=== PATIENT | male | born 1965 | race Caucasian/White ===

== ENCOUNTER 2016-12-28 00:38 | Inpatient (IN) | payer SELFPAY ==
[2016-12-28] VITALS (16 sets, daily range): BP systolic 106–133; BP diastolic 67–88
[~2016-12-28] VITALS: Ht 177.8 cm; Wt 68.6 kg
[2016-12-28] MEDS ORDERED: INFLUENZA VAX SCREEN BY RX. MC ONE (04:15)
[2016-12-28] MEDS ORDERED: PNEUMOCOCCAL VAX SCREEN BY RX. MC ONE (04:15)
[2016-12-28] MEDS ORDERED: DEXTROSE 5% IV ONE ×2 (05:30→23:00)
[2016-12-28] MEDS ORDERED: ACETYLCYSTEINE IV ONE ×2 (05:30→23:00)
[2016-12-28] MEDS: IV NORMAL SALINE 1000ML BAG 1,000 ML IV SCH ×3 (05:37→23:39)
[2016-12-28] MEDS ORDERED: SODIUM BICARB ADULT 8.4% 50 MEQ/50 ML DISP.SYRIN. IV ONE (06:00)
[2016-12-28] MEDS ORDERED: PHYSOSTIGMINE 2 MG/2 ML AMPUL. IV ONE (06:15)
--- NOTE | 2016-12-28 08:36 | PDOC1 ---
History and Physical Date of Admission Date of Admission DATE: 12/28/16 TIME: 08:27 Identification/Chief Complaint Chief Complaint unresponsive, overdose Problems: Source Source: Chart review History of Present Illness History of Present Illness found unresponsive at home, no note, but multiple pill bottles empty and in disarray, per report, he ingested, a bottle of whiskey, possibly cocaine, and an 2 bottle of benadryl, and one bottle of tylenol at least 80 of 500mg tablets of tylenol, no sure time of ingestion, but sometime yesterday, at least 40,000 mg acetominophen is estimated, and Dr. Hernandez last night estimated 80k mg this AM, he is easily startled, and was alarmed by my presence, calmed by the RN, he follows commands but does not talk Past Medical History Past Medical History unk Family History Family History: No Significant Social History ALCOHOL: heavy Drugs: Cocaine Current Medications Current Medications Current Medications Info (Do NOT chart on this placeholder) 1 each 1X ONCE MC ; Start 12/28/16 at 04:15; Stop 12/28/16 at 04:16; Status UNV Pneumococcal Polyvalent Vaccine (Do NOT chart on this placeholder) 1 each 1X ONCE MC ; Start 12/28/16 at 04:15; Stop 12/28/16 at 04:16; Status UNV Sodium Chloride 1,000 ml @ 100 mls/hr Q10H IV Last administered on 12/28/16 05:37; Start 12/28/16 at 05:00 Acetylcysteine 6.87 gm/Dextrose 1,034.35 ml @ 62.5 mls/ hr 1X ONCE IV Last administered on 12/28/16 05:36; Start 12/28/16 at 05:30; Stop 12/28/16 at 22 :02 Physostigmine Salicylate (Antilirium) 2 mg 1X ONCE IV ; Start 12/28/16 at 06: 15; Stop 12/28/16 at 06:16; Status DC Sodium Bicarbonate 50 meq 1X ONCE IV Last administered on 12/28/16 06:23; Start 12/28/16 at 06:00; Stop 12/28/16 at 06:02; Status DC Influenza Virus Vaccine Quadrival (Fluarix Quad [id number] Syringe) 0.5 ml ONCE ONCE VAX IM ; Start 12/28/16 at 09:00; Stop 12/28/16 at 09:01 Pneumococcal Polyvalent Vaccine (Pneumovax 23) 0.5 ml ONCE ONCE VAX IM ; Start 12/28/16 at 09:00; Stop 12/28/16 at 09:01 Allergies Allergies: Coded Allergies: No Known Drug Allergies (Unverified , 12/28/16) ROS Review of System unable, pt not verbal, only gives one word answer and not consistently Physical Exam General: Cooperative, moderate distress, Other (shaky, easily startled) HEENT: Atraumatic, PERRLA Lungs: Normal air movement Heart: S1S2, other (reg, tele) Abdomen: Soft Extremities: No clubbing, Normal pulses Skin: No breakdown Neuro: Other (shaky, asterixis, nystagmus, ) Psych/Mental Status: Other (odd affect, confused, ) Vitals Vitals Vital Signs Date Time Temp Pulse Resp B/P (MAP) Pulse Ox O2 Delivery O2 Flow Rate FiO2 12/28/16 08:00 98.5 103 18 133/84 (100) 100 Nasal Cannula 3.0 98.5 Labs Labs Laboratory Tests Test 12/28/16 05:35 Acetaminophen Level 167.2 mcg/ml (10-30) Acetaminophen Last Dose Date 12/27/16 Acetaminophen Last Dose Time 2100 Laboratory Tests Test 12/28/16 05:35 Acetaminophen Level 167.2 mcg/ml (10-30) Acetaminophen Last Dose Date 12/27/16 Acetaminophen Last Dose Time 2100 VTE Prophylaxis Ordered VTE Prophylaxis Devices: Yes VTE Pharmacological Prophylaxi: No Assessment/Plan Assessment/Plan acute toxic encephalopathy, sent by [place] [facility] intentional overdose of benadryl and acetominophen known, on N-actyl Cysteine gtt, on his third bag, his tylenol level keeps going up, will recheck with liver fxn Alcohol withdrawl treatmetn and banana bag ordered Neuro consult, pt is almost aphasic, and appears disoriented, is breathign well , and protecting airway dysphagia, he seemed to aspirate in the ER, hold feeds, speech therapy YADI CARLISLE MD Dec 28, 2016 08:36
[2016-12-28] MEDS ORDERED: PNEUMOC CONJ VACC 23-VALENT 0.5 ML VIAL. VAX IM ONE (09:00)
[2016-12-28] MEDS ORDERED: FLU VACC QS2017-18 (36MOS+)/PF 0.5 ML SYRINGE. VAX IM ONE (09:00)
[2016-12-28] MEDS: HALOPERIDOL LACTATE 5 MG/ML VIAL. IVP PRN ×2 (09:32→19:17)
[2016-12-28 09:33] LABS: BASO % 0 % (0-3); EOS % 0 % (0-3); HEMATOCRIT 43.5 % (39.0-53.0); HEMOGLOBIN 14.3 g/dL (13.0-17.5); LYMPH # 1.3 x10^3/uL (1.0-4.8); LYMPH % 7 % (24-48); MEAN CORPUSCULAR HEMOGLOBIN 31 pg (25-35); MEAN CORPUSCULAR HGB CONC 33 g/dL (31-37); MEAN CORPUSCULAR VOLUME 94 fL (79-100); MONO % 5 % (0-9); NEUT % 88 % (31-73); PLATELET COUNT 335 x10^3/uL (140-400); RED BLOOD COUNT 4.65 x10^6/uL (4.30-5.70); RED CELL DISTRIBUTION WIDTH 13.6 % (11.5-14.5); WHITE BLOOD COUNT 19.9 x10^3/uL (4.0-11.0)
[2016-12-28] MEDS: MULTIVIT INFUSN,ADULT 4,VIT K 10 ML, THIAMINE 100 MG, FOLIC ACID 1 MG in IV NORMAL SALI... IV SCH (09:34)
[2016-12-28 09:54] LABS: ALBUMIN 3.9 g/dL (3.4-5.0); ALBUMIN/GLOBULIN RATIO 1.1 (1.0-1.7); CALCIUM 8.7 mg/dL (8.5-10.1); CREATININE 0.8 mg/dL (0.7-1.3); GFR 102.7; POTASSIUM 3.1 mmol/L (3.5-5.1); TOTAL BILIRUBIN 1.1 mg/dL (0.2-1.0); TOTAL PROTEIN 7.4 g/dL (6.4-8.2)
[2016-12-28 10:04] LABS: INR 1.3 (0.8-1.1)
--- NOTE | 2016-12-28 11:09 | PDOC2 ---
GI CONSULT Reason For Consult: Tylenol overdose HPI: HPI: History from chart and staff. Pt asleep w/ Ativan on board, neuro following. Found at home unresponsive w/ pill bottles - Tylenol, Benadryl. Also whiskey and cocaine. Went to [facility], transferred here. Acetaminophen level >2000, ethyl alcohol 22, normal LFTs (now bili 1.1), INR 1.3. Now w/ leukocytosis. On acetylcysteine. PMH: PMH: substance abuse FH: Family History: Other (unable to obtain) Social History: ALCOHOL: heavy Drugs: Cocaine ROS: Unobtainable Vitals: Vitals: Vital Signs Date Time Temp Pulse Resp B/P (MAP) Pulse Ox O2 Delivery O2 Flow Rate FiO2 12/28/16 10:41 98.2 90 18 112/76 (88) 97 Nasal Cannula 3.0 98.2 Labs: Labs: Laboratory Tests Test 12/28/16 05:35 12/28/16 08:45 Acetaminophen Level 167.2 mcg/ml (10-30) 115.7 mcg/ml (10-30) Acetaminophen Last Dose Date 12/27/16 12/27/16 Acetaminophen Last Dose Time 2100 1600 White Blood Count 19.9 x10^3/uL (4.0-11.0) Red Blood Count 4.65 x10^6/uL (4.30-5.70) Hemoglobin 14.3 g/dL (13.0-17.5) Hematocrit 43.5 % (39.0-53.0) Mean Corpuscular Volume 94 fL (79-100) Mean Corpuscular Hemoglobin 31 pg (25-35) Mean Corpuscular Hemoglobin Concent 33 g/dL (31-37) Red Cell Distribution Width 13.6 % (11.5-14.5) Platelet Count 335 x10^3/uL (140-400) Neutrophils (%) (Auto) 88 % (31-73) Lymphocytes (%) (Auto) 7 % (24-48) Monocytes (%) (Auto) 5 % (0-9) Eosinophils (%) (Auto) 0 % (0-3) Basophils (%) (Auto) 0 % (0-3) Neutrophils # (Auto) 17.5 x10^3uL (1.8-7.7) Lymphocytes # (Auto) 1.3 x10^3/uL (1.0-4.8) Monocytes # (Auto) 1.1 x10^3/uL (0.0-1.1) Eosinophils # (Auto) 0.0 x10^3/uL (0.0-0.7) Basophils # (Auto) 0.0 x10^3/uL (0.0-0.2) Prothrombin Time 15.0 SEC (11.7-14.0) Prothromb Time International Ratio 1.3 (0.8-1.1) Sodium Level 141 mmol/L (136-145) Potassium Level 3.1 mmol/L (3.5-5.1) Chloride Level 103 mmol/L (98-107) Carbon Dioxide Level 25 mmol/L (21-32) Anion Gap 13 (6-14) Blood Urea Nitrogen 10 mg/dL (8-26) Creatinine 0.8 mg/dL (0.7-1.3) Estimated GFR (Cockcroft-Gault) 102.7 BUN/Creatinine Ratio 13 (6-20) Glucose Level 121 mg/dL (70-99) Calcium Level 8.7 mg/dL (8.5-10.1) Total Bilirubin 1.1 mg/dL (0.2-1.0) Gamma Glutamyl Transpeptidase 22 U/L (10-85) Aspartate Amino Transf (AST/SGOT) 22 U/L (15-37) Alanine Aminotransferase (ALT/SGPT) 20 U/L (16-63) Alkaline Phosphatase 68 U/L (46-116) Total Protein 7.4 g/dL (6.4-8.2) Albumin 3.9 g/dL (3.4-5.0) Albumin/Globulin Ratio 1.1 (1.0-1.7) Ethyl Alcohol Level < 10 mg/dL (0-10) Allergies: Coded Allergies: No Known Drug Allergies (Unverified , 12/28/16) Medications: Current Medications Medications (Trade) Dose Ordered Sig/Lisa Route PRN Reason Start Time Stop Time Status Last Admin Dose Admin Sodium Chloride 1,000 ml @ 100 mls/hr Q10H IV 12/28/16 05:00 12/28/16 05:37 Acetylcysteine 6.87 gm/Dextrose 1,034.35 ml @ 62.5 mls/ hr 1X ONCE IV 12/28/16 05:30 12/28/16 22:02 12/28/16 05:36 Physostigmine Salicylate (Antilirium) 2 mg 1X ONCE IV 12/28/16 06:15 12/28/16 06:16 DC 12/28/16 08:20 Sodium Bicarbonate 50 meq 1X ONCE IV 12/28/16 06:00 12/28/16 06:02 DC 12/28/16 06:23 Multivitamins 10 ml/Thiamine HCl 100 mg/Folic Acid 1 mg/Sodium Chloride 1,011.2 ml @ 100 mls/ hr DAILY IV 12/28/16 09:00 01/01/17 19:07 12/28/16 09:34 Lorazepam (Ativan) 4 mg PRN Q1HR PRN IV For CIWA 15 or greater 12/28/16 08:30 12/28/16 09:33 Haloperidol Lactate (Haldol) 5 mg PRN Q6HRS PRN IVP AGITATION 12/28/16 09:15 12/28/16 09:32 Imaging: Imaging: CT head WNL PE: GEN: NAD HEENT: Atraumatic LUNGS: CTAB HEART: tachycardic ABD: NABS, S/ND/NT EXTREMITY: No edema SKIN: No rashes, no jaundice NEURO/PSYCH: did not awaken during exam A/P: A/P: Overdose -Tylenol, Benadryl Alcohol abuse Encephalopathy Leukocytosis -- Continue acetylcysteine, monitor labs, withdrawal precautions. JEREMIE BEGR Dec 28, 2016 11:09
--- NOTE | 2016-12-28 12:35 | EKG ---
[facility] [address] [place] [address] Test Date: 2016-12-28 Test Time: 12:30:34 Pat Name: CHIN CONNER Department: Room: 110 1 Gender: M [employer] Agent: SAMINA : [id number] Requested By: YADI CARLISLE Order Number: [id number] Reading MD: David Ortiz MD Measurements Intervals [place] Rate: 88 P: 39 VT: 124 QRS: 69 QRSD: 90 T: 37 QT: 388 QTc: 473 Interpretive Statements SINUS RHYTHM Electronically Signed On 12-31-2016 14:14:37 TOP CUTTER by David Ortiz MD
[2016-12-28] MEDS ORDERED: MIRT30TA3 PO (13:14)
[2016-12-28] MEDS ORDERED: TRAM50TA PO (13:14)
[2016-12-28] MEDS ORDERED: AMIO200T2 PO (13:14)
[2016-12-28] MEDS ORDERED: ACET325T9 PO (13:14)
[2016-12-28] MEDS ORDERED: DEXA4TAB PO (13:14)
[2016-12-28] MEDS ORDERED: SERT25TA PO (13:14)
[2016-12-28] MEDS ORDERED: TIOT18CA IH (13:14)
[2016-12-28] MEDS ORDERED: ATOR40TA59 PO (13:14)
[2016-12-28] MEDS ORDERED: ALPR0.5T6 PO (13:14)
[2016-12-28] MEDS ORDERED: PROAIR HFA8.5 GM INH (13:14)
[2016-12-28] MEDS ORDERED: BUDE10.22 IH (13:14)
[2016-12-28] MEDS ORDERED: MONT10TA9 PO (13:14)
[2016-12-28] MEDS ORDERED: MELA3TAB2 PO (13:14)
[2016-12-28] MEDS ORDERED: OMEP20CA9 PO (13:14)
[2016-12-28] MEDS ORDERED: ROPI1TAB PO (13:14)
[2016-12-28] MEDS ORDERED: METO50TA6 PO (13:14)
[2016-12-28] MEDS ORDERED: HYDR-2762 PO (13:14)
[2016-12-28 13:17] LABS: PLT ESTIMATE ADEQUATE (ADEQUATE)
--- NOTE | 2016-12-28 13:46 | PDOC2 ---
NEUROLOGY CONSULT Date of Admission Date of Admission DATE: 12/28/16 TIME: 13:24 Reason for Consult Reason for Consult: IMPRESSION: Toxic encephalopathy. Metabolic encephalopathy. Multi-drug overdose, Tylenol, Benadryl, Whiskey, and possible cocaine. Lethargy. Restless. Substance and drug use/abuse. RECOMMENDATIONS/PLAN: Treat drug overdose medically. Keep good hydration. Continue Acetylcysteine. Monitoring cardiac and pulmonary function. Monitory bleeding. Monitoring hepatic function. EEG Lab: see orders. HCT w/o contrast on 12/27/16 in [facility] was negative w/o ICH. HISTORY OF THE PRESENT ILLNESS: 51-y-old male patient was found unresponsive at home with some empty bottles disarray. He was thought to overdose of several drugs including at least 80 pills of 500 mg Tylenol, and Benadryl, whiskey as well, also possible cocaine. No infarction is available for his ingestion. No suicidal notes found per reports. He was brought to [facility] and his HCT was negative. He was eventually transferred to ICU of [facility]. No clinical seizures observed so far. Past Medical and Surgical History Unknown. Family History Unknown. Social History ALCOHOL: heavy Drugs: Cocaine ALLERGY: Unknown MEDICATIONS: Refer to [facility] REVIEW OF SYSTEMS: Constitutional: No malnutrition, weight loss, cachexia. Head: No current traumatic brain or head injury. Skin: No edema, or rash. Ear: No infection. Eyes: Unknown. Nose: Unknown. Neck: No current injury. Cardiac: Unknown. Pulmonary: Unknown. GI: No GI ulcer, Unknown. Urinary/genital: Unknown. Endocrinologic: Unknown. Skeletomuscular: Unknown. Neurological: see HP. Psychiatric: substance and drug use/abuse. PHYSICAL EXAMINATION: General appearance is in acute distress. HEENT: Normocephalic and nontraumatic. Eyes, nose, ears, and throat are unremarkable. Neck is supple. No lymphadenopathy. No crepitus. Cardiovascular: S1, S2, regular rate and rhythm. Pulmonary: Mild difficult breathing. Abdomen: Bowel sounds are positive. Extremities: No rash, lesions, or edema. No restriction of range of motion NEUROLOGICAL EXAMINATION: Lethargic. Not oriented to time, place and person. PERRL, but pupil reaction was slow. EOMI not elicited. CN: no acute focal findings. Muscle tone: fluctuated. Muscle strength: minimal movements noted. DTR: 1-2 Plantar reflex: Neutral response bilaterally Gait: Unable to walk in this mentation. Sensory exam: minimal movements to stimuli. Not able to access cerebellar signs. F-T-N test not performed due to lethargy Current Medications Current Medications Current Medications Info (Do NOT chart on this placeholder) 1 each 1X ONCE MC ; Start 12/28/16 at 04:15; Stop 12/28/16 at 04:16; Status UNV Pneumococcal Polyvalent Vaccine (Do NOT chart on this placeholder) 1 each 1X ONCE MC ; Start 12/28/16 at 04:15; Stop 12/28/16 at 04:16; Status UNV Sodium Chloride 1,000 ml @ 100 mls/hr Q10H IV Last administered on 12/28/16 05:37; Start 12/28/16 at 05:00 Acetylcysteine 6.87 gm/Dextrose 1,034.35 ml @ 62.5 mls/ hr 1X ONCE IV Last administered on 12/28/16 05:36; Start 12/28/16 at 05:30; Stop 12/28/16 at 22 :02 Physostigmine Salicylate (Antilirium) 2 mg 1X ONCE IV Last administered on 08:20; Start 12/28/16 at 06:15; Stop 12/28/16 at 06:16; Status DC Sodium Bicarbonate 50 meq 1X ONCE IV Last administered on 12/28/16 06:23; Start 12/28/16 at 06:00; Stop 12/28/16 at 06:02; Status DC Influenza Virus Vaccine Quadrival (Fluarix Quad [id number] Syringe) 0.5 ml ONCE ONCE VAX IM ; Start 12/28/16 at 09:00; Stop 12/28/16 at 09:01; Status DC Pneumococcal Polyvalent Vaccine (Pneumovax 23) 0.5 ml ONCE ONCE VAX IM ; Start 12/28/16 at 09:00; Stop 12/28/16 at 09:01; Status DC Multivitamins 10 ml/Thiamine HCl 100 mg/Folic Acid 1 mg/Sodium Chloride 1,011.2 ml @ 100 mls/ hr DAILY IV Last administered on 12/28/16 09:34; Start at 09:00; Stop 01/01/17 at 19:07 Lorazepam (Ativan) 2 mg PRN Q1HR PRN IV For CIWA 8-14; Start 12/28/16 at 08:30 Lorazepam (Ativan) 4 mg PRN Q1HR PRN IV For CIWA 15 or greater Last administered on 12/28/16 09:33; Start 12/28/16 at 08:30 Haloperidol Lactate (Haldol) 5 mg PRN Q6HRS PRN IVP AGITATION Last administered on 12/28/16 09:32; Start 12/28/16 at 09:15 Active Scripts Active Reported Requip (Ropinirole Hcl) 1 Mg Tablet 2 Mg PO QHS Mirtazapine 30 Mg Tablet 0.5 Tab PO QHS Proair Hfa Inhaler (Albuterol Sulfate) 8.5 Gm Hfa.aer.ad 1-2 Puff INH PRN Q6HRS PRN Spiriva (Tiotropium Valencia) 18 Mcg Cap.w.dev 2 Inh IH DAILY Spiriva (Tiotropium Valencia) 18 Mcg Cap.w.dev 1 Cap IH DAILY Omeprazole 20 Mg Capsule.dr 1 Cap PO DAILY Dexamethasone 4 Mg Tablet 1 Tab PO QID Symbicort 80-4.5 Mcg Inhaler (Budesonide/Formoterol Fumarate) 10.2 Gm Hfa.aer.ad 2 Puff IH BID Alprazolam 0.5 Mg Tablet 1 Tab PO QAM Metoprolol Tartrate 50 Mg Tablet 0.5 Tab PO BID Amiodarone Hcl 200 Mg Tablet 1 Tab PO DAILY Tylenol (Acetaminophen) 325 Mg Tablet 2 Tab PO PRN Q6HRS PRN Melatonin 3 Mg Tablet 2 Tab PO QHS Montelukast Sodium Tablet (Montelukast Sodium) 10 Mg Tablet 1 Tab PO DAILY Atorvastatin Calcium 40 Mg Tablet 1 Tab PO QHS Tramadol Hcl 50 Mg Tablet 50 Mg PO Q6H PRN Hydrocodone-Apap 7.5-325 (Hydrocodone Bit/Acetaminophen) 1 Each Tablet 1 Tab PO PRN Q6HRS PRN Zoloft (Sertraline Hcl) 25 Mg Tablet 1 Tab PO DAILY Allergies Allergies: Coded Allergies: No Known Drug Allergies (Unverified , 12/28/16) Vitals VITALS Vital Signs Date Time Temp Pulse Resp B/P (MAP) Pulse Ox O2 Delivery O2 Flow Rate FiO2 12/28/16 13:15 99.0 89 18 126/81 (96) 98 Nasal Cannula 3.0 99.0 Labs Labs Laboratory Tests Test 12/28/16 05:35 12/28/16 08:45 Acetaminophen Level 167.2 mcg/ml (10-30) 115.7 mcg/ml (10-30) Acetaminophen Last Dose Date 12/27/16 12/27/16 Acetaminophen Last Dose Time 2100 1600 White Blood Count 19.9 x10^3/uL (4.0-11.0) Red Blood Count 4.65 x10^6/uL (4.30-5.70) Hemoglobin 14.3 g/dL (13.0-17.5) Hematocrit 43.5 % (39.0-53.0) Mean Corpuscular Volume 94 fL (79-100) Mean Corpuscular Hemoglobin 31 pg (25-35) Mean Corpuscular Hemoglobin Concent 33 g/dL (31-37) Red Cell Distribution Width 13.6 % (11.5-14.5) Platelet Count 335 x10^3/uL (140-400) Neutrophils (%) (Auto) 88 % (31-73) Lymphocytes (%) (Auto) 7 % (24-48) Monocytes (%) (Auto) 5 % (0-9) Eosinophils (%) (Auto) 0 % (0-3) Basophils (%) (Auto) 0 % (0-3) Neutrophils # (Auto) 17.5 x10^3uL (1.8-7.7) Lymphocytes # (Auto) 1.3 x10^3/uL (1.0-4.8) Monocytes # (Auto) 1.1 x10^3/uL (0.0-1.1) Eosinophils # (Auto) 0.0 x10^3/uL (0.0-0.7) Basophils # (Auto) 0.0 x10^3/uL (0.0-0.2) Segmented Neutrophils % 85 % (35-66) Band Neutrophils % 3 % (0-9) Lymphocytes % 5 % (24-48) Monocytes % 7 % (0-10) Platelet Estimate Adequate (ADEQUATE) Prothrombin Time 15.0 SEC (11.7-14.0) Prothromb Time International Ratio 1.3 (0.8-1.1) Sodium Level 141 mmol/L (136-145) Potassium Level 3.1 mmol/L (3.5-5.1) Chloride Level 103 mmol/L (98-107) Carbon Dioxide Level 25 mmol/L (21-32) Anion Gap 13 (6-14) Blood Urea Nitrogen 10 mg/dL (8-26) Creatinine 0.8 mg/dL (0.7-1.3) Estimated GFR (Cockcroft-Gault) 102.7 BUN/Creatinine Ratio 13 (6-20) Glucose Level 121 mg/dL (70-99) Calcium Level 8.7 mg/dL (8.5-10.1) Total Bilirubin 1.1 mg/dL (0.2-1.0) Gamma Glutamyl Transpeptidase 22 U/L (10-85) Aspartate Amino Transf (AST/SGOT) 22 U/L (15-37) Alanine Aminotransferase (ALT/SGPT) 20 U/L (16-63) Alkaline Phosphatase 68 U/L (46-116) Total Protein 7.4 g/dL (6.4-8.2) Albumin 3.9 g/dL (3.4-5.0) Albumin/Globulin Ratio 1.1 (1.0-1.7) Ethyl Alcohol Level < 10 mg/dL (0-10) Laboratory Tests Test 12/28/16 05:35 12/28/16 08:45 Acetaminophen Level 167.2 mcg/ml (10-30) 115.7 mcg/ml (10-30) Acetaminophen Last Dose Date 12/27/16 12/27/16 Acetaminophen Last Dose Time 2100 1600 White Blood Count 19.9 x10^3/uL (4.0-11.0) Red Blood Count 4.65 x10^6/uL (4.30-5.70) Hemoglobin 14.3 g/dL (13.0-17.5) Hematocrit 43.5 % (39.0-53.0) Mean Corpuscular Volume 94 fL (79-100) Mean Corpuscular Hemoglobin 31 pg (25-35) Mean Corpuscular Hemoglobin Concent 33 g/dL (31-37) Red Cell Distribution Width 13.6 % (11.5-14.5) Platelet Count 335 x10^3/uL (140-400) Neutrophils (%) (Auto) 88 % (31-73) Lymphocytes (%) (Auto) 7 % (24-48) Monocytes (%) (Auto) 5 % (0-9) Eosinophils (%) (Auto) 0 % (0-3) Basophils (%) (Auto) 0 % (0-3) Neutrophils # (Auto) 17.5 x10^3uL (1.8-7.7) Lymphocytes # (Auto) 1.3 x10^3/uL (1.0-4.8) Monocytes # (Auto) 1.1 x10^3/uL (0.0-1.1) Eosinophils # (Auto) 0.0 x10^3/uL (0.0-0.7) Basophils # (Auto) 0.0 x10^3/uL (0.0-0.2) Segmented Neutrophils % 85 % (35-66) Band Neutrophils % 3 % (0-9) Lymphocytes % 5 % (24-48) Monocytes % 7 % (0-10) Platelet Estimate Adequate (ADEQUATE) Prothrombin Time 15.0 SEC (11.7-14.0) Prothromb Time International Ratio 1.3 (0.8-1.1) Sodium Level 141 mmol/L (136-145) Potassium Level 3.1 mmol/L (3.5-5.1) Chloride Level 103 mmol/L (98-107) Carbon Dioxide Level 25 mmol/L (21-32) Anion Gap 13 (6-14) Blood Urea Nitrogen 10 mg/dL (8-26) Creatinine 0.8 mg/dL (0.7-1.3) Estimated GFR (Cockcroft-Gault) 102.7 BUN/Creatinine Ratio 13 (6-20) Glucose Level 121 mg/dL (70-99) Calcium Level 8.7 mg/dL (8.5-10.1) Total Bilirubin 1.1 mg/dL (0.2-1.0) Gamma Glutamyl Transpeptidase 22 U/L (10-85) Aspartate Amino Transf (AST/SGOT) 22 U/L (15-37) Alanine Aminotransferase (ALT/SGPT) 20 U/L (16-63) Alkaline Phosphatase 68 U/L (46-116) Total Protein 7.4 g/dL (6.4-8.2) Albumin 3.9 g/dL (3.4-5.0) Albumin/Globulin Ratio 1.1 (1.0-1.7) Ethyl Alcohol Level < 10 mg/dL (0-10) DOUGLAS GARDUNO MD Dec 28, 2016 13:46
[2016-12-28 13:56] LABS: BARBITURATES NEG (NEG); BENZODIAZEPINES NEG (NEG); CANNABINOIDS NEG (NEG); COCAINE POS (NEG); METHADONE NEG (NEG); OPIATES NEG (NEG); PHENCYCLIDINE NEG (NEG)
[2016-12-28] MEDS: ENOXAPARIN 40 MG/0.4 ML SYRINGE. SQ SCH (19:50)
[2016-12-29] VITALS (23 sets, daily range): BP systolic 75–154; BP diastolic 56–86
[2016-12-29] MEDS: HALOPERIDOL LACTATE 5 MG/ML VIAL. IVP PRN (01:00)
[2016-12-29 04:32] LABS: HCO3 ABG 23 mmol/L (21-28); PCO2 ABG 43 mmHg (35-46); PH ABG 7.34 (7.35-7.45); PO2 ABG 44 mmHg (75-108); SAT O2 ABG 80 % (92-99)
[2016-12-29 04:33] LABS: FIO2 ABG 100
[2016-12-29] MEDS ORDERED: ROCURONIUM 50 MG/5 ML VIAL. ONE ×2 (05:20)
[2016-12-29] MEDS ORDERED: SUCCINYLCHOLINE 200 MG/10 ML VIAL. ONE (05:21)
[2016-12-29] MEDS ORDERED: PROPOFOL 20 ML IV ONE (05:22)
[2016-12-29 05:32] LABS: BASO # 0.1 x10^3/uL (0.0-0.2); BASO % 0 % (0-3); EOS % 0 % (0-3); HEMATOCRIT 47.6 % (39.0-53.0); HEMOGLOBIN 15.5 g/dL (13.0-17.5); LYMPH # 1.5 x10^3/uL (1.0-4.8); LYMPH % 8 % (24-48); MEAN CORPUSCULAR HEMOGLOBIN 30 pg (25-35); MEAN CORPUSCULAR HGB CONC 33 g/dL (31-37); MEAN CORPUSCULAR VOLUME 93 fL (79-100); MONO % 4 % (0-9); NEUT % 88 % (31-73); PLATELET COUNT 320 x10^3/uL (140-400); WHITE BLOOD COUNT 20.3 x10^3/uL (4.0-11.0)
[2016-12-29 05:36] LABS: INR 1.6 (0.8-1.1); PROTHROMBIN TIME PATIENT 18.4 SEC (11.7-14.0)
[2016-12-29] MEDS: PROPOFOL 100 ML IV PRN ×2 (05:55→13:35)
[2016-12-29] MEDS: IV NORMAL SALINE 1000ML BAG 1,000 ML IV SCH (05:56)
[2016-12-29 05:57] LABS: ALBUMIN 3.4 g/dL (3.4-5.0); ALBUMIN/GLOBULIN RATIO 1.3 (1.0-1.7); CALCIUM 8.4 mg/dL (8.5-10.1); CREATININE 0.6 mg/dL (0.7-1.3); GFR 143.2; POTASSIUM 3.2 mmol/L (3.5-5.1); TOTAL BILIRUBIN 1.4 mg/dL (0.2-1.0); TOTAL PROTEIN 6.1 g/dL (6.4-8.2)
--- NOTE | 2016-12-29 06:09 | RAD ---
Chest radiograph 12/29/2016 5:45 AM INDICATION: ETT/NG placement COMPARISON: None available TECHNIQUE: Supine frontal view of the chest is provided. FINDINGS: The cardiomediastinal silhouette is within normal limits. Supine technique limits evaluation for pneumothorax. Bilateral perihilar coarse interstitial and alveolar airspace disease is present. There is a probable left pleural effusion which is layering posteriorly. Suspect a 10 mm nodular density in the right upper lobe. Endotracheal tube terminates 2.5 cm above the level of the shantell. Side port of the nasogastric tube projects over the gastric lumen. No significant osseous abnormality is identified. IMPRESSION: 1. Endotracheal tube terminates 2.5 cm above the level of the shantell. Side port of the nasogastric tube projects over the gastric lumen. 2. Bilateral perihilar airspace disease may be seen in the setting of bilateral infiltrates versus pulmonary edema versus pulmonary hemorrhage. 3. Suspect a small to moderate left pleural effusion. Short-term follow-up upright chest radiograph may be of benefit. Electronically signed by: Aubree Bray MD (12/29/2016 6:06 AM) [id number]
[2016-12-29 08:38] LABS: HCO3 ABG 23 mmol/L (21-28); PCO2 ABG 43 mmHg (35-46); PH ABG 7.36 (7.35-7.45); PO2 ABG 90 mmHg (75-108); SAT O2 ABG 97 % (92-99)
[2016-12-29 08:40] LABS: FIO2 ABG 60
[2016-12-29] MEDS ORDERED: LORazepam 100 MG in IV NORMAL SALINE 100ML 50 ML IV PRN (08:45)
[2016-12-29] MEDS: MULTIVIT INFUSN,ADULT 4,VIT K 10 ML, THIAMINE 100 MG, FOLIC ACID 1 MG in IV NORMAL SALI... IV SCH (09:01)
[2016-12-29] MEDS: AMINO AC 3%/ELECTROLYTE/GLYCER 1,000 ML IV SCH ×2 (09:02→21:15)
--- NOTE | 2016-12-29 09:37 | PDOC ---
PROGRESS NOTES Chief Complaint Chief Complaint acute toxic encephalopathy, acute hypoxic respiratory failure, aspiration pneumonitis, intentional overdose of benadryl and acetominophen known, on 4th N-actyl Cysteine gtt, will stop after this one, tylenol level now normal\ Alcohol abuse, and withdrawl treatment and banana bag ordered, cocaine abuse before admit, encephalopathy was POA, he wa s almost aphasic, and disoriented, dysphagia, he seemed to aspirate in the ER, History of Present Illness History of Present Illness intubated overnight, sputum suctioned, cx sent PULM consult OG tube feeds to start tylenol level now better prognosis poor, liver function has changed, INR now 1.6, ALT up today, will follow daily Vitals Vitals Vital Signs Date Time Temp Pulse Resp B/P (MAP) Pulse Ox O2 Delivery O2 Flow Rate FiO2 12/29/16 07:56 99.7 122 26 110/73 (85) 95 Ventilator 15.0 99.7 Physical Exam General: Cooperative, moderate distress, Other (shaky, easily startled) Abdomen: Soft Extremities: No clubbing, Normal pulses Skin: No breakdown Labs LABS Laboratory Tests Test 12/28/16 12:45 12/28/16 13:15 12/28/16 18:30 12/29/16 00:35 Urine Opiates Screen Neg (NEG) Urine Methadone Screen Neg (NEG) Urine Barbiturates Neg (NEG) Urine Phencyclidine Screen Neg (NEG) Urine Amphetamine/Methamphetamine Neg (NEG) Urine Benzodiazepines Screen Neg (NEG) Urine Cocaine Screen Pos (NEG) Urine Cannabinoids Screen Neg (NEG) Urine Ethyl Alcohol Neg (NEG) Acetaminophen Level 81.13 mcg/ml (10-30) 37.8 mcg/ml (10-30) 17.5 mcg/ml (10-30) Acetaminophen Last Dose Date 12/27/16 12/27/16 Unk Acetaminophen Last Dose Time 1800 1800 Unk Test 12/29/16 04:23 12/29/16 05:00 12/29/16 08:39 O2 Saturation 80 % (92-99) 97 % (92-99) Arterial Blood pH 7.34 (7.35-7.45) 7.36 (7.35-7.45) Arterial Blood pCO2 at Patient Temp 43 mmHg (35-46) 43 mmHg (35-46) Arterial Blood pO2 at Patient Temp 44 mmHg (75-108) 90 mmHg (75-108) Arterial Blood HCO3 23 mmol/L (21-28) 23 mmol/L (21-28) Arterial Blood Base Excess -3 mmol/L (-3-3) -2 mmol/L (-3-3) FiO2 100 60 White Blood Count 20.3 x10^3/uL (4.0-11.0) Red Blood Count 5.10 x10^6/uL (4.30-5.70) Hemoglobin 15.5 g/dL (13.0-17.5) Hematocrit 47.6 % (39.0-53.0) Mean Corpuscular Volume 93 fL (79-100) Mean Corpuscular Hemoglobin 30 pg (25-35) Mean Corpuscular Hemoglobin Concent 33 g/dL (31-37) Red Cell Distribution Width 14.0 % (11.5-14.5) Platelet Count 320 x10^3/uL (140-400) Neutrophils (%) (Auto) 88 % (31-73) Lymphocytes (%) (Auto) 8 % (24-48) Monocytes (%) (Auto) 4 % (0-9) Eosinophils (%) (Auto) 0 % (0-3) Basophils (%) (Auto) 0 % (0-3) Neutrophils # (Auto) 17.8 x10^3uL (1.8-7.7) Lymphocytes # (Auto) 1.5 x10^3/uL (1.0-4.8) Monocytes # (Auto) 0.8 x10^3/uL (0.0-1.1) Eosinophils # (Auto) 0.0 x10^3/uL (0.0-0.7) Basophils # (Auto) 0.1 x10^3/uL (0.0-0.2) Prothrombin Time 18.4 SEC (11.7-14.0) Prothromb Time International Ratio 1.6 (0.8-1.1) Sodium Level 138 mmol/L (136-145) Potassium Level 3.2 mmol/L (3.5-5.1) Chloride Level 104 mmol/L (98-107) Carbon Dioxide Level 17 mmol/L (21-32) Anion Gap 17 (6-14) Blood Urea Nitrogen 12 mg/dL (8-26) Creatinine 0.6 mg/dL (0.7-1.3) Estimated GFR (Cockcroft-Gault) 143.2 BUN/Creatinine Ratio 20 (6-20) Glucose Level 84 mg/dL (70-99) Calcium Level 8.4 mg/dL (8.5-10.1) Total Bilirubin 1.4 mg/dL (0.2-1.0) Aspartate Amino Transf (AST/SGOT) 5 U/L (15-37) Alanine Aminotransferase (ALT/SGPT) 113 U/L (16-63) Alkaline Phosphatase 68 U/L (46-116) Total Protein 6.1 g/dL (6.4-8.2) Albumin 3.4 g/dL (3.4-5.0) Albumin/Globulin Ratio 1.3 (1.0-1.7) Acetaminophen Level 19.5 mcg/ml (10-30) Acetaminophen Last Dose Date Unknown Acetaminophen Last Dose Time Unknown Review of Systems Review of Systems unable Assessment and Plan Assessmemt and Plan crititcal ill Problems: Comment Review of Relevant I have reviewed the following items jessa (where applicable) has been applied. Labs Laboratory Tests Test 12/28/16 03:45 12/28/16 05:35 12/28/16 08:45 12/28/16 12:45 Nasal Screen MRSA (PCR) Negative (Negative) Acetaminophen Level 167.2 mcg/ml (10-30) 115.7 mcg/ml (10-30) Acetaminophen Last Dose Date 12/27/16 12/27/16 Acetaminophen Last Dose Time 2100 1600 White Blood Count 19.9 x10^3/uL (4.0-11.0) Red Blood Count 4.65 x10^6/uL (4.30-5.70) Hemoglobin 14.3 g/dL (13.0-17.5) Hematocrit 43.5 % (39.0-53.0) Mean Corpuscular Volume 94 fL (79-100) Mean Corpuscular Hemoglobin 31 pg (25-35) Mean Corpuscular Hemoglobin Concent 33 g/dL (31-37) Red Cell Distribution Width 13.6 % (11.5-14.5) Platelet Count 335 x10^3/uL (140-400) Neutrophils (%) (Auto) 88 % (31-73) Lymphocytes (%) (Auto) 7 % (24-48) Monocytes (%) (Auto) 5 % (0-9) Eosinophils (%) (Auto) 0 % (0-3) Basophils (%) (Auto) 0 % (0-3) Neutrophils # (Auto) 17.5 x10^3uL (1.8-7.7) Lymphocytes # (Auto) 1.3 x10^3/uL (1.0-4.8) Monocytes # (Auto) 1.1 x10^3/uL (0.0-1.1) Eosinophils # (Auto) 0.0 x10^3/uL (0.0-0.7) Basophils # (Auto) 0.0 x10^3/uL (0.0-0.2) Segmented Neutrophils % 85 % (35-66) Band Neutrophils % 3 % (0-9) Lymphocytes % 5 % (24-48) Monocytes % 7 % (0-10) Platelet Estimate Adequate (ADEQUATE) Prothrombin Time 15.0 SEC (11.7-14.0) Prothromb Time International Ratio 1.3 (0.8-1.1) Sodium Level 141 mmol/L (136-145) Potassium Level 3.1 mmol/L (3.5-5.1) Chloride Level 103 mmol/L (98-107) Carbon Dioxide Level 25 mmol/L (21-32) Anion Gap 13 (6-14) Blood Urea Nitrogen 10 mg/dL (8-26) Creatinine 0.8 mg/dL (0.7-1.3) Estimated GFR (Cockcroft-Gault) 102.7 BUN/Creatinine Ratio 13 (6-20) Glucose Level 121 mg/dL (70-99) Calcium Level 8.7 mg/dL (8.5-10.1) Total Bilirubin 1.1 mg/dL (0.2-1.0) Gamma Glutamyl Transpeptidase 22 U/L (10-85) Aspartate Amino Transf (AST/SGOT) 22 U/L (15-37) Alanine Aminotransferase (ALT/SGPT) 20 U/L (16-63) Alkaline Phosphatase 68 U/L (46-116) Total Protein 7.4 g/dL (6.4-8.2) Albumin 3.9 g/dL (3.4-5.0) Albumin/Globulin Ratio 1.1 (1.0-1.7) Ethyl Alcohol Level < 10 mg/dL (0-10) Urine Opiates Screen Neg (NEG) Urine Methadone Screen Neg (NEG) Urine Barbiturates Neg (NEG) Urine Phencyclidine Screen Neg (NEG) Urine Amphetamine/Methamphetamine Neg (NEG) Urine Benzodiazepines Screen Neg (NEG) Urine Cocaine Screen Pos (NEG) Urine Cannabinoids Screen Neg (NEG) Urine Ethyl Alcohol Neg (NEG) Test 12/28/16 13:15 12/28/16 18:30 12/29/16 00:35 12/29/16 04:23 Acetaminophen Level 81.13 mcg/ml (10-30) 37.8 mcg/ml (10-30) 17.5 mcg/ml (10-30) Acetaminophen Last Dose Date 12/27/16 12/27/16 Unk Acetaminophen Last Dose Time 1800 1800 Unk O2 Saturation 80 % (92-99) Arterial Blood pH 7.34 (7.35-7.45) Arterial Blood pCO2 at Patient Temp 43 mmHg (35-46) Arterial Blood pO2 at Patient Temp 44 mmHg (75-108) Arterial Blood HCO3 23 mmol/L (21-28) Arterial Blood Base Excess -3 mmol/L (-3-3) FiO2 100 Test 12/29/16 05:00 12/29/16 08:39 White Blood Count 20.3 x10^3/uL (4.0-11.0) Red Blood Count 5.10 x10^6/uL (4.30-5.70) Hemoglobin 15.5 g/dL (13.0-17.5) Hematocrit 47.6 % (39.0-53.0) Mean Corpuscular Volume 93 fL (79-100) Mean Corpuscular Hemoglobin 30 pg (25-35) Mean Corpuscular Hemoglobin Concent 33 g/dL (31-37) Red Cell Distribution Width 14.0 % (11.5-14.5) Platelet Count 320 x10^3/uL (140-400) Neutrophils (%) (Auto) 88 % (31-73) Lymphocytes (%) (Auto) 8 % (24-48) Monocytes (%) (Auto) 4 % (0-9) Eosinophils (%) (Auto) 0 % (0-3) Basophils (%) (Auto) 0 % (0-3) Neutrophils # (Auto) 17.8 x10^3uL (1.8-7.7) Lymphocytes # (Auto) 1.5 x10^3/uL (1.0-4.8) Monocytes # (Auto) 0.8 x10^3/uL (0.0-1.1) Eosinophils # (Auto) 0.0 x10^3/uL (0.0-0.7) Basophils # (Auto) 0.1 x10^3/uL (0.0-0.2) Prothrombin Time 18.4 SEC (11.7-14.0) Prothromb Time International Ratio 1.6 (0.8-1.1) Sodium Level 138 mmol/L (136-145) Potassium Level 3.2 mmol/L (3.5-5.1) Chloride Level 104 mmol/L (98-107) Carbon Dioxide Level 17 mmol/L (21-32) Anion Gap 17 (6-14) Blood Urea Nitrogen 12 mg/dL (8-26) Creatinine 0.6 mg/dL (0.7-1.3) Estimated GFR (Cockcroft-Gault) 143.2 BUN/Creatinine Ratio 20 (6-20) Glucose Level 84 mg/dL (70-99) Calcium Level 8.4 mg/dL (8.5-10.1) Total Bilirubin 1.4 mg/dL (0.2-1.0) Aspartate Amino Transf (AST/SGOT) 5 U/L (15-37) Alanine Aminotransferase (ALT/SGPT) 113 U/L (16-63) Alkaline Phosphatase 68 U/L (46-116) Total Protein 6.1 g/dL (6.4-8.2) Albumin 3.4 g/dL (3.4-5.0) Albumin/Globulin Ratio 1.3 (1.0-1.7) Acetaminophen Level 19.5 mcg/ml (10-30) Acetaminophen Last Dose Date Unknown Acetaminophen Last Dose Time Unknown O2 Saturation 97 % (92-99) Arterial Blood pH 7.36 (7.35-7.45) Arterial Blood pCO2 at Patient Temp 43 mmHg (35-46) Arterial Blood pO2 at Patient Temp 90 mmHg (75-108) Arterial Blood HCO3 23 mmol/L (21-28) Arterial Blood Base Excess -2 mmol/L (-3-3) FiO2 60 Laboratory Tests Test 12/28/16 12:45 12/28/16 13:15 12/28/16 18:30 12/29/16 00:35 Urine Opiates Screen Neg (NEG) Urine Methadone Screen Neg (NEG) Urine Barbiturates Neg (NEG) Urine Phencyclidine Screen Neg (NEG) Urine Amphetamine/Methamphetamine Neg (NEG) Urine Benzodiazepines Screen Neg (NEG) Urine Cocaine Screen Pos (NEG) Urine Cannabinoids Screen Neg (NEG) Urine Ethyl Alcohol Neg (NEG) Acetaminophen Level 81.13 mcg/ml (10-30) 37.8 mcg/ml (10-30) 17.5 mcg/ml (10-30) Acetaminophen Last Dose Date 12/27/16 12/27/16 Unk Acetaminophen Last Dose Time 1800 1800 Unk Test 12/29/16 04:23 12/29/16 05:00 12/29/16 08:39 O2 Saturation 80 % (92-99) 97 % (92-99) Arterial Blood pH 7.34 (7.35-7.45) 7.36 (7.35-7.45) Arterial Blood pCO2 at Patient Temp 43 mmHg (35-46) 43 mmHg (35-46) Arterial Blood pO2 at Patient Temp 44 mmHg (75-108) 90 mmHg (75-108) Arterial Blood HCO3 23 mmol/L (21-28) 23 mmol/L (21-28) Arterial Blood Base Excess -3 mmol/L (-3-3) -2 mmol/L (-3-3) FiO2 100 60 White Blood Count 20.3 x10^3/uL (4.0-11.0) Red Blood Count 5.10 x10^6/uL (4.30-5.70) Hemoglobin 15.5 g/dL (13.0-17.5) Hematocrit 47.6 % (39.0-53.0) Mean Corpuscular Volume 93 fL (79-100) Mean Corpuscular Hemoglobin 30 pg (25-35) Mean Corpuscular Hemoglobin Concent 33 g/dL (31-37) Red Cell Distribution Width 14.0 % (11.5-14.5) Platelet Count 320 x10^3/uL (140-400) Neutrophils (%) (Auto) 88 % (31-73) Lymphocytes (%) (Auto) 8 % (24-48) Monocytes (%) (Auto) 4 % (0-9) Eosinophils (%) (Auto) 0 % (0-3) Basophils (%) (Auto) 0 % (0-3) Neutrophils # (Auto) 17.8 x10^3uL (1.8-7.7) Lymphocytes # (Auto) 1.5 x10^3/uL (1.0-4.8) Monocytes # (Auto) 0.8 x10^3/uL (0.0-1.1) Eosinophils # (Auto) 0.0 x10^3/uL (0.0-0.7) Basophils # (Auto) 0.1 x10^3/uL (0.0-0.2) Prothrombin Time 18.4 SEC (11.7-14.0) Prothromb Time International Ratio 1.6 (0.8-1.1) Sodium Level 138 mmol/L (136-145) Potassium Level 3.2 mmol/L (3.5-5.1) Chloride Level 104 mmol/L (98-107) Carbon Dioxide Level 17 mmol/L (21-32) Anion Gap 17 (6-14) Blood Urea Nitrogen 12 mg/dL (8-26) Creatinine 0.6 mg/dL (0.7-1.3) Estimated GFR (Cockcroft-Gault) 143.2 BUN/Creatinine Ratio 20 (6-20) Glucose Level 84 mg/dL (70-99) Calcium Level 8.4 mg/dL (8.5-10.1) Total Bilirubin 1.4 mg/dL (0.2-1.0) Aspartate Amino Transf (AST/SGOT) 5 U/L (15-37) Alanine Aminotransferase (ALT/SGPT) 113 U/L (16-63) Alkaline Phosphatase 68 U/L (46-116) Total Protein 6.1 g/dL (6.4-8.2) Albumin 3.4 g/dL (3.4-5.0) Albumin/Globulin Ratio 1.3 (1.0-1.7) Acetaminophen Level 19.5 mcg/ml (10-30) Acetaminophen Last Dose Date Unknown Acetaminophen Last Dose Time Unknown Medications Current Medications Info (Do NOT chart on this placeholder) 1 each 1X ONCE MC ; Start 12/28/16 at 04:15; Stop 12/28/16 at 04:16; Status UNV Pneumococcal Polyvalent Vaccine (Do NOT chart on this placeholder) 1 each 1X ONCE MC ; Start 12/28/16 at 04:15; Stop 12/28/16 at 04:16; Status UNV Sodium Chloride 1,000 ml @ 100 mls/hr Q10H IV Last administered on 12/29/16 05:56; Start 12/28/16 at 05:00; Stop 12/29/16 at 08:37; Status DC Acetylcysteine 6.87 gm/Dextrose 1,034.35 ml @ 62.5 mls/ hr 1X ONCE IV Last administered on 12/28/16 05:36; Start 12/28/16 at 05:30; Stop 12/28/16 at 22 :02; Status DC Physostigmine Salicylate (Antilirium) 2 mg 1X ONCE IV Last administered on 08:20; Start 12/28/16 at 06:15; Stop 12/28/16 at 06:16; Status DC Sodium Bicarbonate 50 meq 1X ONCE IV Last administered on 12/28/16 06:23; Start 12/28/16 at 06:00; Stop 12/28/16 at 06:02; Status DC Influenza Virus Vaccine Quadrival (Fluarix Quad 4507-2914 Syringe) 0.5 ml ONCE ONCE VAX IM ; Start 12/28/16 at 09:00; Stop 12/28/16 at 09:01; Status DC Pneumococcal Polyvalent Vaccine (Pneumovax 23) 0.5 ml ONCE ONCE VAX IM ; Start 12/28/16 at 09:00; Stop 12/28/16 at 09:01; Status DC Multivitamins 10 ml/Thiamine HCl 100 mg/Folic Acid 1 mg/Sodium Chloride 1,011.2 ml @ 100 mls/ hr DAILY IV Last administered on 12/29/16 09:01; Start at 09:00; Stop 01/01/17 at 19:07 Lorazepam (Ativan) 2 mg PRN Q1HR PRN IV For CIWA 8-14 Last administered on 01:12; Start 12/28/16 at 08:30 Lorazepam (Ativan) 4 mg PRN Q1HR PRN IV For CIWA 15 or greater Last administered on 12/29/16 04:11; Start 12/28/16 at 08:30 Haloperidol Lactate (Haldol) 5 mg PRN Q6HRS PRN IVP AGITATION Last administered on 12/29/16 01:00; Start 12/28/16 at 09:15 Enoxaparin Sodium (Lovenox Per Pharmacy Prophylaxis Dosing) 1 each PRN DAILY PRN MC SEE COMMENTS; Start 12/28/16 at 13:45 Enoxaparin Sodium (Lovenox 40mg Syringe) 40 mg Q24H SQ Last administered on 19:50; Start 12/28/16 at 14:00 Acetylcysteine 6.9 gm/Dextrose 1,034.5 ml @ 62.509 mls/hr 1X ONCE IV Last administered on 12/28/16 22:43; Start 12/28/16 at 23:00; Stop 12/29/16 at 15 :32 Lorazepam (Ativan) 2 mg 1X ONCE IV Last administered on 12/29/16 01:35; Start 12/29/16 at 01:45; Stop 12/29/16 at 01:46; Status DC Propofol 100 ml @ 0 mls/hr CONT PRN IV SEE I/O RECORD Last administered on 05:55; Start 12/29/16 at 05:00 Rocuronium [place] (Zemuron) 50 mg STK-MED ONCE .ROUTE ; Start 12/29/16 at 05: 20; Stop 12/29/16 at 05:21; Status DC Succinylcholine Chloride (Anectine) 200 mg STK-MED ONCE .ROUTE ; Start at 05:21; Stop 12/29/16 at 05:22; Status DC Propofol 20 ml @ As Directed STK-MED ONCE IV ; Start 12/29/16 at 05:22; Stop 12/29/16 at 05:23; Status DC Amino Acids/ Glycerin/ Electrolytes 1,000 ml @ 80 mls/hr [id number] IV Last administered on 12/29/16 09:02; Start 12/29/16 at 08:45 Lorazepam (Ativan) 4 mg PRN Q4HRS PRN IV ANXIETY / AGITATION; Start 12/29/16 at 08:45; Status Cancel Lorazepam 100 mg/ Sodium Chloride 100 ml @ 0 mls/hr CONT PRN IV IVF Last administered on 11/18/17at 09:02; Start 12/29/16 at 08:45 Ceftriaxone Sodium 1 gm/ Dextrose 50 ml @ 100 mls/hr Q24H IV ; Start 12/29/16 at 09:30; Status UNV Metronidazole 100 ml @ 100 mls/hr Q8HRS IV ; Start 12/29/16 at 14:00 Active Scripts Active Reported Requip (Ropinirole Hcl) 1 Mg Tablet 2 Mg PO QHS Mirtazapine 30 Mg Tablet 0.5 Tab PO QHS Proair Hfa Inhaler (Albuterol Sulfate) 8.5 Gm Hfa.aer.ad 1-2 Puff INH PRN Q6HRS PRN Spiriva (Tiotropium [place]) 18 Mcg Cap.w.dev 2 Inh IH DAILY Spiriva (Tiotropium [place]) 18 Mcg Cap.w.dev 1 Cap IH DAILY Omeprazole 20 Mg Capsule.dr 1 Cap PO DAILY Dexamethasone 4 Mg Tablet 1 Tab PO QID Symbicort 80-4.5 Mcg Inhaler (Budesonide/Formoterol Fumarate) 10.2 Gm Hfa.aer.ad 2 Puff IH BID Alprazolam 0.5 Mg Tablet 1 Tab PO QAM Metoprolol Tartrate 50 Mg Tablet 0.5 Tab PO BID Amiodarone Hcl 200 Mg Tablet 1 Tab PO DAILY Tylenol (Acetaminophen) 325 Mg Tablet 2 Tab PO PRN Q6HRS PRN Melatonin 3 Mg Tablet 2 Tab PO QHS Montelukast Sodium Tablet (Montelukast Sodium) 10 Mg Tablet 1 Tab PO DAILY Atorvastatin Calcium 40 Mg Tablet 1 Tab PO QHS Tramadol Hcl 50 Mg Tablet 50 Mg PO Q6H PRN Hydrocodone-Apap 7.5-325 (Hydrocodone Bit/Acetaminophen) 1 Each Tablet 1 Tab PO PRN Q6HRS PRN Zoloft (Sertraline Hcl) 25 Mg Tablet 1 Tab PO DAILY Vitals/I & O Vital Sign - Last 24 Hours 12/28/16 12/28/16 12/28/16 12/28/16 09:50 10:41 11:10 12:00 Temp 98.2 98.3 98.2 98.3 Pulse 93 90 88 Resp 18 18 18 B/P (MAP) 113/88 (96) 112/76 (88) 112/76 (88) Pulse Ox 98 97 97 O2 Delivery Nasal Cannula Nasal Cannula Nasal Cannula Room Air O2 Flow Rate 3.0 3.0 3.0 12/28/16 12/28/16 12/28/16 12/28/16 12:09 12:30 13:15 14:04 Temp 98.9 99.0 99.0 98.4 98.9 99.0 99.0 98.4 Pulse 85 89 91 Resp 18 18 18 B/P (MAP) 133/80 (97) 126/81 (96) 122/79 (93) Pulse Ox 99 98 94 O2 Delivery Nasal Cannula Nasal Cannula Nasal Cannula O2 Flow Rate 3.0 3.0 3.0 12/28/16 12/28/16 12/28/16 12/28/16 15:02 16:00 19:00 20:00 Temp 98.4 98.9 99.0 98.4 98.9 99.0 Pulse 89 91 92 89 Resp 18 18 20 20 B/P (MAP) 119/79 (92) 131/78 (95) 119/68 (85) 106/74 (85) Pulse Ox 97 96 92 91 O2 Delivery Nasal Cannula Nasal Cannula Nasal Cannula Nasal Cannula O2 Flow Rate 3.0 3.0 5.0 5.0 12/28/16 12/28/16 12/28/16 12/29/16 20:00 21:00 23:00 00:00 Pulse 93 96 98 Resp 20 26 28 B/P (MAP) 110/67 (81) 113/76 (88) 118/71 (87) Pulse Ox 92 91 91 O2 Delivery Nasal Cannula Nasal Cannula Nasal Cannula Nasal Cannula O2 Flow Rate 5.0 5.0 6.0 6.0 12/29/16 12/29/16 12/29/16 12/29/16 00:06 00:16 02:00 03:26 Temp 98.5 98.5 Pulse 110 115 Resp 28 28 B/P (MAP) 137/81 (99) 128/79 (95) Pulse Ox 97 97 O2 Delivery Nasal Cannula NonRebreather Mask NonRebreather Mask O2 Flow Rate 6.0 15.0 15.0 12/29/16 12/29/16 12/29/16 12/29/16 03:59 04:00 05:00 05:30 Temp 98.1 98.1 Pulse 114 114 Resp 32 28 B/P (MAP) 136/86 (103) 125/60 (81) Pulse Ox 89 90 92 O2 Delivery Non-Rebreather NonRebreather Mask NonRebreather Mask Ventilator O2 Flow Rate 15.0 15.0 15.0 12/29/16 12/29/16 12/29/16 12/29/16 06:00 07:13 07:30 07:56 Temp 99.7 99.7 Pulse 135 122 Resp 28 26 B/P (MAP) 154/86 (108) 110/73 (85) Pulse Ox 93 95 95 O2 Delivery Ventilator Ventilator Mechanical Ventilator Ventilator O2 Flow Rate 15.0 Intake and Output 12/28/16 12/28/16 12/29/16 15:00 23:00 07:00 Intake Total 4385.4 ml Output Total 475 ml 620 ml 440 ml Balance -475 ml -620 ml 3945.4 ml YADI CARLISLE MD Dec 29, 2016 09:37
[2016-12-29] MEDS ORDERED: cefTRIAXone IV Push 1 GM VIAL. IVP SCH (10:00)
[2016-12-29] MEDS ORDERED: POTASSIUM CHLORIDE 20 MEQ/15 ML ORAL LIQUID. PEG ONE (10:00)
[2016-12-29] MEDS ORDERED: PIP/TAZO PER PHARMACY MC PRN (10:15)
[2016-12-29] MEDS ORDERED: ATROPINE 0.5 MG/5 ML DISP.SYRIN. IV PRN (10:15)
[2016-12-29] MEDS ORDERED: IV NORMAL SALINE 500ML BAG 500 ML IV PRN (10:15)
--- NOTE | 2016-12-29 10:22 | CONS ---
DATE OF CONSULTATION: ATTENDING PHYSICIAN: Chari Ledesma. REASON FOR CONSULTATION: Respiratory failure. HISTORY OF PRESENT ILLNESS: Cortez is a 51-year-old male who was found unresponsive at home, had multiple bottles empty. Per report from the ER, he ingested a bottle of whiskey, also had cocaine and 2 bottles of Benadryl and 1 bottle of Tylenol, at least 80 of the 500 mg tablets of Tylenol. The timing of the ingestion was not so sure. The patient was seen in the ER where initially, he was following commands, but then had altered mental status. He was not responsive in our ICU; as a result, he was intubated. His arterial blood gases initially showed a pH of 7.34, pCO2 of 43 and a pO2 of 44 on 100% oxygen and latest one on 60%, pH of 7.36, pCO2 of 43 and a pO2 of 90. His chest x-ray is showing diffuse bilateral infiltrates. He did vomit a couple times as per report. I have been asked to see him for further evaluation. His urine drug screen was positive for cocaine. It was positive for acetaminophen, his level was 81 initially, now it is down to 19.5. I have been asked to see him for further evaluation. PAST SURGICAL HISTORY: Unknown. SURGERIES: Unknown. FAMILY HISTORY: Unknown. ALLERGIES: None. CURRENT MEDICATIONS: Reviewed as listed in the MRAD including antibiotics, Rocephin. Lovenox for DVT prophylaxis. REVIEW OF SYSTEMS: Unable to obtain from the patient. PHYSICAL EXAMINATION: VITAL SIGNS: T-max of 99.7, blood pressure is stable, 95% sats on current FiO2. HEENT: Sclerae nonicteric. NECK: Supple. LUNGS: Diminished breath sounds. CARDIOVASCULAR: Regular rate and rhythm. ABDOMEN: Soft, nontender. EXTREMITIES: There is trace pitting edema. LABORATORY DATA: Reviewed. BUN 12, creatinine 0.6. Toxicology screen positive for cocaine and acetaminophen. INR is 1.6 from 1.3. White cell count 20.3. IMPRESSION: 1. Acute respiratory failure secondary to acute toxic encephalopathy. 2. Acute toxic encephalopathy secondary to overdose of Benadryl, acetaminophen, cocaine and alcohol. 3. Diffuse bilateral infiltrates, most likely related to aspiration pneumonia. 4. Fever secondary to aspiration pneumonia. 5. Leukocytosis. 6. Abnormal urine toxicology screen positive for cocaine and acetaminophen. Levels have come down, but INR is increasing and we will monitor closely. RECOMMENDATIONS: 1. Continue with present assist control mode and wean FIO2. 2. We will stop sedation in next 24 hours and assess mental status. 3. Broad spectrum antibiotics will be initiated. 4. Follow chest x-rays. 5. Follow ABGs. 6. Monitor blood pressure closely. 7. Repeat INR. 8. Deep venous thrombosis and stress ulcer prophylaxis. 9. We will follow along with you. Discussed with RN and RT. Critical care time 40 minutes. ROMAINE CORDERO MD DR: PATRICIA/ashley JOB#: [id number] / [id number]
[2016-12-29] MEDS: FAMOTIDINE 20 MG/2 ML VIAL IVP SCH ×2 (10:56→22:18)
[2016-12-29] MEDS: DEXMEDETOMIDINE 200 MCG in IV NORMAL SALINE 50ML 48 ML IV PRN ×3 (11:00→19:32)
[2016-12-29] MEDS: PIPERACILLIN/TAZO IV Push 3.375 GM VIAL. IVP SCH ×2 (12:15→17:27)
--- NOTE | 2016-12-29 13:03 | PDOC ---
G I PROGRESS NOTE Reason for Follow-up Tylenol overdose Subjective Intubated/sedated Physical Exam Lungs coarse BS CV S1 S2 ABD Decreased BS, non distended Review of Relevant I have reviewed the following items jessa (where applicable) has been applied. Labs Laboratory Tests Test 12/28/16 03:45 12/28/16 05:35 12/28/16 08:45 12/28/16 12:45 Nasal Screen MRSA (PCR) Negative (Negative) Acetaminophen Level 167.2 mcg/ml (10-30) 115.7 mcg/ml (10-30) Acetaminophen Last Dose Date 12/27/16 12/27/16 Acetaminophen Last Dose Time 2100 1600 White Blood Count 19.9 x10^3/uL (4.0-11.0) Red Blood Count 4.65 x10^6/uL (4.30-5.70) Hemoglobin 14.3 g/dL (13.0-17.5) Hematocrit 43.5 % (39.0-53.0) Mean Corpuscular Volume 94 fL (79-100) Mean Corpuscular Hemoglobin 31 pg (25-35) Mean Corpuscular Hemoglobin Concent 33 g/dL (31-37) Red Cell Distribution Width 13.6 % (11.5-14.5) Platelet Count 335 x10^3/uL (140-400) Neutrophils (%) (Auto) 88 % (31-73) Lymphocytes (%) (Auto) 7 % (24-48) Monocytes (%) (Auto) 5 % (0-9) Eosinophils (%) (Auto) 0 % (0-3) Basophils (%) (Auto) 0 % (0-3) Neutrophils # (Auto) 17.5 x10^3uL (1.8-7.7) Lymphocytes # (Auto) 1.3 x10^3/uL (1.0-4.8) Monocytes # (Auto) 1.1 x10^3/uL (0.0-1.1) Eosinophils # (Auto) 0.0 x10^3/uL (0.0-0.7) Basophils # (Auto) 0.0 x10^3/uL (0.0-0.2) Segmented Neutrophils % 85 % (35-66) Band Neutrophils % 3 % (0-9) Lymphocytes % 5 % (24-48) Monocytes % 7 % (0-10) Platelet Estimate Adequate (ADEQUATE) Prothrombin Time 15.0 SEC (11.7-14.0) Prothromb Time International Ratio 1.3 (0.8-1.1) Sodium Level 141 mmol/L (136-145) Potassium Level 3.1 mmol/L (3.5-5.1) Chloride Level 103 mmol/L (98-107) Carbon Dioxide Level 25 mmol/L (21-32) Anion Gap 13 (6-14) Blood Urea Nitrogen 10 mg/dL (8-26) Creatinine 0.8 mg/dL (0.7-1.3) Estimated GFR (Cockcroft-Gault) 102.7 BUN/Creatinine Ratio 13 (6-20) Glucose Level 121 mg/dL (70-99) Calcium Level 8.7 mg/dL (8.5-10.1) Total Bilirubin 1.1 mg/dL (0.2-1.0) Gamma Glutamyl Transpeptidase 22 U/L (10-85) Aspartate Amino Transf (AST/SGOT) 22 U/L (15-37) Alanine Aminotransferase (ALT/SGPT) 20 U/L (16-63) Alkaline Phosphatase 68 U/L (46-116) Total Protein 7.4 g/dL (6.4-8.2) Albumin 3.9 g/dL (3.4-5.0) Albumin/Globulin Ratio 1.1 (1.0-1.7) Ethyl Alcohol Level < 10 mg/dL (0-10) Urine Opiates Screen Neg (NEG) Urine Methadone Screen Neg (NEG) Urine Barbiturates Neg (NEG) Urine Phencyclidine Screen Neg (NEG) Urine Amphetamine/Methamphetamine Neg (NEG) Urine Benzodiazepines Screen Neg (NEG) Urine Cocaine Screen Pos (NEG) Urine Cannabinoids Screen Neg (NEG) Urine Ethyl Alcohol Neg (NEG) Test 12/28/16 13:15 12/28/16 18:30 12/29/16 00:35 12/29/16 04:23 Acetaminophen Level 81.13 mcg/ml (10-30) 37.8 mcg/ml (10-30) 17.5 mcg/ml (10-30) Acetaminophen Last Dose Date 12/27/16 12/27/16 Unk Acetaminophen Last Dose Time 1800 1800 Unk O2 Saturation 80 % (92-99) Arterial Blood pH 7.34 (7.35-7.45) Arterial Blood pCO2 at Patient Temp 43 mmHg (35-46) Arterial Blood pO2 at Patient Temp 44 mmHg (75-108) Arterial Blood HCO3 23 mmol/L (21-28) Arterial Blood Base Excess -3 mmol/L (-3-3) FiO2 100 Test 12/29/16 05:00 12/29/16 08:39 12/29/16 10:00 White Blood Count 20.3 x10^3/uL (4.0-11.0) Red Blood Count 5.10 x10^6/uL (4.30-5.70) Hemoglobin 15.5 g/dL (13.0-17.5) Hematocrit 47.6 % (39.0-53.0) Mean Corpuscular Volume 93 fL (79-100) Mean Corpuscular Hemoglobin 30 pg (25-35) Mean Corpuscular Hemoglobin Concent 33 g/dL (31-37) Red Cell Distribution Width 14.0 % (11.5-14.5) Platelet Count 320 x10^3/uL (140-400) Neutrophils (%) (Auto) 88 % (31-73) Lymphocytes (%) (Auto) 8 % (24-48) Monocytes (%) (Auto) 4 % (0-9) Eosinophils (%) (Auto) 0 % (0-3) Basophils (%) (Auto) 0 % (0-3) Neutrophils # (Auto) 17.8 x10^3uL (1.8-7.7) Lymphocytes # (Auto) 1.5 x10^3/uL (1.0-4.8) Monocytes # (Auto) 0.8 x10^3/uL (0.0-1.1) Eosinophils # (Auto) 0.0 x10^3/uL (0.0-0.7) Basophils # (Auto) 0.1 x10^3/uL (0.0-0.2) Prothrombin Time 18.4 SEC (11.7-14.0) Prothromb Time International Ratio 1.6 (0.8-1.1) Sodium Level 138 mmol/L (136-145) Potassium Level 3.2 mmol/L (3.5-5.1) Chloride Level 104 mmol/L (98-107) Carbon Dioxide Level 17 mmol/L (21-32) Anion Gap 17 (6-14) Blood Urea Nitrogen 12 mg/dL (8-26) Creatinine 0.6 mg/dL (0.7-1.3) Estimated GFR (Cockcroft-Gault) 143.2 BUN/Creatinine Ratio 20 (6-20) Glucose Level 84 mg/dL (70-99) Calcium Level 8.4 mg/dL (8.5-10.1) Total Bilirubin 1.4 mg/dL (0.2-1.0) Aspartate Amino Transf (AST/SGOT) 5 U/L (15-37) Alanine Aminotransferase (ALT/SGPT) 113 U/L (16-63) Alkaline Phosphatase 68 U/L (46-116) Total Protein 6.1 g/dL (6.4-8.2) Albumin 3.4 g/dL (3.4-5.0) Albumin/Globulin Ratio 1.3 (1.0-1.7) Acetaminophen Level 19.5 mcg/ml (10-30) 21.9 mcg/ml (10-30) Acetaminophen Last Dose Date Unknown Unknown Acetaminophen Last Dose Time Unknown Unknown O2 Saturation 97 % (92-99) Arterial Blood pH 7.36 (7.35-7.45) Arterial Blood pCO2 at Patient Temp 43 mmHg (35-46) Arterial Blood pO2 at Patient Temp 90 mmHg (75-108) Arterial Blood HCO3 23 mmol/L (21-28) Arterial Blood Base Excess -2 mmol/L (-3-3) FiO2 60 Laboratory Tests Test 12/28/16 13:15 12/28/16 18:30 12/29/16 00:35 12/29/16 04:23 Acetaminophen Level 81.13 mcg/ml (10-30) 37.8 mcg/ml (10-30) 17.5 mcg/ml (10-30) Acetaminophen Last Dose Date 12/27/16 12/27/16 Unk Acetaminophen Last Dose Time 1800 1800 Unk O2 Saturation 80 % (92-99) Arterial Blood pH 7.34 (7.35-7.45) Arterial Blood pCO2 at Patient Temp 43 mmHg (35-46) Arterial Blood pO2 at Patient Temp 44 mmHg (75-108) Arterial Blood HCO3 23 mmol/L (21-28) Arterial Blood Base Excess -3 mmol/L (-3-3) FiO2 100 Test 12/29/16 05:00 12/29/16 08:39 12/29/16 10:00 White Blood Count 20.3 x10^3/uL (4.0-11.0) Red Blood Count 5.10 x10^6/uL (4.30-5.70) Hemoglobin 15.5 g/dL (13.0-17.5) Hematocrit 47.6 % (39.0-53.0) Mean Corpuscular Volume 93 fL (79-100) Mean Corpuscular Hemoglobin 30 pg (25-35) Mean Corpuscular Hemoglobin Concent 33 g/dL (31-37) Red Cell Distribution Width 14.0 % (11.5-14.5) Platelet Count 320 x10^3/uL (140-400) Neutrophils (%) (Auto) 88 % (31-73) Lymphocytes (%) (Auto) 8 % (24-48) Monocytes (%) (Auto) 4 % (0-9) Eosinophils (%) (Auto) 0 % (0-3) Basophils (%) (Auto) 0 % (0-3) Neutrophils # (Auto) 17.8 x10^3uL (1.8-7.7) Lymphocytes # (Auto) 1.5 x10^3/uL (1.0-4.8) Monocytes # (Auto) 0.8 x10^3/uL (0.0-1.1) Eosinophils # (Auto) 0.0 x10^3/uL (0.0-0.7) Basophils # (Auto) 0.1 x10^3/uL (0.0-0.2) Prothrombin Time 18.4 SEC (11.7-14.0) Prothromb Time International Ratio 1.6 (0.8-1.1) Sodium Level 138 mmol/L (136-145) Potassium Level 3.2 mmol/L (3.5-5.1) Chloride Level 104 mmol/L (98-107) Carbon Dioxide Level 17 mmol/L (21-32) Anion Gap 17 (6-14) Blood Urea Nitrogen 12 mg/dL (8-26) Creatinine 0.6 mg/dL (0.7-1.3) Estimated GFR (Cockcroft-Gault) 143.2 BUN/Creatinine Ratio 20 (6-20) Glucose Level 84 mg/dL (70-99) Calcium Level 8.4 mg/dL (8.5-10.1) Total Bilirubin 1.4 mg/dL (0.2-1.0) Aspartate Amino Transf (AST/SGOT) 5 U/L (15-37) Alanine Aminotransferase (ALT/SGPT) 113 U/L (16-63) Alkaline Phosphatase 68 U/L (46-116) Total Protein 6.1 g/dL (6.4-8.2) Albumin 3.4 g/dL (3.4-5.0) Albumin/Globulin Ratio 1.3 (1.0-1.7) Acetaminophen Level 19.5 mcg/ml (10-30) 21.9 mcg/ml (10-30) Acetaminophen Last Dose Date Unknown Unknown Acetaminophen Last Dose Time Unknown Unknown O2 Saturation 97 % (92-99) Arterial Blood pH 7.36 (7.35-7.45) Arterial Blood pCO2 at Patient Temp 43 mmHg (35-46) Arterial Blood pO2 at Patient Temp 90 mmHg (75-108) Arterial Blood HCO3 23 mmol/L (21-28) Arterial Blood Base Excess -2 mmol/L (-3-3) FiO2 60 Medications Current Medications Info (Do NOT chart on this placeholder) 1 each 1X ONCE MC ; Start 12/28/16 at 04:15; Stop 12/28/16 at 04:16; Status UNV Pneumococcal Polyvalent Vaccine (Do NOT chart on this placeholder) 1 each 1X ONCE MC ; Start 12/28/16 at 04:15; Stop 12/28/16 at 04:16; Status UNV Sodium Chloride 1,000 ml @ 100 mls/hr Q10H IV Last administered on 12/29/16 05:56; Start 12/28/16 at 05:00; Stop 12/29/16 at 08:37; Status DC Acetylcysteine 6.87 gm/Dextrose 1,034.35 ml @ 62.5 mls/ hr 1X ONCE IV Last administered on 12/28/16 05:36; Start 12/28/16 at 05:30; Stop 12/28/16 at 22 :02; Status DC Physostigmine Salicylate (Antilirium) 2 mg 1X ONCE IV Last administered on 08:20; Start 12/28/16 at 06:15; Stop 12/28/16 at 06:16; Status DC Sodium Bicarbonate 50 meq 1X ONCE IV Last administered on 12/28/16 06:23; Start 12/28/16 at 06:00; Stop 12/28/16 at 06:02; Status DC Influenza Virus Vaccine Quadrival (Fluarix Quad [id number] Syringe) 0.5 ml ONCE ONCE VAX IM ; Start 12/28/16 at 09:00; Stop 12/28/16 at 09:01; Status DC Pneumococcal Polyvalent Vaccine (Pneumovax 23) 0.5 ml ONCE ONCE VAX IM ; Start 12/28/16 at 09:00; Stop 12/28/16 at 09:01; Status DC Multivitamins 10 ml/Thiamine HCl 100 mg/Folic Acid 1 mg/Sodium Chloride 1,011.2 ml @ 100 mls/ hr DAILY IV Last administered on 12/29/16 09:01; Start at 09:00; Stop 12/29/16 at 09:33; Status DC Lorazepam (Ativan) 2 mg PRN Q1HR PRN IV For CIWA 8-14 Last administered on 01:12; Start 12/28/16 at 08:30 Lorazepam (Ativan) 4 mg PRN Q1HR PRN IV For CIWA 15 or greater Last administered on 12/29/16 04:11; Start 12/28/16 at 08:30 Haloperidol Lactate (Haldol) 5 mg PRN Q6HRS PRN IVP AGITATION Last administered on 12/29/16 01:00; Start 12/28/16 at 09:15 Enoxaparin Sodium (Lovenox Per Pharmacy Prophylaxis Dosing) 1 each PRN DAILY PRN MC SEE COMMENTS; Start 12/28/16 at 13:45 Enoxaparin Sodium (Lovenox 40mg Syringe) 40 mg Q24H SQ Last administered on 19:50; Start 12/28/16 at 14:00 Acetylcysteine 6.9 gm/Dextrose 1,034.5 ml @ 62.509 mls/hr 1X ONCE IV Last administered on 12/28/16 22:43; Start 12/28/16 at 23:00; Stop 12/29/16 at 15 :32 Lorazepam (Ativan) 2 mg 1X ONCE IV Last administered on 12/29/16 01:35; Start 12/29/16 at 01:45; Stop 12/29/16 at 01:46; Status DC Propofol 100 ml @ 0 mls/hr CONT PRN IV SEE I/O RECORD Last administered on 05:55; Start 12/29/16 at 05:00 Rocuronium [place] (Zemuron) 50 mg STK-MED ONCE .ROUTE ; Start 12/29/16 at 05: 20; Stop 12/29/16 at 05:21; Status DC Succinylcholine Chloride (Anectine) 200 mg STK-MED ONCE .ROUTE ; Start at 05:21; Stop 12/29/16 at 05:22; Status DC Propofol 20 ml @ As Directed STK-MED ONCE IV ; Start 12/29/16 at 05:22; Stop 12/29/16 at 05:23; Status DC Amino Acids/ Glycerin/ Electrolytes 1,000 ml @ 80 mls/hr [id number] IV Last administered on 12/29/16 09:02; Start 12/29/16 at 08:45 Lorazepam (Ativan) 4 mg PRN Q4HRS PRN IV ANXIETY / AGITATION; Start 12/29/16 at 08:45; Status Cancel Lorazepam 100 mg/ Sodium Chloride 100 ml @ 0 mls/hr CONT PRN IV IVF Last administered on 12/29/16 09:02; Start 12/29/16 at 08:45 Ceftriaxone Sodium 1 gm/ Dextrose 50 ml @ 100 mls/hr Q24H IV ; Start 12/29/16 at 09:30; Status UNV Metronidazole 100 ml @ 100 mls/hr Q8HRS IV ; Start 12/29/16 at 14:00; Stop at 14:00; Status DC Potassium Chloride (KCl Oral Soln) 40 meq 1X ONCE PEG Last administered on 10:37; Start 12/29/16 at 10:00; Stop 12/29/16 at 10:01; Status DC Ceftriaxone Sodium (Rocephin) 1 gm Q24H IVP ; Start 12/29/16 at 10:00; Stop at 10:08; Status DC Piperacillin Sod/ Tazobactam Sod (Zosyn Per Pharmacy) 1 each PRN DAILY PRN MC SEE COMMENTS; Start 12/29/16 at 10:15 Levofloxacin/ Dextrose 100 ml @ 100 mls/hr Q24H IV Last administered on 10:56; Start 12/29/16 at 11:00 Famotidine (Pepcid Vial) 20 mg BID IVP Last administered on 12/29/16 10:56; Start 12/29/16 at 11:00 Dexmedetomidine HCl 200 mcg/ Sodium Chloride 50 ml @ 0 mls/hr CONT PRN IV PER PROTOCOL Last administered on 12/29/16 11:00; Start 12/29/16 at 10:15 Fentanyl Citrate (Fentanyl 2ml Vial) 25 mcg PRN Q1HR PRN IV PAIN; Start at 10:15 Lorazepam (Ativan) 0.5 mg PRN Q2HRS PRN IV AGITATION; Start 12/29/16 at 10:15 Propofol 100 ml @ 0 mls/hr CONT PRN IV SEDATION; Start 12/29/16 at 10:15 Sodium Chloride 500 ml @ 500 mls/hr 1X PRN PRN IV SEE COMMENTS; Start at 10:15 Atropine Sulfate 0.5 mg PRN Q5MIN PRN IV SEE COMMENTS; Start 12/29/16 at 10:15 Piperacillin Sod/ Tazobactam Sod (Zosyn) 3.375 gm Q6HRS IVP Last administered on 12/29/16 12:15; Start 12/29/16 at 12:00 Active Scripts Active Reported Requip (Ropinirole Hcl) 1 Mg Tablet 2 Mg PO QHS Mirtazapine 30 Mg Tablet 0.5 Tab PO QHS Proair Hfa Inhaler (Albuterol Sulfate) 8.5 Gm Hfa.aer.ad 1-2 Puff INH PRN Q6HRS PRN Spiriva (Tiotropium [place]) 18 Mcg Cap.w.dev 2 Inh IH DAILY Spiriva (Tiotropium [place]) 18 Mcg Cap.w.dev 1 Cap IH DAILY Omeprazole 20 Mg Capsule.dr 1 Cap PO DAILY Dexamethasone 4 Mg Tablet 1 Tab PO QID Symbicort 80-4.5 Mcg Inhaler (Budesonide/Formoterol Fumarate) 10.2 Gm Hfa.aer.ad 2 Puff IH BID Alprazolam 0.5 Mg Tablet 1 Tab PO QAM Metoprolol Tartrate 50 Mg Tablet 0.5 Tab PO BID Amiodarone Hcl 200 Mg Tablet 1 Tab PO DAILY Tylenol (Acetaminophen) 325 Mg Tablet 2 Tab PO PRN Q6HRS PRN Melatonin 3 Mg Tablet 2 Tab PO QHS Montelukast Sodium Tablet (Montelukast Sodium) 10 Mg Tablet 1 Tab PO DAILY Atorvastatin Calcium 40 Mg Tablet 1 Tab PO QHS Tramadol Hcl 50 Mg Tablet 50 Mg PO Q6H PRN Hydrocodone-Apap 7.5-325 (Hydrocodone Bit/Acetaminophen) 1 Each Tablet 1 Tab PO PRN Q6HRS PRN Zoloft (Sertraline Hcl) 25 Mg Tablet 1 Tab PO DAILY Vitals/I & O Vital Sign - Last 24 Hours 12/28/16 12/28/16 12/28/16 12/28/16 13:15 14:04 15:02 16:00 Temp 99.0 98.4 98.4 98.9 99.0 98.4 98.4 98.9 Pulse 89 91 89 91 Resp 18 B/P (MAP) 126/81 (96) 122/79 (93) 119/79 (92) 131/78 (95) Pulse Ox 98 94 97 96 O2 Delivery Nasal Cannula Nasal Cannula Nasal Cannula Nasal Cannula O2 Flow Rate 3.0 3.0 3.0 3.0 12/28/16 12/28/16 12/28/16 12/28/16 19:00 20:00 20:00 21:00 Temp 99.0 99.0 Pulse 92 89 93 Resp 20 20 20 B/P (MAP) 119/68 (85) 106/74 (85) 110/67 (81) Pulse Ox 92 91 92 O2 Delivery Nasal Cannula Nasal Cannula Nasal Cannula Nasal Cannula O2 Flow Rate 5.0 5.0 5.0 5.0 12/28/16 12/29/16 12/29/16 12/29/16 23:00 00:00 00:06 00:16 Temp 98.5 98.5 Pulse 96 98 Resp 26 28 B/P (MAP) 113/76 (88) 118/71 (87) Pulse Ox 91 91 O2 Delivery Nasal Cannula Nasal Cannula Nasal Cannula O2 Flow Rate 6.0 6.0 6.0 12/29/16 12/29/16 12/29/16 12/29/16 02:00 03:26 03:59 04:00 Temp 98.1 98.1 Pulse 110 115 114 Resp 28 28 32 B/P (MAP) 137/81 (99) 128/79 (95) 136/86 (103) Pulse Ox 97 97 89 O2 Delivery NonRebreather Mask NonRebreather Mask Non-Rebreather NonRebreather Mask O2 Flow Rate 15.0 15.0 15.0 15.0 12/29/16 12/29/16 12/29/16 12/29/16 05:00 05:30 06:00 07:13 Pulse 114 135 Resp 28 28 B/P (MAP) 125/60 (81) 154/86 (108) Pulse Ox 90 92 93 95 O2 Delivery NonRebreather Mask Ventilator Ventilator Ventilator O2 Flow Rate 15.0 12/29/16 12/29/16 12/29/16 12/29/16 07:30 07:56 08:00 08:00 Temp 99.7 99.7 Pulse 122 125 Resp 26 20 B/P (MAP) 110/73 (85) 92/65 (74) Pulse Ox 95 98 O2 Delivery Mechanical Ventilator Ventilator Mechanical Ventilator Ventilator O2 Flow Rate 15.0 15.0 12/29/16 12/29/16 12/29/16 12/29/16 09:00 09:15 10:00 11:00 Pulse 118 116 109 Resp 22 20 26 B/P (MAP) 100/70 (80) 93/62 (72) 94/64 (74) Pulse Ox 97 96 94 99 O2 Delivery Ventilator Ventilator Ventilator Ventilator 12/29/16 12/29/16 12/29/16 11:25 12:00 12:04 Temp 98.3 98.3 Pulse 102 Resp 26 B/P (MAP) 84/59 (67) Pulse Ox 98 98 O2 Delivery Ventilator Ventilator Mechanical Ventilator Intake and Output 12/28/16 12/28/16 12/29/16 15:00 23:00 07:00 Intake Total 4385.4 ml Output Total 475 ml 620 ml 440 ml Balance -475 ml -620 ml 3945.4 ml Problem List Acetaminophen overdose- improving tylenol levels with mucomyst,LFTS noted, intervening respiratory failure noted, cpm KAMRYN CABA MD Dec 29, 2016 13:03
[2016-12-29] MEDS: ENOXAPARIN 40 MG/0.4 ML SYRINGE. SQ SCH (13:37)
--- NOTE | 2016-12-29 14:46 | PDOC ---
PROGRESS NOTES Assessment Assessment Toxic encephalopathy. Metabolic encephalopathy. Multi-drug overdose, Tylenol, Benadryl, Whiskey. Cocaine positive in system. Lethargy. Restless. Substance and drug use/abuse. RECOMMENDATIONS/PLAN: Treat drug overdose medically. Keep good hydration. Continue Acetylcysteine. Monitoring cardiac and pulmonary function. Monitory bleeding. Monitoring hepatic function. EEG Lab: see orders. Repeat HCT if condition worse. HCT w/o contrast on 12/27/16 in [facility] was negative w/o ICH. HISTORY OF THE PRESENT ILLNESS: 51-y-old male patient was found unresponsive at home with some empty bottles disarray. He was thought to overdose of several drugs including at least 80 pills of 500 mg Tylenol, and Benadryl, whiskey as well, also possible cocaine. No infarction is available for his ingestion. No suicidal notes found per reports. He was brought to [facility] and his HCT was negative. He was eventually transferred to ICU of [facility]. No clinical seizures observed so far. Past Medical and Surgical History Unknown. Family History Unknown. Social History ALCOHOL: heavy Drugs: Cocaine ALLERGY: Unknown MEDICATIONS: Refer to [facility] REVIEW OF SYSTEMS: Constitutional: No malnutrition, weight loss, cachexia. Head: No current traumatic brain or head injury. Skin: No edema, or rash. Ear: No infection. Eyes: Unknown. Nose: Unknown. Neck: No current injury. Cardiac: Unknown. Pulmonary: Unknown. GI: No GI ulcer, Unknown. Urinary/genital: Unknown. Endocrinologic: Unknown. Skeletomuscular: Unknown. Neurological: see HP. Psychiatric: substance and drug use/abuse. PHYSICAL EXAMINATION: General appearance is in acute distress. HEENT: Normocephalic and nontraumatic. Eyes, nose, ears, and throat are unremarkable. Neck is supple. No lymphadenopathy. No crepitus. Cardiovascular: S1, S2, regular rate and rhythm. Pulmonary: Mild difficult breathing. Abdomen: Bowel sounds are positive. Extremities: No rash, lesions, or edema. No restriction of range of motion NEUROLOGICAL EXAMINATION: Sedated. Not oriented to time, place and person. PERRL, but pupil reaction was slow. EOMI not elicited. CN: no acute focal findings. Muscle tone: fluctuated. Muscle strength: minimal movements noted. DTR: 1-2 Plantar reflex: Neutral response bilaterally Gait: Unable to walk in this mentation. Sensory exam: minimal movements to stimuli. Not able to access cerebellar signs. F-T-N test not performed due to lethargy Objective Objective Vital Signs Date Time Temp Pulse Resp B/P (MAP) Pulse Ox O2 Delivery O2 Flow Rate FiO2 12/29/16 14:00 84 26 75/56 (62) 99 Ventilator 12/29/16 12:00 98.3 98.3 12/29/16 08:00 15.0 Intake and Output 12/29/16 07:00 Intake Total 4385.4 ml Output Total 1535 ml Balance 2850.4 ml Intake IV Total 4385.4 ml Output Urine Total 1535 ml Vitals Signs Vitals VS - Last 72 Hours, by Label Date Time Temp Pulse Resp B/P (MAP) Pulse Ox O2 Delivery O2 Flow Rate FiO2 12/29/16 14:00 84 26 75/56 (62) 99 Ventilator 12/29/16 13:12 98 Ventilator 12/29/16 13:00 87 26 97/65 (76) 99 Ventilator 12/29/16 12:04 Mechanical Ventilator 12/29/16 12:00 98.3 102 26 84/59 (67) 98 Ventilator 98.3 12/29/16 11:25 98 Ventilator 12/29/16 11:00 109 26 94/64 (74) 99 Ventilator 12/29/16 10:00 116 20 93/62 (72) 94 Ventilator 12/29/16 09:15 96 Ventilator 12/29/16 09:00 118 22 100/70 (80) 97 Ventilator 12/29/16 08:00 125 20 92/65 (74) 98 Ventilator 12/29/16 08:00 Mechanical Ventilator 15.0 12/29/16 07:56 99.7 122 26 110/73 (85) 95 Ventilator 15.0 99.7 12/29/16 07:30 Mechanical Ventilator 12/29/16 07:13 95 Ventilator 12/29/16 06:00 135 28 154/86 (108) 93 Ventilator 12/29/16 05:30 92 Ventilator 12/29/16 05:00 114 28 125/60 (81) 90 NonRebreather Mask 15.0 12/29/16 04:00 98.1 114 32 136/86 (103) 89 NonRebreather Mask 15.0 98.1 12/29/16 03:59 Non-Rebreather 15.0 12/29/16 03:26 115 28 128/79 (95) 97 NonRebreather Mask 15.0 12/29/16 02:00 110 28 137/81 (99) 97 NonRebreather Mask 15.0 12/29/16 00:16 98.5 98.5 12/29/16 00:06 Nasal Cannula 6.0 12/29/16 00:00 98 28 118/71 (87) 91 Nasal Cannula 6.0 12/28/16 23:00 96 26 113/76 (88) 91 Nasal Cannula 6.0 12/28/16 21:00 93 20 110/67 (81) 92 Nasal Cannula 5.0 12/28/16 20:00 Nasal Cannula 5.0 12/28/16 20:00 89 20 106/74 (85) 91 Nasal Cannula 5.0 12/28/16 19:00 99.0 92 20 119/68 (85) 92 Nasal Cannula 5.0 99.0 12/28/16 16:00 98.9 91 18 131/78 (95) 96 Nasal Cannula 3.0 98.9 12/28/16 15:02 98.4 89 18 119/79 (92) 97 Nasal Cannula 3.0 98.4 12/28/16 14:04 98.4 91 18 122/79 (93) 94 Nasal Cannula 3.0 98.4 12/28/16 13:15 99.0 89 18 126/81 (96) 98 Nasal Cannula 3.0 99.0 12/28/16 12:30 99.0 99.0 12/28/16 12:09 98.9 85 18 133/80 (97) 99 Nasal Cannula 3.0 98.9 12/28/16 12:00 Room Air 12/28/16 11:10 98.3 88 18 112/76 (88) 97 Nasal Cannula 3.0 98.3 12/28/16 10:41 98.2 90 18 112/76 (88) 97 Nasal Cannula 3.0 98.2 12/28/16 09:50 93 18 113/88 (96) 98 Nasal Cannula 3.0 12/28/16 08:47 98.7 131/87 (102) Nasal Cannula 3.0 98.7 12/28/16 08:00 98.5 103 18 133/84 (100) 100 Nasal Cannula 3.0 98.5 12/28/16 08:00 Room Air Laboratory Laboratory Laboratory Tests Test 12/28/16 18:30 12/29/16 00:35 12/29/16 04:23 12/29/16 05:00 Acetaminophen Level 37.8 mcg/ml (10-30) 17.5 mcg/ml (10-30) 19.5 mcg/ml (10-30) Acetaminophen Last Dose Date 12/27/16 Unk Unknown Acetaminophen Last Dose Time 1800 Unk Unknown O2 Saturation 80 % (92-99) Arterial Blood pH 7.34 (7.35-7.45) Arterial Blood pCO2 at Patient Temp 43 mmHg (35-46) Arterial Blood pO2 at Patient Temp 44 mmHg (75-108) Arterial Blood HCO3 23 mmol/L (21-28) Arterial Blood Base Excess -3 mmol/L (-3-3) FiO2 100 White Blood Count 20.3 x10^3/uL (4.0-11.0) Red Blood Count 5.10 x10^6/uL (4.30-5.70) Hemoglobin 15.5 g/dL (13.0-17.5) Hematocrit 47.6 % (39.0-53.0) Mean Corpuscular Volume 93 fL (79-100) Mean Corpuscular Hemoglobin 30 pg (25-35) Mean Corpuscular Hemoglobin Concent 33 g/dL (31-37) Red Cell Distribution Width 14.0 % (11.5-14.5) Platelet Count 320 x10^3/uL (140-400) Neutrophils (%) (Auto) 88 % (31-73) Lymphocytes (%) (Auto) 8 % (24-48) Monocytes (%) (Auto) 4 % (0-9) Eosinophils (%) (Auto) 0 % (0-3) Basophils (%) (Auto) 0 % (0-3) Neutrophils # (Auto) 17.8 x10^3uL (1.8-7.7) Lymphocytes # (Auto) 1.5 x10^3/uL (1.0-4.8) Monocytes # (Auto) 0.8 x10^3/uL (0.0-1.1) Eosinophils # (Auto) 0.0 x10^3/uL (0.0-0.7) Basophils # (Auto) 0.1 x10^3/uL (0.0-0.2) Prothrombin Time 18.4 SEC (11.7-14.0) Prothromb Time International Ratio 1.6 (0.8-1.1) Sodium Level 138 mmol/L (136-145) Potassium Level 3.2 mmol/L (3.5-5.1) Chloride Level 104 mmol/L (98-107) Carbon Dioxide Level 17 mmol/L (21-32) Anion Gap 17 (6-14) Blood Urea Nitrogen 12 mg/dL (8-26) Creatinine 0.6 mg/dL (0.7-1.3) Estimated GFR (Cockcroft-Gault) 143.2 BUN/Creatinine Ratio 20 (6-20) Glucose Level 84 mg/dL (70-99) Calcium Level 8.4 mg/dL (8.5-10.1) Total Bilirubin 1.4 mg/dL (0.2-1.0) Aspartate Amino Transf (AST/SGOT) 5 U/L (15-37) Alanine Aminotransferase (ALT/SGPT) 113 U/L (16-63) Alkaline Phosphatase 68 U/L (46-116) Total Protein 6.1 g/dL (6.4-8.2) Albumin 3.4 g/dL (3.4-5.0) Albumin/Globulin Ratio 1.3 (1.0-1.7) Test 12/29/16 08:39 12/29/16 10:00 12/29/16 12:19 O2 Saturation 97 % (92-99) Arterial Blood pH 7.36 (7.35-7.45) Arterial Blood pCO2 at Patient Temp 43 mmHg (35-46) Arterial Blood pO2 at Patient Temp 90 mmHg (75-108) Arterial Blood HCO3 23 mmol/L (21-28) Arterial Blood Base Excess -2 mmol/L (-3-3) FiO2 60 Acetaminophen Level 21.9 mcg/ml (10-30) Acetaminophen Last Dose Date Unknown Acetaminophen Last Dose Time Unknown Glucose (Fingerstick) 123 mg/dL (70-99) Medication Medications Current Medications Acetylcysteine 6.9 gm/Dextrose 1,034.5 ml @ 62.509 mls/hr 1X ONCE IV Last administered on 12/28/16t 22:43; Start 12/28/16 at 23:00; Stop 12/29/16 at 15 :32 Acetylcysteine 6.9 gm/Dextrose 1,034.5 ml @ 62.509 mls/hr 1X ONCE IV ; Start 12/29/16 at 15:00; Stop 12/30/16 at 07:32 Amino Acids/ Glycerin/ Electrolytes 1,000 ml @ 80 mls/hr [id number] IV Last administered on 12/29/16 09:02; Start 12/29/16 at 08:45 Atropine Sulfate 0.5 mg PRN Q5MIN PRN IV SEE COMMENTS; Start 12/29/16 at 10:15 Ceftriaxone Sodium 1 gm/ Dextrose 50 ml @ 100 mls/hr Q24H IV ; Start 12/29/16 at 09:30; Status UNV Ceftriaxone Sodium (Rocephin) 1 gm Q24H IVP ; Start 12/29/16 at 10:00; Stop at 10:08; Status DC Dexmedetomidine HCl 200 mcg/ Sodium Chloride 50 ml @ 0 mls/hr CONT PRN IV PER PROTOCOL Last administered on 12/29/16 11:00; Start 12/29/16 at 10:15 Famotidine (Pepcid Vial) 20 mg BID IVP Last administered on 12/29/16 10:56; Start 12/29/16 at 11:00 Fentanyl Citrate (Fentanyl 2ml Vial) 25 mcg PRN Q1HR PRN IV PAIN; Start at 10:15 Levofloxacin/ Dextrose 100 ml @ 100 mls/hr Q24H IV Last administered on 10:56; Start 12/29/16 at 11:00 Lorazepam (Ativan) 0.5 mg PRN Q2HRS PRN IV AGITATION; Start 12/29/16 at 10:15 Lorazepam (Ativan) 2 mg 1X ONCE IV Last administered on 12/29/16 01:35; Start 12/29/16 at 01:45; Stop 12/29/16 at 01:46; Status DC Lorazepam (Ativan) 4 mg PRN Q4HRS PRN IV ANXIETY / AGITATION; Start 12/29/16 at 08:45; Status Cancel Lorazepam 100 mg/ Sodium Chloride 100 ml @ 0 mls/hr CONT PRN IV IVF Last administered on 12/29/16 09:02; Start 12/29/16 at 08:45 Metronidazole 100 ml @ 100 mls/hr Q8HRS IV ; Start 12/29/16 at 14:00; Stop at 14:00; Status DC Piperacillin Sod/ Tazobactam Sod (Zosyn Per Pharmacy) 1 each PRN DAILY PRN MC SEE COMMENTS; Start 12/29/16 at 10:15 Piperacillin Sod/ Tazobactam Sod (Zosyn) 3.375 gm Q6HRS IVP Last administered on 12/29/16 12:15; Start 12/29/16 at 12:00 Potassium Chloride (KCl Oral Soln) 40 meq 1X ONCE PEG Last administered on 10:37; Start 12/29/16 at 10:00; Stop 12/29/16 at 10:01; Status DC Propofol 20 ml @ As Directed STK-MED ONCE IV ; Start 12/29/16 at 05:22; Stop 12/29/16 at 05:23; Status DC Propofol 100 ml @ 0 mls/hr CONT PRN IV SEE I/O RECORD Last administered on 13:35; Start 12/29/16 at 05:00 Propofol 100 ml @ 0 mls/hr CONT PRN IV SEDATION; Start 12/29/16 at 10:15 Rocuronium [place] (Zemuron) 50 mg STK-MED ONCE .ROUTE ; Start 12/29/16 at 05: 20; Stop 12/29/16 at 05:21; Status DC Sodium Chloride 500 ml @ 500 mls/hr 1X PRN PRN IV SEE COMMENTS; Start at 10:15 Succinylcholine Chloride (Anectine) 200 mg STK-MED ONCE .ROUTE ; Start at 05:21; Stop 12/29/16 at 05:22; Status DC Comment Review of Relevant I have reviewed the following items jessa (where applicable) has been applied. DOUGLAS GARDUNO MD Dec 29, 2016 14:46
[2016-12-29] MEDS ORDERED: ACETYLCYSTEINE IV ONE (15:00)
[2016-12-29] MEDS ORDERED: DEXTROSE 5% IV ONE (15:00)
[2016-12-30] VITALS (24 sets, daily range): BP systolic 90–117; BP diastolic 54–74
[2016-12-30] MEDS: PIPERACILLIN/TAZO IV Push 3.375 GM VIAL. IVP SCH ×4 (00:41→17:31)
[2016-12-30] MEDS: DEXMEDETOMIDINE 200 MCG in IV NORMAL SALINE 50ML 48 ML IV PRN ×8 (00:43→22:21)
[2016-12-30] MEDS: PROPOFOL 100 ML IV PRN ×3 (01:48→20:02)
[2016-12-30 05:23] LABS: BASO % 0 % (0-3); EOS % 2 % (0-3); HEMATOCRIT 43.1 % (39.0-53.0); HEMOGLOBIN 14.2 g/dL (13.0-17.5); LYMPH # 0.9 x10^3/uL (1.0-4.8); LYMPH % 6 % (24-48); MEAN CORPUSCULAR HEMOGLOBIN 30 pg (25-35); MEAN CORPUSCULAR HGB CONC 33 g/dL (31-37); MEAN CORPUSCULAR VOLUME 92 fL (79-100); MONO % 3 % (0-9); NEUT % 89 % (31-73); PLATELET COUNT 289 x10^3/uL (140-400); RED BLOOD COUNT 4.67 x10^6/uL (4.30-5.70); RED CELL DISTRIBUTION WIDTH 13.6 % (11.5-14.5)
[2016-12-30 06:06] LABS: INR 1.6 (0.8-1.1); PROTHROMBIN TIME PATIENT 17.7 SEC (11.7-14.0)
[2016-12-30 06:12] LABS: ALBUMIN 2.6 g/dL (3.4-5.0); ALBUMIN/GLOBULIN RATIO 0.8 (1.0-1.7); CALCIUM 8.7 mg/dL (8.5-10.1); CREATININE 0.7 mg/dL (0.7-1.3); GFR 119.9; TOTAL BILIRUBIN 0.6 mg/dL (0.2-1.0); TOTAL PROTEIN 5.8 g/dL (6.4-8.2)
[2016-12-30] MEDS: FAMOTIDINE 20 MG/2 ML VIAL IVP SCH ×2 (08:55→20:58)
--- NOTE | 2016-12-30 09:32 | RAD ---
AP PORTABLE CHEST Clinical Indication: aspiration pneumonia 110. Comparison: AP chest, prior day. Findings: Endotracheal tube tip is 2.5 cm superior to the shantell. Enteric tube remains in the stomach. The cardiomediastinal silhouette is stable. Bilateral interstitial and alveolar opacities are improved. No pleural effusion or pneumothorax is identified. Bones appear stable. IMPRESSION: 1. Stable life support devices. 2. Improved bilateral interstitial and alveolar opacities.
--- NOTE | 2016-12-30 10:52 | PDOC ---
PULMONARY PROGRESS NOTES Subjective remains on AC mode sedated/ has been restless Vitals Vital Signs Date Time Temp Pulse Resp B/P (MAP) Pulse Ox O2 Delivery O2 Flow Rate FiO2 12/30/16 10:00 78 28 92/55 (67) 99 Ventilator 12/30/16 07:00 99.0 99.0 12/29/16 08:00 15.0 Lungs: Other (decrease bs) Cardiovascular: S1 Abdomen: Soft Extremities: No Edema Skin: Warm Labs Laboratory Tests Test 12/28/16 12:45 12/28/16 13:15 12/28/16 18:30 12/29/16 00:35 Urine Opiates Screen Neg (NEG) Urine Methadone Screen Neg (NEG) Urine Barbiturates Neg (NEG) Urine Phencyclidine Screen Neg (NEG) Urine Amphetamine/Methamphetamine Neg (NEG) Urine Benzodiazepines Screen Neg (NEG) Urine Cocaine Screen Pos (NEG) Urine Cannabinoids Screen Neg (NEG) Urine Ethyl Alcohol Neg (NEG) Acetaminophen Level 81.13 mcg/ml (10-30) 37.8 mcg/ml (10-30) 17.5 mcg/ml (10-30) Acetaminophen Last Dose Date 12/27/16 12/27/16 Unk Acetaminophen Last Dose Time 1800 1800 Unk Test 12/29/16 04:23 12/29/16 05:00 12/29/16 08:39 12/29/16 10:00 O2 Saturation 80 % (92-99) 97 % (92-99) Arterial Blood pH 7.34 (7.35-7.45) 7.36 (7.35-7.45) Arterial Blood pCO2 at Patient Temp 43 mmHg (35-46) 43 mmHg (35-46) Arterial Blood pO2 at Patient Temp 44 mmHg (75-108) 90 mmHg (75-108) Arterial Blood HCO3 23 mmol/L (21-28) 23 mmol/L (21-28) Arterial Blood Base Excess -3 mmol/L (-3-3) -2 mmol/L (-3-3) FiO2 100 60 White Blood Count 20.3 x10^3/uL (4.0-11.0) Red Blood Count 5.10 x10^6/uL (4.30-5.70) Hemoglobin 15.5 g/dL (13.0-17.5) Hematocrit 47.6 % (39.0-53.0) Mean Corpuscular Volume 93 fL (79-100) Mean Corpuscular Hemoglobin 30 pg (25-35) Mean Corpuscular Hemoglobin Concent 33 g/dL (31-37) Red Cell Distribution Width 14.0 % (11.5-14.5) Platelet Count 320 x10^3/uL (140-400) Neutrophils (%) (Auto) 88 % (31-73) Lymphocytes (%) (Auto) 8 % (24-48) Monocytes (%) (Auto) 4 % (0-9) Eosinophils (%) (Auto) 0 % (0-3) Basophils (%) (Auto) 0 % (0-3) Neutrophils # (Auto) 17.8 x10^3uL (1.8-7.7) Lymphocytes # (Auto) 1.5 x10^3/uL (1.0-4.8) Monocytes # (Auto) 0.8 x10^3/uL (0.0-1.1) Eosinophils # (Auto) 0.0 x10^3/uL (0.0-0.7) Basophils # (Auto) 0.1 x10^3/uL (0.0-0.2) Prothrombin Time 18.4 SEC (11.7-14.0) Prothromb Time International Ratio 1.6 (0.8-1.1) Sodium Level 138 mmol/L (136-145) Potassium Level 3.2 mmol/L (3.5-5.1) Chloride Level 104 mmol/L (98-107) Carbon Dioxide Level 17 mmol/L (21-32) Anion Gap 17 (6-14) Blood Urea Nitrogen 12 mg/dL (8-26) Creatinine 0.6 mg/dL (0.7-1.3) Estimated GFR (Cockcroft-Gault) 143.2 BUN/Creatinine Ratio 20 (6-20) Glucose Level 84 mg/dL (70-99) Calcium Level 8.4 mg/dL (8.5-10.1) Total Bilirubin 1.4 mg/dL (0.2-1.0) Aspartate Amino Transf (AST/SGOT) 5 U/L (15-37) Alanine Aminotransferase (ALT/SGPT) 113 U/L (16-63) Alkaline Phosphatase 68 U/L (46-116) Total Protein 6.1 g/dL (6.4-8.2) Albumin 3.4 g/dL (3.4-5.0) Albumin/Globulin Ratio 1.3 (1.0-1.7) Acetaminophen Level 19.5 mcg/ml (10-30) 21.9 mcg/ml (10-30) Acetaminophen Last Dose Date Unknown Unknown Acetaminophen Last Dose Time Unknown Unknown Test 12/29/16 12:19 12/29/16 17:49 12/29/16 17:50 12/30/16 03:00 Glucose (Fingerstick) 123 mg/dL (70-99) 110 mg/dL (70-99) Acetaminophen Level 13.23 mcg/ml (10-30) 3.25 mcg/ml (10-30) Acetaminophen Last Dose Date 12/27/16 Acetaminophen Last Dose Time 2200 White Blood Count 16.0 x10^3/uL (4.0-11.0) Red Blood Count 4.67 x10^6/uL (4.30-5.70) Hemoglobin 14.2 g/dL (13.0-17.5) Hematocrit 43.1 % (39.0-53.0) Mean Corpuscular Volume 92 fL (79-100) Mean Corpuscular Hemoglobin 30 pg (25-35) Mean Corpuscular Hemoglobin Concent 33 g/dL (31-37) Red Cell Distribution Width 13.6 % (11.5-14.5) Platelet Count 289 x10^3/uL (140-400) Neutrophils (%) (Auto) 89 % (31-73) Lymphocytes (%) (Auto) 6 % (24-48) Monocytes (%) (Auto) 3 % (0-9) Eosinophils (%) (Auto) 2 % (0-3) Basophils (%) (Auto) 0 % (0-3) Neutrophils # (Auto) 14.2 x10^3uL (1.8-7.7) Lymphocytes # (Auto) 0.9 x10^3/uL (1.0-4.8) Monocytes # (Auto) 0.6 x10^3/uL (0.0-1.1) Eosinophils # (Auto) 0.3 x10^3/uL (0.0-0.7) Basophils # (Auto) 0.0 x10^3/uL (0.0-0.2) Prothrombin Time 17.7 SEC (11.7-14.0) Prothromb Time International Ratio 1.6 (0.8-1.1) Sodium Level 141 mmol/L (136-145) Potassium Level 3.0 mmol/L (3.5-5.1) Chloride Level 107 mmol/L (98-107) Carbon Dioxide Level 27 mmol/L (21-32) Anion Gap 7 (6-14) Blood Urea Nitrogen 9 mg/dL (8-26) Creatinine 0.7 mg/dL (0.7-1.3) Estimated GFR (Cockcroft-Gault) 119.9 BUN/Creatinine Ratio 13 (6-20) Glucose Level 121 mg/dL (70-99) Calcium Level 8.7 mg/dL (8.5-10.1) Total Bilirubin 0.6 mg/dL (0.2-1.0) Aspartate Amino Transf (AST/SGOT) 289 U/L (15-37) Alanine Aminotransferase (ALT/SGPT) 262 U/L (16-63) Alkaline Phosphatase 64 U/L (46-116) Total Protein 5.8 g/dL (6.4-8.2) Albumin 2.6 g/dL (3.4-5.0) Albumin/Globulin Ratio 0.8 (1.0-1.7) Test 12/30/16 09:39 Glucose (Fingerstick) 120 mg/dL (70-99) Laboratory Tests Test 12/29/16 12:19 12/29/16 17:49 12/29/16 17:50 12/30/16 03:00 Glucose (Fingerstick) 123 mg/dL (70-99) 110 mg/dL (70-99) Acetaminophen Level 13.23 mcg/ml (10-30) 3.25 mcg/ml (10-30) Acetaminophen Last Dose Date 12/27/16 Acetaminophen Last Dose Time 2200 White Blood Count 16.0 x10^3/uL (4.0-11.0) Red Blood Count 4.67 x10^6/uL (4.30-5.70) Hemoglobin 14.2 g/dL (13.0-17.5) Hematocrit 43.1 % (39.0-53.0) Mean Corpuscular Volume 92 fL (79-100) Mean Corpuscular Hemoglobin 30 pg (25-35) Mean Corpuscular Hemoglobin Concent 33 g/dL (31-37) Red Cell Distribution Width 13.6 % (11.5-14.5) Platelet Count 289 x10^3/uL (140-400) Neutrophils (%) (Auto) 89 % (31-73) Lymphocytes (%) (Auto) 6 % (24-48) Monocytes (%) (Auto) 3 % (0-9) Eosinophils (%) (Auto) 2 % (0-3) Basophils (%) (Auto) 0 % (0-3) Neutrophils # (Auto) 14.2 x10^3uL (1.8-7.7) Lymphocytes # (Auto) 0.9 x10^3/uL (1.0-4.8) Monocytes # (Auto) 0.6 x10^3/uL (0.0-1.1) Eosinophils # (Auto) 0.3 x10^3/uL (0.0-0.7) Basophils # (Auto) 0.0 x10^3/uL (0.0-0.2) Prothrombin Time 17.7 SEC (11.7-14.0) Prothromb Time International Ratio 1.6 (0.8-1.1) Sodium Level 141 mmol/L (136-145) Potassium Level 3.0 mmol/L (3.5-5.1) Chloride Level 107 mmol/L (98-107) Carbon Dioxide Level 27 mmol/L (21-32) Anion Gap 7 (6-14) Blood Urea Nitrogen 9 mg/dL (8-26) Creatinine 0.7 mg/dL (0.7-1.3) Estimated GFR (Cockcroft-Gault) 119.9 BUN/Creatinine Ratio 13 (6-20) Glucose Level 121 mg/dL (70-99) Calcium Level 8.7 mg/dL (8.5-10.1) Total Bilirubin 0.6 mg/dL (0.2-1.0) Aspartate Amino Transf (AST/SGOT) 289 U/L (15-37) Alanine Aminotransferase (ALT/SGPT) 262 U/L (16-63) Alkaline Phosphatase 64 U/L (46-116) Total Protein 5.8 g/dL (6.4-8.2) Albumin 2.6 g/dL (3.4-5.0) Albumin/Globulin Ratio 0.8 (1.0-1.7) Test 12/30/16 09:39 Glucose (Fingerstick) 120 mg/dL (70-99) Medications Active Scripts Medications Dose Route/Sig Max Daily Dose Days Date Category Requip (Ropinirole Hcl) 1 Mg Tablet 2 Mg PO QHS 12/28/16 Reported Mirtazapine 30 Mg Tablet 0.5 Tab PO QHS 12/28/16 Reported Proair Hfa Inhaler (Albuterol Sulfate) 8.5 Gm Hfa.aer.ad 1-2 Puff INH PRN Q6HRS PRN 12/28/16 Reported Spiriva (Tiotropium [place]) 18 Mcg Cap.w.dev 2 Inh IH DAILY 12/28/16 Reported Spiriva (Tiotropium [place]) 18 Mcg Cap.w.dev 1 Cap IH DAILY 12/28/16 Reported Omeprazole 20 Mg Capsule.dr 1 Cap PO DAILY 12/28/16 Reported Dexamethasone 4 Mg Tablet 1 Tab PO QID 12/28/16 Reported Symbicort 80-4.5 Mcg Inhaler (Budesonide/Formoterol Fumarate) 10.2 Gm Hfa.aer.ad 2 Puff IH BID 12/28/16 Reported Alprazolam 0.5 Mg Tablet 1 Tab PO QAM 12/28/16 Reported Metoprolol Tartrate 50 Mg Tablet 0.5 Tab PO BID 12/28/16 Reported Amiodarone Hcl 200 Mg Tablet 1 Tab PO DAILY 12/28/16 Reported Tylenol (Acetaminophen) 325 Mg Tablet 2 Tab PO PRN Q6HRS PRN 12/28/16 Reported Melatonin 3 Mg Tablet 2 Tab PO QHS 12/28/16 Reported Montelukast Sodium Tablet (Montelukast Sodium) 10 Mg Tablet 1 Tab PO DAILY 12/28/16 Reported Atorvastatin Calcium 40 Mg Tablet 1 Tab PO QHS 12/28/16 Reported Tramadol Hcl 50 Mg Tablet 50 Mg PO Q6H PRN 12/28/16 Reported Hydrocodone-Apap 7.5-325 (Hydrocodone Bit/Acetaminophen) 1 Each Tablet 1 Tab PO PRN Q6HRS PRN 12/28/16 Reported Zoloft (Sertraline Hcl) 25 Mg Tablet 1 Tab PO DAILY 12/28/16 Reported Impression . 1. Acute respiratory failure secondary to acute toxic encephalopathy. 2. Acute toxic encephalopathy secondary to overdose of Benadryl, acetaminophen, cocaine and alcohol. 3. Diffuse bilateral infiltrates, most likely related to aspiration pneumonia.improving 4. Fever secondary to aspiration pneumonia. 5. Leukocytosis. 6. Abnormal urine toxicology screen positive for cocaine and acetaminophen. Levels have come down, but INR is increasing and we will monitor closely. Plan . 1. Continue with present assist control mode and wean FIO2. 2. We will stop sedation in next 24 hours and assess mental status. 3. Broad spectrum antibiotics 4. Follow chest x-rays. 5. Follow ABGs. 6. Monitor blood pressure closely. 7. Repeat INR stable 8. Deep venous thrombosis and stress ulcer prophylaxis. 9. s/p antidote for tylenol overdose Discussed with RN and RT. Critical care time 30 minutes. ROMAINE CORDERO MD Dec 30, 2016 10:52
[2016-12-30] MEDS ORDERED: POTASSIUM CHLORIDE 20 MEQ/15 ML ORAL LIQUID. PEG ONE (12:30)
[2016-12-30] MEDS ORDERED: POTASSIUM CL 40MEQ D5-0.45NACL 1,000 ML IV ONE (13:00)
--- NOTE | 2016-12-30 13:00 | PDOC ---
G I PROGRESS NOTE Reason for Follow-up Acetaminophen overdose Subjective Sedated Physical Exam Lungs decreased BS CV S1 S2 ABD hypoactive BS, soft, distended Review of Relevant I have reviewed the following items jessa (where applicable) has been applied. Labs Laboratory Tests Test 12/28/16 13:15 12/28/16 18:30 12/29/16 00:35 12/29/16 04:23 Acetaminophen Level 81.13 mcg/ml (10-30) 37.8 mcg/ml (10-30) 17.5 mcg/ml (10-30) Acetaminophen Last Dose Date 12/27/16 12/27/16 Unk Acetaminophen Last Dose Time 1800 1800 Unk O2 Saturation 80 % (92-99) Arterial Blood pH 7.34 (7.35-7.45) Arterial Blood pCO2 at Patient Temp 43 mmHg (35-46) Arterial Blood pO2 at Patient Temp 44 mmHg (75-108) Arterial Blood HCO3 23 mmol/L (21-28) Arterial Blood Base Excess -3 mmol/L (-3-3) FiO2 100 Test 12/29/16 05:00 12/29/16 08:39 12/29/16 10:00 12/29/16 12:19 White Blood Count 20.3 x10^3/uL (4.0-11.0) Red Blood Count 5.10 x10^6/uL (4.30-5.70) Hemoglobin 15.5 g/dL (13.0-17.5) Hematocrit 47.6 % (39.0-53.0) Mean Corpuscular Volume 93 fL (79-100) Mean Corpuscular Hemoglobin 30 pg (25-35) Mean Corpuscular Hemoglobin Concent 33 g/dL (31-37) Red Cell Distribution Width 14.0 % (11.5-14.5) Platelet Count 320 x10^3/uL (140-400) Neutrophils (%) (Auto) 88 % (31-73) Lymphocytes (%) (Auto) 8 % (24-48) Monocytes (%) (Auto) 4 % (0-9) Eosinophils (%) (Auto) 0 % (0-3) Basophils (%) (Auto) 0 % (0-3) Neutrophils # (Auto) 17.8 x10^3uL (1.8-7.7) Lymphocytes # (Auto) 1.5 x10^3/uL (1.0-4.8) Monocytes # (Auto) 0.8 x10^3/uL (0.0-1.1) Eosinophils # (Auto) 0.0 x10^3/uL (0.0-0.7) Basophils # (Auto) 0.1 x10^3/uL (0.0-0.2) Prothrombin Time 18.4 SEC (11.7-14.0) Prothromb Time International Ratio 1.6 (0.8-1.1) Sodium Level 138 mmol/L (136-145) Potassium Level 3.2 mmol/L (3.5-5.1) Chloride Level 104 mmol/L (98-107) Carbon Dioxide Level 17 mmol/L (21-32) Anion Gap 17 (6-14) Blood Urea Nitrogen 12 mg/dL (8-26) Creatinine 0.6 mg/dL (0.7-1.3) Estimated GFR (Cockcroft-Gault) 143.2 BUN/Creatinine Ratio 20 (6-20) Glucose Level 84 mg/dL (70-99) Calcium Level 8.4 mg/dL (8.5-10.1) Total Bilirubin 1.4 mg/dL (0.2-1.0) Aspartate Amino Transf (AST/SGOT) 5 U/L (15-37) Alanine Aminotransferase (ALT/SGPT) 113 U/L (16-63) Alkaline Phosphatase 68 U/L (46-116) Total Protein 6.1 g/dL (6.4-8.2) Albumin 3.4 g/dL (3.4-5.0) Albumin/Globulin Ratio 1.3 (1.0-1.7) Acetaminophen Level 19.5 mcg/ml (10-30) 21.9 mcg/ml (10-30) Acetaminophen Last Dose Date Unknown Unknown Acetaminophen Last Dose Time Unknown Unknown O2 Saturation 97 % (92-99) Arterial Blood pH 7.36 (7.35-7.45) Arterial Blood pCO2 at Patient Temp 43 mmHg (35-46) Arterial Blood pO2 at Patient Temp 90 mmHg (75-108) Arterial Blood HCO3 23 mmol/L (21-28) Arterial Blood Base Excess -2 mmol/L (-3-3) FiO2 60 Glucose (Fingerstick) 123 mg/dL (70-99) Test 12/29/16 17:49 12/29/16 17:50 12/30/16 03:00 12/30/16 09:39 Glucose (Fingerstick) 110 mg/dL (70-99) 120 mg/dL (70-99) Acetaminophen Level 13.23 mcg/ml (10-30) 3.25 mcg/ml (10-30) Acetaminophen Last Dose Date 12/27/16 Acetaminophen Last Dose Time 2200 White Blood Count 16.0 x10^3/uL (4.0-11.0) Red Blood Count 4.67 x10^6/uL (4.30-5.70) Hemoglobin 14.2 g/dL (13.0-17.5) Hematocrit 43.1 % (39.0-53.0) Mean Corpuscular Volume 92 fL (79-100) Mean Corpuscular Hemoglobin 30 pg (25-35) Mean Corpuscular Hemoglobin Concent 33 g/dL (31-37) Red Cell Distribution Width 13.6 % (11.5-14.5) Platelet Count 289 x10^3/uL (140-400) Neutrophils (%) (Auto) 89 % (31-73) Lymphocytes (%) (Auto) 6 % (24-48) Monocytes (%) (Auto) 3 % (0-9) Eosinophils (%) (Auto) 2 % (0-3) Basophils (%) (Auto) 0 % (0-3) Neutrophils # (Auto) 14.2 x10^3uL (1.8-7.7) Lymphocytes # (Auto) 0.9 x10^3/uL (1.0-4.8) Monocytes # (Auto) 0.6 x10^3/uL (0.0-1.1) Eosinophils # (Auto) 0.3 x10^3/uL (0.0-0.7) Basophils # (Auto) 0.0 x10^3/uL (0.0-0.2) Prothrombin Time 17.7 SEC (11.7-14.0) Prothromb Time International Ratio 1.6 (0.8-1.1) Sodium Level 141 mmol/L (136-145) Potassium Level 3.0 mmol/L (3.5-5.1) Chloride Level 107 mmol/L (98-107) Carbon Dioxide Level 27 mmol/L (21-32) Anion Gap 7 (6-14) Blood Urea Nitrogen 9 mg/dL (8-26) Creatinine 0.7 mg/dL (0.7-1.3) Estimated GFR (Cockcroft-Gault) 119.9 BUN/Creatinine Ratio 13 (6-20) Glucose Level 121 mg/dL (70-99) Calcium Level 8.7 mg/dL (8.5-10.1) Total Bilirubin 0.6 mg/dL (0.2-1.0) Aspartate Amino Transf (AST/SGOT) 289 U/L (15-37) Alanine Aminotransferase (ALT/SGPT) 262 U/L (16-63) Alkaline Phosphatase 64 U/L (46-116) Total Protein 5.8 g/dL (6.4-8.2) Albumin 2.6 g/dL (3.4-5.0) Albumin/Globulin Ratio 0.8 (1.0-1.7) Laboratory Tests Test 12/29/16 17:49 12/29/16 17:50 12/30/16 03:00 12/30/16 09:39 Glucose (Fingerstick) 110 mg/dL (70-99) 120 mg/dL (70-99) Acetaminophen Level 13.23 mcg/ml (10-30) 3.25 mcg/ml (10-30) Acetaminophen Last Dose Date 12/27/16 Acetaminophen Last Dose Time 2200 White Blood Count 16.0 x10^3/uL (4.0-11.0) Red Blood Count 4.67 x10^6/uL (4.30-5.70) Hemoglobin 14.2 g/dL (13.0-17.5) Hematocrit 43.1 % (39.0-53.0) Mean Corpuscular Volume 92 fL (79-100) Mean Corpuscular Hemoglobin 30 pg (25-35) Mean Corpuscular Hemoglobin Concent 33 g/dL (31-37) Red Cell Distribution Width 13.6 % (11.5-14.5) Platelet Count 289 x10^3/uL (140-400) Neutrophils (%) (Auto) 89 % (31-73) Lymphocytes (%) (Auto) 6 % (24-48) Monocytes (%) (Auto) 3 % (0-9) Eosinophils (%) (Auto) 2 % (0-3) Basophils (%) (Auto) 0 % (0-3) Neutrophils # (Auto) 14.2 x10^3uL (1.8-7.7) Lymphocytes # (Auto) 0.9 x10^3/uL (1.0-4.8) Monocytes # (Auto) 0.6 x10^3/uL (0.0-1.1) Eosinophils # (Auto) 0.3 x10^3/uL (0.0-0.7) Basophils # (Auto) 0.0 x10^3/uL (0.0-0.2) Prothrombin Time 17.7 SEC (11.7-14.0) Prothromb Time International Ratio 1.6 (0.8-1.1) Sodium Level 141 mmol/L (136-145) Potassium Level 3.0 mmol/L (3.5-5.1) Chloride Level 107 mmol/L (98-107) Carbon Dioxide Level 27 mmol/L (21-32) Anion Gap 7 (6-14) Blood Urea Nitrogen 9 mg/dL (8-26) Creatinine 0.7 mg/dL (0.7-1.3) Estimated GFR (Cockcroft-Gault) 119.9 BUN/Creatinine Ratio 13 (6-20) Glucose Level 121 mg/dL (70-99) Calcium Level 8.7 mg/dL (8.5-10.1) Total Bilirubin 0.6 mg/dL (0.2-1.0) Aspartate Amino Transf (AST/SGOT) 289 U/L (15-37) Alanine Aminotransferase (ALT/SGPT) 262 U/L (16-63) Alkaline Phosphatase 64 U/L (46-116) Total Protein 5.8 g/dL (6.4-8.2) Albumin 2.6 g/dL (3.4-5.0) Albumin/Globulin Ratio 0.8 (1.0-1.7) Microbiology 12/29/16 - Final, Resulted 12/29/16 - Final, Resulted 12/29/16 - Final, Resulted 12/29/16 Gram Stain Evaluation - Final, Resulted 12/29/16 Sputum Culture - Preliminary, Resulted 12/29/16 Sputum Result 1 - Final, Resulted Medications Current Medications Info (Do NOT chart on this placeholder) 1 each 1X ONCE MC ; Start 11/17/17 at 04:15; Stop 12/28/16 at 04:16; Status UNV Pneumococcal Polyvalent Vaccine (Do NOT chart on this placeholder) 1 each 1X ONCE MC ; Start 12/28/16 at 04:15; Stop 12/28/16 at 04:16; Status UNV Sodium Chloride 1,000 ml @ 100 mls/hr Q10H IV Last administered on 12/29/16 05:56; Start 12/28/16 at 05:00; Stop 12/29/16 at 08:37; Status DC Acetylcysteine 6.87 gm/Dextrose 1,034.35 ml @ 62.5 mls/ hr 1X ONCE IV Last administered on 12/28/16 05:36; Start 12/28/16 at 05:30; Stop 12/28/16 at 22 :02; Status DC Physostigmine Salicylate (Antilirium) 2 mg 1X ONCE IV Last administered on 08:20; Start 12/28/16 at 06:15; Stop 12/28/16 at 06:16; Status DC Sodium Bicarbonate 50 meq 1X ONCE IV Last administered on 12/28/16 06:23; Start 12/28/16 at 06:00; Stop 12/28/16 at 06:02; Status DC Influenza Virus Vaccine Quadrival (Fluarix Quad [id number] Syringe) 0.5 ml ONCE ONCE VAX IM ; Start 12/28/16 at 09:00; Stop 12/28/16 at 09:01; Status DC Pneumococcal Polyvalent Vaccine (Pneumovax 23) 0.5 ml ONCE ONCE VAX IM ; Start 12/28/16 at 09:00; Stop 12/28/16 at 09:01; Status DC Multivitamins 10 ml/Thiamine HCl 100 mg/Folic Acid 1 mg/Sodium Chloride 1,011.2 ml @ 100 mls/ hr DAILY IV Last administered on 12/29/16 09:01; Start at 09:00; Stop 12/29/16 at 09:33; Status DC Lorazepam (Ativan) 2 mg PRN Q1HR PRN IV For CIWA 8-14 Last administered on 12:13; Start 12/28/16 at 08:30 Lorazepam (Ativan) 4 mg PRN Q1HR PRN IV For CIWA 15 or greater Last administered on 12/30/16 04:40; Start 12/28/16 at 08:30 Haloperidol Lactate (Haldol) 5 mg PRN Q6HRS PRN IVP AGITATION Last administered on 12/29/16 01:00; Start 12/28/16 at 09:15 Enoxaparin Sodium (Lovenox Per Pharmacy Prophylaxis Dosing) 1 each PRN DAILY PRN MC SEE COMMENTS; Start 12/28/16 at 13:45 Enoxaparin Sodium (Lovenox 40mg Syringe) 40 mg Q24H SQ Last administered on 13:37; Start 12/28/16 at 14:00 Acetylcysteine 6.9 gm/Dextrose 1,034.5 ml @ 62.509 mls/hr 1X ONCE IV Last administered on 12/28/16 22:43; Start 12/28/16 at 23:00; Stop 12/29/16 at 15 :32; Status DC Lorazepam (Ativan) 2 mg 1X ONCE IV Last administered on 12/29/16 01:35; Start 12/29/16 at 01:45; Stop 12/29/16 at 01:46; Status DC Propofol 100 ml @ 0 mls/hr CONT PRN IV SEE I/O RECORD Last administered on 01:48; Start 12/29/16 at 05:00; Stop 12/30/16 at 09:22; Status DC Rocuronium Mershon (Zemuron) 50 mg STK-MED ONCE .ROUTE ; Start 12/29/16 at 05: 20; Stop 12/29/16 at 05:21; Status DC Succinylcholine Chloride (Anectine) 200 mg STK-MED ONCE .ROUTE ; Start at 05:21; Stop 12/29/16 at 05:22; Status DC Propofol 20 ml @ As Directed STK-MED ONCE IV ; Start 12/29/16 at 05:22; Stop 12/29/16 at 05:23; Status DC Amino Acids/ Glycerin/ Electrolytes 1,000 ml @ 80 mls/hr [id number] IV Last administered on 12/29/16 09:02; Start 12/29/16 at 08:45; Stop 12/30/16 at 09 :14; Status DC Lorazepam (Ativan) 4 mg PRN Q4HRS PRN IV ANXIETY / AGITATION; Start 12/29/16 at 08:45; Status Cancel Lorazepam 100 mg/ Sodium Chloride 100 ml @ 0 mls/hr CONT PRN IV IVF Last administered on 12/29/16 09:02; Start 12/29/16 at 08:45 Ceftriaxone Sodium 1 gm/ Dextrose 50 ml @ 100 mls/hr Q24H IV ; Start 12/29/16 at 09:30; Status UNV Metronidazole 100 ml @ 100 mls/hr Q8HRS IV ; Start 12/29/16 at 14:00; Stop at 14:00; Status DC Potassium Chloride (KCl Oral Soln) 40 meq 1X ONCE PEG Last administered on 10:37; Start 12/29/16 at 10:00; Stop 12/29/16 at 10:01; Status DC Ceftriaxone Sodium (Rocephin) 1 gm Q24H IVP ; Start 12/29/16 at 10:00; Stop at 10:08; Status DC Piperacillin Sod/ Tazobactam Sod (Zosyn Per Pharmacy) 1 each PRN DAILY PRN MC SEE COMMENTS; Start 12/29/16 at 10:15 Levofloxacin/ Dextrose 100 ml @ 100 mls/hr Q24H IV Last administered on 10:25; Start 12/29/16 at 11:00 Famotidine (Pepcid Vial) 20 mg BID IVP Last administered on 12/30/16 08:55; Start 12/29/16 at 11:00 Dexmedetomidine HCl 200 mcg/ Sodium Chloride 50 ml @ 0 mls/hr CONT PRN IV PER PROTOCOL Last administered on 12/30/16 12:45; Start 12/29/16 at 10:15 Fentanyl Citrate (Fentanyl 2ml Vial) 25 mcg PRN Q1HR PRN IV PAIN; Start at 10:15 Lorazepam (Ativan) 0.5 mg PRN Q2HRS PRN IV AGITATION; Start 12/29/16 at 10:15 Propofol 100 ml @ 0 mls/hr CONT PRN IV SEDATION Last administered on 12:12; Start 11/18/17 at 10:15 Sodium Chloride 500 ml @ 500 mls/hr 1X PRN PRN IV SEE COMMENTS; Start at 10:15 Atropine Sulfate 0.5 mg PRN Q5MIN PRN IV SEE COMMENTS; Start 12/29/16 at 10:15 Piperacillin Sod/ Tazobactam Sod (Zosyn) 3.375 gm Q6HRS IVP Last administered on 12/30/16 11:53; Start 12/29/16 at 12:00 Acetylcysteine 6.9 gm/Dextrose 1,034.5 ml @ 62.509 mls/hr 1X ONCE IV Last administered on 12/29/16 15:40; Start 12/29/16 at 15:00; Stop 12/30/16 at 07 :32; Status DC Potassium Chloride (KCl Oral Soln) 40 meq 1X ONCE PEG Last administered on 12:49; Start 12/30/16 at 12:30; Stop 12/30/16 at 12:31; Status DC Potassium Chloride (KCl Oral Soln) 20 meq DAILY PEG ; Start 12/31/16 at 09:00 Potassium Chloride/Dextrose/ Sod Cl 1,000 ml @ 75 mls/hr 1X ONCE IV Last administered on 12/30/16 12:48; Start 12/30/16 at 13:00; Stop 12/31/16 at 02 :19 Active Scripts Active Reported Requip (Ropinirole Hcl) 1 Mg Tablet 2 Mg PO QHS Mirtazapine 30 Mg Tablet 0.5 Tab PO QHS Proair Hfa Inhaler (Albuterol Sulfate) 8.5 Gm Hfa.aer.ad 1-2 Puff INH PRN Q6HRS PRN Spiriva (Tiotropium Mershon) 18 Mcg Cap.w.dev 2 Inh IH DAILY Spiriva (Tiotropium Mershon) 18 Mcg Cap.w.dev 1 Cap IH DAILY Omeprazole 20 Mg Capsule.dr 1 Cap PO DAILY Dexamethasone 4 Mg Tablet 1 Tab PO QID Symbicort 80-4.5 Mcg Inhaler (Budesonide/Formoterol Fumarate) 10.2 Gm Hfa.aer.ad 2 Puff IH BID Alprazolam 0.5 Mg Tablet 1 Tab PO QAM Metoprolol Tartrate 50 Mg Tablet 0.5 Tab PO BID Amiodarone Hcl 200 Mg Tablet 1 Tab PO DAILY Tylenol (Acetaminophen) 325 Mg Tablet 2 Tab PO PRN Q6HRS PRN Melatonin 3 Mg Tablet 2 Tab PO QHS Montelukast Sodium Tablet (Montelukast Sodium) 10 Mg Tablet 1 Tab PO DAILY Atorvastatin Calcium 40 Mg Tablet 1 Tab PO QHS Tramadol Hcl 50 Mg Tablet 50 Mg PO Q6H PRN Hydrocodone-Apap 7.5-325 (Hydrocodone Bit/Acetaminophen) 1 Each Tablet 1 Tab PO PRN Q6HRS PRN Zoloft (Sertraline Hcl) 25 Mg Tablet 1 Tab PO DAILY Vitals/I & O Vital Sign - Last 24 Hours 12/29/16 12/29/16 12/29/16 12/29/16 13:00 13:12 14:00 15:00 Pulse 87 84 85 Resp 26 26 28 B/P (MAP) 97/65 (76) 75/56 (62) 102/65 (77) Pulse Ox 99 98 99 100 O2 Delivery Ventilator Ventilator Ventilator Ventilator 12/29/16 12/29/16 12/29/16 12/29/16 15:31 16:00 16:10 17:00 Temp 98.5 98.5 Pulse 83 79 Resp 27 26 B/P (MAP) 115/74 (88) 84/59 (67) Pulse Ox 99 100 100 O2 Delivery Ventilator Ventilator Mechanical Ventilator Ventilator 12/29/16 12/29/16 12/29/16 12/29/16 17:30 18:00 19:00 20:00 Temp 97.8 97.8 Pulse 77 76 Resp 22 25 B/P (MAP) 92/60 (71) 91/59 (70) Pulse Ox 99 100 100 99 O2 Delivery Ventilator Ventilator Ventilator Ventilator 12/29/16 12/29/16 12/29/16 12/29/16 20:00 20:00 21:00 21:17 Pulse 76 78 Resp 25 25 B/P (MAP) 87/56 (66) 92/61 (71) Pulse Ox 100 100 99 O2 Delivery Mechanical Ventilator Ventilator Ventilator Ventilator 12/29/16 12/29/16 12/29/16 12/30/16 22:00 23:00 23:21 00:00 Pulse 78 78 76 Resp 25 23 20 B/P (MAP) 97/63 (74) 105/66 (79) 102/66 (78) Pulse Ox 100 100 99 100 O2 Delivery Ventilator Ventilator Ventilator Ventilator 12/30/16 12/30/16 12/30/16 12/30/16 00:00 01:00 01:15 02:00 Pulse 76 76 Resp 20 20 B/P (MAP) 104/62 (76) 110/67 (81) Pulse Ox 100 99 100 O2 Delivery Mechanical Ventilator Ventilator Ventilator Ventilator 12/30/16 12/30/16 12/30/16 12/30/16 03:00 03:20 04:00 04:00 Temp 100.2 100.2 Pulse 76 78 Resp 23 26 B/P (MAP) 102/66 (78) 117/74 (88) Pulse Ox 100 99 100 O2 Delivery Ventilator Ventilator Ventilator Mechanical Ventilator 12/30/16 12/30/16 12/30/16 12/30/16 05:00 05:35 06:03 07:00 Temp 98.2 99.0 98.2 99.0 Pulse 84 80 77 Resp 26 26 22 B/P (MAP) 101/60 (74) 114/68 (83) 115/72 (86) Pulse Ox 100 99 99 99 O2 Delivery Ventilator Ventilator Ventilator Ventilator 12/30/16 12/30/16 12/30/16 12/30/16 07:24 07:30 08:00 09:00 Pulse 78 79 Resp 24 28 B/P (MAP) 99/60 (73) 108/65 (79) Pulse Ox 99 100 98 O2 Delivery Mechanical Ventilator Ventilator Ventilator Ventilator 12/30/16 12/30/16 12/30/16 12/30/16 09:19 10:00 11:00 11:55 Pulse 78 79 Resp 28 24 B/P (MAP) 92/55 (67) 101/58 (72) Pulse Ox 99 99 99 99 O2 Delivery Ventilator Ventilator Ventilator Ventilator 12/30/16 12/30/16 12:00 12:19 Temp 101.1 101.1 Pulse 83 Resp 28 B/P (MAP) 104/68 (80) Pulse Ox 98 O2 Delivery Ventilator Mechanical Ventilator Intake and Output 12/29/16 12/29/16 12/30/16 15:00 23:00 07:00 Intake Total 360 ml 1833 ml 2721 ml Output Total 445 ml 585 ml 575 ml Balance -85 ml 1248 ml 2146 ml Problem List Hepatitis- s/p tylenol overdose, LFTs noted, INR stable, weaning per pulmonary, prognosis guarded KAMRYN CABA MD Dec 30, 2016 13:00
--- NOTE | 2016-12-30 13:51 | PDOC ---
PROGRESS NOTES Chief Complaint Chief Complaint acute toxic encephalopathy, acute hypoxic respiratory failure, aspiration pneumonitis, intentional overdose of benadryl and acetaminophen known, s/p N-actyl Cysteine gtt, suicide attempt Alcohol abuse, and withdrawl treatment and banana bag ordered, cocaine abuse history encephalopathy was POA, he wa s almost aphasic, and disoriented, dysphagia, he seemed to aspirate in the ER, transaminitis, early hepatic failure hypokalemia, hypomagnesemia, replace History of Present Illness History of Present Illness copious sputum suctioned, cx sent PULM consult follwing liver enzymes starting up OG tube feeds tylenol level now near zero, s/p 3 liters of n-acetyl cysteine prognosis poor, palliative consult, may need ethics involvement, no visitors , we have not been able to contact anyone, Vitals Vitals Vital Signs Date Time Temp Pulse Resp B/P (MAP) Pulse Ox O2 Delivery O2 Flow Rate FiO2 12/30/16 13:00 83 28 97/56 (70) 98 Ventilator 12/30/16 12:00 101.1 101.1 12/29/16 08:00 15.0 Physical Exam General: Cooperative, moderate distress, Other (shaky, easily startled) Heart: Regular rate Lungs: Other (decrease bs) Abdomen: Soft Extremities: No clubbing, Normal pulses Skin: No breakdown, Other Labs LABS Laboratory Tests Test 12/29/16 17:49 12/29/16 17:50 12/30/16 03:00 12/30/16 09:39 Glucose (Fingerstick) 110 mg/dL (70-99) 120 mg/dL (70-99) Acetaminophen Level 13.23 mcg/ml (10-30) 3.25 mcg/ml (10-30) Acetaminophen Last Dose Date 12/27/16 Acetaminophen Last Dose Time 2200 White Blood Count 16.0 x10^3/uL (4.0-11.0) Red Blood Count 4.67 x10^6/uL (4.30-5.70) Hemoglobin 14.2 g/dL (13.0-17.5) Hematocrit 43.1 % (39.0-53.0) Mean Corpuscular Volume 92 fL (79-100) Mean Corpuscular Hemoglobin 30 pg (25-35) Mean Corpuscular Hemoglobin Concent 33 g/dL (31-37) Red Cell Distribution Width 13.6 % (11.5-14.5) Platelet Count 289 x10^3/uL (140-400) Neutrophils (%) (Auto) 89 % (31-73) Lymphocytes (%) (Auto) 6 % (24-48) Monocytes (%) (Auto) 3 % (0-9) Eosinophils (%) (Auto) 2 % (0-3) Basophils (%) (Auto) 0 % (0-3) Neutrophils # (Auto) 14.2 x10^3uL (1.8-7.7) Lymphocytes # (Auto) 0.9 x10^3/uL (1.0-4.8) Monocytes # (Auto) 0.6 x10^3/uL (0.0-1.1) Eosinophils # (Auto) 0.3 x10^3/uL (0.0-0.7) Basophils # (Auto) 0.0 x10^3/uL (0.0-0.2) Prothrombin Time 17.7 SEC (11.7-14.0) Prothromb Time International Ratio 1.6 (0.8-1.1) Sodium Level 141 mmol/L (136-145) Potassium Level 3.0 mmol/L (3.5-5.1) Chloride Level 107 mmol/L (98-107) Carbon Dioxide Level 27 mmol/L (21-32) Anion Gap 7 (6-14) Blood Urea Nitrogen 9 mg/dL (8-26) Creatinine 0.7 mg/dL (0.7-1.3) Estimated GFR (Cockcroft-Gault) 119.9 BUN/Creatinine Ratio 13 (6-20) Glucose Level 121 mg/dL (70-99) Calcium Level 8.7 mg/dL (8.5-10.1) Magnesium Level 1.5 mg/dL (1.8-2.4) Total Bilirubin 0.6 mg/dL (0.2-1.0) Aspartate Amino Transf (AST/SGOT) 289 U/L (15-37) Alanine Aminotransferase (ALT/SGPT) 262 U/L (16-63) Alkaline Phosphatase 64 U/L (46-116) Total Protein 5.8 g/dL (6.4-8.2) Albumin 2.6 g/dL (3.4-5.0) Albumin/Globulin Ratio 0.8 (1.0-1.7) Review of Systems Review of Systems unable, agitated, biting ET tube sedated Comment Review of Relevant I have reviewed the following items jessa (where applicable) has been applied. Labs Laboratory Tests Test 12/28/16 18:30 12/29/16 00:35 12/29/16 04:23 12/29/16 05:00 Acetaminophen Level 37.8 mcg/ml (10-30) 17.5 mcg/ml (10-30) 19.5 mcg/ml (10-30) Acetaminophen Last Dose Date 12/27/16 Unk Unknown Acetaminophen Last Dose Time 1800 Unk Unknown O2 Saturation 80 % (92-99) Arterial Blood pH 7.34 (7.35-7.45) Arterial Blood pCO2 at Patient Temp 43 mmHg (35-46) Arterial Blood pO2 at Patient Temp 44 mmHg (75-108) Arterial Blood HCO3 23 mmol/L (21-28) Arterial Blood Base Excess -3 mmol/L (-3-3) FiO2 100 White Blood Count 20.3 x10^3/uL (4.0-11.0) Red Blood Count 5.10 x10^6/uL (4.30-5.70) Hemoglobin 15.5 g/dL (13.0-17.5) Hematocrit 47.6 % (39.0-53.0) Mean Corpuscular Volume 93 fL (79-100) Mean Corpuscular Hemoglobin 30 pg (25-35) Mean Corpuscular Hemoglobin Concent 33 g/dL (31-37) Red Cell Distribution Width 14.0 % (11.5-14.5) Platelet Count 320 x10^3/uL (140-400) Neutrophils (%) (Auto) 88 % (31-73) Lymphocytes (%) (Auto) 8 % (24-48) Monocytes (%) (Auto) 4 % (0-9) Eosinophils (%) (Auto) 0 % (0-3) Basophils (%) (Auto) 0 % (0-3) Neutrophils # (Auto) 17.8 x10^3uL (1.8-7.7) Lymphocytes # (Auto) 1.5 x10^3/uL (1.0-4.8) Monocytes # (Auto) 0.8 x10^3/uL (0.0-1.1) Eosinophils # (Auto) 0.0 x10^3/uL (0.0-0.7) Basophils # (Auto) 0.1 x10^3/uL (0.0-0.2) Prothrombin Time 18.4 SEC (11.7-14.0) Prothromb Time International Ratio 1.6 (0.8-1.1) Sodium Level 138 mmol/L (136-145) Potassium Level 3.2 mmol/L (3.5-5.1) Chloride Level 104 mmol/L (98-107) Carbon Dioxide Level 17 mmol/L (21-32) Anion Gap 17 (6-14) Blood Urea Nitrogen 12 mg/dL (8-26) Creatinine 0.6 mg/dL (0.7-1.3) Estimated GFR (Cockcroft-Gault) 143.2 BUN/Creatinine Ratio 20 (6-20) Glucose Level 84 mg/dL (70-99) Calcium Level 8.4 mg/dL (8.5-10.1) Total Bilirubin 1.4 mg/dL (0.2-1.0) Aspartate Amino Transf (AST/SGOT) 5 U/L (15-37) Alanine Aminotransferase (ALT/SGPT) 113 U/L (16-63) Alkaline Phosphatase 68 U/L (46-116) Total Protein 6.1 g/dL (6.4-8.2) Albumin 3.4 g/dL (3.4-5.0) Albumin/Globulin Ratio 1.3 (1.0-1.7) Test 12/29/16 08:39 12/29/16 10:00 12/29/16 12:19 12/29/16 17:49 O2 Saturation 97 % (92-99) Arterial Blood pH 7.36 (7.35-7.45) Arterial Blood pCO2 at Patient Temp 43 mmHg (35-46) Arterial Blood pO2 at Patient Temp 90 mmHg (75-108) Arterial Blood HCO3 23 mmol/L (21-28) Arterial Blood Base Excess -2 mmol/L (-3-3) FiO2 60 Acetaminophen Level 21.9 mcg/ml (10-30) Acetaminophen Last Dose Date Unknown Acetaminophen Last Dose Time Unknown Glucose (Fingerstick) 123 mg/dL (70-99) 110 mg/dL (70-99) Test 12/29/16 17:50 12/30/16 03:00 12/30/16 09:39 Acetaminophen Level 13.23 mcg/ml (10-30) 3.25 mcg/ml (10-30) Acetaminophen Last Dose Date 12/27/16 Acetaminophen Last Dose Time 2200 White Blood Count 16.0 x10^3/uL (4.0-11.0) Red Blood Count 4.67 x10^6/uL (4.30-5.70) Hemoglobin 14.2 g/dL (13.0-17.5) Hematocrit 43.1 % (39.0-53.0) Mean Corpuscular Volume 92 fL (79-100) Mean Corpuscular Hemoglobin 30 pg (25-35) Mean Corpuscular Hemoglobin Concent 33 g/dL (31-37) Red Cell Distribution Width 13.6 % (11.5-14.5) Platelet Count 289 x10^3/uL (140-400) Neutrophils (%) (Auto) 89 % (31-73) Lymphocytes (%) (Auto) 6 % (24-48) Monocytes (%) (Auto) 3 % (0-9) Eosinophils (%) (Auto) 2 % (0-3) Basophils (%) (Auto) 0 % (0-3) Neutrophils # (Auto) 14.2 x10^3uL (1.8-7.7) Lymphocytes # (Auto) 0.9 x10^3/uL (1.0-4.8) Monocytes # (Auto) 0.6 x10^3/uL (0.0-1.1) Eosinophils # (Auto) 0.3 x10^3/uL (0.0-0.7) Basophils # (Auto) 0.0 x10^3/uL (0.0-0.2) Prothrombin Time 17.7 SEC (11.7-14.0) Prothromb Time International Ratio 1.6 (0.8-1.1) Sodium Level 141 mmol/L (136-145) Potassium Level 3.0 mmol/L (3.5-5.1) Chloride Level 107 mmol/L (98-107) Carbon Dioxide Level 27 mmol/L (21-32) Anion Gap 7 (6-14) Blood Urea Nitrogen 9 mg/dL (8-26) Creatinine 0.7 mg/dL (0.7-1.3) Estimated GFR (Cockcroft-Gault) 119.9 BUN/Creatinine Ratio 13 (6-20) Glucose Level 121 mg/dL (70-99) Calcium Level 8.7 mg/dL (8.5-10.1) Magnesium Level 1.5 mg/dL (1.8-2.4) Total Bilirubin 0.6 mg/dL (0.2-1.0) Aspartate Amino Transf (AST/SGOT) 289 U/L (15-37) Alanine Aminotransferase (ALT/SGPT) 262 U/L (16-63) Alkaline Phosphatase 64 U/L (46-116) Total Protein 5.8 g/dL (6.4-8.2) Albumin 2.6 g/dL (3.4-5.0) Albumin/Globulin Ratio 0.8 (1.0-1.7) Glucose (Fingerstick) 120 mg/dL (70-99) Laboratory Tests Test 12/29/16 17:49 12/29/16 17:50 12/30/16 03:00 12/30/16 09:39 Glucose (Fingerstick) 110 mg/dL (70-99) 120 mg/dL (70-99) Acetaminophen Level 13.23 mcg/ml (10-30) 3.25 mcg/ml (10-30) Acetaminophen Last Dose Date 12/27/16 Acetaminophen Last Dose Time 2200 White Blood Count 16.0 x10^3/uL (4.0-11.0) Red Blood Count 4.67 x10^6/uL (4.30-5.70) Hemoglobin 14.2 g/dL (13.0-17.5) Hematocrit 43.1 % (39.0-53.0) Mean Corpuscular Volume 92 fL (79-100) Mean Corpuscular Hemoglobin 30 pg (25-35) Mean Corpuscular Hemoglobin Concent 33 g/dL (31-37) Red Cell Distribution Width 13.6 % (11.5-14.5) Platelet Count 289 x10^3/uL (140-400) Neutrophils (%) (Auto) 89 % (31-73) Lymphocytes (%) (Auto) 6 % (24-48) Monocytes (%) (Auto) 3 % (0-9) Eosinophils (%) (Auto) 2 % (0-3) Basophils (%) (Auto) 0 % (0-3) Neutrophils # (Auto) 14.2 x10^3uL (1.8-7.7) Lymphocytes # (Auto) 0.9 x10^3/uL (1.0-4.8) Monocytes # (Auto) 0.6 x10^3/uL (0.0-1.1) Eosinophils # (Auto) 0.3 x10^3/uL (0.0-0.7) Basophils # (Auto) 0.0 x10^3/uL (0.0-0.2) Prothrombin Time 17.7 SEC (11.7-14.0) Prothromb Time International Ratio 1.6 (0.8-1.1) Sodium Level 141 mmol/L (136-145) Potassium Level 3.0 mmol/L (3.5-5.1) Chloride Level 107 mmol/L (98-107) Carbon Dioxide Level 27 mmol/L (21-32) Anion Gap 7 (6-14) Blood Urea Nitrogen 9 mg/dL (8-26) Creatinine 0.7 mg/dL (0.7-1.3) Estimated GFR (Cockcroft-Gault) 119.9 BUN/Creatinine Ratio 13 (6-20) Glucose Level 121 mg/dL (70-99) Calcium Level 8.7 mg/dL (8.5-10.1) Magnesium Level 1.5 mg/dL (1.8-2.4) Total Bilirubin 0.6 mg/dL (0.2-1.0) Aspartate Amino Transf (AST/SGOT) 289 U/L (15-37) Alanine Aminotransferase (ALT/SGPT) 262 U/L (16-63) Alkaline Phosphatase 64 U/L (46-116) Total Protein 5.8 g/dL (6.4-8.2) Albumin 2.6 g/dL (3.4-5.0) Albumin/Globulin Ratio 0.8 (1.0-1.7) Microbiology 12/29/16 - Final, Resulted 12/29/16 - Final, Resulted 12/29/16 - Final, Resulted 12/29/16 Gram Stain Evaluation - Final, Resulted 12/29/16 Sputum Culture - Preliminary, Resulted 12/29/16 Sputum Result 1 - Final, Resulted Medications Current Medications Info (Do NOT chart on this placeholder) 1 each 1X ONCE MC ; Start 12/28/16 at 04:15; Stop 12/28/16 at 04:16; Status UNV Pneumococcal Polyvalent Vaccine (Do NOT chart on this placeholder) 1 each 1X ONCE MC ; Start 12/28/16 at 04:15; Stop 12/28/16 at 04:16; Status UNV Sodium Chloride 1,000 ml @ 100 mls/hr Q10H IV Last administered on 12/29/16 05:56; Start 12/28/16 at 05:00; Stop 12/29/16 at 08:37; Status DC Acetylcysteine 6.87 gm/Dextrose 1,034.35 ml @ 62.5 mls/ hr 1X ONCE IV Last administered on 12/28/16 05:36; Start 12/28/16 at 05:30; Stop 12/28/16 at 22 :02; Status DC Physostigmine Salicylate (Antilirium) 2 mg 1X ONCE IV Last administered on 08:20; Start 12/28/16 at 06:15; Stop 12/28/16 at 06:16; Status DC Sodium Bicarbonate 50 meq 1X ONCE IV Last administered on 12/28/16 06:23; Start 12/28/16 at 06:00; Stop 12/28/16 at 06:02; Status DC Influenza Virus Vaccine Quadrival (Fluarix Quad [id number] Syringe) 0.5 ml ONCE ONCE VAX IM ; Start 12/28/16 at 09:00; Stop 12/28/16 at 09:01; Status DC Pneumococcal Polyvalent Vaccine (Pneumovax 23) 0.5 ml ONCE ONCE VAX IM ; Start 12/28/16 at 09:00; Stop 12/28/16 at 09:01; Status DC Multivitamins 10 ml/Thiamine HCl 100 mg/Folic Acid 1 mg/Sodium Chloride 1,011.2 ml @ 100 mls/ hr DAILY IV Last administered on 12/29/16 09:01; Start at 09:00; Stop 12/29/16 at 09:33; Status DC Lorazepam (Ativan) 2 mg PRN Q1HR PRN IV For CIWA 8-14 Last administered on 12:13; Start 12/28/16 at 08:30 Lorazepam (Ativan) 4 mg PRN Q1HR PRN IV For CIWA 15 or greater Last administered on 12/30/16 04:40; Start 12/28/16 at 08:30 Haloperidol Lactate (Haldol) 5 mg PRN Q6HRS PRN IVP AGITATION Last administered on 12/29/16 01:00; Start 12/28/16 at 09:15 Enoxaparin Sodium (Lovenox Per Pharmacy Prophylaxis Dosing) 1 each PRN DAILY PRN MC SEE COMMENTS; Start 12/28/16 at 13:45 Enoxaparin Sodium (Lovenox 40mg Syringe) 40 mg Q24H SQ Last administered on 13:37; Start 12/28/16 at 14:00 Acetylcysteine 6.9 gm/Dextrose 1,034.5 ml @ 62.509 mls/hr 1X ONCE IV Last administered on 12/28/16 22:43; Start 12/28/16 at 23:00; Stop 12/29/16 at 15 :32; Status DC Lorazepam (Ativan) 2 mg 1X ONCE IV Last administered on 12/29/16 01:35; Start 12/29/16 at 01:45; Stop 12/29/16 at 01:46; Status DC Propofol 100 ml @ 0 mls/hr CONT PRN IV SEE I/O RECORD Last administered on 01:48; Start 12/29/16 at 05:00; Stop 12/30/16 at 09:22; Status DC Rocuronium [place] (Zemuron) 50 mg STK-MED ONCE .ROUTE ; Start 12/29/16 at 05: 20; Stop 12/29/16 at 05:21; Status DC Succinylcholine Chloride (Anectine) 200 mg STK-MED ONCE .ROUTE ; Start at 05:21; Stop 12/29/16 at 05:22; Status DC Propofol 20 ml @ As Directed STK-MED ONCE IV ; Start 12/29/16 at 05:22; Stop 12/29/16 at 05:23; Status DC Amino Acids/ Glycerin/ Electrolytes 1,000 ml @ 80 mls/hr [id number] IV Last administered on 11/18/17at 09:02; Start 12/29/16 at 08:45; Stop 12/30/16 at 09 :14; Status DC Lorazepam (Ativan) 4 mg PRN Q4HRS PRN IV ANXIETY / AGITATION; Start 12/29/16 at 08:45; Status Cancel Lorazepam 100 mg/ Sodium Chloride 100 ml @ 0 mls/hr CONT PRN IV IVF Last administered on 12/29/16 09:02; Start 12/29/16 at 08:45 Ceftriaxone Sodium 1 gm/ Dextrose 50 ml @ 100 mls/hr Q24H IV ; Start 12/29/16 at 09:30; Status UNV Metronidazole 100 ml @ 100 mls/hr Q8HRS IV ; Start 12/29/16 at 14:00; Stop at 14:00; Status DC Potassium Chloride (KCl Oral Soln) 40 meq 1X ONCE PEG Last administered on 10:37; Start 12/29/16 at 10:00; Stop 12/29/16 at 10:01; Status DC Ceftriaxone Sodium (Rocephin) 1 gm Q24H IVP ; Start 12/29/16 at 10:00; Stop at 10:08; Status DC Piperacillin Sod/ Tazobactam Sod (Zosyn Per Pharmacy) 1 each PRN DAILY PRN MC SEE COMMENTS; Start 12/29/16 at 10:15 Levofloxacin/ Dextrose 100 ml @ 100 mls/hr Q24H IV Last administered on 10:25; Start 12/29/16 at 11:00 Famotidine (Pepcid Vial) 20 mg BID IVP Last administered on 12/30/16 08:55; Start 12/29/16 at 11:00 Dexmedetomidine HCl 200 mcg/ Sodium Chloride 50 ml @ 0 mls/hr CONT PRN IV PER PROTOCOL Last administered on 12/30/16 12:45; Start 12/29/16 at 10:15 Fentanyl Citrate (Fentanyl 2ml Vial) 25 mcg PRN Q1HR PRN IV PAIN; Start at 10:15 Lorazepam (Ativan) 0.5 mg PRN Q2HRS PRN IV AGITATION; Start 12/29/16 at 10:15 Propofol 100 ml @ 0 mls/hr CONT PRN IV SEDATION Last administered on 12:12; Start 12/29/16 at 10:15 Sodium Chloride 500 ml @ 500 mls/hr 1X PRN PRN IV SEE COMMENTS; Start at 10:15 Atropine Sulfate 0.5 mg PRN Q5MIN PRN IV SEE COMMENTS; Start 12/29/16 at 10:15 Piperacillin Sod/ Tazobactam Sod (Zosyn) 3.375 gm Q6HRS IVP Last administered on 12/30/16 11:53; Start 12/29/16 at 12:00 Acetylcysteine 6.9 gm/Dextrose 1,034.5 ml @ 62.509 mls/hr 1X ONCE IV Last administered on 12/29/16 15:40; Start 12/29/16 at 15:00; Stop 12/30/16 at 07 :32; Status DC Potassium Chloride (KCl Oral Soln) 40 meq 1X ONCE PEG Last administered on 12:49; Start 12/30/16 at 12:30; Stop 12/30/16 at 12:31; Status DC Potassium Chloride (KCl Oral Soln) 20 meq DAILY PEG ; Start 12/31/16 at 09:00 Potassium Chloride/Dextrose/ Sod Cl 1,000 ml @ 75 mls/hr 1X ONCE IV Last administered on 12/30/16 12:48; Start 12/30/16 at 13:00; Stop 12/31/16 at 02 :19 Magnesium Sulfate/ Dextrose 100 ml @ 25 mls/hr 1X ONCE IV ; Start 12/30/16 at 14:00; Stop 12/30/16 at 17:59 Active Scripts Active Reported Requip (Ropinirole Hcl) 1 Mg Tablet 2 Mg PO QHS Mirtazapine 30 Mg Tablet 0.5 Tab PO QHS Proair Hfa Inhaler (Albuterol Sulfate) 8.5 Gm Hfa.aer.ad 1-2 Puff INH PRN Q6HRS PRN Spiriva (Tiotropium Greenleaf) 18 Mcg Cap.w.dev 2 Inh IH DAILY Spiriva (Tiotropium Green[place]) 18 Mcg Cap.w.dev 1 Cap IH DAILY Omeprazole 20 Mg Capsule.dr 1 Cap PO DAILY Dexamethasone 4 Mg Tablet 1 Tab PO QID Symbicort 80-4.5 Mcg Inhaler (Budesonide/Formoterol Fumarate) 10.2 Gm Hfa.aer.ad 2 Puff IH BID Alprazolam 0.5 Mg Tablet 1 Tab PO QAM Metoprolol Tartrate 50 Mg Tablet 0.5 Tab PO BID Amiodarone Hcl 200 Mg Tablet 1 Tab PO DAILY Tylenol (Acetaminophen) 325 Mg Tablet 2 Tab PO PRN Q6HRS PRN Melatonin 3 Mg Tablet 2 Tab PO QHS Montelukast Sodium Tablet (Montelukast Sodium) 10 Mg Tablet 1 Tab PO DAILY Atorvastatin Calcium 40 Mg Tablet 1 Tab PO QHS Tramadol Hcl 50 Mg Tablet 50 Mg PO Q6H PRN Hydrocodone-Apap 7.5-325 (Hydrocodone Bit/Acetaminophen) 1 Each Tablet 1 Tab PO PRN Q6HRS PRN Zoloft (Sertraline Hcl) 25 Mg Tablet 1 Tab PO DAILY Vitals/I & O Vital Sign - Last 24 Hours 12/29/16 12/29/16 12/29/16 12/29/16 14:00 15:00 15:31 16:00 Temp 98.5 98.5 Pulse 84 85 83 Resp 26 28 27 B/P (MAP) 75/56 (62) 102/65 (77) 115/74 (88) Pulse Ox 99 100 99 100 O2 Delivery Ventilator Ventilator Ventilator Ventilator 12/29/16 12/29/16 12/29/16 12/29/16 16:10 17:00 17:30 18:00 Pulse 79 77 Resp 26 22 B/P (MAP) 84/59 (67) 92/60 (71) Pulse Ox 100 99 100 O2 Delivery Mechanical Ventilator Ventilator Ventilator Ventilator 12/29/16 12/29/16 12/29/16 12/29/16 19:00 20:00 20:00 20:00 Temp 97.8 97.8 Pulse 76 76 Resp 25 25 B/P (MAP) 91/59 (70) 87/56 (66) Pulse Ox 100 99 100 O2 Delivery Ventilator Ventilator Mechanical Ventilator Ventilator 12/29/16 12/29/16 12/29/16 12/29/16 21:00 21:17 22:00 23:00 Pulse 78 78 78 Resp 25 25 23 B/P (MAP) 92/61 (71) 97/63 (74) 105/66 (79) Pulse Ox 100 99 100 100 O2 Delivery Ventilator Ventilator Ventilator Ventilator 12/29/16 12/30/16 12/30/1612/30/17 23:21 00:00 00:00 01:00 Pulse 76 76 Resp 20 20 B/P (MAP) 102/66 (78) 104/62 (76) Pulse Ox 99 100 100 O2 Delivery Ventilator Ventilator Mechanical Ventilator Ventilator 12/30/16 12/30/16 12/30/16 12/30/16 01:15 02:00 03:00 03:20 Pulse 76 76 Resp 20 23 B/P (MAP) 110/67 (81) 102/66 (78) Pulse Ox 99 100 100 99 O2 Delivery Ventilator Ventilator Ventilator Ventilator 12/30/16 12/30/16 12/30/16 12/30/16 04:00 04:00 05:00 05:35 Temp 100.2 98.2 100.2 98.2 Pulse 78 84 Resp 26 B/P (MAP) 117/74 (88) 101/60 (74) Pulse Ox 100 100 99 O2 Delivery Ventilator Mechanical Ventilator Ventilator Ventilator 12/30/16 12/30/16 12/30/16 12/30/16 06:03 07:00 07:24 07:30 Temp 99.0 99.0 Pulse 80 77 Resp 22 B/P (MAP) 114/68 (83) 115/72 (86) Pulse Ox 99 99 99 O2 Delivery Ventilator Ventilator Mechanical Ventilator Ventilator 12/30/16 12/30/16 12/30/16 12/30/16 08:00 09:00 09:19 10:00 Pulse 78 79 78 Resp 24 28 28 B/P (MAP) 99/60 (73) 108/65 (79) 92/55 (67) Pulse Ox 100 98 99 99 O2 Delivery Ventilator Ventilator Ventilator Ventilator 12/30/16 12/30/16 12/30/16 12/30/16 11:00 11:55 12:00 12:19 Temp 101.1 101.1 Pulse 79 83 Resp 24 28 B/P (MAP) 101/58 (72) 104/68 (80) Pulse Ox 99 99 98 O2 Delivery Ventilator Ventilator Ventilator Mechanical Ventilator 12/30/16 13:00 Pulse 83 Resp 28 B/P (MAP) 97/56 (70) Pulse Ox 98 O2 Delivery Ventilator Intake and Output 12/29/16 12/29/16 12/30/16 15:00 23:00 07:00 Intake Total 360 ml 1833 ml 2721 ml Output Total 445 ml 585 ml 575 ml Balance -85 ml 1248 ml 2146 ml YADI CARLISLE MD Dec 30, 2016 13:51
[2016-12-30] MEDS ORDERED: MAGNESIUM SULFATE 4GM 100 ML IV ONE (14:00)
[2016-12-30] MEDS: ENOXAPARIN 40 MG/0.4 ML SYRINGE. SQ SCH (14:29)
[2016-12-30] MEDS ORDERED: DEXTROSE 5% IV ONE (15:00)
[2016-12-30] MEDS ORDERED: ACETYLCYSTEINE IV ONE (15:00)
--- NOTE | 2016-12-30 15:05 | PDOC ---
PROGRESS NOTES Assessment Assessment Toxic encephalopathy. Metabolic encephalopathy. Multi-drug overdose, Tylenol, Benadryl, Whiskey. Cocaine positive in system. Lethargy. Hepatic injury. Restless. Substance and drug use/abuse. RECOMMENDATIONS/PLAN: Treat drug overdose medically. Keep good hydration. Continue Acetylcysteine. Monitoring cardiac and pulmonary function. Monitory bleeding. Monitoring hepatic function. EEG Repeat HCT if condition worse. HCT w/o contrast on 12/27/16 in [facility] was negative w/o ICH. HISTORY OF THE PRESENT ILLNESS: 51-y-old male patient was found unresponsive at home with some empty bottles disarray. He was thought to overdose of several drugs including at least 80 pills of 500 mg Tylenol, and Benadryl, whiskey as well, also possible cocaine. No infarction is available for his ingestion. No suicidal notes found per reports. He was brought to [facility] and his HCT was negative. He was eventually transferred to ICU of [facility]. No clinical seizures observed so far. Past Medical and Surgical History Unknown. Family History Unknown. Social History ALCOHOL: heavy Drugs: Cocaine ALLERGY: Unknown MEDICATIONS: Refer to [facility] REVIEW OF SYSTEMS: Constitutional: No malnutrition, weight loss, cachexia. Head: No current traumatic brain or head injury. Skin: No edema, or rash. Ear: No infection. Eyes: Unknown. Nose: Unknown. Neck: No current injury. Cardiac: Unknown. Pulmonary: Unknown. GI: No GI ulcer, Unknown. Urinary/genital: Unknown. Endocrinologic: Unknown. Skeletomuscular: Unknown. Neurological: see HP. Psychiatric: substance and drug use/abuse. PHYSICAL EXAMINATION: General appearance is in acute distress. HEENT: Normocephalic and nontraumatic. Eyes, nose, ears, and throat are unremarkable. Neck is supple. No lymphadenopathy. No crepitus. Cardiovascular: S1, S2, regular rate and rhythm. Pulmonary: Mild difficult breathing. Abdomen: Bowel sounds are positive. Extremities: No rash, lesions, or edema. No restriction of range of motion NEUROLOGICAL EXAMINATION: Sedated. on vent. Not oriented to time, place and person. PERRL, but pupil reaction was slow. EOMI not elicited. CN: no acute focal findings. Muscle tone: fluctuated. Muscle strength: minimal movements noted. DTR: 1-2 Plantar reflex: Neutral response bilaterally Gait: Unable to walk in this mentation. Sensory exam: minimal movements to stimuli. Not able to access cerebellar signs. F-T-N test not performed due to lethargy Objective Objective Vital Signs Date Time Temp Pulse Resp B/P (MAP) Pulse Ox O2 Delivery O2 Flow Rate FiO2 12/30/16 14:45 99 Ventilator 12/30/16 13:00 83 28 97/56 (70) 12/30/16 12:00 101.1 101.1 12/29/16 08:00 15.0 Intake and Output 12/30/16 07:00 Intake Total 4914 ml Output Total 1605 ml Balance 3309 ml Intake IV Total 3095 ml Tube Feeding 1569 ml Other 250 ml Output Urine Total 1605 ml Gastric Drainage Total 0 ml Vitals Signs Vitals VS - Last 72 Hours, by Label Date Time Temp Pulse Resp B/P (MAP) Pulse Ox O2 Delivery O2 Flow Rate FiO2 12/30/16 14:45 99 Ventilator 12/30/16 13:00 83 28 97/56 (70) 98 Ventilator 12/30/16 12:19 Mechanical Ventilator 12/30/16 12:00 101.1 83 28 104/68 (80) 98 Ventilator 101.1 12/30/16 11:55 99 Ventilator 12/30/16 11:00 79 24 101/58 (72) 99 Ventilator 12/30/16 10:00 78 28 92/55 (67) 99 Ventilator 12/30/16 09:19 99 Ventilator 12/30/16 09:00 79 28 108/65 (79) 98 Ventilator 12/30/16 08:00 78 24 99/60 (73) 100 Ventilator 12/30/16 07:30 99 Ventilator 12/30/16 07:24 Mechanical Ventilator 12/30/16 07:00 99.0 77 22 115/72 (86) 99 Ventilator 99.0 12/30/16 06:03 80 26 114/68 (83) 99 Ventilator 12/30/16 05:35 99 Ventilator 12/30/16 05:00 98.2 84 26 101/60 (74) 100 Ventilator 98.2 12/30/16 04:00 Mechanical Ventilator 12/30/16 04:00 100.2 78 26 117/74 (88) 100 Ventilator 100.2 12/30/16 03:20 99 Ventilator 12/30/16 03:00 76 23 102/66 (78) 100 Ventilator 12/30/16 02:00 76 20 110/67 (81) 100 Ventilator 12/30/16 01:15 99 Ventilator 12/30/16 01:00 76 20 104/62 (76) 100 Ventilator 12/30/16 00:00 Mechanical Ventilator 12/30/16 00:00 76 20 102/66 (78) 100 Ventilator 12/29/16 23:21 99 Ventilator 12/29/16 23:00 78 23 105/66 (79) 100 Ventilator 12/29/16 22:00 78 25 97/63 (74) 100 Ventilator 12/29/16 21:17 99 Ventilator 12/29/16 21:00 78 25 92/61 (71) 100 Ventilator 12/29/16 20:00 76 25 87/56 (66) 100 Ventilator 12/29/16 20:00 Mechanical Ventilator 12/29/16 20:00 99 Ventilator 12/29/16 19:00 97.8 76 25 91/59 (70) 100 Ventilator 97.8 12/29/16 18:00 77 22 92/60 (71) 100 Ventilator 12/29/16 17:30 99 Ventilator 12/29/16 17:00 79 26 84/59 (67) 100 Ventilator 12/29/16 16:10 Mechanical Ventilator 12/29/16 16:00 98.5 83 27 115/74 (88) 100 Ventilator 98.5 12/29/16 15:31 99 Ventilator 12/29/16 15:00 85 28 102/65 (77) 100 Ventilator 12/29/16 14:00 84 26 75/56 (62) 99 Ventilator 12/29/16 13:12 98 Ventilator 12/29/16 13:00 87 26 97/65 (76) 99 Ventilator 12/29/16 12:04 Mechanical Ventilator 12/29/16 12:00 98.3 102 26 84/59 (67) 98 Ventilator 98.3 12/29/16 11:25 98 Ventilator 12/29/16 11:00 109 26 94/64 (74) 99 Ventilator 17 10:00 116 20 93/62 (72) 94 Ventilator 17 09:15 96 Ventilator 12/29/16 09:00 118 22 100/70 (80) 97 Ventilator 12/29/16 08:00 125 20 92/65 (74) 98 Ventilator 12/29/16 08:00 Mechanical Ventilator 15.0 12/29/16 07:56 99.7 122 26 110/73 (85) 95 Ventilator 15.0 99.7 12/29/16 07:30 Mechanical Ventilator 12/29/16 07:13 95 Ventilator Laboratory Laboratory Laboratory Tests Test 12/29/16 17:49 12/29/16 17:50 12/30/16 03:00 12/30/16 09:39 Glucose (Fingerstick) 110 mg/dL (70-99) 120 mg/dL (70-99) Acetaminophen Level 13.23 mcg/ml (10-30) 3.25 mcg/ml (10-30) Acetaminophen Last Dose Date 12/27/16 Acetaminophen Last Dose Time 2200 White Blood Count 16.0 x10^3/uL (4.0-11.0) Red Blood Count 4.67 x10^6/uL (4.30-5.70) Hemoglobin 14.2 g/dL (13.0-17.5) Hematocrit 43.1 % (39.0-53.0) Mean Corpuscular Volume 92 fL (79-100) Mean Corpuscular Hemoglobin 30 pg (25-35) Mean Corpuscular Hemoglobin Concent 33 g/dL (31-37) Red Cell Distribution Width 13.6 % (11.5-14.5) Platelet Count 289 x10^3/uL (140-400) Neutrophils (%) (Auto) 89 % (31-73) Lymphocytes (%) (Auto) 6 % (24-48) Monocytes (%) (Auto) 3 % (0-9) Eosinophils (%) (Auto) 2 % (0-3) Basophils (%) (Auto) 0 % (0-3) Neutrophils # (Auto) 14.2 x10^3uL (1.8-7.7) Lymphocytes # (Auto) 0.9 x10^3/uL (1.0-4.8) Monocytes # (Auto) 0.6 x10^3/uL (0.0-1.1) Eosinophils # (Auto) 0.3 x10^3/uL (0.0-0.7) Basophils # (Auto) 0.0 x10^3/uL (0.0-0.2) Prothrombin Time 17.7 SEC (11.7-14.0) Prothromb Time International Ratio 1.6 (0.8-1.1) Sodium Level 141 mmol/L (136-145) Potassium Level 3.0 mmol/L (3.5-5.1) Chloride Level 107 mmol/L (98-107) Carbon Dioxide Level 27 mmol/L (21-32) Anion Gap 7 (6-14) Blood Urea Nitrogen 9 mg/dL (8-26) Creatinine 0.7 mg/dL (0.7-1.3) Estimated GFR (Cockcroft-Gault) 119.9 BUN/Creatinine Ratio 13 (6-20) Glucose Level 121 mg/dL (70-99) Calcium Level 8.7 mg/dL (8.5-10.1) Magnesium Level 1.5 mg/dL (1.8-2.4) Total Bilirubin 0.6 mg/dL (0.2-1.0) Aspartate Amino Transf (AST/SGOT) 289 U/L (15-37) Alanine Aminotransferase (ALT/SGPT) 262 U/L (16-63) Alkaline Phosphatase 64 U/L (46-116) Total Protein 5.8 g/dL (6.4-8.2) Albumin 2.6 g/dL (3.4-5.0) Albumin/Globulin Ratio 0.8 (1.0-1.7) Microbiology 12/29/16 - Final, Resulted 12/29/16 - Final, Resulted 12/29/16 - Final, Resulted 12/29/16 Gram Stain Evaluation - Final, Resulted 12/29/16 Sputum Culture - Preliminary, Resulted 12/29/16 Sputum Result 1 - Final, Resulted Medication Medications Current Medications Acetylcysteine 6.9 gm/Dextrose 1,034.5 ml @ 62.509 mls/hr 1X ONCE IV ; Start 12/30/16 at 15:00; Stop 12/31/16 at 07:32 Magnesium Sulfate/ Dextrose 100 ml @ 25 mls/hr 1X ONCE IV Last administered on 12/30/16t 14:28; Start 12/30/16 at 14:00; Stop 12/30/16 at 17:59 Potassium Chloride/Dextrose/ Sod Cl 1,000 ml @ 75 mls/hr 1X ONCE IV Last administered on 12/30/16t 12:48; Start 12/30/16 at 13:00; Stop 12/31/16 at 02 :19 Potassium Chloride (KCl Oral Soln) 20 meq DAILY PEG ; Start 12/31/16 at 09:00 Potassium Chloride (KCl Oral Soln) 40 meq 1X ONCE PEG Last administered on t 12:49; Start 12/30/16 at 12:30; Stop 12/30/16 at 12:31; Status DC Comment Review of Relevant I have reviewed the following items jessa (where applicable) has been applied. DOUGLAS GARDUNO MD Dec 30, 2016 15:05
[2016-12-30 17:55] LABS: HCO3 ABG 20 mmol/L (21-28); PCO2 ABG 31 mmHg (35-46); PH ABG 7.43 (7.35-7.45); PO2 ABG 88 mmHg (75-108); SAT O2 ABG 97 % (92-99)
[2016-12-30 17:56] LABS: FIO2 ABG 40
[2016-12-30] MEDS ORDERED: IBUPROFEN 100 MG/5 ML ORAL.SUSP. PO PRN (20:15)
[2016-12-31] VITALS (23 sets, daily range): BP systolic 91–155; BP diastolic 56–85
[2016-12-31] MEDS: PIPERACILLIN/TAZO IV Push 3.375 GM VIAL. IVP SCH ×4 (00:45→18:13)
[2016-12-31] MEDS: DEXMEDETOMIDINE 200 MCG in IV NORMAL SALINE 50ML 48 ML IV PRN ×3 (01:38→08:45)
[2016-12-31 03:25] LABS: BASO % 0 % (0-3); EOS % 4 % (0-3); HEMATOCRIT 41.5 % (39.0-53.0); HEMOGLOBIN 13.6 g/dL (13.0-17.5); LYMPH % 8 % (24-48); MEAN CORPUSCULAR HEMOGLOBIN 30 pg (25-35); MEAN CORPUSCULAR HGB CONC 33 g/dL (31-37); MEAN CORPUSCULAR VOLUME 92 fL (79-100); MONO % 5 % (0-9); NEUT % 83 % (31-73); PLATELET COUNT 291 x10^3/uL (140-400); RED BLOOD COUNT 4.51 x10^6/uL (4.30-5.70); WHITE BLOOD COUNT 13.3 x10^3/uL (4.0-11.0)
[2016-12-31 03:35] LABS: INR 1.4 (0.8-1.1); PROTHROMBIN TIME PATIENT 16.3 SEC (11.7-14.0)
[2016-12-31 03:47] LABS: ALBUMIN 2.2 g/dL (3.4-5.0); ALBUMIN/GLOBULIN RATIO 0.6 (1.0-1.7); CALCIUM 8.4 mg/dL (8.5-10.1); CREATININE 0.7 mg/dL (0.7-1.3); GFR 119.9; POTASSIUM 3.4 mmol/L (3.5-5.1); TOTAL BILIRUBIN 0.6 mg/dL (0.2-1.0); TOTAL PROTEIN 5.9 g/dL (6.4-8.2)
[2016-12-31] MEDS: PROPOFOL 100 ML IV PRN ×2 (05:03→11:23)
--- NOTE | 2016-12-31 07:50 | RAD ---
EXAM: Chest one view. HISTORY: Respiratory failure, intubated. COMPARISON: 12/30/2016. FINDINGS: A frontal view of the chest is obtained. An endotracheal tube has its tip 4 cm above the shantell. A nasogastric tube has its tip below the inferior margin of the field of view. Airspace infiltrates on the left are consistent with pneumonia and are mildly increased. There are minimal infiltrates in the right base. There is no pneumothorax or pleural effusion. The heart is not enlarged. IMPRESSION: 1. Left greater than right pneumonia is mildly increased.
[2016-12-31 08:30] LABS: HCO3 ABG 22 mmol/L (21-28); PCO2 ABG 34 mmHg (35-46); PH ABG 7.43 (7.35-7.45); PO2 ABG 97 mmHg (75-108); SAT O2 ABG 98 % (92-99)
[2016-12-31 08:32] LABS: FIO2 ABG 35
[2016-12-31] MEDS: FAMOTIDINE 20 MG/2 ML VIAL IVP SCH ×2 (08:41→21:06)
[2016-12-31] MEDS: POTASSIUM CHLORIDE 20 MEQ/15 ML ORAL LIQUID. PEG SCH (08:44)
--- NOTE | 2016-12-31 09:22 | PDOC ---
Objective: Objective: Per RN - tolerating tube feeds. Vital Signs: Vital Signs Date Time Temp Pulse Resp B/P (MAP) Pulse Ox O2 Delivery O2 Flow Rate FiO2 12/31/16 09:00 69 25 108/66 (80) 97 Ventilator 12/31/16 07:00 98.4 98.4 Labs: Laboratory Tests Test 12/30/16 09:39 Glucose (Fingerstick) 120 mg/dL (70-99) Imaging: CXR 12/31 IMPRESSION: 1. Left greater than right pneumonia is mildly increased. PE: GEN: intubated LUNGS: vent HEART: RRR ABD: BS+, soft, non-distended, OG w/ tube feeds NEURO/PSYCH: sedated A/P: Acetaminophen overdose, alcohol abuse -AST/ALT elevated, normal bili, INR 1.4 Resp failure, encephalopathy -intubated on tube feeds, H2 caridad -- Continue same per GI. JEREMIE BERG Dec 31, 2016 09:22
[2016-12-31] MEDS ORDERED: BISACODYL 5 MG TABLET.DR. PO PRN (09:30)
[2016-12-31] MEDS ORDERED: DEXTROSE 5% IV ONE (11:00)
[2016-12-31] MEDS ORDERED: ACETYLCYSTEINE IV ONE (11:00)
[2016-12-31] MEDS ORDERED: MINERAL OIL/PETROLATUM,WHITE OPHTH OINT 3.5GM TUBE. OU PRN (11:00)
--- NOTE | 2016-12-31 12:57 | PDOC ---
PULMONARY PROGRESS NOTES Subjective AC MODE AND SEDATED DID NOT FOLLOW COMMANDS OFF SEDATION, Vitals Vital Signs Date Time Temp Pulse Resp B/P (MAP) Pulse Ox O2 Delivery O2 Flow Rate FiO2 12/31/16 09:28 97 Ventilator 12/31/16 09:00 69 25 108/66 (80) 12/31/16 07:00 98.4 98.4 Lungs: Clear Cardiovascular: S1 Abdomen: Soft, Non-tender Extremities: No Edema Skin: Warm Labs Laboratory Tests Test 12/29/16 17:49 12/29/16 17:50 12/30/16 03:00 12/30/16 08:00 Glucose (Fingerstick) 110 mg/dL (70-99) Acetaminophen Level 13.23 mcg/ml (10-30) 3.25 mcg/ml (10-30) Acetaminophen Last Dose Date 12/27/16 Acetaminophen Last Dose Time 2200 White Blood Count 16.0 x10^3/uL (4.0-11.0) Red Blood Count 4.67 x10^6/uL (4.30-5.70) Hemoglobin 14.2 g/dL (13.0-17.5) Hematocrit 43.1 % (39.0-53.0) Mean Corpuscular Volume 92 fL (79-100) Mean Corpuscular Hemoglobin 30 pg (25-35) Mean Corpuscular Hemoglobin Concent 33 g/dL (31-37) Red Cell Distribution Width 13.6 % (11.5-14.5) Platelet Count 289 x10^3/uL (140-400) Neutrophils (%) (Auto) 89 % (31-73) Lymphocytes (%) (Auto) 6 % (24-48) Monocytes (%) (Auto) 3 % (0-9) Eosinophils (%) (Auto) 2 % (0-3) Basophils (%) (Auto) 0 % (0-3) Neutrophils # (Auto) 14.2 x10^3uL (1.8-7.7) Lymphocytes # (Auto) 0.9 x10^3/uL (1.0-4.8) Monocytes # (Auto) 0.6 x10^3/uL (0.0-1.1) Eosinophils # (Auto) 0.3 x10^3/uL (0.0-0.7) Basophils # (Auto) 0.0 x10^3/uL (0.0-0.2) Prothrombin Time 17.7 SEC (11.7-14.0) Prothromb Time International Ratio 1.6 (0.8-1.1) Sodium Level 141 mmol/L (136-145) Potassium Level 3.0 mmol/L (3.5-5.1) Chloride Level 107 mmol/L (98-107) Carbon Dioxide Level 27 mmol/L (21-32) Anion Gap 7 (6-14) Blood Urea Nitrogen 9 mg/dL (8-26) Creatinine 0.7 mg/dL (0.7-1.3) Estimated GFR (Cockcroft-Gault) 119.9 BUN/Creatinine Ratio 13 (6-20) Glucose Level 121 mg/dL (70-99) Calcium Level 8.7 mg/dL (8.5-10.1) Magnesium Level 1.5 mg/dL (1.8-2.4) Total Bilirubin 0.6 mg/dL (0.2-1.0) Aspartate Amino Transf (AST/SGOT) 289 U/L (15-37) Alanine Aminotransferase (ALT/SGPT) 262 U/L (16-63) Alkaline Phosphatase 64 U/L (46-116) Total Protein 5.8 g/dL (6.4-8.2) Albumin 2.6 g/dL (3.4-5.0) Albumin/Globulin Ratio 0.8 (1.0-1.7) O2 Saturation 97 % (92-99) Arterial Blood pH 7.43 (7.35-7.45) Arterial Blood pCO2 at Patient Temp 31 mmHg (35-46) Arterial Blood pO2 at Patient Temp 88 mmHg (75-108) Arterial Blood HCO3 20 mmol/L (21-28) Arterial Blood Base Excess -3 mmol/L (-3-3) FiO2 40 Test 12/30/16 09:39 12/31/16 03:10 12/31/16 08:20 Glucose (Fingerstick) 120 mg/dL (70-99) White Blood Count 13.3 x10^3/uL (4.0-11.0) Red Blood Count 4.51 x10^6/uL (4.30-5.70) Hemoglobin 13.6 g/dL (13.0-17.5) Hematocrit 41.5 % (39.0-53.0) Mean Corpuscular Volume 92 fL (79-100) Mean Corpuscular Hemoglobin 30 pg (25-35) Mean Corpuscular Hemoglobin Concent 33 g/dL (31-37) Red Cell Distribution Width 14.0 % (11.5-14.5) Platelet Count 291 x10^3/uL (140-400) Neutrophils (%) (Auto) 83 % (31-73) Lymphocytes (%) (Auto) 8 % (24-48) Monocytes (%) (Auto) 5 % (0-9) Eosinophils (%) (Auto) 4 % (0-3) Basophils (%) (Auto) 0 % (0-3) Neutrophils # (Auto) 11.1 x10^3uL (1.8-7.7) Lymphocytes # (Auto) 1.0 x10^3/uL (1.0-4.8) Monocytes # (Auto) 0.6 x10^3/uL (0.0-1.1) Eosinophils # (Auto) 0.6 x10^3/uL (0.0-0.7) Basophils # (Auto) 0.0 x10^3/uL (0.0-0.2) Prothrombin Time 16.3 SEC (11.7-14.0) Prothromb Time International Ratio 1.4 (0.8-1.1) Sodium Level 142 mmol/L (136-145) Potassium Level 3.4 mmol/L (3.5-5.1) Chloride Level 109 mmol/L (98-107) Carbon Dioxide Level 27 mmol/L (21-32) Anion Gap 6 (6-14) Blood Urea Nitrogen 8 mg/dL (8-26) Creatinine 0.7 mg/dL (0.7-1.3) Estimated GFR (Cockcroft-Gault) 119.9 BUN/Creatinine Ratio 11 (6-20) Glucose Level 129 mg/dL (70-99) Calcium Level 8.4 mg/dL (8.5-10.1) Total Bilirubin 0.6 mg/dL (0.2-1.0) Aspartate Amino Transf (AST/SGOT) 243 U/L (15-37) Alanine Aminotransferase (ALT/SGPT) 428 U/L (16-63) Alkaline Phosphatase 102 U/L (46-116) Creatine Kinase 23 U/L (39-308) Total Protein 5.9 g/dL (6.4-8.2) Albumin 2.2 g/dL (3.4-5.0) Albumin/Globulin Ratio 0.6 (1.0-1.7) O2 Saturation 98 % (92-99) Arterial Blood pH 7.43 (7.35-7.45) Arterial Blood pCO2 at Patient Temp 34 mmHg (35-46) Arterial Blood pO2 at Patient Temp 97 mmHg (75-108) Arterial Blood HCO3 22 mmol/L (21-28) Arterial Blood Base Excess -2 mmol/L (-3-3) FiO2 35 Laboratory Tests Test 12/31/16 03:10 12/31/16 08:20 White Blood Count 13.3 x10^3/uL (4.0-11.0) Red Blood Count 4.51 x10^6/uL (4.30-5.70) Hemoglobin 13.6 g/dL (13.0-17.5) Hematocrit 41.5 % (39.0-53.0) Mean Corpuscular Volume 92 fL (79-100) Mean Corpuscular Hemoglobin 30 pg (25-35) Mean Corpuscular Hemoglobin Concent 33 g/dL (31-37) Red Cell Distribution Width 14.0 % (11.5-14.5) Platelet Count 291 x10^3/uL (140-400) Neutrophils (%) (Auto) 83 % (31-73) Lymphocytes (%) (Auto) 8 % (24-48) Monocytes (%) (Auto) 5 % (0-9) Eosinophils (%) (Auto) 4 % (0-3) Basophils (%) (Auto) 0 % (0-3) Neutrophils # (Auto) 11.1 x10^3uL (1.8-7.7) Lymphocytes # (Auto) 1.0 x10^3/uL (1.0-4.8) Monocytes # (Auto) 0.6 x10^3/uL (0.0-1.1) Eosinophils # (Auto) 0.6 x10^3/uL (0.0-0.7) Basophils # (Auto) 0.0 x10^3/uL (0.0-0.2) Prothrombin Time 16.3 SEC (11.7-14.0) Prothromb Time International Ratio 1.4 (0.8-1.1) Sodium Level 142 mmol/L (136-145) Potassium Level 3.4 mmol/L (3.5-5.1) Chloride Level 109 mmol/L (98-107) Carbon Dioxide Level 27 mmol/L (21-32) Anion Gap 6 (6-14) Blood Urea Nitrogen 8 mg/dL (8-26) Creatinine 0.7 mg/dL (0.7-1.3) Estimated GFR (Cockcroft-Gault) 119.9 BUN/Creatinine Ratio 11 (6-20) Glucose Level 129 mg/dL (70-99) Calcium Level 8.4 mg/dL (8.5-10.1) Total Bilirubin 0.6 mg/dL (0.2-1.0) Aspartate Amino Transf (AST/SGOT) 243 U/L (15-37) Alanine Aminotransferase (ALT/SGPT) 428 U/L (16-63) Alkaline Phosphatase 102 U/L (46-116) Creatine Kinase 23 U/L (39-308) Total Protein 5.9 g/dL (6.4-8.2) Albumin 2.2 g/dL (3.4-5.0) Albumin/Globulin Ratio 0.6 (1.0-1.7) O2 Saturation 98 % (92-99) Arterial Blood pH 7.43 (7.35-7.45) Arterial Blood pCO2 at Patient Temp 34 mmHg (35-46) Arterial Blood pO2 at Patient Temp 97 mmHg (75-108) Arterial Blood HCO3 22 mmol/L (21-28) Arterial Blood Base Excess -2 mmol/L (-3-3) FiO2 35 Medications Active Scripts Medications Dose Route/Sig Max Daily Dose Days Date Category Requip (Ropinirole Hcl) 1 Mg Tablet 2 Mg PO QHS 12/28/16 Reported Mirtazapine 30 Mg Tablet 0.5 Tab PO QHS 12/28/16 Reported Proair Hfa Inhaler (Albuterol Sulfate) 8.5 Gm Hfa.aer.ad 1-2 Puff INH PRN Q6HRS PRN 12/28/16 Reported Spiriva (Tiotropium [place]) 18 Mcg Cap.w.dev 2 Inh IH DAILY 12/28/16 Reported Spiriva (Tiotropium [place]) 18 Mcg Cap.w.dev 1 Cap IH DAILY 12/28/16 Reported Omeprazole 20 Mg Capsule. 1 Cap PO DAILY 12/28/16 Reported Dexamethasone 4 Mg Tablet 1 Tab PO QID 12/28/16 Reported Symbicort 80-4.5 Mcg Inhaler (Budesonide/Formoterol Fumarate) 10.2 Gm Hfa.aer.ad 2 Puff IH BID 12/28/16 Reported Alprazolam 0.5 Mg Tablet 1 Tab PO QAM 12/28/16 Reported Metoprolol Tartrate 50 Mg Tablet 0.5 Tab PO BID 12/28/16 Reported Amiodarone Hcl 200 Mg Tablet 1 Tab PO DAILY 12/28/16 Reported Tylenol (Acetaminophen) 325 Mg Tablet 2 Tab PO PRN Q6HRS PRN 12/28/16 Reported Melatonin 3 Mg Tablet 2 Tab PO QHS 12/28/16 Reported Montelukast Sodium Tablet (Montelukast Sodium) 10 Mg Tablet 1 Tab PO DAILY 12/28/16 Reported Atorvastatin Calcium 40 Mg Tablet 1 Tab PO QHS 12/28/16 Reported Tramadol Hcl 50 Mg Tablet 50 Mg PO Q6H PRN 12/28/16 Reported Hydrocodone-Apap 7.5-325 (Hydrocodone Bit/Acetaminophen) 1 Each Tablet 1 Tab PO PRN Q6HRS PRN 12/28/16 Reported Zoloft (Sertraline Hcl) 25 Mg Tablet 1 Tab PO DAILY 12/28/16 Reported Impression . 1. Acute respiratory failure secondary to acute toxic encephalopathy. 2. Acute toxic encephalopathy secondary to overdose of Benadryl, acetaminophen, cocaine and alcohol. 3. Diffuse bilateral infiltrates, most likely related to aspiration pneumonia.improving 4. Fever secondary to aspiration pneumonia. 5. Leukocytosis. 6. Abnormal urine toxicology screen positive for cocaine and acetaminophen. Plan . TOTAL LAURA HAS DECREASE BUT TRANSAMNINAES INCREAE WILL DEFER TO GI FOR INPUT DOES HE NEED TO BE TRANSFERRED T A [facility] 1. Continue with present assist control mode and wean FIO2. 2. WILL AWAIT EEG RESULTS PT REQUIRING DIPRIVAN AND PRECEDEX FOR SEDATION 3. Broad spectrum antibiotics 4. Follow chest x-rays. 5. Follow ABGs. 6. TUBE FEEDING 7. Repeat INR stable 8. Deep venous thrombosis and stress ulcer prophylaxis. 9. s/p antidote for tylenol overdose Discussed with RN and RT. Critical care time 30 minutes. OVERALL PROGNOSIS IS POOR EMILI HARRISON MD Dec 31, 2016 12:57
--- NOTE | 2016-12-31 13:35 | PDOC ---
PROGRESS NOTES Chief Complaint Chief Complaint acute toxic encephalopathy, acute hypoxic respiratory failure, aspiration pneumonitis intentional overdose of Benadryl and acetaminophen known, s/p N-actyl Cysteine gtt, suicide attempt Alcohol abuse, withdrawal treatment and banana bag ordered, cocaine abuse history encephalopathy was POA, he was almost aphasic, and disoriented dysphagia, he seemed to aspirate in the ER, transaminitis, early hepatic failure hypokalemia hypomagnesemia History of Present Illness History of Present Illness Pt seen and examined in the ICU On ventilator AC/14/500/35% Care discussed with RN copious sputum suctioned, cx sent PULM consulted liver enzymes elevated OG tube feeds Tylenol level near zero, s/p 3 liters of n-acetyl cysteine prognosis guarded, palliative consult, may need ethics involvement Father, sister, zoology technical officer contacted Vitals Vitals Vital Signs Date Time Temp Pulse Resp B/P (MAP) Pulse Ox O2 Delivery O2 Flow Rate FiO2 12/31/16 09:28 97 Ventilator 12/31/16 09:00 69 25 108/66 (80) 12/31/16 07:00 98.4 98.4 Physical Exam Physical Exam PERRLA General: Cooperative, moderate distress, Other ( shaky, easily startled) Heart: Regular rate Lungs: Clear Abdomen: Soft Extremities: No clubbing, No edema, Normal pulses, Other (discoloration of fingertips) Skin: No rashes, No breakdown, No significant lesion, Other Labs LABS Laboratory Tests Test 12/31/16 03:10 12/31/16 08:20 White Blood Count 13.3 x10^3/uL (4.0-11.0) Red Blood Count 4.51 x10^6/uL (4.30-5.70) Hemoglobin 13.6 g/dL (13.0-17.5) Hematocrit 41.5 % (39.0-53.0) Mean Corpuscular Volume 92 fL (79-100) Mean Corpuscular Hemoglobin 30 pg (25-35) Mean Corpuscular Hemoglobin Concent 33 g/dL (31-37) Red Cell Distribution Width 14.0 % (11.5-14.5) Platelet Count 291 x10^3/uL (140-400) Neutrophils (%) (Auto) 83 % (31-73) Lymphocytes (%) (Auto) 8 % (24-48) Monocytes (%) (Auto) 5 % (0-9) Eosinophils (%) (Auto) 4 % (0-3) Basophils (%) (Auto) 0 % (0-3) Neutrophils # (Auto) 11.1 x10^3uL (1.8-7.7) Lymphocytes # (Auto) 1.0 x10^3/uL (1.0-4.8) Monocytes # (Auto) 0.6 x10^3/uL (0.0-1.1) Eosinophils # (Auto) 0.6 x10^3/uL (0.0-0.7) Basophils # (Auto) 0.0 x10^3/uL (0.0-0.2) Prothrombin Time 16.3 SEC (11.7-14.0) Prothromb Time International Ratio 1.4 (0.8-1.1) Sodium Level 142 mmol/L (136-145) Potassium Level 3.4 mmol/L (3.5-5.1) Chloride Level 109 mmol/L (98-107) Carbon Dioxide Level 27 mmol/L (21-32) Anion Gap 6 (6-14) Blood Urea Nitrogen 8 mg/dL (8-26) Creatinine 0.7 mg/dL (0.7-1.3) Estimated GFR (Cockcroft-Gault) 119.9 BUN/Creatinine Ratio 11 (6-20) Glucose Level 129 mg/dL (70-99) Calcium Level 8.4 mg/dL (8.5-10.1) Total Bilirubin 0.6 mg/dL (0.2-1.0) Aspartate Amino Transf (AST/SGOT) 243 U/L (15-37) Alanine Aminotransferase (ALT/SGPT) 428 U/L (16-63) Alkaline Phosphatase 102 U/L (46-116) Creatine Kinase 23 U/L (39-308) Total Protein 5.9 g/dL (6.4-8.2) Albumin 2.2 g/dL (3.4-5.0) Albumin/Globulin Ratio 0.6 (1.0-1.7) O2 Saturation 98 % (92-99) Arterial Blood pH 7.43 (7.35-7.45) Arterial Blood pCO2 at Patient Temp 34 mmHg (35-46) Arterial Blood pO2 at Patient Temp 97 mmHg (75-108) Arterial Blood HCO3 22 mmol/L (21-28) Arterial Blood Base Excess -2 mmol/L (-3-3) FiO2 35 Review of Systems Review of Systems not able, pt sedated on ventilator. Assessment and Plan Assessmemt and Plan Assessment: acute toxic encephalopathy, acute hypoxic respiratory failure, aspiration pneumonitis intentional overdose of Benadryl and acetaminophen known, s/p N-actyl Cysteine gtt, suicide attempt Alcohol abuse, withdrawal treatment and banana bag ordered, cocaine abuse history encephalopathy was POA, he was almost aphasic, and disoriented dysphagia, he seemed to aspirate in the ER, transaminitis, early hepatic failure hypokalemia hypomagnesemia Plan: Pt is critically ill Recheck labs Trying to wean from vent Following poison control recommendations Continue ICU monitoring Continue mucomyst Consult psychology Px guarded Total time 33 minutes Problems: Comment Review of Relevant I have reviewed the following items jessa (where applicable) has been applied. Labs Laboratory Tests Test 12/29/16 17:49 12/29/16 17:50 12/30/16 03:00 12/30/16 08:00 Glucose (Fingerstick) 110 mg/dL (70-99) Acetaminophen Level 13.23 mcg/ml (10-30) 3.25 mcg/ml (10-30) Acetaminophen Last Dose Date 12/27/16 Acetaminophen Last Dose Time 2200 White Blood Count 16.0 x10^3/uL (4.0-11.0) Red Blood Count 4.67 x10^6/uL (4.30-5.70) Hemoglobin 14.2 g/dL (13.0-17.5) Hematocrit 43.1 % (39.0-53.0) Mean Corpuscular Volume 92 fL (79-100) Mean Corpuscular Hemoglobin 30 pg (25-35) Mean Corpuscular Hemoglobin Concent 33 g/dL (31-37) Red Cell Distribution Width 13.6 % (11.5-14.5) Platelet Count 289 x10^3/uL (140-400) Neutrophils (%) (Auto) 89 % (31-73) Lymphocytes (%) (Auto) 6 % (24-48) Monocytes (%) (Auto) 3 % (0-9) Eosinophils (%) (Auto) 2 % (0-3) Basophils (%) (Auto) 0 % (0-3) Neutrophils # (Auto) 14.2 x10^3uL (1.8-7.7) Lymphocytes # (Auto) 0.9 x10^3/uL (1.0-4.8) Monocytes # (Auto) 0.6 x10^3/uL (0.0-1.1) Eosinophils # (Auto) 0.3 x10^3/uL (0.0-0.7) Basophils # (Auto) 0.0 x10^3/uL (0.0-0.2) Prothrombin Time 17.7 SEC (11.7-14.0) Prothromb Time International Ratio 1.6 (0.8-1.1) Sodium Level 141 mmol/L (136-145) Potassium Level 3.0 mmol/L (3.5-5.1) Chloride Level 107 mmol/L (98-107) Carbon Dioxide Level 27 mmol/L (21-32) Anion Gap 7 (6-14) Blood Urea Nitrogen 9 mg/dL (8-26) Creatinine 0.7 mg/dL (0.7-1.3) Estimated GFR (Cockcroft-Gault) 119.9 BUN/Creatinine Ratio 13 (6-20) Glucose Level 121 mg/dL (70-99) Calcium Level 8.7 mg/dL (8.5-10.1) Magnesium Level 1.5 mg/dL (1.8-2.4) Total Bilirubin 0.6 mg/dL (0.2-1.0) Aspartate Amino Transf (AST/SGOT) 289 U/L (15-37) Alanine Aminotransferase (ALT/SGPT) 262 U/L (16-63) Alkaline Phosphatase 64 U/L (46-116) Total Protein 5.8 g/dL (6.4-8.2) Albumin 2.6 g/dL (3.4-5.0) Albumin/Globulin Ratio 0.8 (1.0-1.7) O2 Saturation 97 % (92-99) Arterial Blood pH 7.43 (7.35-7.45) Arterial Blood pCO2 at Patient Temp 31 mmHg (35-46) Arterial Blood pO2 at Patient Temp 88 mmHg (75-108) Arterial Blood HCO3 20 mmol/L (21-28) Arterial Blood Base Excess -3 mmol/L (-3-3) FiO2 40 Test 12/30/16 09:39 12/31/16 03:10 12/31/16 08:20 Glucose (Fingerstick) 120 mg/dL (70-99) White Blood Count 13.3 x10^3/uL (4.0-11.0) Red Blood Count 4.51 x10^6/uL (4.30-5.70) Hemoglobin 13.6 g/dL (13.0-17.5) Hematocrit 41.5 % (39.0-53.0) Mean Corpuscular Volume 92 fL (79-100) Mean Corpuscular Hemoglobin 30 pg (25-35) Mean Corpuscular Hemoglobin Concent 33 g/dL (31-37) Red Cell Distribution Width 14.0 % (11.5-14.5) Platelet Count 291 x10^3/uL (140-400) Neutrophils (%) (Auto) 83 % (31-73) Lymphocytes (%) (Auto) 8 % (24-48) Monocytes (%) (Auto) 5 % (0-9) Eosinophils (%) (Auto) 4 % (0-3) Basophils (%) (Auto) 0 % (0-3) Neutrophils # (Auto) 11.1 x10^3uL (1.8-7.7) Lymphocytes # (Auto) 1.0 x10^3/uL (1.0-4.8) Monocytes # (Auto) 0.6 x10^3/uL (0.0-1.1) Eosinophils # (Auto) 0.6 x10^3/uL (0.0-0.7) Basophils # (Auto) 0.0 x10^3/uL (0.0-0.2) Prothrombin Time 16.3 SEC (11.7-14.0) Prothromb Time International Ratio 1.4 (0.8-1.1) Sodium Level 142 mmol/L (136-145) Potassium Level 3.4 mmol/L (3.5-5.1) Chloride Level 109 mmol/L (98-107) Carbon Dioxide Level 27 mmol/L (21-32) Anion Gap 6 (6-14) Blood Urea Nitrogen 8 mg/dL (8-26) Creatinine 0.7 mg/dL (0.7-1.3) Estimated GFR (Cockcroft-Gault) 119.9 BUN/Creatinine Ratio 11 (6-20) Glucose Level 129 mg/dL (70-99) Calcium Level 8.4 mg/dL (8.5-10.1) Total Bilirubin 0.6 mg/dL (0.2-1.0) Aspartate Amino Transf (AST/SGOT) 243 U/L (15-37) Alanine Aminotransferase (ALT/SGPT) 428 U/L (16-63) Alkaline Phosphatase 102 U/L (46-116) Creatine Kinase 23 U/L (39-308) Total Protein 5.9 g/dL (6.4-8.2) Albumin 2.2 g/dL (3.4-5.0) Albumin/Globulin Ratio 0.6 (1.0-1.7) O2 Saturation 98 % (92-99) Arterial Blood pH 7.43 (7.35-7.45) Arterial Blood pCO2 at Patient Temp 34 mmHg (35-46) Arterial Blood pO2 at Patient Temp 97 mmHg (75-108) Arterial Blood HCO3 22 mmol/L (21-28) Arterial Blood Base Excess -2 mmol/L (-3-3) FiO2 35 Laboratory Tests Test 12/31/16 03:10 12/31/16 08:20 White Blood Count 13.3 x10^3/uL (4.0-11.0) Red Blood Count 4.51 x10^6/uL (4.30-5.70) Hemoglobin 13.6 g/dL (13.0-17.5) Hematocrit 41.5 % (39.0-53.0) Mean Corpuscular Volume 92 fL (79-100) Mean Corpuscular Hemoglobin 30 pg (25-35) Mean Corpuscular Hemoglobin Concent 33 g/dL (31-37) Red Cell Distribution Width 14.0 % (11.5-14.5) Platelet Count 291 x10^3/uL (140-400) Neutrophils (%) (Auto) 83 % (31-73) Lymphocytes (%) (Auto) 8 % (24-48) Monocytes (%) (Auto) 5 % (0-9) Eosinophils (%) (Auto) 4 % (0-3) Basophils (%) (Auto) 0 % (0-3) Neutrophils # (Auto) 11.1 x10^3uL (1.8-7.7) Lymphocytes # (Auto) 1.0 x10^3/uL (1.0-4.8) Monocytes # (Auto) 0.6 x10^3/uL (0.0-1.1) Eosinophils # (Auto) 0.6 x10^3/uL (0.0-0.7) Basophils # (Auto) 0.0 x10^3/uL (0.0-0.2) Prothrombin Time 16.3 SEC (11.7-14.0) Prothromb Time International Ratio 1.4 (0.8-1.1) Sodium Level 142 mmol/L (136-145) Potassium Level 3.4 mmol/L (3.5-5.1) Chloride Level 109 mmol/L (98-107) Carbon Dioxide Level 27 mmol/L (21-32) Anion Gap 6 (6-14) Blood Urea Nitrogen 8 mg/dL (8-26) Creatinine 0.7 mg/dL (0.7-1.3) Estimated GFR (Cockcroft-Gault) 119.9 BUN/Creatinine Ratio 11 (6-20) Glucose Level 129 mg/dL (70-99) Calcium Level 8.4 mg/dL (8.5-10.1) Total Bilirubin 0.6 mg/dL (0.2-1.0) Aspartate Amino Transf (AST/SGOT) 243 U/L (15-37) Alanine Aminotransferase (ALT/SGPT) 428 U/L (16-63) Alkaline Phosphatase 102 U/L (46-116) Creatine Kinase 23 U/L (39-308) Total Protein 5.9 g/dL (6.4-8.2) Albumin 2.2 g/dL (3.4-5.0) Albumin/Globulin Ratio 0.6 (1.0-1.7) O2 Saturation 98 % (92-99) Arterial Blood pH 7.43 (7.35-7.45) Arterial Blood pCO2 at Patient Temp 34 mmHg (35-46) Arterial Blood pO2 at Patient Temp 97 mmHg (75-108) Arterial Blood HCO3 22 mmol/L (21-28) Arterial Blood Base Excess -2 mmol/L (-3-3) FiO2 35 Microbiology 12/29/16 - Final, Resulted 12/29/16 - Final, Resulted 12/29/16 - Final, Resulted 12/29/16 Gram Stain Evaluation - Final, Resulted 12/29/16 Sputum Culture - Preliminary, Resulted 12/29/16 Sputum Result 1 - Final, Resulted Medications Current Medications Info (Do NOT chart on this placeholder) 1 each 1X ONCE MC ; Start 12/28/16 at 04:15; Stop 12/28/16 at 04:16; Status UNV Pneumococcal Polyvalent Vaccine (Do NOT chart on this placeholder) 1 each 1X ONCE MC ; Start 12/28/16 at 04:15; Stop 12/28/16 at 04:16; Status UNV Sodium Chloride 1,000 ml @ 100 mls/hr Q10H IV Last administered on 12/29/16 05:56; Start 12/28/16 at 05:00; Stop 12/29/16 at 08:37; Status DC Acetylcysteine 6.87 gm/Dextrose 1,034.35 ml @ 62.5 mls/ hr 1X ONCE IV Last administered on 12/28/16 05:36; Start 12/28/16 at 05:30; Stop 12/28/16 at 22 :02; Status DC Physostigmine Salicylate (Antilirium) 2 mg 1X ONCE IV Last administered on 08:20; Start 12/28/16 at 06:15; Stop 12/28/16 at 06:16; Status DC Sodium Bicarbonate 50 meq 1X ONCE IV Last administered on 12/28/16 06:23; Start 12/28/16 at 06:00; Stop 12/28/16 at 06:02; Status DC Influenza Virus Vaccine Quadrival (Fluarix Quad [id number] Syringe) 0.5 ml ONCE ONCE VAX IM ; Start 12/28/16 at 09:00; Stop 12/28/16 at 09:01; Status DC Pneumococcal Polyvalent Vaccine (Pneumovax 23) 0.5 ml ONCE ONCE VAX IM ; Start 12/28/16 at 09:00; Stop 12/28/16 at 09:01; Status DC Multivitamins 10 ml/Thiamine HCl 100 mg/Folic Acid 1 mg/Sodium Chloride 1,011.2 ml @ 100 mls/ hr DAILY IV Last administered on 12/29/16 09:01; Start at 09:00; Stop 12/29/16 at 09:33; Status DC Lorazepam (Ativan) 2 mg PRN Q1HR PRN IV For CIWA 8-14 Last administered on 23:26; Start 12/28/16 at 08:30 Lorazepam (Ativan) 4 mg PRN Q1HR PRN IV For CIWA 15 or greater Last administered on 12/30/16 04:40; Start 12/28/16 at 08:30 Haloperidol Lactate (Haldol) 5 mg PRN Q6HRS PRN IVP AGITATION Last administered on 12/29/16 01:00; Start 12/28/16 at 09:15 Enoxaparin Sodium (Lovenox Per Pharmacy Prophylaxis Dosing) 1 each PRN DAILY PRN MC SEE COMMENTS; Start 12/28/16 at 13:45 Enoxaparin Sodium (Lovenox 40mg Syringe) 40 mg Q24H SQ Last administered on 14:29; Start 12/28/16 at 14:00 Acetylcysteine 6.9 gm/Dextrose 1,034.5 ml @ 62.509 mls/hr 1X ONCE IV Last administered on 12/28/16 22:43; Start 12/28/16 at 23:00; Stop 12/29/16 at 15 :32; Status DC Lorazepam (Ativan) 2 mg 1X ONCE IV Last administered on 12/29/16 01:35; Start 12/29/16 at 01:45; Stop 12/29/16 at 01:46; Status DC Propofol 100 ml @ 0 mls/hr CONT PRN IV SEE I/O RECORD Last administered on 01:48; Start 12/29/16 at 05:00; Stop 12/30/16 at 09:22; Status DC Rocuronium [place] (Zemuron) 50 mg STK-MED ONCE .ROUTE ; Start 12/29/16 at 05: 20; Stop 12/29/16 at 05:21; Status DC Succinylcholine Chloride (Anectine) 200 mg STK-MED ONCE .ROUTE ; Start at 05:21; Stop 12/29/16 at 05:22; Status DC Propofol 20 ml @ As Directed STK-MED ONCE IV ; Start 12/29/16 at 05:22; Stop 12/29/16 at 05:23; Status DC Amino Acids/ Glycerin/ Electrolytes 1,000 ml @ 80 mls/hr [id number] IV Last administered on 12/29/16 09:02; Start 12/29/16 at 08:45; Stop 12/30/16 at 09 :14; Status DC Lorazepam (Ativan) 4 mg PRN Q4HRS PRN IV ANXIETY / AGITATION; Start 12/29/16 at 08:45; Status Cancel Lorazepam 100 mg/ Sodium Chloride 100 ml @ 0 mls/hr CONT PRN IV IVF Last administered on 12/29/16 09:02; Start 12/29/16 at 08:45 Ceftriaxone Sodium 1 gm/ Dextrose 50 ml @ 100 mls/hr Q24H IV ; Start 12/29/16 at 09:30; Status UNV Metronidazole 100 ml @ 100 mls/hr Q8HRS IV ; Start 12/29/16 at 14:00; Stop at 14:00; Status DC Potassium Chloride (KCl Oral Soln) 40 meq 1X ONCE PEG Last administered on 10:37; Start 12/29/16 at 10:00; Stop 12/29/16 at 10:01; Status DC Ceftriaxone Sodium (Rocephin) 1 gm Q24H IVP ; Start 12/29/16 at 10:00; Stop at 10:08; Status DC Piperacillin Sod/ Tazobactam Sod (Zosyn Per Pharmacy) 1 each PRN DAILY PRN MC SEE COMMENTS; Start 12/29/16 at 10:15 Levofloxacin/ Dextrose 100 ml @ 100 mls/hr Q24H IV Last administered on 11:22; Start 12/29/16 at 11:00 Famotidine (Pepcid Vial) 20 mg BID IVP Last administered on 12/31/16 08:41; Start 12/29/16 at 11:00 Dexmedetomidine HCl 200 mcg/ Sodium Chloride 50 ml @ 0 mls/hr CONT PRN IV PER PROTOCOL Last administered on 12/31/16 08:45; Start 12/29/16 at 10:15 Fentanyl Citrate (Fentanyl 2ml Vial) 25 mcg PRN Q1HR PRN IV PAIN; Start at 10:15 Lorazepam (Ativan) 0.5 mg PRN Q2HRS PRN IV AGITATION; Start 12/29/16 at 10:15 Propofol 100 ml @ 0 mls/hr CONT PRN IV SEDATION Last administered on 11:23; Start 12/29/16 at 10:15 Sodium Chloride 500 ml @ 500 mls/hr 1X PRN PRN IV SEE COMMENTS; Start at 10:15 Atropine Sulfate 0.5 mg PRN Q5MIN PRN IV SEE COMMENTS; Start 12/29/16 at 10:15 Piperacillin Sod/ Tazobactam Sod (Zosyn) 3.375 gm Q6HRS IVP Last administered on 12/31/16 12:31; Start 12/29/16 at 12:00 Acetylcysteine 6.9 gm/Dextrose 1,034.5 ml @ 62.509 mls/hr 1X ONCE IV Last administered on 12/29/16 15:40; Start 12/29/16 at 15:00; Stop 12/30/16 at 07 :32; Status DC Potassium Chloride (KCl Oral Soln) 40 meq 1X ONCE PEG Last administered on 12:49; Start 12/30/16 at 12:30; Stop 12/30/16 at 12:31; Status DC Potassium Chloride (KCl Oral Soln) 20 meq DAILY PEG Last administered on 08:44; Start 12/31/16 at 09:00 Potassium Chloride/Dextrose/ Sod Cl 1,000 ml @ 75 mls/hr 1X ONCE IV Last administered on 12/30/16 12:48; Start 12/30/16 at 13:00; Stop 12/31/16 at 02 :20; Status DC Magnesium Sulfate/ Dextrose 100 ml @ 25 mls/hr 1X ONCE IV Last administered on 12/30/16 14:28; Start 12/30/16 at 14:00; Stop 12/30/16 at 17:59; Status DC Acetylcysteine 6.9 gm/Dextrose 1,034.5 ml @ 62.509 mls/hr 1X ONCE IV Last administered on 12/30/16 15:03; Start 12/30/16 at 15:00; Stop 12/31/16 at 07 :32; Status DC Ibuprofen (Children'S Motrin) 400 mg PRN Q6HRS PRN PO INFLAMMATION Last administered on 12/30/16 21:44; Start 12/30/16 at 20:15 Rocuronium [place] (Zemuron) 50 mg STK-MED ONCE .ROUTE ; Start 12/29/16 at 05: 20; Stop 12/31/16 at 09:03; Status DC Bisacodyl (Dulcolax Tab) 5 mg PRN DAILY PRN PO CONSTIPATION; Start 12/31/16 at 09:30 Acetylcysteine 6.9 gm/Dextrose 1,034.5 ml @ 62.5 mls/ hr 1X ONCE IV Last administered on 12/31/16 11:24; Start 12/31/16 at 11:00; Stop 01/01/17 at 03 :33 Multi-Ingred Cream/Lotion/Oil/ Oint (Artificial Tears Eye Oint) 1 tigist PRN Q1HR PRN OU DRY EYE Last administered on 12/31/16 11:24; Start 12/31/16 at 11:00 Active Scripts Active Reported Requip (Ropinirole Hcl) 1 Mg Tablet 2 Mg PO QHS Mirtazapine 30 Mg Tablet 0.5 Tab PO QHS Proair Hfa Inhaler (Albuterol Sulfate) 8.5 Gm Hfa.aer.ad 1-2 Puff INH PRN Q6HRS PRN Spiriva (Tiotropium [place]) 18 Mcg Cap.w.dev 2 Inh IH DAILY Spiriva (Tiotropium [place]) 18 Mcg Cap.w.dev 1 Cap IH DAILY Omeprazole 20 Mg Capsule.dr 1 Cap PO DAILY Dexamethasone 4 Mg Tablet 1 Tab PO QID Symbicort 80-4.5 Mcg Inhaler (Budesonide/Formoterol Fumarate) 10.2 Gm Hfa.aer.ad 2 Puff IH BID Alprazolam 0.5 Mg Tablet 1 Tab PO QAM Metoprolol Tartrate 50 Mg Tablet 0.5 Tab PO BID Amiodarone Hcl 200 Mg Tablet 1 Tab PO DAILY Tylenol (Acetaminophen) 325 Mg Tablet 2 Tab PO PRN Q6HRS PRN Melatonin 3 Mg Tablet 2 Tab PO QHS Montelukast Sodium Tablet (Montelukast Sodium) 10 Mg Tablet 1 Tab PO DAILY Atorvastatin Calcium 40 Mg Tablet 1 Tab PO QHS Tramadol Hcl 50 Mg Tablet 50 Mg PO Q6H PRN Hydrocodone-Apap 7.5-325 (Hydrocodone Bit/Acetaminophen) 1 Each Tablet 1 Tab PO PRN Q6HRS PRN Zoloft (Sertraline Hcl) 25 Mg Tablet 1 Tab PO DAILY Vitals/I & O Vital Sign - Last 24 Hours 12/30/16 12/30/16 12/30/16 12/30/16 14:00 14:45 15:00 16:00 Temp 101.2 101.2 Pulse 88 82 76 Resp 28 27 25 B/P (MAP) 102/62 (75) 106/64 (78) 102/60 (74) Pulse Ox 99 99 99 99 O2 Delivery Ventilator Ventilator Ventilator Ventilator 12/30/16 12/30/16 12/30/16 12/30/16 16:00 17:04 18:00 18:05 Pulse 76 76 Resp 25 25 B/P (MAP) 90/54 (66) 94/56 (69) Pulse Ox 99 99 99 O2 Delivery Mechanical Ventilator Ventilator Ventilator Ventilator 12/30/16 12/30/16 12/30/16 12/30/16 19:00 20:00 20:00 20:21 Temp 101.0 101.0 Pulse 74 74 Resp 24 26 B/P (MAP) 97/55 (69) 99/60 (73) Pulse Ox 100 100 99 O2 Delivery Ventilator Mechanical Ventilator Ventilator Ventilator 12/30/16 12/30/16 12/30/16 12/30/16 21:00 22:00 23:00 23:08 Pulse 74 74 72 Resp 33 25 25 B/P (MAP) 98/57 (71) 104/61 (75) 104/62 (76) Pulse Ox 100 100 100 100 O2 Delivery Ventilator Ventilator Ventilator Ventilator 12/30/16 12/31/16 12/31/16 12/31/16 23:59 00:00 01:00 01:30 Temp 100.2 100.2 Pulse 70 70 Resp 28 24 B/P (MAP) 104/63 (77) 99/61 (74) Pulse Ox 99 100 100 O2 Delivery Mechanical Ventilator Ventilator Ventilator Ventilator 12/31/16 12/31/16 12/31/16 12/31/16 02:00 03:00 03:12 04:00 Pulse 67 63 Resp 24 21 B/P (MAP) 101/62 (75) 91/56 (68) Pulse Ox 100 100 100 O2 Delivery Ventilator Ventilator Ventilator Mechanical Ventilator 12/31/16 12/31/16 12/31/16 12/31/16 04:00 05:00 05:17 06:00 Temp 99.0 99.0 Pulse 65 65 64 Resp 23 21 25 B/P (MAP) 96/60 (72) 94/58 (70) 104/64 (77) Pulse Ox 100 100 100 100 O2 Delivery Ventilator Ventilator Ventilator Ventilator 12/31/16 12/31/16 12/31/16 12/31/16 07:00 07:50 08:00 08:04 Temp 98.4 98.4 Pulse 64 64 Resp 14 22 B/P (MAP) 102/62 (75) 108/67 (81) Pulse Ox 99 99 99 O2 Delivery Ventilator Mechanical Ventilator Ventilator Ventilator 12/31/16 12/31/16 09:00 09:28 Pulse 69 Resp 25 B/P (MAP) 108/66 (80) Pulse Ox 97 97 O2 Delivery Ventilator Ventilator Intake and Output 12/30/16 12/30/16 12/31/16 15:00 23:00 07:00 Intake Total 475 ml 1800 ml 2338 ml Output Total 570 ml 810 ml 1580 ml Balance -95 ml 990 ml 758 ml MYRIAM [id number] III DO Dec 31, 2016 13:35
--- NOTE | 2016-12-31 14:34 | PDOC ---
PROGRESS NOTES Assessment Assessment Toxic encephalopathy. Metabolic encephalopathy. Multi-drug overdose, Tylenol, Benadryl, Whiskey. Cocaine positive in system. Lethargy. Hepatic injury. Substance and drug use/abuse. RECOMMENDATIONS/PLAN: Treat drug overdose medically. Keep good hydration. Continue Acetylcysteine. Monitoring cardiac and pulmonary function. Monitory bleeding. Monitoring hepatic function. EEG on 12/31/16. Repeat HCT if condition worse. HCT w/o contrast on 12/27/16 in [facility] was negative w/o ICH. HISTORY OF THE PRESENT ILLNESS: 51-y-old male patient was found unresponsive at home with some empty bottles disarray. He was thought to overdose of several drugs including at least 80 pills of 500 mg Tylenol, and Benadryl, whiskey as well, also possible cocaine. No infarction is available for his ingestion. No suicidal notes found per reports. He was brought to [facility] and his HCT was negative. He was eventually transferred to ICU of [facility]. No clinical seizures observed so far. Past Medical and Surgical History Unknown. Family History Unknown. Social History ALCOHOL: heavy Drugs: Cocaine ALLERGY: Unknown MEDICATIONS: Refer to [facility] REVIEW OF SYSTEMS: Constitutional: No malnutrition, weight loss, cachexia. Head: No current traumatic brain or head injury. Skin: No edema, or rash. Ear: No infection. Eyes: Unknown. Nose: Unknown. Neck: No current injury. Cardiac: Unknown. Pulmonary: Unknown. GI: No GI ulcer, Unknown. Urinary/genital: Unknown. Endocrinologic: Unknown. Skeletomuscular: Unknown. Neurological: see HP. Psychiatric: substance and drug use/abuse. PHYSICAL EXAMINATION: General appearance is in acute distress. HEENT: Normocephalic and nontraumatic. Eyes, nose, ears, and throat are unremarkable. Neck is supple. No lymphadenopathy. No crepitus. Cardiovascular: S1, S2, regular rate and rhythm. Pulmonary: Mild difficult breathing. Abdomen: Bowel sounds are positive. Extremities: No rash, lesions, or edema. No restriction of range of motion NEUROLOGICAL EXAMINATION: Sedated. On vent. Not oriented to time, place and person. PERRL, but pupil reaction was slow. EOMI not elicited. CN: no acute focal findings. Muscle tone: fluctuated. Muscle strength: minimal movements noted. DTR: 1 Plantar reflex: Neutral response bilaterally Gait: Unable to walk in this mentation. Sensory exam: minimal movements to stimuli. Not able to access cerebellar signs. F-T-N test not performed due to lethargy Objective Objective Vital Signs Date Time Temp Pulse Resp B/P (MAP) Pulse Ox O2 Delivery O2 Flow Rate FiO2 12/31/16 14:00 63 22 119/77 (91) 100 Ventilator 12/31/16 13:00 99.1 99.1 Intake and Output 12/31/16 07:00 Intake Total 4613 ml Output Total 2960 ml Balance 1653 ml Intake IV Total 3096 ml Tube Feeding 1217 ml Other 300 ml Output Urine Total 2930 ml Gastric Drainage Total 30 ml Vitals Signs Vitals VS - Last 72 Hours, by Label Date Time Temp Pulse Resp B/P (MAP) Pulse Ox O2 Delivery O2 Flow Rate FiO2 12/31/16 14:00 63 22 119/77 (91) 100 Ventilator 12/31/16 13:26 100 Ventilator 12/31/16 13:00 99.1 68 22 117/73 (88) 100 Ventilator 99.1 12/31/16 12:00 77 28 126/78 (94) 97 Ventilator 12/31/16 11:35 98 Ventilator 12/31/16 11:00 76 31 108/67 (81) 100 Ventilator 12/31/16 10:00 66 22 99 Ventilator 12/31/16 09:28 97 Ventilator 12/31/16 09:00 69 25 108/66 (80) 97 Ventilator 12/31/16 08:04 99 Ventilator 12/31/16 08:00 64 22 108/67 (81) 99 Ventilator 12/31/16 07:50 Mechanical Ventilator 12/31/16 07:00 98.4 64 14 102/62 (75) 99 Ventilator 98.4 12/31/16 06:00 64 25 104/64 (77) 100 Ventilator 12/31/16 05:17 100 Ventilator 12/31/16 05:00 65 21 94/58 (70) 100 Ventilator 12/31/16 04:00 99.0 65 23 96/60 (72) 100 Ventilator 99.0 12/31/16 04:00 Mechanical Ventilator 12/31/16 03:12 100 Ventilator 12/31/16 03:00 63 21 91/56 (68) 100 Ventilator 12/31/16 02:00 67 24 101/62 (75) 100 Ventilator 12/31/16 01:30 100 Ventilator 12/31/16 01:00 70 24 99/61 (74) 100 Ventilator 12/31/16 00:00 100.2 70 28 104/63 (77) 99 Ventilator 100.2 12/30/16 23:59 Mechanical Ventilator 12/30/16 23:08 100 Ventilator 12/30/16 23:00 72 25 104/62 (76) 100 Ventilator 12/30/16 22:00 74 25 104/61 (75) 100 Ventilator 12/30/16 21:00 74 33 98/57 (71) 100 Ventilator 12/30/16 20:21 99 Ventilator 12/30/16 20:00 101.0 74 26 99/60 (73) 100 Ventilator 101.0 12/30/16 20:00 Mechanical Ventilator 12/30/16 19:00 74 24 97/55 (69) 100 Ventilator 12/30/16 18:05 99 Ventilator 12/30/16 18:00 76 25 94/56 (69) 99 Ventilator 12/30/16 17:04 76 25 90/54 (66) 99 Ventilator 12/30/16 16:00 Mechanical Ventilator 12/30/16 16:00 101.2 76 25 102/60 (74) 99 Ventilator 101.2 12/30/16 15:00 82 27 106/64 (78) 99 Ventilator 12/30/16 14:45 99 Ventilator 12/30/16 14:00 88 28 102/62 (75) 99 Ventilator 12/30/16 13:00 83 28 97/56 (70) 98 Ventilator 12/30/16 12:19 Mechanical Ventilator 12/30/16 12:00 101.1 83 28 104/68 (80) 98 Ventilator 101.1 12/30/16 11:55 99 Ventilator 12/30/16 11:00 79 24 101/58 (72) 99 Ventilator 12/30/16 10:00 78 28 92/55 (67) 99 Ventilator 12/30/16 09:19 99 Ventilator 12/30/16 09:00 79 28 108/65 (79) 98 Ventilator 12/30/16 08:00 78 24 99/60 (73) 100 Ventilator 12/30/16 07:30 99 Ventilator 12/30/16 07:24 Mechanical Ventilator 12/30/16 07:00 99.0 77 22 115/72 (86) 99 Ventilator 99.0 Laboratory Laboratory Laboratory Tests Test 12/31/16 03:10 12/31/16 08:20 White Blood Count 13.3 x10^3/uL (4.0-11.0) Red Blood Count 4.51 x10^6/uL (4.30-5.70) Hemoglobin 13.6 g/dL (13.0-17.5) Hematocrit 41.5 % (39.0-53.0) Mean Corpuscular Volume 92 fL (79-100) Mean Corpuscular Hemoglobin 30 pg (25-35) Mean Corpuscular Hemoglobin Concent 33 g/dL (31-37) Red Cell Distribution Width 14.0 % (11.5-14.5) Platelet Count 291 x10^3/uL (140-400) Neutrophils (%) (Auto) 83 % (31-73) Lymphocytes (%) (Auto) 8 % (24-48) Monocytes (%) (Auto) 5 % (0-9) Eosinophils (%) (Auto) 4 % (0-3) Basophils (%) (Auto) 0 % (0-3) Neutrophils # (Auto) 11.1 x10^3uL (1.8-7.7) Lymphocytes # (Auto) 1.0 x10^3/uL (1.0-4.8) Monocytes # (Auto) 0.6 x10^3/uL (0.0-1.1) Eosinophils # (Auto) 0.6 x10^3/uL (0.0-0.7) Basophils # (Auto) 0.0 x10^3/uL (0.0-0.2) Prothrombin Time 16.3 SEC (11.7-14.0) Prothromb Time International Ratio 1.4 (0.8-1.1) Sodium Level 142 mmol/L (136-145) Potassium Level 3.4 mmol/L (3.5-5.1) Chloride Level 109 mmol/L (98-107) Carbon Dioxide Level 27 mmol/L (21-32) Anion Gap 6 (6-14) Blood Urea Nitrogen 8 mg/dL (8-26) Creatinine 0.7 mg/dL (0.7-1.3) Estimated GFR (Cockcroft-Gault) 119.9 BUN/Creatinine Ratio 11 (6-20) Glucose Level 129 mg/dL (70-99) Calcium Level 8.4 mg/dL (8.5-10.1) Total Bilirubin 0.6 mg/dL (0.2-1.0) Aspartate Amino Transf (AST/SGOT) 243 U/L (15-37) Alanine Aminotransferase (ALT/SGPT) 428 U/L (16-63) Alkaline Phosphatase 102 U/L (46-116) Creatine Kinase 23 U/L (39-308) Total Protein 5.9 g/dL (6.4-8.2) Albumin 2.2 g/dL (3.4-5.0) Albumin/Globulin Ratio 0.6 (1.0-1.7) O2 Saturation 98 % (92-99) Arterial Blood pH 7.43 (7.35-7.45) Arterial Blood pCO2 at Patient Temp 34 mmHg (35-46) Arterial Blood pO2 at Patient Temp 97 mmHg (75-108) Arterial Blood HCO3 22 mmol/L (21-28) Arterial Blood Base Excess -2 mmol/L (-3-3) FiO2 35 Microbiology 12/29/16 - Final, Resulted 12/29/16 - Final, Resulted 12/29/16 - Final, Resulted 12/29/16 Gram Stain Evaluation - Final, Resulted 12/29/16 Sputum Culture - Preliminary, Resulted 12/29/16 Sputum Result 1 - Final, Resulted Medication Medications Current Medications Acetylcysteine 6.9 gm/Dextrose 1,034.5 ml @ 62.5 mls/ hr 1X ONCE IV Last administered on 12/31/16 11:24; Start 12/31/16 at 11:00; Stop 01/01/17 at 03 :33 Acetylcysteine 6.9 gm/Dextrose 1,034.5 ml @ 62.509 mls/hr 1X ONCE IV Last administered on 12/30/16 15:03; Start 12/30/16 at 15:00; Stop 12/31/16 at 07 :32; Status DC Bisacodyl (Dulcolax Tab) 5 mg PRN DAILY PRN PO CONSTIPATION; Start 12/31/16 at 09:30 Ibuprofen (Children'S Motrin) 400 mg PRN Q6HRS PRN PO INFLAMMATION Last administered on 12/30/16 21:44; Start 12/30/16 at 20:15 Multi-Ingred Cream/Lotion/Oil/ Oint (Artificial Tears Eye Oint) 1 tigist PRN Q1HR PRN OU DRY EYE Last administered on 12/31/16 11:24; Start 12/31/16 at 11:00 Potassium Chloride (KCl Oral Soln) 20 meq DAILY PEG Last administered on 08:44; Start 12/31/16 at 09:00 Comment Review of Relevant I have reviewed the following items jessa (where applicable) has been applied. DOUGLAS GARDUNO MD Dec 31, 2016 14:34
--- NOTE | 2016-12-31 14:35 | PDOC ---
PROGRESS NOTES Assessment Assessment Toxic encephalopathy. Metabolic encephalopathy. Multi-drug overdose, Tylenol, Benadryl, Whiskey. Cocaine positive in system. Lethargy. Hepatic injury. Restless. Substance and drug use/abuse. RECOMMENDATIONS/PLAN: Treat drug overdose medically. Keep good hydration. Continue Acetylcysteine. Monitoring cardiac and pulmonary function. Monitory bleeding. Monitoring hepatic function. EEG on 12/31/16. Repeat HCT if condition worse. HCT w/o contrast on 12/27/16 in [facility] was negative w/o ICH. HISTORY OF THE PRESENT ILLNESS: 51-y-old male patient was found unresponsive at home with some empty bottles disarray. He was thought to overdose of several drugs including at least 80 pills of 500 mg Tylenol, and Benadryl, whiskey as well, also possible cocaine. No infarction is available for his ingestion. No suicidal notes found per reports. He was brought to [facility] and his HCT was negative. He was eventually transferred to ICU of [facility]. No clinical seizures observed so far. Past Medical and Surgical History Unknown. Family History Unknown. Social History ALCOHOL: heavy Drugs: Cocaine ALLERGY: Unknown MEDICATIONS: Refer to [facility] REVIEW OF SYSTEMS: Constitutional: No malnutrition, weight loss, cachexia. Head: No current traumatic brain or head injury. Skin: No edema, or rash. Ear: No infection. Eyes: Unknown. Nose: Unknown. Neck: No current injury. Cardiac: Unknown. Pulmonary: Unknown. GI: No GI ulcer, Unknown. Urinary/genital: Unknown. Endocrinologic: Unknown. Skeletomuscular: Unknown. Neurological: see HP. Psychiatric: substance and drug use/abuse. PHYSICAL EXAMINATION: General appearance is in acute distress. HEENT: Normocephalic and nontraumatic. Eyes, nose, ears, and throat are unremarkable. Neck is supple. No lymphadenopathy. No crepitus. Cardiovascular: S1, S2, regular rate and rhythm. Pulmonary: Mild difficult breathing. Abdomen: Bowel sounds are positive. Extremities: No rash, lesions, or edema. No restriction of range of motion NEUROLOGICAL EXAMINATION: Sedated. on vent. Not oriented to time, place and person. PERRL, but pupil reaction was slow. EOMI not elicited. CN: no acute focal findings. Muscle tone: fluctuated. Muscle strength: movements noted. DTR: 1 Plantar reflex: Neutral response bilaterally Gait: Unable to walk in this mentation. Sensory exam: minimal movements to stimuli. Not able to access cerebellar signs. F-T-N test not performed due to lethargy Objective Objective Vital Signs Date Time Temp Pulse Resp B/P (MAP) Pulse Ox O2 Delivery O2 Flow Rate FiO2 12/31/16 14:00 63 22 119/77 (91) 100 Ventilator 12/31/16 13:00 99.1 99.1 Intake and Output 12/31/16 07:00 Intake Total 4613 ml Output Total 2960 ml Balance 1653 ml Intake IV Total 3096 ml Tube Feeding 1217 ml Other 300 ml Output Urine Total 2930 ml Gastric Drainage Total 30 ml Vitals Signs Vitals VS - Last 72 Hours, by Label Date Time Temp Pulse Resp B/P (MAP) Pulse Ox O2 Delivery O2 Flow Rate FiO2 12/31/16 14:00 63 22 119/77 (91) 100 Ventilator 12/31/16 13:26 100 Ventilator 12/31/16 13:00 99.1 68 22 117/73 (88) 100 Ventilator 99.1 12/31/16 12:00 Mechanical Ventilator 12/31/16 12:00 77 28 126/78 (94) 97 Ventilator 12/31/16 11:35 98 Ventilator 12/31/16 11:00 76 31 108/67 (81) 100 Ventilator 12/31/16 10:00 66 22 99 Ventilator 12/31/16 09:28 97 Ventilator 12/31/16 09:00 69 25 108/66 (80) 97 Ventilator 12/31/16 08:04 99 Ventilator 12/31/16 08:00 64 22 108/67 (81) 99 Ventilator 12/31/16 07:50 Mechanical Ventilator 12/31/16 07:00 98.4 64 14 102/62 (75) 99 Ventilator 98.4 12/31/16 06:00 64 25 104/64 (77) 100 Ventilator 12/31/16 05:17 100 Ventilator 12/31/16 05:00 65 21 94/58 (70) 100 Ventilator 12/31/16 04:00 99.0 65 23 96/60 (72) 100 Ventilator 99.0 12/31/16 04:00 Mechanical Ventilator 12/31/16 03:12 100 Ventilator 12/31/16 03:00 63 21 91/56 (68) 100 Ventilator 12/31/16 02:00 67 24 101/62 (75) 100 Ventilator 12/31/16 01:30 100 Ventilator 12/31/16 01:00 70 24 99/61 (74) 100 Ventilator 12/31/16 00:00 100.2 70 28 104/63 (77) 99 Ventilator 100.2 12/30/16 23:59 Mechanical Ventilator 12/30/16 23:08 100 Ventilator 12/30/16 23:00 72 25 104/62 (76) 100 Ventilator 12/30/16 22:00 74 25 104/61 (75) 100 Ventilator 12/30/16 21:00 74 33 98/57 (71) 100 Ventilator 12/30/16 20:21 99 Ventilator 12/30/16 20:00 101.0 74 26 99/60 (73) 100 Ventilator 101.0 12/30/16 20:00 Mechanical Ventilator 12/30/16 19:00 74 24 97/55 (69) 100 Ventilator 12/30/16 18:05 99 Ventilator 12/30/16 18:00 76 25 94/56 (69) 99 Ventilator 12/30/16 17:04 76 25 90/54 (66) 99 Ventilator 12/30/16 16:00 Mechanical Ventilator 12/30/16 16:00 101.2 76 25 102/60 (74) 99 Ventilator 101.2 12/30/16 15:00 82 27 106/64 (78) 99 Ventilator 12/30/16 14:45 99 Ventilator 12/30/16 14:00 88 28 102/62 (75) 99 Ventilator 12/30/16 13:00 83 28 97/56 (70) 98 Ventilator 12/30/16 12:19 Mechanical Ventilator 12/30/16 12:00 101.1 83 28 104/68 (80) 98 Ventilator 101.1 12/30/16 11:55 99 Ventilator 12/30/16 11:00 79 24 101/58 (72) 99 Ventilator 12/30/16 10:00 78 28 92/55 (67) 99 Ventilator 12/30/16 09:19 99 Ventilator 12/30/16 09:00 79 28 108/65 (79) 98 Ventilator 12/30/16 08:00 78 24 99/60 (73) 100 Ventilator 12/30/16 07:30 99 Ventilator 12/30/16 07:24 Mechanical Ventilator 12/30/16 07:00 99.0 77 22 115/72 (86) 99 Ventilator 99.0 Laboratory Laboratory Laboratory Tests Test 12/31/16 03:10 12/31/16 08:20 White Blood Count 13.3 x10^3/uL (4.0-11.0) Red Blood Count 4.51 x10^6/uL (4.30-5.70) Hemoglobin 13.6 g/dL (13.0-17.5) Hematocrit 41.5 % (39.0-53.0) Mean Corpuscular Volume 92 fL (79-100) Mean Corpuscular Hemoglobin 30 pg (25-35) Mean Corpuscular Hemoglobin Concent 33 g/dL (31-37) Red Cell Distribution Width 14.0 % (11.5-14.5) Platelet Count 291 x10^3/uL (140-400) Neutrophils (%) (Auto) 83 % (31-73) Lymphocytes (%) (Auto) 8 % (24-48) Monocytes (%) (Auto) 5 % (0-9) Eosinophils (%) (Auto) 4 % (0-3) Basophils (%) (Auto) 0 % (0-3) Neutrophils # (Auto) 11.1 x10^3uL (1.8-7.7) Lymphocytes # (Auto) 1.0 x10^3/uL (1.0-4.8) Monocytes # (Auto) 0.6 x10^3/uL (0.0-1.1) Eosinophils # (Auto) 0.6 x10^3/uL (0.0-0.7) Basophils # (Auto) 0.0 x10^3/uL (0.0-0.2) Prothrombin Time 16.3 SEC (11.7-14.0) Prothromb Time International Ratio 1.4 (0.8-1.1) Sodium Level 142 mmol/L (136-145) Potassium Level 3.4 mmol/L (3.5-5.1) Chloride Level 109 mmol/L (98-107) Carbon Dioxide Level 27 mmol/L (21-32) Anion Gap 6 (6-14) Blood Urea Nitrogen 8 mg/dL (8-26) Creatinine 0.7 mg/dL (0.7-1.3) Estimated GFR (Cockcroft-Gault) 119.9 BUN/Creatinine Ratio 11 (6-20) Glucose Level 129 mg/dL (70-99) Calcium Level 8.4 mg/dL (8.5-10.1) Total Bilirubin 0.6 mg/dL (0.2-1.0) Aspartate Amino Transf (AST/SGOT) 243 U/L (15-37) Alanine Aminotransferase (ALT/SGPT) 428 U/L (16-63) Alkaline Phosphatase 102 U/L (46-116) Creatine Kinase 23 U/L (39-308) Total Protein 5.9 g/dL (6.4-8.2) Albumin 2.2 g/dL (3.4-5.0) Albumin/Globulin Ratio 0.6 (1.0-1.7) O2 Saturation 98 % (92-99) Arterial Blood pH 7.43 (7.35-7.45) Arterial Blood pCO2 at Patient Temp 34 mmHg (35-46) Arterial Blood pO2 at Patient Temp 97 mmHg (75-108) Arterial Blood HCO3 22 mmol/L (21-28) Arterial Blood Base Excess -2 mmol/L (-3-3) FiO2 35 Microbiology 12/29/16 - Final, Resulted 12/29/16 - Final, Resulted 12/29/16 - Final, Resulted 12/29/16 Gram Stain Evaluation - Final, Resulted 12/29/16 Sputum Culture - Preliminary, Resulted 12/29/16 Sputum Result 1 - Final, Resulted Medication Medications Current Medications Acetylcysteine 6.9 gm/Dextrose 1,034.5 ml @ 62.5 mls/ hr 1X ONCE IV Last administered on 12/31/16 11:24; Start 12/31/16 at 11:00; Stop 01/01/17 at 03 :33 Acetylcysteine 6.9 gm/Dextrose 1,034.5 ml @ 62.509 mls/hr 1X ONCE IV Last administered on 12/30/16 15:03; Start 12/30/16 at 15:00; Stop 12/31/16 at 07 :32; Status DC Bisacodyl (Dulcolax Tab) 5 mg PRN DAILY PRN PO CONSTIPATION; Start 12/31/16 at 09:30 Ibuprofen (Children'S Motrin) 400 mg PRN Q6HRS PRN PO INFLAMMATION Last administered on 12/30/16 21:44; Start 11/19/17 at 20:15 Multi-Ingred Cream/Lotion/Oil/ Oint (Artificial Tears Eye Oint) 1 tigist PRN Q1HR PRN OU DRY EYE Last administered on 12/31/16 11:24; Start 12/31/16 at 11:00 Potassium Chloride (KCl Oral Soln) 20 meq DAILY PEG Last administered on 08:44; Start 12/31/16 at 09:00 Comment Review of Relevant I have reviewed the following items jessa (where applicable) has been applied. DOUGLAS GARDUNO MD Dec 31, 2016 14:35
[2016-12-31] MEDS: ENOXAPARIN 40 MG/0.4 ML SYRINGE. SQ SCH (14:44)
[2016-12-31 15:26] LABS: ALBUMIN 2.2 g/dL (3.4-5.0); DIRECT BILIRUBIN 0.3 mg/dL (0.0-0.2); TOTAL BILIRUBIN 0.5 mg/dL (0.2-1.0); TOTAL PROTEIN 5.1 g/dL (6.4-8.2)
[2016-12-31 16:03] LABS: FIO2 ABG 35; HCO3 ABG 21 mmol/L (21-28); PCO2 ABG 38 mmHg (35-46); PH ABG 7.37 (7.35-7.45); PO2 ABG 107 mmHg (75-108); SAT O2 ABG 98 % (92-99)
--- NOTE | 2016-12-31 18:33 | EEG ---
DATE OF SERVICE: 12/31/2016 ELECTROENCEPHALOGRAM NUMBER: [id number] OBJECTIVE: This is a 51-year-old male patient who has multidrug toxicity and remained unresponsive. EEG was requested to evaluate cerebral activity and help rule out subclinical seizures. METHODS: Twenty electrodes were applied according to the international 10-20 electrode placement system. EKG monitoring, hyperventilation, intermittent photic stimulation, monopolar and bipolar montages are routinely utilized. The record was obtained on a digital system with video monitoring. MEDICATIONS: The patient overdosed several drugs including Tylenol, cocaine, whiskey and possible other unknown drugs. FINDINGS: 1. Background: The patient was recorded in the unresponsive state. No physiological awake, drowsy and sleep states were recorded. The overall background amplitude is variable. No clear posterior dominant rhythm is observed. The overall background rhythm is with diffuse slowing in theta and delta frequencies throughout the entire recording. 2. Abnormalities: No specific epileptiform discharge or electrographic seizure is seen. Diffuse slowing in the theta and delta frequencies is throughout the entire recording. 3. Activation: Hyperventilation was not performed because the patient was in unresponsive state. Intermittent photic stimulation was performed without photic driving. IMPRESSION: This EEG is an abnormal study for the unresponsive state only. No physiological awake, drowsy and sleep states were recorded. No clear posterior dominant rhythm is observed. The overall background rhythm is with diffuse slowing in theta and delta frequencies throughout the entire recording. No lateralizing, specific epileptiform discharge, or electrographic seizure is seen. This pattern of EEG is suggestive of diffuse encephalopathy. DOUGLAS GARDUNO MD DR: FRANKY/ashley JOB#: [id number] / [id number] NATALIED
[2016-12-31 20:22] LABS: ALBUMIN 2.1 g/dL (3.4-5.0); DIRECT BILIRUBIN 0.3 mg/dL (0.0-0.2); TOTAL BILIRUBIN 0.6 mg/dL (0.2-1.0); TOTAL PROTEIN 6.2 g/dL (6.4-8.2)
[2016-12-31] MEDS ORDERED: IV NORMAL SALINE 1000ML BAG 1,000 ML IV SCH (22:45)
[2016-12-31] MEDS: HALOPERIDOL LACTATE 5 MG/ML VIAL. IVP PRN (23:12)
[2016-12-31] MEDS: fentaNYL PF VIAL 100 MCG/2 ML VIAL IV PRN (23:14)
[2017-01-01] VITALS (23 sets, daily range): BP systolic 114–149; BP diastolic 66–92
[2017-01-01] MEDS: PIPERACILLIN/TAZO IV Push 3.375 GM VIAL. IVP SCH ×5 (00:06→23:44)
[2017-01-01] MEDS: fentaNYL PF VIAL 100 MCG/2 ML VIAL IV PRN ×3 (01:33→21:36)
[2017-01-01 03:51] LABS: BASO # 0.1 x10^3/uL (0.0-0.2); BASO % 0 % (0-3); EOS % 1 % (0-3); HEMATOCRIT 38.6 % (39.0-53.0); HEMOGLOBIN 12.9 g/dL (13.0-17.5); LYMPH # 1.2 x10^3/uL (1.0-4.8); LYMPH % 8 % (24-48); MEAN CORPUSCULAR HEMOGLOBIN 31 pg (25-35); MEAN CORPUSCULAR HGB CONC 33 g/dL (31-37); MEAN CORPUSCULAR VOLUME 92 fL (79-100); MONO % 9 % (0-9); NEUT % 82 % (31-73); PLATELET COUNT 323 x10^3/uL (140-400); RED BLOOD COUNT 4.22 x10^6/uL (4.30-5.70); RED CELL DISTRIBUTION WIDTH 13.7 % (11.5-14.5); WHITE BLOOD COUNT 14.5 x10^3/uL (4.0-11.0)
[2017-01-01 04:21] LABS: ALBUMIN/GLOBULIN RATIO 0.5 (1.0-1.7); CALCIUM 8.4 mg/dL (8.5-10.1); CREATININE 0.7 mg/dL (0.7-1.3); GFR 119.9; POTASSIUM 3.1 mmol/L (3.5-5.1); TOTAL BILIRUBIN 0.7 mg/dL (0.2-1.0)
[2017-01-01] MEDS ORDERED: VANCOMYCIN PER PHARMACY MC PRN (06:45)
[2017-01-01] MEDS ORDERED: VANCOMYCIN 1.75 GM in IV DEXTROSE 5% 500 ML IV ONE (07:00)
--- NOTE | 2017-01-01 08:41 | PDOC ---
Infectious Disease Note Vital Sign Vital Signs Vital Signs Date Time Temp Pulse Resp B/P (MAP) Pulse Ox O2 Delivery O2 Flow Rate FiO2 01/01/17 08:00 99.6 117 40 137/87 (104) 97 Nasal Cannula 4.0 99.6 Labs Lab Laboratory Tests Test 12/31/16 14:50 12/31/16 15:55 12/31/16 19:50 12/31/16 23:50 Total Bilirubin 0.5 mg/dL (0.2-1.0) 0.6 mg/dL (0.2-1.0) Direct Bilirubin 0.3 mg/dL (0.0-0.2) 0.3 mg/dL (0.0-0.2) Aspartate Amino Transf (AST/SGOT) 154 U/L (15-37) 130 U/L (15-37) Alanine Aminotransferase (ALT/SGPT) 380 U/L (16-63) 342 U/L (16-63) Alkaline Phosphatase 141 U/L (46-116) 152 U/L (46-116) Total Protein 5.1 g/dL (6.4-8.2) 6.2 g/dL (6.4-8.2) Albumin 2.2 g/dL (3.4-5.0) 2.1 g/dL (3.4-5.0) Acetaminophen Level < 2 mcg/ml (10-30) < 2 mcg/ml (10-30) Acetaminophen Last Dose Date 12/27/16 12/27/16 Acetaminophen Last Dose Time 1999 1999 O2 Saturation 98 % (92-99) Arterial Blood pH 7.37 (7.35-7.45) Arterial Blood pCO2 at Patient Temp 38 mmHg (35-46) Arterial Blood pO2 at Patient Temp 107 mmHg (75-108) Arterial Blood HCO3 21 mmol/L (21-28) Arterial Blood Base Excess -4 mmol/L (-3-3) FiO2 35 Lactic Acid Level 1.2 mmol/L (0.4-2.0) Test 01/01/17 03:25 White Blood Count 14.5 x10^3/uL (4.0-11.0) Red Blood Count 4.22 x10^6/uL (4.30-5.70) Hemoglobin 12.9 g/dL (13.0-17.5) Hematocrit 38.6 % (39.0-53.0) Mean Corpuscular Volume 92 fL (79-100) Mean Corpuscular Hemoglobin 31 pg (25-35) Mean Corpuscular Hemoglobin Concent 33 g/dL (31-37) Red Cell Distribution Width 13.7 % (11.5-14.5) Platelet Count 323 x10^3/uL (140-400) Neutrophils (%) (Auto) 82 % (31-73) Lymphocytes (%) (Auto) 8 % (24-48) Monocytes (%) (Auto) 9 % (0-9) Eosinophils (%) (Auto) 1 % (0-3) Basophils (%) (Auto) 0 % (0-3) Neutrophils # (Auto) 11.8 x10^3uL (1.8-7.7) Lymphocytes # (Auto) 1.2 x10^3/uL (1.0-4.8) Monocytes # (Auto) 1.3 x10^3/uL (0.0-1.1) Eosinophils # (Auto) 0.1 x10^3/uL (0.0-0.7) Basophils # (Auto) 0.1 x10^3/uL (0.0-0.2) Sodium Level 144 mmol/L (136-145) Potassium Level 3.1 mmol/L (3.5-5.1) Chloride Level 109 mmol/L (98-107) Carbon Dioxide Level 28 mmol/L (21-32) Anion Gap 7 (6-14) Blood Urea Nitrogen 8 mg/dL (8-26) Creatinine 0.7 mg/dL (0.7-1.3) Estimated GFR (Cockcroft-Gault) 119.9 BUN/Creatinine Ratio 11 (6-20) Glucose Level 89 mg/dL (70-99) Calcium Level 8.4 mg/dL (8.5-10.1) Total Bilirubin 0.7 mg/dL (0.2-1.0) Aspartate Amino Transf (AST/SGOT) 123 U/L (15-37) Alanine Aminotransferase (ALT/SGPT) 303 U/L (16-63) Alkaline Phosphatase 145 U/L (46-116) Total Protein 6.0 g/dL (6.4-8.2) Albumin 2.0 g/dL (3.4-5.0) Albumin/Globulin Ratio 0.5 (1.0-1.7) Objective Assessment Fever , sec to ETOH withdrawal vs pneumonia Tylenol overdose ETOH abuse Encephalopathy Plan [facility] check cultures MIRACLE MARTÍNEZ MD Jan 01, 2017 08:41
[2017-01-01] MEDS: POTASSIUM CHLORIDE 20 MEQ/15 ML ORAL LIQUID. PEG SCH (09:00)
--- NOTE | 2017-01-01 09:09 | RAD ---
EXAM: Chest one view. HISTORY: Aspiration pneumonia. COMPARISON: 12/31/2016. FINDINGS: A frontal view of the chest is obtained. The inspiration is smaller status post extubation. Groundglass infiltrates are diffuse on the left and patchy on the right, worst in the right apex. These are increased. There is no pneumothorax or pleural effusion. The heart is not enlarged. IMPRESSION: 1. Increased diffuse infiltrates on the left greater than right.
--- NOTE | 2017-01-01 09:21 | CONS ---
DATE OF CONSULTATION: 01/01/2017 REQUESTING PHYSICIAN: Dr. Montemayor. REASON FOR CONSULTATION: Fever. HISTORY OF PRESENT ILLNESS: This is a 51-year-old gentleman. The patient was found unresponsive at home with multiple pill bottles empty. The patient was suspected to have taken a bottle of whiskey, possibly cocaine, 2 bottles of Benadryl and 1 bottle of Tylenol. The patient was intubated. The patient was supported, now he is extubated, and he started running fever, hence consultation. The patient is receiving Zosyn, and I added vancomycin. The patient is not awake and yesterday, maybe, little awake he was, but today as I am seeing him for the first time, he is unresponsive and jittery and shaky as if he is going through the withdrawal. No nausea, vomiting, diarrhea noted. PAST MEDICAL HISTORY: Unknown. SOCIAL HISTORY: Other than what I mentioned in HPI, no other information is available. CURRENT MEDICATIONS: Reviewed. The patient is on vancomycin and Zosyn. REVIEW OF SYSTEMS: Per HPI, all other systems reviewed through the patient's nurse. PHYSICAL EXAMINATION: GENERAL: Unresponsive gentleman who is jittery. VITAL SIGNS: Current temperature is 99.6, with a T-max 102.9. Rest of the vitals are stable. HEENT: Negative. NECK: Supple, no JVP. No lymphadenopathy. LUNGS: Clear. CARDIOVASCULAR: S1, S2 regular. ABDOMEN: Benign. SKIN: Unremarkable. NEUROLOGICAL: The patient does move all the extremities, but he is encephalopathic, is responding to painful stimuli, but does not respond to my communication. LABORATORY DATA: White count is 14.5, platelets are 82,000. BUN and creatinine are normal. Liver functions show an AST of 123, ALT of 303, alkaline phosphatase 145. Cultures, sputum culture is showing Staph aureus, susceptibilities are pending as well as group B strep. Chest x-ray showing pneumonia. IMPRESSION: 1. Fever. It is possible this is secondary to alcohol withdrawal, but also possible that he may have methicillin-resistant Staphylococcus aureus pneumonia and needed methicillin-resistant Staphylococcus aureus coverage. 2. Respiratory failure, which is improved. 3. Encephalopathy. 4. Overdose on Benadryl, acetaminophen, cocaine and alcohol. 5. Bilateral pneumonia, aspiration likely. 6. Fever and leukocytosis. RECOMMENDATIONS: As I started vancomycin, continue Zosyn, I may consider changing to Zyvox, although if he does not respond and if it comes out to be MRSA, so we will continue for the time being and continue to follow the sign. Thank you very much, Dr. Montemayor, for giving me the opportunity to participate in this patient's care. MIKE MENCHACA DO DR: WANDY/ashley JOB#: [id number] / [id number]
[2017-01-01] MEDS: FAMOTIDINE 20 MG/2 ML VIAL IVP SCH ×2 (09:39→20:35)
--- NOTE | 2017-01-01 10:10 | CONS ---
DATE OF CONSULTATION: 01/01/2017 REQUESTING PHYSICIAN: Dr. Montemayor. REASON FOR CONSULTATION: Fever. HISTORY OF PRESENT ILLNESS: This is a 51-year-old gentleman. The patient was found unresponsive at home with multiple pill bottles empty. The patient was suspected to have taken a bottle of whiskey, possibly cocaine, 2 bottles of Benadryl and 1 bottle of Tylenol. The patient was intubated. The patient was supported, now he is extubated, and he started running fever, hence consultation. The patient is receiving Zosyn, and I added vancomycin. The patient is not awake and yesterday, maybe, little awake he was, but today as I am seeing him for the first time, he is unresponsive and jittery and shaky as if he is going through the withdrawal. No nausea, vomiting, diarrhea noted. PAST MEDICAL HISTORY: Unknown. SOCIAL HISTORY: Other than what I mentioned in HPI, no other information is available. CURRENT MEDICATIONS: Reviewed. The patient is on vancomycin and Zosyn. REVIEW OF SYSTEMS: Per HPI, all other systems reviewed through the patient's nurse. PHYSICAL EXAMINATION: GENERAL: Unresponsive gentleman who is jittery. VITAL SIGNS: Current temperature is 99.6, with a T-max 102.9. Rest of the vitals are stable. HEENT: Negative. NECK: Supple, no JVP. No lymphadenopathy. LUNGS: Clear. CARDIOVASCULAR: S1, S2 regular. ABDOMEN: Benign. SKIN: Unremarkable. NEUROLOGICAL: The patient does move all the extremities, but he is encephalopathic, is responding to painful stimuli, but does not respond to my communication. LABORATORY DATA: White count is 14.5, platelets are 82,000. BUN and creatinine are normal. Liver functions show an AST of 123, ALT of 303, alkaline phosphatase 145. Cultures, sputum culture is showing Staph aureus, susceptibilities are pending as well as group B strep. Chest x-ray showing pneumonia. IMPRESSION: 1. Fever. It is possible this is secondary to alcohol withdrawal, but also possible that he may have methicillin-resistant Staphylococcus aureus pneumonia and needed methicillin-resistant Staphylococcus aureus coverage. 2. Respiratory failure, which is improved. 3. Encephalopathy. 4. Overdose on Benadryl, acetaminophen, cocaine and alcohol. 5. Bilateral pneumonia, aspiration likely. 6. Fever and leukocytosis. RECOMMENDATIONS: As I started vancomycin, continue Zosyn, I may consider changing to Zyvox, if sputum is MRSA. will follow the cultures and adjust Thank you very much, Dr. Montemayor, for giving me the opportunity to participate in this patient's care. MIRACLE MATRÍNEZ MD DR: WHITNEY/ashley JOB#: [id number] / [id number] MARI
--- NOTE | 2017-01-01 11:18 | PDOC ---
Objective: Objective: Extubated. Doesn't follow commands. Vital Signs: Vital Signs Date Time Temp Pulse Resp B/P (MAP) Pulse Ox O2 Delivery O2 Flow Rate FiO2 01/01/17 11:00 104 27 146/84 (104) 93 Nasal Cannula 4.0 01/01/17 08:00 99.6 99.6 Labs: Laboratory Tests Test 12/31/16 14:50 12/31/16 15:55 12/31/16 19:50 12/31/16 23:50 Total Bilirubin 0.5 mg/dL 0.6 mg/dL Direct Bilirubin 0.3 mg/dL 0.3 mg/dL Aspartate Amino Transf (AST/SGOT) 154 U/L 130 U/L Alanine Aminotransferase (ALT/SGPT) 380 U/L 342 U/L Alkaline Phosphatase 141 U/L 152 U/L Total Protein 5.1 g/dL 6.2 g/dL Albumin 2.2 g/dL 2.1 g/dL Acetaminophen Level < 2 mcg/ml < 2 mcg/ml Acetaminophen Last Dose Date 12/27/16 12/27/16 Acetaminophen Last Dose Time 1999 1999 O2 Saturation 98 % Arterial Blood pH 7.37 Arterial Blood pCO2 at Patient Temp 38 mmHg Arterial Blood pO2 at Patient Temp 107 mmHg Arterial Blood HCO3 21 mmol/L Arterial Blood Base Excess -4 mmol/L FiO2 35 Lactic Acid Level 1.2 mmol/L Test 01/01/17 03:25 White Blood Count 14.5 x10^3/uL Red Blood Count 4.22 x10^6/uL Hemoglobin 12.9 g/dL Hematocrit 38.6 % Mean Corpuscular Volume 92 fL Mean Corpuscular Hemoglobin 31 pg Mean Corpuscular Hemoglobin Concent 33 g/dL Red Cell Distribution Width 13.7 % Platelet Count 323 x10^3/uL Neutrophils (%) (Auto) 82 % Lymphocytes (%) (Auto) 8 % Monocytes (%) (Auto) 9 % Eosinophils (%) (Auto) 1 % Basophils (%) (Auto) 0 % Neutrophils # (Auto) 11.8 x10^3uL Lymphocytes # (Auto) 1.2 x10^3/uL Monocytes # (Auto) 1.3 x10^3/uL Eosinophils # (Auto) 0.1 x10^3/uL Basophils # (Auto) 0.1 x10^3/uL Sodium Level 144 mmol/L Potassium Level 3.1 mmol/L Chloride Level 109 mmol/L Carbon Dioxide Level 28 mmol/L Anion Gap 7 Blood Urea Nitrogen 8 mg/dL Creatinine 0.7 mg/dL Estimated GFR (Cockcroft-Gault) 119.9 BUN/Creatinine Ratio 11 Glucose Level 89 mg/dL Calcium Level 8.4 mg/dL Total Bilirubin 0.7 mg/dL Aspartate Amino Transf (AST/SGOT) 123 U/L Alanine Aminotransferase (ALT/SGPT) 303 U/L Alkaline Phosphatase 145 U/L Total Protein 6.0 g/dL Albumin 2.0 g/dL Albumin/Globulin Ratio 0.5 Imaging: CXR IMPRESSION: 1. Increased diffuse infiltrates on the left greater than right. PE: GEN: NAD LUNGS: tachypneic HEART: tachycardic ABD: S/ND/NT NEURO/PSYCH: awake, does not follow commands A/P: Acetaminophen overdose, alcohol abuse -LFTs stable/improved Resp failure, pneumonia Fever, leukocytosis -atbx per ID Encephalopathy -- ?PPN - poor candidate for feeding tube. JEREMIE BERG Jan 01, 2017 11:18
[2017-01-01] MEDS: HALOPERIDOL LACTATE 5 MG/ML VIAL. IVP SCH ×2 (13:08→21:12)
[2017-01-01] MEDS ORDERED: POTASSIUM CHLORIDE 20MEQ 50 ML IV ONE ×2 (13:30)
--- NOTE | 2017-01-01 13:54 | PDOC ---
PROGRESS NOTES Chief Complaint Chief Complaint Acute toxic encephalopathy, Acute hypoxic respiratory failure Aspiration pneumonitis Intentional overdose of Benadryl and acetaminophen known, s/p N-actyl Cysteine gtt, suicide attempt Alcohol abuse Cocaine abuse history Encephalopathy was POA, Dysphagia, he seemed to aspirate in the ER, Transaminitis,early hepatic failure Hypokalemia Hypomagnesemia History of Present Illness History of Present Illness Pt seen and examined today in the ICU On ventilator Copious sputum suctioned, cx sent Liver enzymes elevated DW RN OG tube feeds Tylenol level near zero, s/p 3 liters of n-acetyl cysteine prognosis guarded, palliative consult, may need ethics involvement Father, sister, evp and chief operating officer contacted Vitals Vitals Vital Signs Date Time Temp Pulse Resp B/P (MAP) Pulse Ox O2 Delivery O2 Flow Rate FiO2 01/01/17 13:00 115 32 137/80 (99) 98 Nasal Cannula 4.0 01/01/17 12:00 100.1 100.1 Physical Exam Physical Exam PERRLA General: Cooperative, moderate distress, Other ( shaky, easily startled) Heart: Regular rate Lungs: Clear Abdomen: Soft Extremities: No clubbing, No edema, Normal pulses, Other (discoloration of fingertips) Skin: No rashes, No breakdown, No significant lesion, Other Labs LABS Laboratory Tests Test 12/31/16 14:50 12/31/16 15:55 12/31/16 19:50 12/31/16 23:50 Total Bilirubin 0.5 mg/dL (0.2-1.0) 0.6 mg/dL (0.2-1.0) Direct Bilirubin 0.3 mg/dL (0.0-0.2) 0.3 mg/dL (0.0-0.2) Aspartate Amino Transf (AST/SGOT) 154 U/L (15-37) 130 U/L (15-37) Alanine Aminotransferase (ALT/SGPT) 380 U/L (16-63) 342 U/L (16-63) Alkaline Phosphatase 141 U/L (46-116) 152 U/L (46-116) Total Protein 5.1 g/dL (6.4-8.2) 6.2 g/dL (6.4-8.2) Albumin 2.2 g/dL (3.4-5.0) 2.1 g/dL (3.4-5.0) Acetaminophen Level < 2 mcg/ml (10-30) < 2 mcg/ml (10-30) Acetaminophen Last Dose Date 12/27/16 12/27/16 Acetaminophen Last Dose Time 1999 1999 O2 Saturation 98 % (92-99) Arterial Blood pH 7.37 (7.35-7.45) Arterial Blood pCO2 at Patient Temp 38 mmHg (35-46) Arterial Blood pO2 at Patient Temp 107 mmHg (75-108) Arterial Blood HCO3 21 mmol/L (21-28) Arterial Blood Base Excess -4 mmol/L (-3-3) FiO2 35 Lactic Acid Level 1.2 mmol/L (0.4-2.0) Test 01/01/17 03:25 White Blood Count 14.5 x10^3/uL (4.0-11.0) Red Blood Count 4.22 x10^6/uL (4.30-5.70) Hemoglobin 12.9 g/dL (13.0-17.5) Hematocrit 38.6 % (39.0-53.0) Mean Corpuscular Volume 92 fL (79-100) Mean Corpuscular Hemoglobin 31 pg (25-35) Mean Corpuscular Hemoglobin Concent 33 g/dL (31-37) Red Cell Distribution Width 13.7 % (11.5-14.5) Platelet Count 323 x10^3/uL (140-400) Neutrophils (%) (Auto) 82 % (31-73) Lymphocytes (%) (Auto) 8 % (24-48) Monocytes (%) (Auto) 9 % (0-9) Eosinophils (%) (Auto) 1 % (0-3) Basophils (%) (Auto) 0 % (0-3) Neutrophils # (Auto) 11.8 x10^3uL (1.8-7.7) Lymphocytes # (Auto) 1.2 x10^3/uL (1.0-4.8) Monocytes # (Auto) 1.3 x10^3/uL (0.0-1.1) Eosinophils # (Auto) 0.1 x10^3/uL (0.0-0.7) Basophils # (Auto) 0.1 x10^3/uL (0.0-0.2) Sodium Level 144 mmol/L (136-145) Potassium Level 3.1 mmol/L (3.5-5.1) Chloride Level 109 mmol/L (98-107) Carbon Dioxide Level 28 mmol/L (21-32) Anion Gap 7 (6-14) Blood Urea Nitrogen 8 mg/dL (8-26) Creatinine 0.7 mg/dL (0.7-1.3) Estimated GFR (Cockcroft-Gault) 119.9 BUN/Creatinine Ratio 11 (6-20) Glucose Level 89 mg/dL (70-99) Calcium Level 8.4 mg/dL (8.5-10.1) Total Bilirubin 0.7 mg/dL (0.2-1.0) Aspartate Amino Transf (AST/SGOT) 123 U/L (15-37) Alanine Aminotransferase (ALT/SGPT) 303 U/L (16-63) Alkaline Phosphatase 145 U/L (46-116) Total Protein 6.0 g/dL (6.4-8.2) Albumin 2.0 g/dL (3.4-5.0) Albumin/Globulin Ratio 0.5 (1.0-1.7) Review of Systems Review of Systems Unobtainable- pt. on vent Assessment and Plan Assessmemt and Plan Assessment: Acute toxic encephalopathy, Acute hypoxic respiratory failure Aspiration pneumonitis Intentional overdose of Benadryl and acetaminophen known, s/p N-actyl Cysteine gtt, suicide attempt Alcohol abuse Cocaine abuse history Encephalopathy was POA, Dysphagia, he seemed to aspirate in the ER, Transaminitis,early hepatic failure Hypokalemia Hypomagnesemia Plan: Procalamine ordered 75cc/hr IV Potassium 20meq X2 ordered Continue to follow recommendations from poison control Continue home medications Recheck labs in am Problems: Comment Review of Relevant I have reviewed the following items jessa (where applicable) has been applied. Labs Laboratory Tests Test 12/31/16 03:10 12/31/16 08:20 12/31/16 14:50 12/31/16 15:55 White Blood Count 13.3 x10^3/uL (4.0-11.0) Red Blood Count 4.51 x10^6/uL (4.30-5.70) Hemoglobin 13.6 g/dL (13.0-17.5) Hematocrit 41.5 % (39.0-53.0) Mean Corpuscular Volume 92 fL (79-100) Mean Corpuscular Hemoglobin 30 pg (25-35) Mean Corpuscular Hemoglobin Concent 33 g/dL (31-37) Red Cell Distribution Width 14.0 % (11.5-14.5) Platelet Count 291 x10^3/uL (140-400) Neutrophils (%) (Auto) 83 % (31-73) Lymphocytes (%) (Auto) 8 % (24-48) Monocytes (%) (Auto) 5 % (0-9) Eosinophils (%) (Auto) 4 % (0-3) Basophils (%) (Auto) 0 % (0-3) Neutrophils # (Auto) 11.1 x10^3uL (1.8-7.7) Lymphocytes # (Auto) 1.0 x10^3/uL (1.0-4.8) Monocytes # (Auto) 0.6 x10^3/uL (0.0-1.1) Eosinophils # (Auto) 0.6 x10^3/uL (0.0-0.7) Basophils # (Auto) 0.0 x10^3/uL (0.0-0.2) Prothrombin Time 16.3 SEC (11.7-14.0) Prothromb Time International Ratio 1.4 (0.8-1.1) Sodium Level 142 mmol/L (136-145) Potassium Level 3.4 mmol/L (3.5-5.1) Chloride Level 109 mmol/L (98-107) Carbon Dioxide Level 27 mmol/L (21-32) Anion Gap 6 (6-14) Blood Urea Nitrogen 8 mg/dL (8-26) Creatinine 0.7 mg/dL (0.7-1.3) Estimated GFR (Cockcroft-Gault) 119.9 BUN/Creatinine Ratio 11 (6-20) Glucose Level 129 mg/dL (70-99) Calcium Level 8.4 mg/dL (8.5-10.1) Total Bilirubin 0.6 mg/dL (0.2-1.0) 0.5 mg/dL (0.2-1.0) Aspartate Amino Transf (AST/SGOT) 243 U/L (15-37) 154 U/L (15-37) Alanine Aminotransferase (ALT/SGPT) 428 U/L (16-63) 380 U/L (16-63) Alkaline Phosphatase 102 U/L (46-116) 141 U/L (46-116) Creatine Kinase 23 U/L (39-308) Total Protein 5.9 g/dL (6.4-8.2) 5.1 g/dL (6.4-8.2) Albumin 2.2 g/dL (3.4-5.0) 2.2 g/dL (3.4-5.0) Albumin/Globulin Ratio 0.6 (1.0-1.7) O2 Saturation 98 % (92-99) 98 % (92-99) Arterial Blood pH 7.43 (7.35-7.45) 7.37 (7.35-7.45) Arterial Blood pCO2 at Patient Temp 34 mmHg (35-46) 38 mmHg (35-46) Arterial Blood pO2 at Patient Temp 97 mmHg (75-108) 107 mmHg (75-108) Arterial Blood HCO3 22 mmol/L (21-28) 21 mmol/L (21-28) Arterial Blood Base Excess -2 mmol/L (-3-3) -4 mmol/L (-3-3) FiO2 35 35 Direct Bilirubin 0.3 mg/dL (0.0-0.2) Acetaminophen Level < 2 mcg/ml (10-30) Acetaminophen Last Dose Date 12/27/16 Acetaminophen Last Dose Time 2000 Test 12/31/16 19:50 12/31/16 23:50 01/01/17 03:25 Total Bilirubin 0.6 mg/dL (0.2-1.0) 0.7 mg/dL (0.2-1.0) Direct Bilirubin 0.3 mg/dL (0.0-0.2) Aspartate Amino Transf (AST/SGOT) 130 U/L (15-37) 123 U/L (15-37) Alanine Aminotransferase (ALT/SGPT) 342 U/L (16-63) 303 U/L (16-63) Alkaline Phosphatase 152 U/L (46-116) 145 U/L (46-116) Total Protein 6.2 g/dL (6.4-8.2) 6.0 g/dL (6.4-8.2) Albumin 2.1 g/dL (3.4-5.0) 2.0 g/dL (3.4-5.0) Acetaminophen Level < 2 mcg/ml (10-30) Acetaminophen Last Dose Date 12/27/16 Acetaminophen Last Dose Time 1999 Lactic Acid Level 1.2 mmol/L (0.4-2.0) White Blood Count 14.5 x10^3/uL (4.0-11.0) Red Blood Count 4.22 x10^6/uL (4.30-5.70) Hemoglobin 12.9 g/dL (13.0-17.5) Hematocrit 38.6 % (39.0-53.0) Mean Corpuscular Volume 92 fL (79-100) Mean Corpuscular Hemoglobin 31 pg (25-35) Mean Corpuscular Hemoglobin Concent 33 g/dL (31-37) Red Cell Distribution Width 13.7 % (11.5-14.5) Platelet Count 323 x10^3/uL (140-400) Neutrophils (%) (Auto) 82 % (31-73) Lymphocytes (%) (Auto) 8 % (24-48) Monocytes (%) (Auto) 9 % (0-9) Eosinophils (%) (Auto) 1 % (0-3) Basophils (%) (Auto) 0 % (0-3) Neutrophils # (Auto) 11.8 x10^3uL (1.8-7.7) Lymphocytes # (Auto) 1.2 x10^3/uL (1.0-4.8) Monocytes # (Auto) 1.3 x10^3/uL (0.0-1.1) Eosinophils # (Auto) 0.1 x10^3/uL (0.0-0.7) Basophils # (Auto) 0.1 x10^3/uL (0.0-0.2) Sodium Level 144 mmol/L (136-145) Potassium Level 3.1 mmol/L (3.5-5.1) Chloride Level 109 mmol/L (98-107) Carbon Dioxide Level 28 mmol/L (21-32) Anion Gap 7 (6-14) Blood Urea Nitrogen 8 mg/dL (8-26) Creatinine 0.7 mg/dL (0.7-1.3) Estimated GFR (Cockcroft-Gault) 119.9 BUN/Creatinine Ratio 11 (6-20) Glucose Level 89 mg/dL (70-99) Calcium Level 8.4 mg/dL (8.5-10.1) Albumin/Globulin Ratio 0.5 (1.0-1.7) Laboratory Tests Test 12/31/16 14:50 12/31/16 15:55 12/31/16 19:50 12/31/16 23:50 Total Bilirubin 0.5 mg/dL (0.2-1.0) 0.6 mg/dL (0.2-1.0) Direct Bilirubin 0.3 mg/dL (0.0-0.2) 0.3 mg/dL (0.0-0.2) Aspartate Amino Transf (AST/SGOT) 154 U/L (15-37) 130 U/L (15-37) Alanine Aminotransferase (ALT/SGPT) 380 U/L (16-63) 342 U/L (16-63) Alkaline Phosphatase 141 U/L (46-116) 152 U/L (46-116) Total Protein 5.1 g/dL (6.4-8.2) 6.2 g/dL (6.4-8.2) Albumin 2.2 g/dL (3.4-5.0) 2.1 g/dL (3.4-5.0) Acetaminophen Level < 2 mcg/ml (10-30) < 2 mcg/ml (10-30) Acetaminophen Last Dose Date 12/27/16 12/27/16 Acetaminophen Last Dose Time 1999 1999 O2 Saturation 98 % (92-99) Arterial Blood pH 7.37 (7.35-7.45) Arterial Blood pCO2 at Patient Temp 38 mmHg (35-46) Arterial Blood pO2 at Patient Temp 107 mmHg (75-108) Arterial Blood HCO3 21 mmol/L (21-28) Arterial Blood Base Excess -4 mmol/L (-3-3) FiO2 35 Lactic Acid Level 1.2 mmol/L (0.4-2.0) Test 01/01/17 03:25 White Blood Count 14.5 x10^3/uL (4.0-11.0) Red Blood Count 4.22 x10^6/uL (4.30-5.70) Hemoglobin 12.9 g/dL (13.0-17.5) Hematocrit 38.6 % (39.0-53.0) Mean Corpuscular Volume 92 fL (79-100) Mean Corpuscular Hemoglobin 31 pg (25-35) Mean Corpuscular Hemoglobin Concent 33 g/dL (31-37) Red Cell Distribution Width 13.7 % (11.5-14.5) Platelet Count 323 x10^3/uL (140-400) Neutrophils (%) (Auto) 82 % (31-73) Lymphocytes (%) (Auto) 8 % (24-48) Monocytes (%) (Auto) 9 % (0-9) Eosinophils (%) (Auto) 1 % (0-3) Basophils (%) (Auto) 0 % (0-3) Neutrophils # (Auto) 11.8 x10^3uL (1.8-7.7) Lymphocytes # (Auto) 1.2 x10^3/uL (1.0-4.8) Monocytes # (Auto) 1.3 x10^3/uL (0.0-1.1) Eosinophils # (Auto) 0.1 x10^3/uL (0.0-0.7) Basophils # (Auto) 0.1 x10^3/uL (0.0-0.2) Sodium Level 144 mmol/L (136-145) Potassium Level 3.1 mmol/L (3.5-5.1) Chloride Level 109 mmol/L (98-107) Carbon Dioxide Level 28 mmol/L (21-32) Anion Gap 7 (6-14) Blood Urea Nitrogen 8 mg/dL (8-26) Creatinine 0.7 mg/dL (0.7-1.3) Estimated GFR (Cockcroft-Gault) 119.9 BUN/Creatinine Ratio 11 (6-20) Glucose Level 89 mg/dL (70-99) Calcium Level 8.4 mg/dL (8.5-10.1) Total Bilirubin 0.7 mg/dL (0.2-1.0) Aspartate Amino Transf (AST/SGOT) 123 U/L (15-37) Alanine Aminotransferase (ALT/SGPT) 303 U/L (16-63) Alkaline Phosphatase 145 U/L (46-116) Total Protein 6.0 g/dL (6.4-8.2) Albumin 2.0 g/dL (3.4-5.0) Albumin/Globulin Ratio 0.5 (1.0-1.7) Microbiology 12/30/16 - Final, Resulted 12/30/16 - Final, Resulted 12/30/16 - Final, Resulted 12/30/16 - Final, Resulted 12/30/16 Gram Stain Evaluation - Final, Resulted 12/30/16 Sputum Culture - Preliminary, Resulted 12/30/16 Sputum Result 1 - Final, Resulted Medications Current Medications Info (Do NOT chart on this placeholder) 1 each 1X ONCE MC ; Start 12/28/16 at 04:15; Stop 12/28/16 at 04:16; Status UNV Pneumococcal Polyvalent Vaccine (Do NOT chart on this placeholder) 1 each 1X ONCE MC ; Start 12/28/16 at 04:15; Stop 12/28/16 at 04:16; Status UNV Sodium Chloride 1,000 ml @ 100 mls/hr Q10H IV Last administered on 12/29/16 05:56; Start 12/28/16 at 05:00; Stop 12/29/16 at 08:37; Status DC Acetylcysteine 6.87 gm/Dextrose 1,034.35 ml @ 62.5 mls/ hr 1X ONCE IV Last administered on 12/28/16 05:36; Start 12/28/16 at 05:30; Stop 12/28/16 at 22 :02; Status DC Physostigmine Salicylate (Antilirium) 2 mg 1X ONCE IV Last administered on 08:20; Start 12/28/16 at 06:15; Stop 12/28/16 at 06:16; Status DC Sodium Bicarbonate 50 meq 1X ONCE IV Last administered on 12/28/16 06:23; Start 12/28/16 at 06:00; Stop 12/28/16 at 06:02; Status DC Influenza Virus Vaccine Quadrival (Fluarix Quad [id number] Syringe) 0.5 ml ONCE ONCE VAX IM ; Start 12/28/16 at 09:00; Stop 12/28/16 at 09:01; Status DC Pneumococcal Polyvalent Vaccine (Pneumovax 23) 0.5 ml ONCE ONCE VAX IM ; Start 12/28/16 at 09:00; Stop 12/28/16 at 09:01; Status DC Multivitamins 10 ml/Thiamine HCl 100 mg/Folic Acid 1 mg/Sodium Chloride 1,011.2 ml @ 100 mls/ hr DAILY IV Last administered on 12/29/16 09:01; Start at 09:00; Stop 12/29/16 at 09:33; Status DC Lorazepam (Ativan) 2 mg PRN Q1HR PRN IV For CIWA 8-14 Last administered on 10:50; Start 12/28/16 at 08:30 Lorazepam (Ativan) 4 mg PRN Q1HR PRN IV For CIWA 15 or greater Last administered on 01/01/17 01:17; Start 12/28/16 at 08:30 Haloperidol Lactate (Haldol) 5 mg PRN Q6HRS PRN IVP AGITATION Last administered on 12/31/16 23:12; Start 12/28/16 at 09:15 Enoxaparin Sodium (Lovenox Per Pharmacy Prophylaxis Dosing) 1 each PRN DAILY PRN MC SEE COMMENTS; Start 12/28/16 at 13:45; Stop 01/01/17 at 07:16; Status DC Enoxaparin Sodium (Lovenox 40mg Syringe) 40 mg Q24H SQ Last administered on 14:44; Start 12/28/16 at 14:00 Acetylcysteine 6.9 gm/Dextrose 1,034.5 ml @ 62.509 mls/hr 1X ONCE IV Last administered on 12/28/16 22:43; Start 12/28/16 at 23:00; Stop 12/29/16 at 15 :32; Status DC Lorazepam (Ativan) 2 mg 1X ONCE IV Last administered on 12/29/16 01:35; Start 12/29/16 at 01:45; Stop 12/29/16 at 01:46; Status DC Propofol 100 ml @ 0 mls/hr CONT PRN IV SEE I/O RECORD Last administered on 01:48; Start 12/29/16 at 05:00; Stop 12/30/16 at 09:22; Status DC Rocuronium [place] (Zemuron) 50 mg STK-MED ONCE .ROUTE ; Start 12/29/16 at 05: 20; Stop 12/29/16 at 05:21; Status DC Succinylcholine Chloride (Anectine) 200 mg STK-MED ONCE .ROUTE ; Start at 05:21; Stop 12/29/16 at 05:22; Status DC Propofol 20 ml @ As Directed STK-MED ONCE IV ; Start 12/29/16 at 05:22; Stop 12/29/16 at 05:23; Status DC Amino Acids/ Glycerin/ Electrolytes 1,000 ml @ 80 mls/hr [id number] IV Last administered on 12/29/16 09:02; Start 12/29/16 at 08:45; Stop 12/30/16 at 09 :14; Status DC Lorazepam (Ativan) 4 mg PRN Q4HRS PRN IV ANXIETY / AGITATION; Start 12/29/16 at 08:45; Status Cancel Lorazepam 100 mg/ Sodium Chloride 100 ml @ 0 mls/hr CONT PRN IV IVF Last administered on 12/29/16 09:02; Start 12/29/16 at 08:45 Ceftriaxone Sodium 1 gm/ Dextrose 50 ml @ 100 mls/hr Q24H IV ; Start 12/29/16 at 09:30; Status UNV Metronidazole 100 ml @ 100 mls/hr Q8HRS IV ; Start 12/29/16 at 14:00; Stop at 14:00; Status DC Potassium Chloride (KCl Oral Soln) 40 meq 1X ONCE PEG Last administered on 10:37; Start 12/29/16 at 10:00; Stop 12/29/16 at 10:01; Status DC Ceftriaxone Sodium (Rocephin) 1 gm Q24H IVP ; Start 12/29/16 at 10:00; Stop at 10:08; Status DC Piperacillin Sod/ Tazobactam Sod (Zosyn Per Pharmacy) 1 each PRN DAILY PRN MC SEE COMMENTS; Start 12/29/16 at 10:15; Stop 01/01/17 at 07:16; Status DC Levofloxacin/ Dextrose 100 ml @ 100 mls/hr Q24H IV Last administered on 11:15; Start 12/29/16 at 11:00 Famotidine (Pepcid Vial) 20 mg BID IVP Last administered on 01/01/17 09:39; Start 12/29/16 at 11:00 Dexmedetomidine HCl 200 mcg/ Sodium Chloride 50 ml @ 0 mls/hr CONT PRN IV PER PROTOCOL Last administered on 12/31/16 08:45; Start 12/29/16 at 10:15 Fentanyl Citrate (Fentanyl 2ml Vial) 25 mcg PRN Q1HR PRN IV PAIN Last administered on 01/01/17 03:21; Start 12/29/16 at 10:15 Lorazepam (Ativan) 0.5 mg PRN Q2HRS PRN IV AGITATION; Start 12/29/16 at 10:15 Propofol 100 ml @ 0 mls/hr CONT PRN IV SEDATION Last administered on 11:23; Start 12/29/16 at 10:15 Sodium Chloride 500 ml @ 500 mls/hr 1X PRN PRN IV SEE COMMENTS; Start at 10:15 Atropine Sulfate 0.5 mg PRN Q5MIN PRN IV SEE COMMENTS; Start 12/29/16 at 10:15 Piperacillin Sod/ Tazobactam Sod (Zosyn) 3.375 gm Q6HRS IVP Last administered on 01/01/17 12:47; Start 12/29/16 at 12:00 Acetylcysteine 6.9 gm/Dextrose 1,034.5 ml @ 62.509 mls/hr 1X ONCE IV Last administered on 12/29/16 15:40; Start 12/29/16 at 15:00; Stop 12/30/16 at 07 :32; Status DC Potassium Chloride (KCl Oral Soln) 40 meq 1X ONCE PEG Last administered on 12:49; Start 12/30/16 at 12:30; Stop 12/30/16 at 12:31; Status DC Potassium Chloride (KCl Oral Soln) 20 meq DAILY PEG Last administered on 08:44; Start 12/31/16 at 09:00 Potassium Chloride/Dextrose/ Sod Cl 1,000 ml @ 75 mls/hr 1X ONCE IV Last administered on 12/30/16 12:48; Start 12/30/16 at 13:00; Stop 12/31/16 at 02 :20; Status DC Magnesium Sulfate/ Dextrose 100 ml @ 25 mls/hr 1X ONCE IV Last administered on 12/30/16 14:28; Start 12/30/16 at 14:00; Stop 12/30/16 at 17:59; Status DC Acetylcysteine 6.9 gm/Dextrose 1,034.5 ml @ 62.509 mls/hr 1X ONCE IV Last administered on 12/30/16 15:03; Start 12/30/16 at 15:00; Stop 12/31/16 at 07 :32; Status DC Ibuprofen (Children'S Motrin) 400 mg PRN Q6HRS PRN PO INFLAMMATION Last administered on 12/30/16 21:44; Start 12/30/16 at 20:15 Rocuronium [place] (Zemuron) 50 mg STK-MED ONCE .ROUTE ; Start 12/29/16 at 05: 20; Stop 12/31/16 at 09:03; Status DC Bisacodyl (Dulcolax Tab) 5 mg PRN DAILY PRN PO CONSTIPATION; Start 12/31/16 at 09:30 Acetylcysteine 6.9 gm/Dextrose 1,034.5 ml @ 62.5 mls/ hr 1X ONCE IV Last administered on 12/31/16 11:24; Start 12/31/16 at 11:00; Stop 01/01/17 at 03 :33; Status DC Multi-Ingred Cream/Lotion/Oil/ Oint (Artificial Tears Eye Oint) 1 tigist PRN Q1HR PRN OU DRY EYE Last administered on 12/31/16 11:24; Start 12/31/16 at 11:00 Sodium Chloride 1,000 ml @ 75 mls/hr [id number] IV Last administered on 00:01; Start 12/31/16 at 22:45; Stop 01/01/17 at 11:46; Status DC Vancomycin HCl (Vanco Per Pharmacy) 1 each PRN DAILY PRN MC SEE COMMENTS Last administered on 01/01/17 08:04; Start 01/01/17 at 06:45 Vancomycin HCl 1.75 gm/Dextrose 500 ml @ 250 mls/hr 1X ONCE IV Last administered on 01/01/17 07:24; Start 01/01/17 at 07:00; Stop 01/01/17 at 08 :59; Status DC Vancomycin HCl 1 each 1X ONCE MC ; Start 01/02/17 at 07:30; Stop 01/02/17 at 07:31 Vancomycin HCl 1 gm/Dextrose 250 ml @ 250 mls/hr Q8H IV ; Start 01/01/17 at 16 :00 Haloperidol Lactate (Haldol) 5 mg Q8HRS IVP Last administered on 01/01/17 13: 08; Start 01/01/17 at 14:00 Potassium Chloride/Sodium Chloride 1,000 ml @ 75 mls/hr [id number] IV Last administered on 01/01/17 12:48; Start 01/01/17 at 12:30 Active Scripts Active Reported Requip (Ropinirole Hcl) 1 Mg Tablet 2 Mg PO QHS Mirtazapine 30 Mg Tablet 0.5 Tab PO QHS Proair Hfa Inhaler (Albuterol Sulfate) 8.5 Gm Hfa.aer.ad 1-2 Puff INH PRN Q6HRS PRN Spiriva (Tiotropium [place]) 18 Mcg Cap.w.dev 2 Inh IH DAILY Spiriva (Tiotropium [place]) 18 Mcg Cap.w.dev 1 Cap IH DAILY Omeprazole 20 Mg Capsule.dr 1 Cap PO DAILY Dexamethasone 4 Mg Tablet 1 Tab PO QID Symbicort 80-4.5 Mcg Inhaler (Budesonide/Formoterol Fumarate) 10.2 Gm Hfa.aer.ad 2 Puff IH BID Alprazolam 0.5 Mg Tablet 1 Tab PO QAM Metoprolol Tartrate 50 Mg Tablet 0.5 Tab PO BID Amiodarone Hcl 200 Mg Tablet 1 Tab PO DAILY Tylenol (Acetaminophen) 325 Mg Tablet 2 Tab PO PRN Q6HRS PRN Melatonin 3 Mg Tablet 2 Tab PO QHS Montelukast Sodium Tablet (Montelukast Sodium) 10 Mg Tablet 1 Tab PO DAILY Atorvastatin Calcium 40 Mg Tablet 1 Tab PO QHS Tramadol Hcl 50 Mg Tablet 50 Mg PO Q6H PRN Hydrocodone-Apap 7.5-325 (Hydrocodone Bit/Acetaminophen) 1 Each Tablet 1 Tab PO PRN Q6HRS PRN Zoloft (Sertraline Hcl) 25 Mg Tablet 1 Tab PO DAILY Vitals/I & O Vital Sign - Last 24 Hours 12/31/16 12/31/16 12/31/16 12/31/16 14:00 15:00 15:15 16:00 Temp 99.0 99.0 Pulse 63 73 94 Resp 22 27 28 B/P (MAP) 119/77 (91) 119/75 (90) 107/82 (90) Pulse Ox 100 100 100 O2 Delivery Ventilator Ventilator Ventilator Ventilator 12/31/16 12/31/16 12/31/16 12/31/16 16:00 16:30 17:00 18:03 Pulse 87 90 Resp 30 24 B/P (MAP) 108/64 (79) 135/80 (98) Pulse Ox 95 95 O2 Delivery Mechanical Ventilator Nasal Cannula Nasal Cannula Nasal Cannula O2 Flow Rate 4.0 4.0 4.0 12/31/16 12/31/16 12/31/16 12/31/16 19:00 20:00 20:00 21:00 Temp 100.3 100.3 Pulse 94 97 106 Resp 30 38 20 B/P (MAP) 132/75 (94) 151/85 (107) 155/84 (107) Pulse Ox 97 96 96 O2 Delivery Nasal Cannula Nasal Cannula Nasal Cannula Nasal Cannula O2 Flow Rate 4.0 4.0 4.0 4.0 12/31/16 12/31/16 12/31/16 01/01/17 22:00 23:00 23:14 00:00 Temp 102.9 102.6 102.9 102.6 Pulse 113 116 Resp 40 45 B/P (MAP) 133/82 (99) 147/84 (105) Pulse Ox 94 95 95 O2 Delivery Nasal Cannula Nasal Cannula Nasal Cannula Nasal Cannula O2 Flow Rate 4.0 4.0 4.0 4.0 01/01/17 01/01/17 01/01/17 01/01/17 00:00 01:00 01:33 02:00 Temp 101.6 101.6 Pulse 111 124 124 Resp 38 40 40 B/P (MAP) 134/76 (95) 135/80 (98) 131/75 (93) Pulse Ox 95 97 95 97 O2 Delivery Nasal Cannula Nasal Cannula Nasal Cannula Nasal Cannula O2 Flow Rate 4.0 4.0 4.0 4.0 01/01/17 01/01/17 01/01/17 01/01/17 03:00 03:21 04:00 04:00 Temp 100.5 100.5 Pulse 121 116 Resp 42 39 B/P (MAP) 136/92 (107) 121/81 (94) Pulse Ox 96 96 98 O2 Delivery Nasal Cannula Nasal Cannula Nasal Cannula Nasal Cannula O2 Flow Rate 4.0 4.0 4.0 4.0 01/01/17 01/01/17 01/01/17 01/01/17 05:00 05:30 06:00 07:00 Pulse 121 125 115 Resp 39 32 40 B/P (MAP) 128/75 (92) 134/82 (99) 114/66 (82) Pulse Ox 97 97 92 93 O2 Delivery Nasal Cannula Nasal Cannula Nasal Cannula Nasal Cannula O2 Flow Rate 4.0 4.0 4.0 4.0 01/01/17 01/01/17 01/01/17 01/01/17 08:00 08:00 09:00 10:00 Temp 99.6 99.6 Pulse 117 106 113 Resp 40 34 28 B/P (MAP) 137/87 (104) 145/91 (109) 124/87 (99) Pulse Ox 97 94 98 O2 Delivery Nasal Cannula Nasal Cannula Nasal Cannula Nasal Cannula O2 Flow Rate 4.0 4.0 4.0 4.0 01/01/17 01/01/17 01/01/17 01/01/17 11:00 12:00 12:00 13:00 Temp 100.1 100.1 Pulse 104 108 115 Resp 27 38 32 B/P (MAP) 146/84 (104) 129/75 (93) 137/80 (99) Pulse Ox 93 99 98 O2 Delivery Nasal Cannula Nasal Cannula Nasal Cannula Nasal Cannula O2 Flow Rate 4.0 4.0 4.0 4.0 Intake and Output 12/31/16 12/31/16 01/01/17 15:00 23:00 07:00 Intake Total 710 ml 1953 ml 902 ml Output Total 735 ml 1460 ml 560 ml Balance -25 ml 493 ml 342 ml MYRIAM OROZCO III DO Jan 01, 2017 13:54
[2017-01-01] MEDS: AMINO AC 3%/ELECTROLYTE/GLYCER 1,000 ML IV SCH (14:24)
[2017-01-01] MEDS: ENOXAPARIN 40 MG/0.4 ML SYRINGE. SQ SCH (14:25)
[2017-01-01] MEDS: POTASSIUM CHLORIDE 10 MEQ in IV NORMAL SALINE 100ML 100 ML IV SCH ×4 (14:26→17:36)
--- NOTE | 2017-01-01 15:29 | PDOC ---
PULMONARY PROGRESS NOTES Subjective EXTUBATED 12/31 CONFUSED AND DELIRIOUS AT TIMES, Vitals Vital Signs Date Time Temp Pulse Resp B/P (MAP) Pulse Ox O2 Delivery O2 Flow Rate FiO2 01/01/17 14:00 111 33 131/79 (96) 100 Nasal Cannula 4.0 01/01/17 12:00 100.1 100.1 Lungs: Clear Cardiovascular: S1 Abdomen: Soft, Non-tender Extremities: No Edema Skin: Warm Labs Laboratory Tests Test 12/31/16 03:10 12/31/16 08:20 12/31/16 14:50 12/31/16 15:55 White Blood Count 13.3 x10^3/uL (4.0-11.0) Red Blood Count 4.51 x10^6/uL (4.30-5.70) Hemoglobin 13.6 g/dL (13.0-17.5) Hematocrit 41.5 % (39.0-53.0) Mean Corpuscular Volume 92 fL (79-100) Mean Corpuscular Hemoglobin 30 pg (25-35) Mean Corpuscular Hemoglobin Concent 33 g/dL (31-37) Red Cell Distribution Width 14.0 % (11.5-14.5) Platelet Count 291 x10^3/uL (140-400) Neutrophils (%) (Auto) 83 % (31-73) Lymphocytes (%) (Auto) 8 % (24-48) Monocytes (%) (Auto) 5 % (0-9) Eosinophils (%) (Auto) 4 % (0-3) Basophils (%) (Auto) 0 % (0-3) Neutrophils # (Auto) 11.1 x10^3uL (1.8-7.7) Lymphocytes # (Auto) 1.0 x10^3/uL (1.0-4.8) Monocytes # (Auto) 0.6 x10^3/uL (0.0-1.1) Eosinophils # (Auto) 0.6 x10^3/uL (0.0-0.7) Basophils # (Auto) 0.0 x10^3/uL (0.0-0.2) Prothrombin Time 16.3 SEC (11.7-14.0) Prothromb Time International Ratio 1.4 (0.8-1.1) Sodium Level 142 mmol/L (136-145) Potassium Level 3.4 mmol/L (3.5-5.1) Chloride Level 109 mmol/L (98-107) Carbon Dioxide Level 27 mmol/L (21-32) Anion Gap 6 (6-14) Blood Urea Nitrogen 8 mg/dL (8-26) Creatinine 0.7 mg/dL (0.7-1.3) Estimated GFR (Cockcroft-Gault) 119.9 BUN/Creatinine Ratio 11 (6-20) Glucose Level 129 mg/dL (70-99) Calcium Level 8.4 mg/dL (8.5-10.1) Total Bilirubin 0.6 mg/dL (0.2-1.0) 0.5 mg/dL (0.2-1.0) Aspartate Amino Transf (AST/SGOT) 243 U/L (15-37) 154 U/L (15-37) Alanine Aminotransferase (ALT/SGPT) 428 U/L (16-63) 380 U/L (16-63) Alkaline Phosphatase 102 U/L (46-116) 141 U/L (46-116) Creatine Kinase 23 U/L (39-308) Total Protein 5.9 g/dL (6.4-8.2) 5.1 g/dL (6.4-8.2) Albumin 2.2 g/dL (3.4-5.0) 2.2 g/dL (3.4-5.0) Albumin/Globulin Ratio 0.6 (1.0-1.7) O2 Saturation 98 % (92-99) 98 % (92-99) Arterial Blood pH 7.43 (7.35-7.45) 7.37 (7.35-7.45) Arterial Blood pCO2 at Patient Temp 34 mmHg (35-46) 38 mmHg (35-46) Arterial Blood pO2 at Patient Temp 97 mmHg (75-108) 107 mmHg (75-108) Arterial Blood HCO3 22 mmol/L (21-28) 21 mmol/L (21-28) Arterial Blood Base Excess -2 mmol/L (-3-3) -4 mmol/L (-3-3) FiO2 35 35 Direct Bilirubin 0.3 mg/dL (0.0-0.2) Acetaminophen Level < 2 mcg/ml (10-30) Acetaminophen Last Dose Date 12/27/16 Acetaminophen Last Dose Time 1999 Test 12/31/16 19:50 12/31/16 23:50 01/01/17 03:25 Total Bilirubin 0.6 mg/dL (0.2-1.0) 0.7 mg/dL (0.2-1.0) Direct Bilirubin 0.3 mg/dL (0.0-0.2) Aspartate Amino Transf (AST/SGOT) 130 U/L (15-37) 123 U/L (15-37) Alanine Aminotransferase (ALT/SGPT) 342 U/L (16-63) 303 U/L (16-63) Alkaline Phosphatase 152 U/L (46-116) 145 U/L (46-116) Total Protein 6.2 g/dL (6.4-8.2) 6.0 g/dL (6.4-8.2) Albumin 2.1 g/dL (3.4-5.0) 2.0 g/dL (3.4-5.0) Acetaminophen Level < 2 mcg/ml (10-30) Acetaminophen Last Dose Date 12/27/16 Acetaminophen Last Dose Time 1999 Lactic Acid Level 1.2 mmol/L (0.4-2.0) White Blood Count 14.5 x10^3/uL (4.0-11.0) Red Blood Count 4.22 x10^6/uL (4.30-5.70) Hemoglobin 12.9 g/dL (13.0-17.5) Hematocrit 38.6 % (39.0-53.0) Mean Corpuscular Volume 92 fL (79-100) Mean Corpuscular Hemoglobin 31 pg (25-35) Mean Corpuscular Hemoglobin Concent 33 g/dL (31-37) Red Cell Distribution Width 13.7 % (11.5-14.5) Platelet Count 323 x10^3/uL (140-400) Neutrophils (%) (Auto) 82 % (31-73) Lymphocytes (%) (Auto) 8 % (24-48) Monocytes (%) (Auto) 9 % (0-9) Eosinophils (%) (Auto) 1 % (0-3) Basophils (%) (Auto) 0 % (0-3) Neutrophils # (Auto) 11.8 x10^3uL (1.8-7.7) Lymphocytes # (Auto) 1.2 x10^3/uL (1.0-4.8) Monocytes # (Auto) 1.3 x10^3/uL (0.0-1.1) Eosinophils # (Auto) 0.1 x10^3/uL (0.0-0.7) Basophils # (Auto) 0.1 x10^3/uL (0.0-0.2) Sodium Level 144 mmol/L (136-145) Potassium Level 3.1 mmol/L (3.5-5.1) Chloride Level 109 mmol/L (98-107) Carbon Dioxide Level 28 mmol/L (21-32) Anion Gap 7 (6-14) Blood Urea Nitrogen 8 mg/dL (8-26) Creatinine 0.7 mg/dL (0.7-1.3) Estimated GFR (Cockcroft-Gault) 119.9 BUN/Creatinine Ratio 11 (6-20) Glucose Level 89 mg/dL (70-99) Calcium Level 8.4 mg/dL (8.5-10.1) Albumin/Globulin Ratio 0.5 (1.0-1.7) Laboratory Tests Test 12/31/16 15:55 12/31/16 19:50 12/31/16 23:50 01/01/17 03:25 O2 Saturation 98 % (92-99) Arterial Blood pH 7.37 (7.35-7.45) Arterial Blood pCO2 at Patient Temp 38 mmHg (35-46) Arterial Blood pO2 at Patient Temp 107 mmHg (75-108) Arterial Blood HCO3 21 mmol/L (21-28) Arterial Blood Base Excess -4 mmol/L (-3-3) FiO2 35 Total Bilirubin 0.6 mg/dL (0.2-1.0) 0.7 mg/dL (0.2-1.0) Direct Bilirubin 0.3 mg/dL (0.0-0.2) Aspartate Amino Transf (AST/SGOT) 130 U/L (15-37) 123 U/L (15-37) Alanine Aminotransferase (ALT/SGPT) 342 U/L (16-63) 303 U/L (16-63) Alkaline Phosphatase 152 U/L (46-116) 145 U/L (46-116) Total Protein 6.2 g/dL (6.4-8.2) 6.0 g/dL (6.4-8.2) Albumin 2.1 g/dL (3.4-5.0) 2.0 g/dL (3.4-5.0) Acetaminophen Level < 2 mcg/ml (10-30) Acetaminophen Last Dose Date 12/27/16 Acetaminophen Last Dose Time 1999 Lactic Acid Level 1.2 mmol/L (0.4-2.0) White Blood Count 14.5 x10^3/uL (4.0-11.0) Red Blood Count 4.22 x10^6/uL (4.30-5.70) Hemoglobin 12.9 g/dL (13.0-17.5) Hematocrit 38.6 % (39.0-53.0) Mean Corpuscular Volume 92 fL (79-100) Mean Corpuscular Hemoglobin 31 pg (25-35) Mean Corpuscular Hemoglobin Concent 33 g/dL (31-37) Red Cell Distribution Width 13.7 % (11.5-14.5) Platelet Count 323 x10^3/uL (140-400) Neutrophils (%) (Auto) 82 % (31-73) Lymphocytes (%) (Auto) 8 % (24-48) Monocytes (%) (Auto) 9 % (0-9) Eosinophils (%) (Auto) 1 % (0-3) Basophils (%) (Auto) 0 % (0-3) Neutrophils # (Auto) 11.8 x10^3uL (1.8-7.7) Lymphocytes # (Auto) 1.2 x10^3/uL (1.0-4.8) Monocytes # (Auto) 1.3 x10^3/uL (0.0-1.1) Eosinophils # (Auto) 0.1 x10^3/uL (0.0-0.7) Basophils # (Auto) 0.1 x10^3/uL (0.0-0.2) Sodium Level 144 mmol/L (136-145) Potassium Level 3.1 mmol/L (3.5-5.1) Chloride Level 109 mmol/L (98-107) Carbon Dioxide Level 28 mmol/L (21-32) Anion Gap 7 (6-14) Blood Urea Nitrogen 8 mg/dL (8-26) Creatinine 0.7 mg/dL (0.7-1.3) Estimated GFR (Cockcroft-Gault) 119.9 BUN/Creatinine Ratio 11 (6-20) Glucose Level 89 mg/dL (70-99) Calcium Level 8.4 mg/dL (8.5-10.1) Albumin/Globulin Ratio 0.5 (1.0-1.7) Medications Active Scripts Medications Dose Route/Sig Max Daily Dose Days Date Category Requip (Ropinirole Hcl) 1 Mg Tablet 2 Mg PO QHS 12/28/16 Reported Mirtazapine 30 Mg Tablet 0.5 Tab PO QHS 12/28/16 Reported Proair Hfa Inhaler (Albuterol Sulfate) 8.5 Gm Hfa.aer.ad 1-2 Puff INH PRN Q6HRS PRN 12/28/16 Reported Spiriva (Tiotropium Jackson) 18 Mcg Cap.w.dev 2 Inh IH DAILY 12/28/16 Reported Spiriva (Tiotropium Jackson) 18 Mcg Cap.w.dev 1 Cap IH DAILY 12/28/16 Reported Omeprazole 20 Mg Capsule. 1 Cap PO DAILY 12/28/16 Reported Dexamethasone 4 Mg Tablet 1 Tab PO QID 12/28/16 Reported Symbicort 80-4.5 Mcg Inhaler (Budesonide/Formoterol Fumarate) 10.2 Gm Hfa.aer.ad 2 Puff IH BID 12/28/16 Reported Alprazolam 0.5 Mg Tablet 1 Tab PO QAM 12/28/16 Reported Metoprolol Tartrate 50 Mg Tablet 0.5 Tab PO BID 12/28/16 Reported Amiodarone Hcl 200 Mg Tablet 1 Tab PO DAILY 12/28/16 Reported Tylenol (Acetaminophen) 325 Mg Tablet 2 Tab PO PRN Q6HRS PRN 12/28/16 Reported Melatonin 3 Mg Tablet 2 Tab PO QHS 12/28/16 Reported Montelukast Sodium Tablet (Montelukast Sodium) 10 Mg Tablet 1 Tab PO DAILY 12/28/16 Reported Atorvastatin Calcium 40 Mg Tablet 1 Tab PO QHS 12/28/16 Reported Tramadol Hcl 50 Mg Tablet 50 Mg PO Q6H PRN 12/28/16 Reported Hydrocodone-Apap 7.5-325 (Hydrocodone Bit/Acetaminophen) 1 Each Tablet 1 Tab PO PRN Q6HRS PRN 12/28/16 Reported Zoloft (Sertraline Hcl) 25 Mg Tablet 1 Tab PO DAILY 12/28/16 Reported Impression . 1. Acute respiratory failure secondary to acute toxic encephalopathy. 2. Acute toxic encephalopathy secondary to overdose of Benadryl, acetaminophen , cocaine and alcohol. 3. Diffuse bilateral infiltrates, most likely related to aspiration pneumonia.improving 4. Fever secondary to aspiration pneumonia. 5. Leukocytosis. 6. Abnormal urine toxicology screen positive for cocaine and acetaminophen. 7. Acute Live Injury Plan . D/W GI WILL PT EXTUBATED NEEDS ATIVAN AND HALDOL TO PREVENT HARM TO HIMSELF AND OTHERS NPO FOR NOW EMILI RAE MD Jan 01, 2017 15:29
[2017-01-01] MEDS: VANCOMYCIN 1 GM in IV DEXTROSE 5% 250 ML IV SCH ×2 (16:15→23:42)
--- NOTE | 2017-01-01 16:45 | PDOC ---
PROGRESS NOTES Assessment Assessment Toxic encephalopathy. Metabolic encephalopathy. Multi-drug overdose, Tylenol, Benadryl, Whiskey. Lethargy. Hepatic injury. Restless. Substance and drug use/abuse. Cocaine positive in system. RECOMMENDATIONS/PLAN: Treat drug overdose medically. Keep good hydration. Acetylcysteine per medical team. Monitoring cardiac and pulmonary function. Monitory bleeding. Monitoring hepatic function. Repeat HCT if condition worse. EEG on 12/31/16: Diffuse encephalopathy. No seizure activity. HCT w/o contrast on 12/27/16 in [facility] was negative w/o ICH. HISTORY OF THE PRESENT ILLNESS: 51-y-old male patient was found unresponsive at home with some empty bottles disarray. He was thought to overdose of several drugs including at least 80 pills of 500 mg Tylenol, and Benadryl, whiskey as well, also possible cocaine. No infarction is available for his ingestion. No suicidal notes found per reports. He was brought to [facility] and his HCT was negative. He was eventually transferred to ICU of [facility]. No clinical seizures observed so far. Past Medical and Surgical History Unknown. Family History Unknown. Social History ALCOHOL: heavy Drugs: Cocaine ALLERGY: Unknown MEDICATIONS: Refer to [facility] REVIEW OF SYSTEMS: Constitutional: No malnutrition, weight loss, cachexia. Head: No current traumatic brain or head injury. Skin: No edema, or rash. Ear: No infection. Eyes: Unknown. Nose: Unknown. Neck: No current injury. Cardiac: Unknown. Pulmonary: Unknown. GI: No GI ulcer, Unknown. Urinary/genital: Unknown. Endocrinologic: Unknown. Skeletomuscular: Unknown. Neurological: see HP. Psychiatric: substance and drug use/abuse. PHYSICAL EXAMINATION: General appearance is in acute distress. HEENT: Normocephalic and nontraumatic. Eyes, nose, ears, and throat are unremarkable. Neck is supple. No lymphadenopathy. No crepitus. Cardiovascular: S1, S2, regular rate and rhythm. Pulmonary: Mild difficult breathing. Abdomen: Bowel sounds are positive. Extremities: No rash, lesions, or edema. No restriction of range of motion NEUROLOGICAL EXAMINATION: Off vent. On NC 02. Not oriented to time, place and person. PERRL, but pupil reaction was slow. EOMI not elicited. CN: no acute focal findings. Muscle tone: fluctuated. Muscle strength: movements noted. DTR: 1 Plantar reflex: Neutral response bilaterally Gait: Unable to walk in this mentation. Sensory exam: minimal movements to stimuli. Not able to access cerebellar signs. F-T-N test not performed due to lethargy Objective Objective Vital Signs Date Time Temp Pulse Resp B/P (MAP) Pulse Ox O2 Delivery O2 Flow Rate FiO2 01/01/17 16:00 99.9 105 28 143/81 (101) 95 Room Air 99.9 01/01/17 14:00 4.0 Intake and Output 01/01/17 07:00 Intake Total 3565 ml Output Total 2755 ml Balance 810 ml Intake IV Total 1995 ml Tube Feeding 1210 ml Other 360 ml Output Urine Total 2355 ml Stool Total 400 ml Gastric Drainage Total 0 ml # Bowel Movements 1 Vitals Signs Vitals VS - Last 72 Hours, by Label Date Time Temp Pulse Resp B/P (MAP) Pulse Ox O2 Delivery O2 Flow Rate FiO2 01/01/17 16:00 99.9 105 28 143/81 (101) 95 Room Air 99.9 01/01/17 16:00 Room Air 01/01/17 15:00 111 33 148/88 (108) 92 Room Air 01/01/17 14:00 111 33 131/79 (96) 100 Nasal Cannula 4.0 01/01/17 13:00 115 32 137/80 (99) 98 Nasal Cannula 4.0 01/01/17 12:00 100.1 108 38 129/75 (93) 99 Nasal Cannula 4.0 100.1 01/01/17 12:00 Nasal Cannula 4.0 01/01/17 11:00 104 27 146/84 (104) 93 Nasal Cannula 4.0 01/01/17 10:00 113 28 124/87 (99) 98 Nasal Cannula 4.0 01/01/17 09:00 106 34 145/91 (109) 94 Nasal Cannula 4.0 01/01/17 08:00 99.6 117 40 137/87 (104) 97 Nasal Cannula 4.0 99.6 01/01/17 08:00 Nasal Cannula 4.0 01/01/17 07:00 115 40 114/66 (82) 93 Nasal Cannula 4.0 01/01/17 06:00 125 32 134/82 (99) 92 Nasal Cannula 4.0 01/01/17 05:30 97 Nasal Cannula 4.0 01/01/17 05:00 121 39 128/75 (92) 97 Nasal Cannula 4.0 01/01/17 04:00 100.5 116 39 121/81 (94) 98 Nasal Cannula 4.0 100.5 01/01/17 04:00 Nasal Cannula 4.0 01/01/17 03:21 96 Nasal Cannula 4.0 01/01/17 03:00 121 42 136/92 (107) 96 Nasal Cannula 4.0 01/01/17 02:00 124 40 131/75 (93) 97 Nasal Cannula 4.0 01/01/17 01:33 95 Nasal Cannula 4.0 01/01/17 01:00 124 40 135/80 (98) 97 Nasal Cannula 4.0 01/01/17 00:00 101.6 111 38 134/76 (95) 95 Nasal Cannula 4.0 101.6 01/01/17 00:00 Nasal Cannula 4.0 12/31/16 23:14 95 Nasal Cannula 4.0 12/31/16 23:00 102.6 116 45 147/84 (105) 95 Nasal Cannula 4.0 102.6 12/31/16 22:00 102.9 113 40 133/82 (99) 94 Nasal Cannula 4.0 102.9 12/31/16 21:00 106 20 155/84 (107) 96 Nasal Cannula 4.0 12/31/16 20:00 Nasal Cannula 4.0 12/31/16 20:00 100.3 97 38 151/85 (107) 96 Nasal Cannula 4.0 100.3 12/31/16 19:00 94 30 132/75 (94) 97 Nasal Cannula 4.0 12/31/16 18:03 90 24 135/80 (98) 95 Nasal Cannula 4.0 12/31/16 17:00 87 30 108/64 (79) 95 Nasal Cannula 4.0 12/31/16 16:30 Nasal Cannula 4.0 12/31/16 16:00 Mechanical Ventilator 12/31/16 16:00 99.0 94 28 107/82 (90) 100 Ventilator 99.0 12/31/16 15:15 Ventilator 12/31/16 15:00 73 27 119/75 (90) 100 Ventilator 12/31/16 14:00 63 22 119/77 (91) 100 Ventilator 12/31/16 13:26 100 Ventilator 12/31/16 13:00 99.1 68 22 117/73 (88) 100 Ventilator 99.1 12/31/16 12:00 Mechanical Ventilator 12/31/16 12:00 77 28 126/78 (94) 97 Ventilator 12/31/16 11:35 98 Ventilator 12/31/16 11:00 76 31 108/67 (81) 100 Ventilator 12/31/16 10:00 66 22 99 Ventilator 12/31/16 09:28 97 Ventilator 12/31/16 09:00 69 25 108/66 (80) 97 Ventilator 12/31/16 08:04 99 Ventilator 12/31/16 08:00 64 22 108/67 (81) 99 Ventilator 12/31/16 07:50 Mechanical Ventilator 12/31/16 07:00 98.4 64 14 102/62 (75) 99 Ventilator 98.4 Laboratory Laboratory Laboratory Tests Test 12/31/16 19:50 12/31/16 23:50 01/01/17 03:25 Total Bilirubin 0.6 mg/dL (0.2-1.0) 0.7 mg/dL (0.2-1.0) Direct Bilirubin 0.3 mg/dL (0.0-0.2) Aspartate Amino Transf (AST/SGOT) 130 U/L (15-37) 123 U/L (15-37) Alanine Aminotransferase (ALT/SGPT) 342 U/L (16-63) 303 U/L (16-63) Alkaline Phosphatase 152 U/L (46-116) 145 U/L (46-116) Total Protein 6.2 g/dL (6.4-8.2) 6.0 g/dL (6.4-8.2) Albumin 2.1 g/dL (3.4-5.0) 2.0 g/dL (3.4-5.0) Acetaminophen Level < 2 mcg/ml (10-30) Acetaminophen Last Dose Date 12/27/16 Acetaminophen Last Dose Time 1999 Lactic Acid Level 1.2 mmol/L (0.4-2.0) White Blood Count 14.5 x10^3/uL (4.0-11.0) Red Blood Count 4.22 x10^6/uL (4.30-5.70) Hemoglobin 12.9 g/dL (13.0-17.5) Hematocrit 38.6 % (39.0-53.0) Mean Corpuscular Volume 92 fL (79-100) Mean Corpuscular Hemoglobin 31 pg (25-35) Mean Corpuscular Hemoglobin Concent 33 g/dL (31-37) Red Cell Distribution Width 13.7 % (11.5-14.5) Platelet Count 323 x10^3/uL (140-400) Neutrophils (%) (Auto) 82 % (31-73) Lymphocytes (%) (Auto) 8 % (24-48) Monocytes (%) (Auto) 9 % (0-9) Eosinophils (%) (Auto) 1 % (0-3) Basophils (%) (Auto) 0 % (0-3) Neutrophils # (Auto) 11.8 x10^3uL (1.8-7.7) Lymphocytes # (Auto) 1.2 x10^3/uL (1.0-4.8) Monocytes # (Auto) 1.3 x10^3/uL (0.0-1.1) Eosinophils # (Auto) 0.1 x10^3/uL (0.0-0.7) Basophils # (Auto) 0.1 x10^3/uL (0.0-0.2) Sodium Level 144 mmol/L (136-145) Potassium Level 3.1 mmol/L (3.5-5.1) Chloride Level 109 mmol/L (98-107) Carbon Dioxide Level 28 mmol/L (21-32) Anion Gap 7 (6-14) Blood Urea Nitrogen 8 mg/dL (8-26) Creatinine 0.7 mg/dL (0.7-1.3) Estimated GFR (Cockcroft-Gault) 119.9 BUN/Creatinine Ratio 11 (6-20) Glucose Level 89 mg/dL (70-99) Calcium Level 8.4 mg/dL (8.5-10.1) Albumin/Globulin Ratio 0.5 (1.0-1.7) Microbiology 12/30/16 - Final, Resulted 12/30/16 - Final, Resulted 12/30/16 - Final, Resulted 12/30/16 - Final, Resulted 12/30/16 Gram Stain Evaluation - Final, Resulted 12/30/16 Sputum Culture - Preliminary, Resulted 12/30/16 Sputum Result 1 - Final, Resulted Medication Medications Current Medications Amino Acids/ Glycerin/ Electrolytes 1,000 ml @ 75 mls/hr [id number] IV Last administered on 01/01/17 14:24; Start 01/01/17 at 13:30 Haloperidol Lactate (Haldol) 5 mg Q8HRS IVP Last administered on 01/01/17 13: 08; Start 01/01/17 at 14:00 Potassium Chloride 10 meq/ Sodium Chloride 105 ml @ 105 mls/hr Q1H IV Last administered on 01/01/17 16:37; Start 01/01/17 at 14:30; Stop 01/01/17 at 18 :29 Potassium Chloride/Sodium Chloride 1,000 ml @ 75 mls/hr [id number] IV Last administered on 01/01/17 12:48; Start 01/01/17 at 12:30; Stop 01/01/17 at 14 :11; Status DC Potassium Chloride 50 ml @ 50 mls/hr 1X ONCE IV ; Start 01/01/17 at 13:30; Stop 01/01/17 at 14:29; Status UNV Potassium Chloride 50 ml @ 50 mls/hr 1X ONCE IV ; Start 01/01/17 at 13:30; Stop 01/01/17 at 14:29; Status UNV Sodium Chloride 1,000 ml @ 75 mls/hr [id number] IV Last administered on 00:01; Start 12/31/16 at 22:45; Stop 01/01/17 at 11:46; Status DC Vancomycin HCl 1 each 1X ONCE MC ; Start 01/02/17 at 07:30; Stop 01/02/17 at 07:31 Vancomycin HCl (Vanco Per Pharmacy) 1 each PRN DAILY PRN MC SEE COMMENTS Last administered on 01/01/17 08:04; Start 01/01/17 at 06:45 Vancomycin HCl 1.75 gm/Dextrose 500 ml @ 250 mls/hr 1X ONCE IV Last administered on 01/01/17 07:24; Start 01/01/17 at 07:00; Stop 01/01/17 at 08 :59; Status DC Vancomycin HCl 1 gm/Dextrose 250 ml @ 250 mls/hr Q8H IV Last administered on 01/01/17 16:15; Start 01/01/17 at 16:00 Comment Review of Relevant I have reviewed the following items jessa (where applicable) has been applied. DOUGLAS GARDUNO MD Jan 01, 2017 16:45
[2017-01-01] MEDS ORDERED: ONDANSETRON PF 4 MG/2 ML VIAL. IV PRN (20:30)
[2017-01-02] VITALS (17 sets, daily range): BP systolic 106–145; BP diastolic 66–94
[2017-01-02] MEDS: fentaNYL PF VIAL 100 MCG/2 ML VIAL IV PRN ×3 (00:30→05:55)
[2017-01-02] MEDS: AMINO AC 3%/ELECTROLYTE/GLYCER 1,000 ML IV SCH ×2 (03:52→16:10)
[2017-01-02] MEDS: HALOPERIDOL LACTATE 5 MG/ML VIAL. IVP SCH ×3 (05:23→20:41)
[2017-01-02] MEDS: PIPERACILLIN/TAZO IV Push 3.375 GM VIAL. IVP SCH ×4 (05:24→23:39)
[2017-01-02 07:31] LABS: BASO % 0 % (0-3); EOS % 2 % (0-3); HEMATOCRIT 36.5 % (39.0-53.0); HEMOGLOBIN 12.3 g/dL (13.0-17.5); LYMPH # 1.3 x10^3/uL (1.0-4.8); LYMPH % 10 % (24-48); MEAN CORPUSCULAR HEMOGLOBIN 30 pg (25-35); MEAN CORPUSCULAR HGB CONC 34 g/dL (31-37); MEAN CORPUSCULAR VOLUME 90 fL (79-100); MONO % 13 % (0-9); NEUT % 75 % (31-73); PLATELET COUNT 343 x10^3/uL (140-400); RED BLOOD COUNT 4.05 x10^6/uL (4.30-5.70); RED CELL DISTRIBUTION WIDTH 13.5 % (11.5-14.5); WHITE BLOOD COUNT 13.3 x10^3/uL (4.0-11.0)
[2017-01-02 07:43] LABS: CALCIUM 8.6 mg/dL (8.5-10.1); CREATININE 0.7 mg/dL (0.7-1.3); GFR 119.9; POTASSIUM 3.2 mmol/L (3.5-5.1)
[2017-01-02] MEDS: VANCOMYCIN 1 GM in IV DEXTROSE 5% 250 ML IV SCH (08:00)
--- NOTE | 2017-01-02 08:01 | PDOC ---
Infectious Disease Note Subjective Subjective sleepy, off and on awake and says something ROS ROS no n/v/d/pain/ some fever Vital Sign Vital Signs Vital Signs Date Time Temp Pulse Resp B/P (MAP) Pulse Ox O2 Delivery O2 Flow Rate FiO2 01/02/17 07:01 Room Air 01/02/17 06:55 98 38 122/66 (84) 91 01/02/17 04:02 3.0 01/02/17 04:01 99.7 99.7 Physical Exam PHYSICAL EXAM GENERAL: sleepy HEENT: PERRL, OC/OP NECK: Supple, no JVD, no LN LUNGS: Clear HEART: S1S2, no gallop, no murmur ABD: Soft, NT, no organomegaly, no rebound EXT: No edema, no cyanosis INSPECTOR AND SORTER: sleepy, sedated SKIN: No rash IV: ok Labs Lab Laboratory Tests Test 01/02/17 07:25 White Blood Count 13.3 x10^3/uL (4.0-11.0) Red Blood Count 4.05 x10^6/uL (4.30-5.70) Hemoglobin 12.3 g/dL (13.0-17.5) Hematocrit 36.5 % (39.0-53.0) Mean Corpuscular Volume 90 fL (79-100) Mean Corpuscular Hemoglobin 30 pg (25-35) Mean Corpuscular Hemoglobin Concent 34 g/dL (31-37) Red Cell Distribution Width 13.5 % (11.5-14.5) Platelet Count 343 x10^3/uL (140-400) Neutrophils (%) (Auto) 75 % (31-73) Lymphocytes (%) (Auto) 10 % (24-48) Monocytes (%) (Auto) 13 % (0-9) Eosinophils (%) (Auto) 2 % (0-3) Basophils (%) (Auto) 0 % (0-3) Neutrophils # (Auto) 10.0 x10^3uL (1.8-7.7) Lymphocytes # (Auto) 1.3 x10^3/uL (1.0-4.8) Monocytes # (Auto) 1.7 x10^3/uL (0.0-1.1) Eosinophils # (Auto) 0.2 x10^3/uL (0.0-0.7) Basophils # (Auto) 0.0 x10^3/uL (0.0-0.2) Sodium Level 141 mmol/L (136-145) Potassium Level 3.2 mmol/L (3.5-5.1) Chloride Level 104 mmol/L (98-107) Carbon Dioxide Level 26 mmol/L (21-32) Anion Gap 11 (6-14) Blood Urea Nitrogen 10 mg/dL (8-26) Creatinine 0.7 mg/dL (0.7-1.3) Estimated GFR (Cockcroft-Gault) 119.9 Glucose Level 107 mg/dL (70-99) Calcium Level 8.6 mg/dL (8.5-10.1) Vancomycin Level Trough 7.8 mcg/mL (10.0-20.0) Vancomycin Last Dose Date 01/02/17 Vancomycin Last Dose Time 0000 Micro GRAM STAIN WHITE BLOOD CELLS Final Many GRAM STAIN EPITHELIAL CELLS Final None seen GRAM STAIN RESULT 1 Final Comment Few gram positive cocci GRAM STAIN RESULT 2 Final Comment Rare gram positive rods GRAM STAIN EVALUATION Final Comment This specimen is of good quality and is acceptable for routine bacterial culture. Performed at: [address] [id number] Litigation Attorney: Yojana Sheldon MD, Phone: [phone] SPUTUM CULTURE- Preliminary Preliminary report SPUTUM CULT RES 1 Final Staphylococcus aureus Moderate growth Performed at: [address] [id number] Litigation Attorney: Yojana Sheldon MD, Phone: [phone] Objective Assessment Fever , sec to ETOH withdrawal vs pneumonia Tylenol overdose ETOH abuse Encephalopathy Plan Plan of Care zosyn ,, change vanc to zyvox supportive care check cultures MIRACLE MARTÍNEZ MD Jan 02, 2017 08:01
--- NOTE | 2017-01-02 08:16 | RAD ---
EXAM: Chest one view. HISTORY: Aspiration pneumonia. COMPARISON: 01/01/2017. FINDINGS: A frontal view of the chest is obtained. Diffuse mild airspace infiltrates on the left greater than right have improved slightly. There is no pneumothorax or pleural effusion. The heart is not enlarged. IMPRESSION: 1. Slightly improved diffuse infiltrates.
[2017-01-02] MEDS: POTASSIUM CHLORIDE 20 MEQ/15 ML ORAL LIQUID. PEG SCH (09:00)
[2017-01-02] MEDS: FAMOTIDINE 20 MG/2 ML VIAL IVP SCH ×2 (09:42→20:41)
--- NOTE | 2017-01-02 10:34 | PDOC ---
Objective: Objective: Per RN - intermittently awake/talking. Vital Signs: Vital Signs Date Time Temp Pulse Resp B/P (MAP) Pulse Ox O2 Delivery O2 Flow Rate FiO2 01/02/17 09:59 113 44 133/70 (91) 96 Room Air 01/02/17 08:01 98.0 98.0 01/02/17 04:02 3.0 Labs: Laboratory Tests Test 01/02/17 07:25 White Blood Count 13.3 x10^3/uL Red Blood Count 4.05 x10^6/uL Hemoglobin 12.3 g/dL Hematocrit 36.5 % Mean Corpuscular Volume 90 fL Mean Corpuscular Hemoglobin 30 pg Mean Corpuscular Hemoglobin Concent 34 g/dL Red Cell Distribution Width 13.5 % Platelet Count 343 x10^3/uL Neutrophils (%) (Auto) 75 % Lymphocytes (%) (Auto) 10 % Monocytes (%) (Auto) 13 % Eosinophils (%) (Auto) 2 % Basophils (%) (Auto) 0 % Neutrophils # (Auto) 10.0 x10^3uL Lymphocytes # (Auto) 1.3 x10^3/uL Monocytes # (Auto) 1.7 x10^3/uL Eosinophils # (Auto) 0.2 x10^3/uL Basophils # (Auto) 0.0 x10^3/uL Sodium Level 141 mmol/L Potassium Level 3.2 mmol/L Chloride Level 104 mmol/L Carbon Dioxide Level 26 mmol/L Anion Gap 11 Blood Urea Nitrogen 10 mg/dL Creatinine 0.7 mg/dL Estimated GFR (Cockcroft-Gault) 119.9 Glucose Level 107 mg/dL Calcium Level 8.6 mg/dL Vancomycin Level Trough 7.8 mcg/mL Vancomycin Last Dose Date 01/02/17 Vancomycin Last Dose Time 0000 PE: GEN: NAD LUNGS: clear HEART: tachycardic ABD: S/ND/NT, hiccupping NEURO/PSYCH: eyes closed, sitting skilled nursing up in bed A/P: Acetaminophen overdose, alcohol abuse -LFTs stable/improved (last check 01/01) Pneumonia, leukocytosis -extubated, on atbx Encephalopathy -NPO on PPN, H2 caridad -- Continue same per GI. JEREMIE BERG Jan 02, 2017 10:34
[2017-01-02] MEDS: ENOXAPARIN 40 MG/0.4 ML SYRINGE. SQ SCH (14:39)
[2017-01-02] MEDS ORDERED: POTASSIUM CHLORIDE 20MEQ 50 ML IV SCH ×2 (16:00)
--- NOTE | 2017-01-02 16:06 | PDOC ---
PROGRESS NOTES Chief Complaint Chief Complaint Acute toxic encephalopathy Acute hypoxic respiratory failure Aspiration pneumonitis Intentional overdose of Benadryl and acetaminophen known, s/p N-actyl Cysteine gtt, suicide attempt Alcohol abuse Cocaine abuse history Encephalopathy was POA Dysphagia, he seemed to aspirate in the ER, Transaminitis,early hepatic failure Hypokalemia Hypomagnesemia History of Present Illness History of Present Illness Pt. on antipsychotics - suicidal ideation OG tube feeds Tylenol level near zero, s/p 3 liters of n-acetyl cysteine Care discussed with RN Pt seen and examined in the ICU Father, sister, financial aids officer contacted prognosis guarded, palliative consult, may need ethics involvement Vitals Vitals Vital Signs Date Time Temp Pulse Resp B/P (MAP) Pulse Ox O2 Delivery O2 Flow Rate FiO2 01/02/17 12:53 119 33 119/88 (98) 95 Room Air 01/02/17 11:55 98.4 98.4 01/02/17 04:02 3.0 Physical Exam Physical Exam PERRLA General: mild distress, Other ( shaky, easily startled) Heart: Regular rate, Normal S1, Normal S2 Lungs: Clear, Other (no wheezes or crackles ) Abdomen: Soft, No tenderness Extremities: No clubbing, No edema, Other (discoloration of fingertips) Skin: No rashes, No breakdown, No significant lesion, Other Labs LABS Laboratory Tests Test 01/02/17 07:25 White Blood Count 13.3 x10^3/uL (4.0-11.0) Red Blood Count 4.05 x10^6/uL (4.30-5.70) Hemoglobin 12.3 g/dL (13.0-17.5) Hematocrit 36.5 % (39.0-53.0) Mean Corpuscular Volume 90 fL (79-100) Mean Corpuscular Hemoglobin 30 pg (25-35) Mean Corpuscular Hemoglobin Concent 34 g/dL (31-37) Red Cell Distribution Width 13.5 % (11.5-14.5) Platelet Count 343 x10^3/uL (140-400) Neutrophils (%) (Auto) 75 % (31-73) Lymphocytes (%) (Auto) 10 % (24-48) Monocytes (%) (Auto) 13 % (0-9) Eosinophils (%) (Auto) 2 % (0-3) Basophils (%) (Auto) 0 % (0-3) Neutrophils # (Auto) 10.0 x10^3uL (1.8-7.7) Lymphocytes # (Auto) 1.3 x10^3/uL (1.0-4.8) Monocytes # (Auto) 1.7 x10^3/uL (0.0-1.1) Eosinophils # (Auto) 0.2 x10^3/uL (0.0-0.7) Basophils # (Auto) 0.0 x10^3/uL (0.0-0.2) Sodium Level 141 mmol/L (136-145) Potassium Level 3.2 mmol/L (3.5-5.1) Chloride Level 104 mmol/L (98-107) Carbon Dioxide Level 26 mmol/L (21-32) Anion Gap 11 (6-14) Blood Urea Nitrogen 10 mg/dL (8-26) Creatinine 0.7 mg/dL (0.7-1.3) Estimated GFR (Cockcroft-Gault) 119.9 Glucose Level 107 mg/dL (70-99) Calcium Level 8.6 mg/dL (8.5-10.1) Vancomycin Level Trough 7.8 mcg/mL (10.0-20.0) Vancomycin Last Dose Date 01/02/17 Vancomycin Last Dose Time 0000 Review of Systems Review of Systems Admits: Diarrhea, fatigue, Nausea Assessment and Plan Assessmemt and Plan Assessment Acute toxic encephalopathy Acute hypoxic respiratory failure Aspiration pneumonitis Intentional overdose of Benadryl and acetaminophen known, s/p N-actyl Cysteine gtt, suicide attempt Alcohol abuse Cocaine abuse history Encephalopathy was POA Dysphagia, he seemed to aspirate in the ER, Transaminitis,early hepatic failure Hypokalemia Hypomagnesemia Plan: Potassium ordered Discharge to inpatient psychology when stable Continue home medications Continue abx Recheck labs in AM Problems: Comment Review of Relevant I have reviewed the following items jessa (where applicable) has been applied. Labs Laboratory Tests Test 12/31/16 15:55 12/31/16 19:50 12/31/16 23:50 01/01/17 03:25 O2 Saturation 98 % (92-99) Arterial Blood pH 7.37 (7.35-7.45) Arterial Blood pCO2 at Patient Temp 38 mmHg (35-46) Arterial Blood pO2 at Patient Temp 107 mmHg (75-108) Arterial Blood HCO3 21 mmol/L (21-28) Arterial Blood Base Excess -4 mmol/L (-3-3) FiO2 35 Total Bilirubin 0.6 mg/dL (0.2-1.0) 0.7 mg/dL (0.2-1.0) Direct Bilirubin 0.3 mg/dL (0.0-0.2) Aspartate Amino Transf (AST/SGOT) 130 U/L (15-37) 123 U/L (15-37) Alanine Aminotransferase (ALT/SGPT) 342 U/L (16-63) 303 U/L (16-63) Alkaline Phosphatase 152 U/L (46-116) 145 U/L (46-116) Total Protein 6.2 g/dL (6.4-8.2) 6.0 g/dL (6.4-8.2) Albumin 2.1 g/dL (3.4-5.0) 2.0 g/dL (3.4-5.0) Acetaminophen Level < 2 mcg/ml (10-30) Acetaminophen Last Dose Date 12/27/16 Acetaminophen Last Dose Time 1999 Lactic Acid Level 1.2 mmol/L (0.4-2.0) White Blood Count 14.5 x10^3/uL (4.0-11.0) Red Blood Count 4.22 x10^6/uL (4.30-5.70) Hemoglobin 12.9 g/dL (13.0-17.5) Hematocrit 38.6 % (39.0-53.0) Mean Corpuscular Volume 92 fL (79-100) Mean Corpuscular Hemoglobin 31 pg (25-35) Mean Corpuscular Hemoglobin Concent 33 g/dL (31-37) Red Cell Distribution Width 13.7 % (11.5-14.5) Platelet Count 323 x10^3/uL (140-400) Neutrophils (%) (Auto) 82 % (31-73) Lymphocytes (%) (Auto) 8 % (24-48) Monocytes (%) (Auto) 9 % (0-9) Eosinophils (%) (Auto) 1 % (0-3) Basophils (%) (Auto) 0 % (0-3) Neutrophils # (Auto) 11.8 x10^3uL (1.8-7.7) Lymphocytes # (Auto) 1.2 x10^3/uL (1.0-4.8) Monocytes # (Auto) 1.3 x10^3/uL (0.0-1.1) Eosinophils # (Auto) 0.1 x10^3/uL (0.0-0.7) Basophils # (Auto) 0.1 x10^3/uL (0.0-0.2) Sodium Level 144 mmol/L (136-145) Potassium Level 3.1 mmol/L (3.5-5.1) Chloride Level 109 mmol/L (98-107) Carbon Dioxide Level 28 mmol/L (21-32) Anion Gap 7 (6-14) Blood Urea Nitrogen 8 mg/dL (8-26) Creatinine 0.7 mg/dL (0.7-1.3) Estimated GFR (Cockcroft-Gault) 119.9 BUN/Creatinine Ratio 11 (6-20) Glucose Level 89 mg/dL (70-99) Calcium Level 8.4 mg/dL (8.5-10.1) Albumin/Globulin Ratio 0.5 (1.0-1.7) Test 01/02/17 07:25 White Blood Count 13.3 x10^3/uL (4.0-11.0) Red Blood Count 4.05 x10^6/uL (4.30-5.70) Hemoglobin 12.3 g/dL (13.0-17.5) Hematocrit 36.5 % (39.0-53.0) Mean Corpuscular Volume 90 fL (79-100) Mean Corpuscular Hemoglobin 30 pg (25-35) Mean Corpuscular Hemoglobin Concent 34 g/dL (31-37) Red Cell Distribution Width 13.5 % (11.5-14.5) Platelet Count 343 x10^3/uL (140-400) Neutrophils (%) (Auto) 75 % (31-73) Lymphocytes (%) (Auto) 10 % (24-48) Monocytes (%) (Auto) 13 % (0-9) Eosinophils (%) (Auto) 2 % (0-3) Basophils (%) (Auto) 0 % (0-3) Neutrophils # (Auto) 10.0 x10^3uL (1.8-7.7) Lymphocytes # (Auto) 1.3 x10^3/uL (1.0-4.8) Monocytes # (Auto) 1.7 x10^3/uL (0.0-1.1) Eosinophils # (Auto) 0.2 x10^3/uL (0.0-0.7) Basophils # (Auto) 0.0 x10^3/uL (0.0-0.2) Sodium Level 141 mmol/L (136-145) Potassium Level 3.2 mmol/L (3.5-5.1) Chloride Level 104 mmol/L (98-107) Carbon Dioxide Level 26 mmol/L (21-32) Anion Gap 11 (6-14) Blood Urea Nitrogen 10 mg/dL (8-26) Creatinine 0.7 mg/dL (0.7-1.3) Estimated GFR (Cockcroft-Gault) 119.9 Glucose Level 107 mg/dL (70-99) Calcium Level 8.6 mg/dL (8.5-10.1) Vancomycin Level Trough 7.8 mcg/mL (10.0-20.0) Vancomycin Last Dose Date 01/02/17 Vancomycin Last Dose Time 0000 Laboratory Tests Test 01/02/17 07:25 White Blood Count 13.3 x10^3/uL (4.0-11.0) Red Blood Count 4.05 x10^6/uL (4.30-5.70) Hemoglobin 12.3 g/dL (13.0-17.5) Hematocrit 36.5 % (39.0-53.0) Mean Corpuscular Volume 90 fL (79-100) Mean Corpuscular Hemoglobin 30 pg (25-35) Mean Corpuscular Hemoglobin Concent 34 g/dL (31-37) Red Cell Distribution Width 13.5 % (11.5-14.5) Platelet Count 343 x10^3/uL (140-400) Neutrophils (%) (Auto) 75 % (31-73) Lymphocytes (%) (Auto) 10 % (24-48) Monocytes (%) (Auto) 13 % (0-9) Eosinophils (%) (Auto) 2 % (0-3) Basophils (%) (Auto) 0 % (0-3) Neutrophils # (Auto) 10.0 x10^3uL (1.8-7.7) Lymphocytes # (Auto) 1.3 x10^3/uL (1.0-4.8) Monocytes # (Auto) 1.7 x10^3/uL (0.0-1.1) Eosinophils # (Auto) 0.2 x10^3/uL (0.0-0.7) Basophils # (Auto) 0.0 x10^3/uL (0.0-0.2) Sodium Level 141 mmol/L (136-145) Potassium Level 3.2 mmol/L (3.5-5.1) Chloride Level 104 mmol/L (98-107) Carbon Dioxide Level 26 mmol/L (21-32) Anion Gap 11 (6-14) Blood Urea Nitrogen 10 mg/dL (8-26) Creatinine 0.7 mg/dL (0.7-1.3) Estimated GFR (Cockcroft-Gault) 119.9 Glucose Level 107 mg/dL (70-99) Calcium Level 8.6 mg/dL (8.5-10.1) Vancomycin Level Trough 7.8 mcg/mL (10.0-20.0) Vancomycin Last Dose Date 01/02/17 Vancomycin Last Dose Time 0000 Microbiology 12/31/16 Blood Culture - Preliminary, Resulted NO GROWTH AFTER 1 DAY 12/30/16 - Final, Complete 12/30/16 - Final, Complete 12/30/16 - Final, Complete 12/30/16 - Final, Complete 12/30/16 Gram Stain Evaluation - Final, Complete 12/30/16 Sputum Culture - Final, Complete 12/30/16 Sputum Result 1 - Final, Complete 12/30/16 Sputum Result 2 - Final, Complete 12/30/16 Antimicrobic Susceptibility - Final, Complete Medications Current Medications Info (Do NOT chart on this placeholder) 1 each 1X ONCE MC ; Start 12/28/16 at 04:15; Stop 12/28/16 at 04:16; Status UNV Pneumococcal Polyvalent Vaccine (Do NOT chart on this placeholder) 1 each 1X ONCE MC ; Start 12/28/16 at 04:15; Stop 12/28/16 at 04:16; Status UNV Sodium Chloride 1,000 ml @ 100 mls/hr Q10H IV Last administered on 12/29/16t 05:56; Start 12/28/16 at 05:00; Stop 12/29/16 at 08:37; Status DC Acetylcysteine 6.87 gm/Dextrose 1,034.35 ml @ 62.5 mls/ hr 1X ONCE IV Last administered on 12/28/16 05:36; Start 12/28/16 at 05:30; Stop 12/28/16 at 22 :02; Status DC Physostigmine Salicylate (Antilirium) 2 mg 1X ONCE IV Last administered on 08:20; Start 12/28/16 at 06:15; Stop 12/28/16 at 06:16; Status DC Sodium Bicarbonate 50 meq 1X ONCE IV Last administered on 12/28/16 06:23; Start 12/28/16 at 06:00; Stop 12/28/16 at 06:02; Status DC Influenza Virus Vaccine Quadrival (Fluarix Quad [id number] Syringe) 0.5 ml ONCE ONCE VAX IM ; Start 12/28/16 at 09:00; Stop 12/28/16 at 09:01; Status DC Pneumococcal Polyvalent Vaccine (Pneumovax 23) 0.5 ml ONCE ONCE VAX IM ; Start 12/28/16 at 09:00; Stop 12/28/16 at 09:01; Status DC Multivitamins 10 ml/Thiamine HCl 100 mg/Folic Acid 1 mg/Sodium Chloride 1,011.2 ml @ 100 mls/ hr DAILY IV Last administered on 12/29/16 09:01; Start at 09:00; Stop 12/29/16 at 09:33; Status DC Lorazepam (Ativan) 2 mg PRN Q1HR PRN IV For CIWA 8-14 Last administered on 06:41; Start 12/28/16 at 08:30 Lorazepam (Ativan) 4 mg PRN Q1HR PRN IV For CIWA 15 or greater Last administered on 01/01/17 01:17; Start 12/28/16 at 08:30 Haloperidol Lactate (Haldol) 5 mg PRN Q6HRS PRN IVP AGITATION Last administered on 12/31/16 23:12; Start 12/28/16 at 09:15 Enoxaparin Sodium (Lovenox Per Pharmacy Prophylaxis Dosing) 1 each PRN DAILY PRN MC SEE COMMENTS; Start 12/28/16 at 13:45; Stop 01/01/17 at 07:16; Status DC Enoxaparin Sodium (Lovenox 40mg Syringe) 40 mg Q24H SQ Last administered on 14:39; Start 12/28/16 at 14:00 Acetylcysteine 6.9 gm/Dextrose 1,034.5 ml @ 62.509 mls/hr 1X ONCE IV Last administered on 12/28/16 22:43; Start 12/28/16 at 23:00; Stop 12/29/16 at 15 :32; Status DC Lorazepam (Ativan) 2 mg 1X ONCE IV Last administered on 12/29/16 01:35; Start 12/29/16 at 01:45; Stop 12/29/16 at 01:46; Status DC Propofol 100 ml @ 0 mls/hr CONT PRN IV SEE I/O RECORD Last administered on 01:48; Start 12/29/16 at 05:00; Stop 12/30/16 at 09:22; Status DC Rocuronium [place] (Zemuron) 50 mg STK-MED ONCE .ROUTE ; Start 12/29/16 at 05: 20; Stop 12/29/16 at 05:21; Status DC Succinylcholine Chloride (Anectine) 200 mg STK-MED ONCE .ROUTE ; Start at 05:21; Stop 12/29/16 at 05:22; Status DC Propofol 20 ml @ As Directed STK-MED ONCE IV ; Start 12/29/16 at 05:22; Stop 12/29/16 at 05:23; Status DC Amino Acids/ Glycerin/ Electrolytes 1,000 ml @ 80 mls/hr [id number] IV Last administered on 12/29/16 09:02; Start 12/29/16 at 08:45; Stop 12/30/16 at 09 :14; Status DC Lorazepam (Ativan) 4 mg PRN Q4HRS PRN IV ANXIETY / AGITATION; Start 12/29/16 at 08:45; Status Cancel Lorazepam 100 mg/ Sodium Chloride 100 ml @ 0 mls/hr CONT PRN IV IVF Last administered on 12/29/16 09:02; Start 12/29/16 at 08:45 Ceftriaxone Sodium 1 gm/ Dextrose 50 ml @ 100 mls/hr Q24H IV ; Start 12/29/16 at 09:30; Status UNV Metronidazole 100 ml @ 100 mls/hr Q8HRS IV ; Start 12/29/16 at 14:00; Stop at 14:00; Status DC Potassium Chloride (KCl Oral Soln) 40 meq 1X ONCE PEG Last administered on 10:37; Start 12/29/16 at 10:00; Stop 12/29/16 at 10:01; Status DC Ceftriaxone Sodium (Rocephin) 1 gm Q24H IVP ; Start 12/29/16 at 10:00; Stop at 10:08; Status DC Piperacillin Sod/ Tazobactam Sod (Zosyn Per Pharmacy) 1 each PRN DAILY PRN MC SEE COMMENTS; Start 12/29/16 at 10:15; Stop 01/01/17 at 07:16; Status DC Levofloxacin/ Dextrose 100 ml @ 100 mls/hr Q24H IV Last administered on 11:15; Start 12/29/16 at 11:00; Stop 01/02/17 at 08:02; Status DC Famotidine (Pepcid Vial) 20 mg BID IVP Last administered on 01/02/17 09:42; Start 12/29/16 at 11:00 Dexmedetomidine HCl 200 mcg/ Sodium Chloride 50 ml @ 0 mls/hr CONT PRN IV PER PROTOCOL Last administered on 12/31/16 08:45; Start 12/29/16 at 10:15 Fentanyl Citrate (Fentanyl 2ml Vial) 25 mcg PRN Q1HR PRN IV PAIN Last administered on 01/02/17 05:55; Start 12/29/16 at 10:15 Lorazepam (Ativan) 0.5 mg PRN Q2HRS PRN IV AGITATION; Start 12/29/16 at 10:15 Propofol 100 ml @ 0 mls/hr CONT PRN IV SEDATION Last administered on 11:23; Start 12/29/16 at 10:15 Sodium Chloride 500 ml @ 500 mls/hr 1X PRN PRN IV SEE COMMENTS; Start at 10:15 Atropine Sulfate 0.5 mg PRN Q5MIN PRN IV SEE COMMENTS; Start 12/29/16 at 10:15 Piperacillin Sod/ Tazobactam Sod (Zosyn) 3.375 gm Q6HRS IVP Last administered on 01/02/17 12:12; Start 12/29/16 at 12:00 Acetylcysteine 6.9 gm/Dextrose 1,034.5 ml @ 62.509 mls/hr 1X ONCE IV Last administered on 12/29/16 15:40; Start 12/29/16 at 15:00; Stop 12/30/16 at 07 :32; Status DC Potassium Chloride (KCl Oral Soln) 40 meq 1X ONCE PEG Last administered on 12:49; Start 12/30/16 at 12:30; Stop 12/30/16 at 12:31; Status DC Potassium Chloride (KCl Oral Soln) 20 meq DAILY PEG Last administered on 08:44; Start 12/31/16 at 09:00 Potassium Chloride/Dextrose/ Sod Cl 1,000 ml @ 75 mls/hr 1X ONCE IV Last administered on 12/30/16 12:48; Start 12/30/16 at 13:00; Stop 12/31/16 at 02 :20; Status DC Magnesium Sulfate/ Dextrose 100 ml @ 25 mls/hr 1X ONCE IV Last administered on 12/30/16 14:28; Start 12/30/16 at 14:00; Stop 12/30/16 at 17:59; Status DC Acetylcysteine 6.9 gm/Dextrose 1,034.5 ml @ 62.509 mls/hr 1X ONCE IV Last administered on 12/30/16 15:03; Start 12/30/16 at 15:00; Stop 12/31/16 at 07 :32; Status DC Ibuprofen (Children'S Motrin) 400 mg PRN Q6HRS PRN PO INFLAMMATION Last administered on 12/30/16 21:44; Start 12/30/16 at 20:15 Rocuronium [place] (Zemuron) 50 mg STK-MED ONCE .ROUTE ; Start 12/29/16 at 05: 20; Stop 12/31/16 at 09:03; Status DC Bisacodyl (Dulcolax Tab) 5 mg PRN DAILY PRN PO CONSTIPATION; Start 12/31/16 at 09:30 Acetylcysteine 6.9 gm/Dextrose 1,034.5 ml @ 62.5 mls/ hr 1X ONCE IV Last administered on 12/31/16 11:24; Start 12/31/16 at 11:00; Stop 01/01/17 at 03 :33; Status DC Multi-Ingred Cream/Lotion/Oil/ Oint (Artificial Tears Eye Oint) 1 tigist PRN Q1HR PRN OU DRY EYE Last administered on 12/31/16 11:24; Start 12/31/16 at 11:00 Sodium Chloride 1,000 ml @ 75 mls/hr [id number] IV Last administered on 00:01; Start 12/31/16 at 22:45; Stop 01/01/17 at 11:46; Status DC Vancomycin HCl (Vanco Per Pharmacy) 1 each PRN DAILY PRN MC SEE COMMENTS Last administered on 01/01/17 08:04; Start 01/01/17 at 06:45; Stop 01/02/17 at 08 :03; Status DC Vancomycin HCl 1.75 gm/Dextrose 500 ml @ 250 mls/hr 1X ONCE IV Last administered on 01/01/17 07:24; Start 01/01/17 at 07:00; Stop 01/01/17 at 08 :59; Status DC Vancomycin HCl 1 each 1X ONCE MC Last administered on 01/02/17 07:30; Start 01/02/17 at 07:30; Stop 01/02/17 at 07:31; Status DC Vancomycin HCl 1 gm/Dextrose 250 ml @ 250 mls/hr Q8H IV Last administered on 01/01/17 23:42; Start 01/01/17 at 16:00; Stop 01/02/17 at 08:02; Status DC Haloperidol Lactate (Haldol) 5 mg Q8HRS IVP Last administered on 01/02/17 14: 39; Start 01/01/17 at 14:00 Potassium Chloride/Sodium Chloride 1,000 ml @ 75 mls/hr [id number] IV Last administered on 01/01/17 12:48; Start 01/01/17 at 12:30; Stop 01/01/17 at 14 :11; Status DC Amino Acids/ Glycerin/ Electrolytes 1,000 ml @ 75 mls/hr [id number] IV Last administered on 01/02/17 03:52; Start 01/01/17 at 13:30 Potassium Chloride 50 ml @ 50 mls/hr 1X ONCE IV ; Start 01/01/17 at 13:30; Stop 01/01/17 at 14:29; Status UNV Potassium Chloride 50 ml @ 50 mls/hr 1X ONCE IV ; Start 01/01/17 at 13:30; Stop 01/01/17 at 14:29; Status UNV Potassium Chloride 10 meq/ Sodium Chloride 105 ml @ 105 mls/hr Q1H IV Last administered on 01/01/17 17:36; Start 01/01/17 at 14:30; Stop 01/01/17 at 18 :29; Status DC Ondansetron HCl (Zofran) 4 mg PRN Q6HRS PRN IV NAUSEA/VOMITING Last administered on 01/01/17 20:35; Start 01/01/17 at 20:30 Linezolid 300 ml @ 300 mls/hr Q12HR IV Last administered on 01/02/17 09:39; Start 01/02/17 at 09:00 Active Scripts Active Reported Requip (Ropinirole Hcl) 1 Mg Tablet 2 Mg PO QHS Mirtazapine 30 Mg Tablet 0.5 Tab PO QHS Proair Hfa Inhaler (Albuterol Sulfate) 8.5 Gm Hfa.aer.ad 1-2 Puff INH PRN Q6HRS PRN Spiriva (Tiotropium [place]) 18 Mcg Cap.w.dev 2 Inh IH DAILY Spiriva (Tiotropium [place]) 18 Mcg Cap.w.dev 1 Cap IH DAILY Omeprazole 20 Mg Capsule.dr 1 Cap PO DAILY Dexamethasone 4 Mg Tablet 1 Tab PO QID Symbicort 80-4.5 Mcg Inhaler (Budesonide/Formoterol Fumarate) 10.2 Gm Hfa.aer.ad 2 Puff IH BID Alprazolam 0.5 Mg Tablet 1 Tab PO QAM Metoprolol Tartrate 50 Mg Tablet 0.5 Tab PO BID Amiodarone Hcl 200 Mg Tablet 1 Tab PO DAILY Tylenol (Acetaminophen) 325 Mg Tablet 2 Tab PO PRN Q6HRS PRN Melatonin 3 Mg Tablet 2 Tab PO QHS Montelukast Sodium Tablet (Montelukast Sodium) 10 Mg Tablet 1 Tab PO DAILY Atorvastatin Calcium 40 Mg Tablet 1 Tab PO QHS Tramadol Hcl 50 Mg Tablet 50 Mg PO Q6H PRN Hydrocodone-Apap 7.5-325 (Hydrocodone Bit/Acetaminophen) 1 Each Tablet 1 Tab PO PRN Q6HRS PRN Zoloft (Sertraline Hcl) 25 Mg Tablet 1 Tab PO DAILY Vitals/I & O Vital Sign - Last 24 Hours 01/01/17 01/01/17 01/01/17 01/01/17 16:00 16:00 17:00 18:00 Temp 99.9 99.9 Pulse 105 109 107 Resp 28 34 38 B/P (MAP) 143/81 (101) 129/78 (95) 149/83 (105) Pulse Ox 95 93 91 O2 Delivery Room Air Room Air Room Air Room Air 01/01/17 01/01/17 01/01/17 01/01/17 19:01 19:19 20:00 21:09 Temp 100.5 100.5 Pulse 109 116 Resp 29 38 B/P (MAP) 143/82 (102) 123/70 (87) Pulse Ox 93 92 O2 Delivery Room Air Room Air Room Air 01/01/17 01/01/17 01/01/17 01/02/17 21:36 22:00 23:00 00:00 Pulse 110 107 95 Resp 30 38 35 35 B/P (MAP) 125/76 (92) 128/81 (97) 106/70 (82) Pulse Ox 92 92 95 93 O2 Delivery Room Air Room Air Room Air Nasal Cannula O2 Flow Rate 3.0 01/02/17 01/02/17 01/02/17 01/02/17 00:12 00:30 01:00 02:00 Temp 100.1 100.1 Pulse 88 120 Resp 30 35 35 B/P (MAP) 123/70 (87) 141/77 (98) Pulse Ox 92 93 92 O2 Delivery Nasal Cannula Room Air Nasal Cannula Room Air O2 Flow Rate 3.0 3.0 01/02/17 01/02/17 01/02/17 01/02/17 03:00 03:32 03:49 04:01 Temp 99.7 99.7 Pulse 95 96 Resp 35 26 35 B/P (MAP) 136/94 (108) 120/75 (90) Pulse Ox 92 92 96 O2 Delivery Room Air Room Air Nasal Cannula Nasal Cannula O2 Flow Rate 3.0 3.0 01/02/17 01/02/17 01/02/1701/02/17 04:02 04:59 05:55 06:01 Pulse 101 103 Resp 26 35 35 B/P (MAP) 123/76 (92) 145/83 (103) Pulse Ox 95 93 98 O2 Delivery Room Air Room Air Nasal Cannula O2 Flow Rate 3.0 01/02/17 01/02/17 01/02/17 01/02/17 06:55 07:01 08:00 08:01 Temp 98.0 98.0 Pulse 98 102 Resp 38 45 B/P (MAP) 122/66 (84) 132/71 (91) Pulse Ox 91 92 O2 Delivery Room Air Room Air Room Air Room Air 01/02/17 01/02/17 01/02/17 01/02/17 08:55 09:59 11:02 11:55 Temp 98.4 98.4 Pulse 89 113 87 92 Resp 43 44 34 35 B/P (MAP) 132/78 (96) 133/70 (91) 118/75 (89) 123/86 (98) Pulse Ox 93 96 93 92 O2 Delivery Room Air Room Air Room Air Room Air 01/02/17 01/02/17 12:00 12:53 Pulse 119 Resp 33 B/P (MAP) 119/88 (98) Pulse Ox 95 O2 Delivery Room Air Room Air Intake and Output 01/01/17 01/01/17 01/02/17 15:00 23:00 07:00 Intake Total 978.23 ml 698.68 ml 1079 ml Output Total 960 ml 920 ml 850 ml Balance 18.23 ml -221.32 ml 229 ml MYRIAM [id number] III DO Jan 02, 2017 16:06
--- NOTE | 2017-01-02 16:16 | PDOC ---
PULMONARY PROGRESS NOTES Subjective EXTUBATED 12/31 CONFUSED AND DELIRIOUS AT TIMES, Vitals Vital Signs Date Time Temp Pulse Resp B/P (MAP) Pulse Ox O2 Delivery O2 Flow Rate FiO2 01/02/17 15:57 99.2 34 127/85 (99) Room Air 99.2 01/02/17 12:53 119 95 01/02/17 04:02 3.0 Lungs: Clear, Other (no wheezes or crackles ) Cardiovascular: S1 Abdomen: Soft, Non-tender Extremities: No Edema Skin: Warm Labs Laboratory Tests Test 12/31/16 19:50 12/31/16 23:50 01/01/17 03:25 01/02/17 07:25 Total Bilirubin 0.6 mg/dL (0.2-1.0) 0.7 mg/dL (0.2-1.0) Direct Bilirubin 0.3 mg/dL (0.0-0.2) Aspartate Amino Transf (AST/SGOT) 130 U/L (15-37) 123 U/L (15-37) Alanine Aminotransferase (ALT/SGPT) 342 U/L (16-63) 303 U/L (16-63) Alkaline Phosphatase 152 U/L (46-116) 145 U/L (46-116) Total Protein 6.2 g/dL (6.4-8.2) 6.0 g/dL (6.4-8.2) Albumin 2.1 g/dL (3.4-5.0) 2.0 g/dL (3.4-5.0) Acetaminophen Level < 2 mcg/ml (10-30) Acetaminophen Last Dose Date 12/27/16 Acetaminophen Last Dose Time 1999 Lactic Acid Level 1.2 mmol/L (0.4-2.0) White Blood Count 14.5 x10^3/uL (4.0-11.0) 13.3 x10^3/uL (4.0-11.0) Red Blood Count 4.22 x10^6/uL (4.30-5.70) 4.05 x10^6/uL (4.30-5.70) Hemoglobin 12.9 g/dL (13.0-17.5) 12.3 g/dL (13.0-17.5) Hematocrit 38.6 % (39.0-53.0) 36.5 % (39.0-53.0) Mean Corpuscular Volume 92 fL (79-100) 90 fL (79-100) Mean Corpuscular Hemoglobin 31 pg (25-35) 30 pg (25-35) Mean Corpuscular Hemoglobin Concent 33 g/dL (31-37) 34 g/dL (31-37) Red Cell Distribution Width 13.7 % (11.5-14.5) 13.5 % (11.5-14.5) Platelet Count 323 x10^3/uL (140-400) 343 x10^3/uL (140-400) Neutrophils (%) (Auto) 82 % (31-73) 75 % (31-73) Lymphocytes (%) (Auto) 8 % (24-48) 10 % (24-48) Monocytes (%) (Auto) 9 % (0-9) 13 % (0-9) Eosinophils (%) (Auto) 1 % (0-3) 2 % (0-3) Basophils (%) (Auto) 0 % (0-3) 0 % (0-3) Neutrophils # (Auto) 11.8 x10^3uL (1.8-7.7) 10.0 x10^3uL (1.8-7.7) Lymphocytes # (Auto) 1.2 x10^3/uL (1.0-4.8) 1.3 x10^3/uL (1.0-4.8) Monocytes # (Auto) 1.3 x10^3/uL (0.0-1.1) 1.7 x10^3/uL (0.0-1.1) Eosinophils # (Auto) 0.1 x10^3/uL (0.0-0.7) 0.2 x10^3/uL (0.0-0.7) Basophils # (Auto) 0.1 x10^3/uL (0.0-0.2) 0.0 x10^3/uL (0.0-0.2) Sodium Level 144 mmol/L (136-145) 141 mmol/L (136-145) Potassium Level 3.1 mmol/L (3.5-5.1) 3.2 mmol/L (3.5-5.1) Chloride Level 109 mmol/L (98-107) 104 mmol/L (98-107) Carbon Dioxide Level 28 mmol/L (21-32) 26 mmol/L (21-32) Anion Gap 7 (6-14) 11 (6-14) Blood Urea Nitrogen 8 mg/dL (8-26) 10 mg/dL (8-26) Creatinine 0.7 mg/dL (0.7-1.3) 0.7 mg/dL (0.7-1.3) Estimated GFR (Cockcroft-Gault) 119.9 119.9 BUN/Creatinine Ratio 11 (6-20) Glucose Level 89 mg/dL (70-99) 107 mg/dL (70-99) Calcium Level 8.4 mg/dL (8.5-10.1) 8.6 mg/dL (8.5-10.1) Albumin/Globulin Ratio 0.5 (1.0-1.7) Vancomycin Level Trough 7.8 mcg/mL (10.0-20.0) Vancomycin Last Dose Date 01/02/17 Vancomycin Last Dose Time 0000 Laboratory Tests Test 01/02/17 07:25 White Blood Count 13.3 x10^3/uL (4.0-11.0) Red Blood Count 4.05 x10^6/uL (4.30-5.70) Hemoglobin 12.3 g/dL (13.0-17.5) Hematocrit 36.5 % (39.0-53.0) Mean Corpuscular Volume 90 fL (79-100) Mean Corpuscular Hemoglobin 30 pg (25-35) Mean Corpuscular Hemoglobin Concent 34 g/dL (31-37) Red Cell Distribution Width 13.5 % (11.5-14.5) Platelet Count 343 x10^3/uL (140-400) Neutrophils (%) (Auto) 75 % (31-73) Lymphocytes (%) (Auto) 10 % (24-48) Monocytes (%) (Auto) 13 % (0-9) Eosinophils (%) (Auto) 2 % (0-3) Basophils (%) (Auto) 0 % (0-3) Neutrophils # (Auto) 10.0 x10^3uL (1.8-7.7) Lymphocytes # (Auto) 1.3 x10^3/uL (1.0-4.8) Monocytes # (Auto) 1.7 x10^3/uL (0.0-1.1) Eosinophils # (Auto) 0.2 x10^3/uL (0.0-0.7) Basophils # (Auto) 0.0 x10^3/uL (0.0-0.2) Sodium Level 141 mmol/L (136-145) Potassium Level 3.2 mmol/L (3.5-5.1) Chloride Level 104 mmol/L (98-107) Carbon Dioxide Level 26 mmol/L (21-32) Anion Gap 11 (6-14) Blood Urea Nitrogen 10 mg/dL (8-26) Creatinine 0.7 mg/dL (0.7-1.3) Estimated GFR (Cockcroft-Gault) 119.9 Glucose Level 107 mg/dL (70-99) Calcium Level 8.6 mg/dL (8.5-10.1) Vancomycin Level Trough 7.8 mcg/mL (10.0-20.0) Vancomycin Last Dose Date 01/02/17 Vancomycin Last Dose Time 0000 Medications Active Scripts Medications Dose Route/Sig Max Daily Dose Days Date Category Requip (Ropinirole Hcl) 1 Mg Tablet 2 Mg PO QHS 12/28/16 Reported Mirtazapine 30 Mg Tablet 0.5 Tab PO QHS 12/28/16 Reported Proair Hfa Inhaler (Albuterol Sulfate) 8.5 Gm Hfa.aer.ad 1-2 Puff INH PRN Q6HRS PRN 12/28/16 Reported Spiriva (Tiotropium [place]) 18 Mcg Cap.w.dev 2 Inh IH DAILY 12/28/16 Reported Spiriva (Tiotropium [place]) 18 Mcg Cap.w.dev 1 Cap IH DAILY 12/28/16 Reported Omeprazole 20 Mg Capsule.dr 1 Cap PO DAILY 12/28/16 Reported Dexamethasone 4 Mg Tablet 1 Tab PO QID 12/28/16 Reported Symbicort 80-4.5 Mcg Inhaler (Budesonide/Formoterol Fumarate) 10.2 Gm Hfa.aer.ad 2 Puff IH BID 12/28/16 Reported Alprazolam 0.5 Mg Tablet 1 Tab PO QAM 12/28/16 Reported Metoprolol Tartrate 50 Mg Tablet 0.5 Tab PO BID 12/28/16 Reported Amiodarone Hcl 200 Mg Tablet 1 Tab PO DAILY 12/28/16 Reported Tylenol (Acetaminophen) 325 Mg Tablet 2 Tab PO PRN Q6HRS PRN 12/28/16 Reported Melatonin 3 Mg Tablet 2 Tab PO QHS 12/28/16 Reported Montelukast Sodium Tablet (Montelukast Sodium) 10 Mg Tablet 1 Tab PO DAILY 12/28/16 Reported Atorvastatin Calcium 40 Mg Tablet 1 Tab PO QHS 12/28/16 Reported Tramadol Hcl 50 Mg Tablet 50 Mg PO Q6H PRN 12/28/16 Reported Hydrocodone-Apap 7.5-325 (Hydrocodone Bit/Acetaminophen) 1 Each Tablet 1 Tab PO PRN Q6HRS PRN 12/28/16 Reported Zoloft (Sertraline Hcl) 25 Mg Tablet 1 Tab PO DAILY 12/28/16 Reported Impression . 1. Acute respiratory failure secondary to acute toxic encephalopathy. 2. Acute toxic encephalopathy secondary to overdose of Benadryl, acetaminophen , cocaine and alcohol. 3. Diffuse bilateral infiltrates, most likely related to aspiration pneumonia.improving 4. Fever secondary to aspiration pneumonia. 5. Leukocytosis. 6. Abnormal urine toxicology screen positive for cocaine and acetaminophen. 7. Acute Live Injury Plan . DECREASE HALDOL NPO FOR NOW PT EXTUBATED NEEDS ATIVAN AND HALDOL TO PREVENT HARM TO HIMSELF AND OTHERS ANTIBX EMILI HARRISON MD Jan 02, 2017 16:16
[2017-01-02] MEDS ORDERED: POTASSIUM CHLORIDE 20 MEQ TABLET.ER. PO ONE (16:30)
--- NOTE | 2017-01-02 18:37 | PDOC ---
PROGRESS NOTES Assessment Assessment Toxic encephalopathy. Metabolic encephalopathy. Multi-drug overdose, Tylenol, Benadryl, Whiskey. Lethargy. Hepatic injury. Restless. Substance and drug use/abuse. Cocaine positive in system. RECOMMENDATIONS/PLAN: Treat drug overdose medically. Keep good hydration. Acetylcysteine per medical team. Monitoring cardiac and pulmonary function. Monitory bleeding. Monitoring hepatic function. EEG on 12/31/16: Diffuse encephalopathy. No seizure activity. HCT w/o contrast on 12/27/16 in [facility] was negative w/o ICH. HISTORY OF THE PRESENT ILLNESS: 51-y-old male patient was found unresponsive at home with some empty bottles disarray. He was thought to overdose of several drugs including at least 80 pills of 500 mg Tylenol, and Benadryl, whiskey as well, also possible cocaine. No infarction is available for his ingestion. No suicidal notes found per reports. He was brought to [facility] and his HCT was negative. He was eventually transferred to ICU of [facility]. No clinical seizures observed so far. Past Medical and Surgical History Unknown. Family History Unknown. Social History ALCOHOL: heavy Drugs: Cocaine ALLERGY: Unknown MEDICATIONS: Refer to [facility] REVIEW OF SYSTEMS: Constitutional: No malnutrition, weight loss, cachexia. Head: No current traumatic brain or head injury. Skin: No edema, or rash. Ear: No infection. Eyes: Unknown. Nose: Unknown. Neck: No current injury. Cardiac: Unknown. Pulmonary: Unknown. GI: No GI ulcer, Unknown. Urinary/genital: Unknown. Endocrinologic: Unknown. Skeletomuscular: Unknown. Neurological: see HP. Psychiatric: substance and drug use/abuse. PHYSICAL EXAMINATION: General appearance is in subacute distress. HEENT: Normocephalic and nontraumatic. Eyes, nose, ears, and throat are unremarkable. Neck is supple. No lymphadenopathy. No crepitus. Cardiovascular: S1, S2, regular rate and rhythm. Pulmonary: Mild difficult breathing. Abdomen: Bowel sounds are positive. Extremities: No rash, lesions, or edema. No restriction of range of motion NEUROLOGICAL EXAMINATION: Off vent. On room air. Able to answer a few questions stating he did not know why he overdose himself. Not oriented to time, place and person. PERRL, EOMI CN: no acute focal findings. Muscle tone: fluctuated. Muscle strength: 5- DTR: 1-2 Plantar reflex: Neutral response bilaterally Gait: Not examed in bed. Sensory exam: No acute abnormal findings. No cerebellar signs elicited. F-T-N test not performed. Objective Objective Vital Signs Date Time Temp Pulse Resp B/P (MAP) Pulse Ox O2 Delivery O2 Flow Rate FiO2 01/02/17 15:57 99.2 34 127/85 (99) Room Air 99.2 01/02/17 12:53 119 95 01/02/17 04:02 3.0 Intake and Output 01/02/17 07:00 Intake Total 2755.91 ml Output Total 2730 ml Balance 25.91 ml IV Total 2755.91 ml Output Urine Total 2730 ml # Bowel Movements 3 Vitals Signs Vitals VS - Last 72 Hours, by Label Date Time Temp Pulse Resp B/P (MAP) Pulse Ox O2 Delivery O2 Flow Rate FiO2 01/02/17 15:57 99.2 34 127/85 (99) Room Air 99.2 01/02/17 12:53 119 33 119/88 (98) 95 Room Air 01/02/17 12:00 Room Air 01/02/17 11:55 98.4 92 35 123/86 (98) 92 Room Air 98.4 01/02/17 11:02 87 34 118/75 (89) 93 Room Air 01/02/17 09:59 113 44 133/70 (91) 96 Room Air 01/02/17 08:55 89 43 132/78 (96) 93 Room Air 01/02/17 08:01 98.0 102 45 132/71 (91) 92 Room Air 98.0 01/02/17 08:00 Room Air 01/02/17 07:01 Room Air 01/02/17 06:55 98 38 122/66 (84) 91 Room Air 01/02/17 06:01 103 35 145/83 (103) 98 Nasal Cannula 01/02/17 05:55 Room Air 01/02/17 04:59 101 35 123/76 (92) 93 Room Air 01/02/17 04:02 26 95 3.0 01/02/17 04:01 99.7 96 35 120/75 (90) 96 Nasal Cannula 3.0 99.7 01/02/17 03:49 Nasal Cannula 3.0 01/02/17 03:32 26 92 Room Air 01/02/17 03:00 95 35 136/94 (108) 92 Room Air 01/02/17 02:00 120 35 141/77 (98) 92 Room Air 01/02/17 01:00 100.1 88 35 123/70 (87) 93 Nasal Cannula 3.0 100.1 01/02/17 00:30 30 92 Room Air 01/02/17 00:12 Nasal Cannula 3.0 01/02/17 00:00 95 35 106/70 (82) 93 Nasal Cannula 3.0 01/01/17 23:00 107 35 128/81 (97) 95 Room Air 01/01/17 22:00 110 38 125/76 (92) 92 Room Air 01/01/17 21:36 30 92 Room Air 01/01/17 21:09 116 38 123/70 (87) 92 Room Air 01/01/17 20:00 Room Air 01/01/17 19:19 100.5 100.5 01/01/17 19:01 109 29 143/82 (102) 93 Room Air 01/01/17 18:00 107 38 149/83 (105) 91 Room Air 01/01/17 17:00 109 34 129/78 (95) 93 Room Air 01/01/17 16:00 99.9 105 28 143/81 (101) 95 Room Air 99.9 01/01/17 16:00 Room Air 01/01/17 15:00 111 33 148/88 (108) 92 Room Air 01/01/17 14:00 111 33 131/79 (96) 100 Nasal Cannula 4.0 01/01/17 13:00 115 32 137/80 (99) 98 Nasal Cannula 4.0 01/01/17 12:00 100.1 108 38 129/75 (93) 99 Nasal Cannula 4.0 100.1 01/01/17 12:00 Nasal Cannula 4.0 01/01/17 11:00 104 27 146/84 (104) 93 Nasal Cannula 4.0 01/01/17 10:00 113 28 124/87 (99) 98 Nasal Cannula 4.0 01/01/17 09:00 106 34 145/91 (109) 94 Nasal Cannula 4.0 01/01/17 08:00 99.6 117 40 137/87 (104) 97 Nasal Cannula 4.0 99.6 01/01/17 08:00 Nasal Cannula 4.0 01/01/17 07:00 115 40 114/66 (82) 93 Nasal Cannula 4.0 Laboratory Laboratory Laboratory Tests Test 01/02/17 07:25 White Blood Count 13.3 x10^3/uL (4.0-11.0) Red Blood Count 4.05 x10^6/uL (4.30-5.70) Hemoglobin 12.3 g/dL (13.0-17.5) Hematocrit 36.5 % (39.0-53.0) Mean Corpuscular Volume 90 fL (79-100) Mean Corpuscular Hemoglobin 30 pg (25-35) Mean Corpuscular Hemoglobin Concent 34 g/dL (31-37) Red Cell Distribution Width 13.5 % (11.5-14.5) Platelet Count 343 x10^3/uL (140-400) Neutrophils (%) (Auto) 75 % (31-73) Lymphocytes (%) (Auto) 10 % (24-48) Monocytes (%) (Auto) 13 % (0-9) Eosinophils (%) (Auto) 2 % (0-3) Basophils (%) (Auto) 0 % (0-3) Neutrophils # (Auto) 10.0 x10^3uL (1.8-7.7) Lymphocytes # (Auto) 1.3 x10^3/uL (1.0-4.8) Monocytes # (Auto) 1.7 x10^3/uL (0.0-1.1) Eosinophils # (Auto) 0.2 x10^3/uL (0.0-0.7) Basophils # (Auto) 0.0 x10^3/uL (0.0-0.2) Sodium Level 141 mmol/L (136-145) Potassium Level 3.2 mmol/L (3.5-5.1) Chloride Level 104 mmol/L (98-107) Carbon Dioxide Level 26 mmol/L (21-32) Anion Gap 11 (6-14) Blood Urea Nitrogen 10 mg/dL (8-26) Creatinine 0.7 mg/dL (0.7-1.3) Estimated GFR (Cockcroft-Gault) 119.9 Glucose Level 107 mg/dL (70-99) Calcium Level 8.6 mg/dL (8.5-10.1) Vancomycin Level Trough 7.8 mcg/mL (10.0-20.0) Vancomycin Last Dose Date 01/02/17 Vancomycin Last Dose Time 0000 Microbiology 12/31/16 Blood Culture - Preliminary, Resulted NO GROWTH AFTER 1 DAY 12/30/16 - Final, Complete 12/30/16 - Final, Complete 12/30/16 - Final, Complete 12/30/16 - Final, Complete 12/30/16 Gram Stain Evaluation - Final, Complete 12/30/16 Sputum Culture - Final, Complete 12/30/16 Sputum Result 1 - Final, Complete 12/30/16 Sputum Result 2 - Final, Complete 12/30/16 Antimicrobic Susceptibility - Final, Complete Medication Medications Current Medications Haloperidol Lactate (Haldol) 5 mg Q12HR IVP ; Start 01/02/17 at 21:00 Linezolid 300 ml @ 300 mls/hr Q12HR IV Last administered on 01/02/17 09:39; Start 01/02/17 at 09:00 Ondansetron HCl (Zofran) 4 mg PRN Q6HRS PRN IV NAUSEA/VOMITING Last administered on 01/01/17 20:35; Start 01/01/17 at 20:30 Potassium Chloride 50 ml @ 50 mls/hr Q1H IV ; Start 01/02/17 at 16:00; Stop at 17:59; Status UNV Potassium Chloride 50 ml @ 50 mls/hr Q1H IV ; Start 01/02/17 at 16:00; Stop at 17:59; Status UNV Potassium Chloride (Klor-Con) 40 meq 1X ONCE PO Last administered on 16:35; Start 01/02/17 at 16:30; Stop 01/02/17 at 16:31; Status DC Vancomycin HCl 1 each 1X ONCE MC Last administered on 01/02/17 07:30; Start 01/02/17 at 07:30; Stop 01/02/17 at 07:31; Status DC Comment Review of Relevant I have reviewed the following items jessa (where applicable) has been applied. DOUGLAS GARDUNO MD Jan 02, 2017 18:37
[2017-01-03 03:08] VITALS: BP 116/71
[2017-01-03 05:11] LABS: BASO # 0.1 x10^3/uL (0.0-0.2); BASO % 1 % (0-3); EOS % 4 % (0-3); HEMATOCRIT 37.9 % (39.0-53.0); HEMOGLOBIN 12.6 g/dL (13.0-17.5); LYMPH # 1.7 x10^3/uL (1.0-4.8); LYMPH % 14 % (24-48); MEAN CORPUSCULAR HEMOGLOBIN 31 pg (25-35); MEAN CORPUSCULAR HGB CONC 33 g/dL (31-37); MEAN CORPUSCULAR VOLUME 92 fL (79-100); MONO % 13 % (0-9); NEUT % 69 % (31-73); PLATELET COUNT 396 x10^3/uL (140-400); RED BLOOD COUNT 4.13 x10^6/uL (4.30-5.70); RED CELL DISTRIBUTION WIDTH 13.4 % (11.5-14.5); WHITE BLOOD COUNT 12.6 x10^3/uL (4.0-11.0)
[2017-01-03 05:39] LABS: CALCIUM 8.7 mg/dL (8.5-10.1); CREATININE 0.6 mg/dL (0.7-1.3); GFR 143.2; POTASSIUM 3.1 mmol/L (3.5-5.1)
[2017-01-03] MEDS: PIPERACILLIN/TAZO IV Push 3.375 GM VIAL. IVP SCH (06:29)
[2017-01-03 08:00] VITALS: BP 114/74
--- NOTE | 2017-01-03 08:33 | RAD ---
Single view chest History:aspiration pneumonia An AP view of the chest is submitted. Comparison: Exam earlier the same day and 01/01/2017 Findings: There is some patchy airspace and interstitial opacity bilaterally most notable of the mid hemithoraces, left greater than right and also of the right upper lobe. Findings are fairly similar comparing with exam earlier the same day, relatively decreased comparing with 01/01/2017 exam. There is no significant pleural fluid or pneumothorax. Heart size is stable. Impression: 1. Persistent bilateral infiltrates are stable compared with the exam earlier the same day.
--- NOTE | 2017-01-03 08:41 | PDOC ---
Infectious Disease Note Subjective Subjective awake, appropriate now, eating ok, walking ok ROS ROS GEN: Denies fevers, chills, sweats HEENT: Denies blurred vision, sore throat CV: Denies chest pain RESP: Denies shortness of air, cough GI: Denies n/v/d NEURO: Denies confusion, dizziness MSK: Denies weakness, joint pain/swelling Vital Sign Vital Signs Vital Signs Date Time Temp Pulse Resp B/P (MAP) Pulse Ox O2 Delivery O2 Flow Rate FiO2 01/03/17 08:00 98.4 72 26 114/74 (87) 95 Room Air 98.4 Physical Exam PHYSICAL EXAM GENERAL: NAD, Alert HEENT: PERRL, OC/OP NECK: Supple, no JVD, no LN LUNGS: Clear HEART: S1S2, no gallop, no murmur ABD: Soft, NT, no organomegaly, no rebound EXT: No edema, no cyanosis LICENSED STAFF MFT: Alert, oriented x 3, no focal neurologic deficit SKIN: No rash IV: ok Labs Lab Laboratory Tests Test 01/03/17 03:30 White Blood Count 12.6 x10^3/uL (4.0-11.0) Red Blood Count 4.13 x10^6/uL (4.30-5.70) Hemoglobin 12.6 g/dL (13.0-17.5) Hematocrit 37.9 % (39.0-53.0) Mean Corpuscular Volume 92 fL (79-100) Mean Corpuscular Hemoglobin 31 pg (25-35) Mean Corpuscular Hemoglobin Concent 33 g/dL (31-37) Red Cell Distribution Width 13.4 % (11.5-14.5) Platelet Count 396 x10^3/uL (140-400) Neutrophils (%) (Auto) 69 % (31-73) Lymphocytes (%) (Auto) 14 % (24-48) Monocytes (%) (Auto) 13 % (0-9) Eosinophils (%) (Auto) 4 % (0-3) Basophils (%) (Auto) 1 % (0-3) Neutrophils # (Auto) 8.7 x10^3uL (1.8-7.7) Lymphocytes # (Auto) 1.7 x10^3/uL (1.0-4.8) Monocytes # (Auto) 1.6 x10^3/uL (0.0-1.1) Eosinophils # (Auto) 0.5 x10^3/uL (0.0-0.7) Basophils # (Auto) 0.1 x10^3/uL (0.0-0.2) Sodium Level 141 mmol/L (136-145) Potassium Level 3.1 mmol/L (3.5-5.1) Chloride Level 105 mmol/L (98-107) Carbon Dioxide Level 25 mmol/L (21-32) Anion Gap 11 (6-14) Blood Urea Nitrogen 11 mg/dL (8-26) Creatinine 0.6 mg/dL (0.7-1.3) Estimated GFR (Cockcroft-Gault) 143.2 Glucose Level 92 mg/dL (70-99) Calcium Level 8.7 mg/dL (8.5-10.1) Micro GRAM STAIN WHITE BLOOD CELLS Final Many GRAM STAIN EPITHELIAL CELLS Final None seen GRAM STAIN RESULT 1 Final Comment Few gram positive cocci GRAM STAIN RESULT 2 Final Comment Rare gram positive rods GRAM STAIN EVALUATION Final Comment This specimen is of good quality and is acceptable for routine bacterial culture. Performed at: [address] [id number] Professional Housing Consultant: Yojana Sheldon MD, Phone: [phone] SPUTUM CULTURE- Preliminary Preliminary report SPUTUM CULT RES 1 Final Staphylococcus aureus,,, MRSA Moderate growth Performed at: [address] [id number] Professional Housing Consultant: Yojana Sheldon MD, Phone: [phone] Objective Assessment Fever , sec to ETOH withdrawal vs pneumonia Tylenol overdose ETOH abuse Encephalopathy Plan Plan of Care zyvox supportive care d/c MIRACLE Ceballos MD Jan 03, 2017 08:41
[2017-01-03] MEDS: POTASSIUM CHLORIDE 20 MEQ/15 ML ORAL LIQUID. PEG SCH (09:00)
[2017-01-03] MEDS: HALOPERIDOL LACTATE 5 MG/ML VIAL. IVP SCH ×2 (09:00→20:47)
[2017-01-03] MEDS: FAMOTIDINE 20 MG/2 ML VIAL IVP SCH (09:00)
[2017-01-03] MEDS: LINEZOLID 600 MG TABLET PO SCH ×2 (09:06→20:47)
[2017-01-03 12:00] VITALS: BP 122/73
--- NOTE | 2017-01-03 13:21 | PDOC ---
PROGRESS NOTES Chief Complaint Chief Complaint AMS ASSESSMENT AND PLAN: 1. Toxic encephalopathy: 2/2 prescription and/or illicit drug O/D. resolved 2. Suicide attempt: w/ benadryl, tylenol. 1:1 sitter, to Psych inpt when bed available 3. Aspiration pneumonitis/PNA: few GPC in sputum. rpt CXR essentially unchanged with bilat infiltrates. on zyvox as per ID 4. EtOH abuse: on CIWA protocol, no ativan x24h 5. hx cocaine abuse 6. Hypokalemia: replete orally 7. Hypomagnesemia: resolve. monitor 8. Shoulder pain: supect muscle rather than joint injury. ibuprofen PRN 9. Prophylaxis: H2b, lovenox History of Present Illness History of Present Illness feels ok. c/o R shoulder pain with lifting arm Vitals Vitals Vital Signs Date Time Temp Pulse Resp B/P (MAP) Pulse Ox O2 Delivery O2 Flow Rate FiO2 01/03/17 12:00 98.2 83 26 122/73 (89) 93 Room Air 98.2 Physical Exam Physical Exam PERRLA General: Alert, No acute distress Heart: Regular rate Lungs: Clear Abdomen: Normal bowel sounds, Soft, No tenderness Extremities: No clubbing, No edema, Other (pain in shoulder with active, not passive movement) Skin: No rashes Labs LABS Laboratory Tests Test 01/03/17 03:30 White Blood Count 12.6 x10^3/uL (4.0-11.0) Red Blood Count 4.13 x10^6/uL (4.30-5.70) Hemoglobin 12.6 g/dL (13.0-17.5) Hematocrit 37.9 % (39.0-53.0) Mean Corpuscular Volume 92 fL (79-100) Mean Corpuscular Hemoglobin 31 pg (25-35) Mean Corpuscular Hemoglobin Concent 33 g/dL (31-37) Red Cell Distribution Width 13.4 % (11.5-14.5) Platelet Count 396 x10^3/uL (140-400) Neutrophils (%) (Auto) 69 % (31-73) Lymphocytes (%) (Auto) 14 % (24-48) Monocytes (%) (Auto) 13 % (0-9) Eosinophils (%) (Auto) 4 % (0-3) Basophils (%) (Auto) 1 % (0-3) Neutrophils # (Auto) 8.7 x10^3uL (1.8-7.7) Lymphocytes # (Auto) 1.7 x10^3/uL (1.0-4.8) Monocytes # (Auto) 1.6 x10^3/uL (0.0-1.1) Eosinophils # (Auto) 0.5 x10^3/uL (0.0-0.7) Basophils # (Auto) 0.1 x10^3/uL (0.0-0.2) Sodium Level 141 mmol/L (136-145) Potassium Level 3.1 mmol/L (3.5-5.1) Chloride Level 105 mmol/L (98-107) Carbon Dioxide Level 25 mmol/L (21-32) Anion Gap 11 (6-14) Blood Urea Nitrogen 11 mg/dL (8-26) Creatinine 0.6 mg/dL (0.7-1.3) Estimated GFR (Cockcroft-Gault) 143.2 Glucose Level 92 mg/dL (70-99) Calcium Level 8.7 mg/dL (8.5-10.1) BRUCE GOMEZ MD Jan 03, 2017 13:21
[2017-01-03] MEDS: POTASSIUM CHLORIDE 20 MEQ TABLET.ER. PO SCH ×2 (14:04→17:04)
[2017-01-03] MEDS: ENOXAPARIN 40 MG/0.4 ML SYRINGE. SQ SCH (14:05)
[2017-01-03 16:00] VITALS: BP 110/69
--- NOTE | 2017-01-03 18:02 | PDOC ---
PULMONARY PROGRESS NOTES Subjective EXTUBATED 12/31 CONFUSED AND DELIRIOUS AT TIMES, Vitals Vital Signs Date Time Temp Pulse Resp B/P (MAP) Pulse Ox O2 Delivery O2 Flow Rate FiO2 01/03/17 16:00 97.9 87 26 110/69 (83) 94 Room Air 97.9 Lungs: Clear Cardiovascular: S1 Abdomen: Soft, Non-tender Extremities: No Edema Skin: Warm Labs Laboratory Tests Test 01/02/17 07:25 01/03/17 03:30 White Blood Count 13.3 x10^3/uL (4.0-11.0) 12.6 x10^3/uL (4.0-11.0) Red Blood Count 4.05 x10^6/uL (4.30-5.70) 4.13 x10^6/uL (4.30-5.70) Hemoglobin 12.3 g/dL (13.0-17.5) 12.6 g/dL (13.0-17.5) Hematocrit 36.5 % (39.0-53.0) 37.9 % (39.0-53.0) Mean Corpuscular Volume 90 fL (79-100) 92 fL (79-100) Mean Corpuscular Hemoglobin 30 pg (25-35) 31 pg (25-35) Mean Corpuscular Hemoglobin Concent 34 g/dL (31-37) 33 g/dL (31-37) Red Cell Distribution Width 13.5 % (11.5-14.5) 13.4 % (11.5-14.5) Platelet Count 343 x10^3/uL (140-400) 396 x10^3/uL (140-400) Neutrophils (%) (Auto) 75 % (31-73) 69 % (31-73) Lymphocytes (%) (Auto) 10 % (24-48) 14 % (24-48) Monocytes (%) (Auto) 13 % (0-9) 13 % (0-9) Eosinophils (%) (Auto) 2 % (0-3) 4 % (0-3) Basophils (%) (Auto) 0 % (0-3) 1 % (0-3) Neutrophils # (Auto) 10.0 x10^3uL (1.8-7.7) 8.7 x10^3uL (1.8-7.7) Lymphocytes # (Auto) 1.3 x10^3/uL (1.0-4.8) 1.7 x10^3/uL (1.0-4.8) Monocytes # (Auto) 1.7 x10^3/uL (0.0-1.1) 1.6 x10^3/uL (0.0-1.1) Eosinophils # (Auto) 0.2 x10^3/uL (0.0-0.7) 0.5 x10^3/uL (0.0-0.7) Basophils # (Auto) 0.0 x10^3/uL (0.0-0.2) 0.1 x10^3/uL (0.0-0.2) Sodium Level 141 mmol/L (136-145) 141 mmol/L (136-145) Potassium Level 3.2 mmol/L (3.5-5.1) 3.1 mmol/L (3.5-5.1) Chloride Level 104 mmol/L (98-107) 105 mmol/L (98-107) Carbon Dioxide Level 26 mmol/L (21-32) 25 mmol/L (21-32) Anion Gap 11 (6-14) 11 (6-14) Blood Urea Nitrogen 10 mg/dL (8-26) 11 mg/dL (8-26) Creatinine 0.7 mg/dL (0.7-1.3) 0.6 mg/dL (0.7-1.3) Estimated GFR (Cockcroft-Gault) 119.9 143.2 Glucose Level 107 mg/dL (70-99) 92 mg/dL (70-99) Calcium Level 8.6 mg/dL (8.5-10.1) 8.7 mg/dL (8.5-10.1) Vancomycin Level Trough 7.8 mcg/mL (10.0-20.0) Vancomycin Last Dose Date 01/02/17 Vancomycin Last Dose Time 0000 Laboratory Tests Test 01/03/17 03:30 White Blood Count 12.6 x10^3/uL (4.0-11.0) Red Blood Count 4.13 x10^6/uL (4.30-5.70) Hemoglobin 12.6 g/dL (13.0-17.5) Hematocrit 37.9 % (39.0-53.0) Mean Corpuscular Volume 92 fL (79-100) Mean Corpuscular Hemoglobin 31 pg (25-35) Mean Corpuscular Hemoglobin Concent 33 g/dL (31-37) Red Cell Distribution Width 13.4 % (11.5-14.5) Platelet Count 396 x10^3/uL (140-400) Neutrophils (%) (Auto) 69 % (31-73) Lymphocytes (%) (Auto) 14 % (24-48) Monocytes (%) (Auto) 13 % (0-9) Eosinophils (%) (Auto) 4 % (0-3) Basophils (%) (Auto) 1 % (0-3) Neutrophils # (Auto) 8.7 x10^3uL (1.8-7.7) Lymphocytes # (Auto) 1.7 x10^3/uL (1.0-4.8) Monocytes # (Auto) 1.6 x10^3/uL (0.0-1.1) Eosinophils # (Auto) 0.5 x10^3/uL (0.0-0.7) Basophils # (Auto) 0.1 x10^3/uL (0.0-0.2) Sodium Level 141 mmol/L (136-145) Potassium Level 3.1 mmol/L (3.5-5.1) Chloride Level 105 mmol/L (98-107) Carbon Dioxide Level 25 mmol/L (21-32) Anion Gap 11 (6-14) Blood Urea Nitrogen 11 mg/dL (8-26) Creatinine 0.6 mg/dL (0.7-1.3) Estimated GFR (Cockcroft-Gault) 143.2 Glucose Level 92 mg/dL (70-99) Calcium Level 8.7 mg/dL (8.5-10.1) Medications Active Scripts Medications Dose Route/Sig Max Daily Dose Days Date Category Requip (Ropinirole Hcl) 1 Mg Tablet 2 Mg PO QHS 12/28/16 Reported Mirtazapine 30 Mg Tablet 0.5 Tab PO QHS 12/28/16 Reported Proair Hfa Inhaler (Albuterol Sulfate) 8.5 Gm Hfa.aer.ad 1-2 Puff INH PRN Q6HRS PRN 12/28/16 Reported Spiriva (Tiotropium Elmer) 18 Mcg Cap.w.dev 2 Inh IH DAILY 12/28/16 Reported Spiriva (Tiotropium Elmer) 18 Mcg Cap.w.dev 1 Cap IH DAILY 12/28/16 Reported Omeprazole 20 Mg Capsule. 1 Cap PO DAILY 12/28/16 Reported Dexamethasone 4 Mg Tablet 1 Tab PO QID 12/28/16 Reported Symbicort 80-4.5 Mcg Inhaler (Budesonide/Formoterol Fumarate) 10.2 Gm Hfa.aer.ad 2 Puff IH BID 12/28/16 Reported Alprazolam 0.5 Mg Tablet 1 Tab PO QAM 12/28/16 Reported Metoprolol Tartrate 50 Mg Tablet 0.5 Tab PO BID 12/28/16 Reported Amiodarone Hcl 200 Mg Tablet 1 Tab PO DAILY 12/28/16 Reported Tylenol (Acetaminophen) 325 Mg Tablet 2 Tab PO PRN Q6HRS PRN 12/28/16 Reported Melatonin 3 Mg Tablet 2 Tab PO QHS 12/28/16 Reported Montelukast Sodium Tablet (Montelukast Sodium) 10 Mg Tablet 1 Tab PO DAILY 12/28/16 Reported Atorvastatin Calcium 40 Mg Tablet 1 Tab PO QHS 12/28/16 Reported Tramadol Hcl 50 Mg Tablet 50 Mg PO Q6H PRN 12/28/16 Reported Hydrocodone-Apap 7.5-325 (Hydrocodone Bit/Acetaminophen) 1 Each Tablet 1 Tab PO PRN Q6HRS PRN 12/28/16 Reported Zoloft (Sertraline Hcl) 25 Mg Tablet 1 Tab PO DAILY 12/28/16 Reported Impression . 1. Acute respiratory failure secondary to acute toxic encephalopathy. 2. Acute toxic encephalopathy secondary to overdose of Benadryl, acetaminophen , cocaine and alcohol. 3. Diffuse bilateral infiltrates, most likely related to aspiration pneumonia.improving 4. Fever secondary to aspiration pneumonia. 5. Leukocytosis. 6. Abnormal urine toxicology screen positive for cocaine and acetaminophen. 7. Acute Live Injury Plan . RESP STATUS IS COMPENSATED WILL S/O THANKS EMILI HARRISON MD Jan 03, 2017 18:02
[2017-01-03 19:00] VITALS: BP 117/77
[2017-01-03] MEDS: LACTOBACILLUS RHAMNOSUS GG 1 CAPSULE. PO SCH (20:47)
[2017-01-03 23:03] VITALS: BP 106/72
[2017-01-04] MEDS: IBUPROFEN 400 MG TABLET. PO PRN ×4 (00:29→20:52)
[2017-01-04 03:00] VITALS: BP 107/72
[2017-01-04 06:14] LABS: BASO # 0.1 x10^3/uL (0.0-0.2); BASO % 1 % (0-3); EOS % 8 % (0-3); HEMATOCRIT 43.6 % (39.0-53.0); HEMOGLOBIN 14.6 g/dL (13.0-17.5); LYMPH # 3.3 x10^3/uL (1.0-4.8); LYMPH % 29 % (24-48); MEAN CORPUSCULAR HEMOGLOBIN 31 pg (25-35); MEAN CORPUSCULAR HGB CONC 34 g/dL (31-37); MEAN CORPUSCULAR VOLUME 92 fL (79-100); MONO % 13 % (0-9); NEUT % 49 % (31-73); PLATELET COUNT 566 x10^3/uL (140-400); RED BLOOD COUNT 4.76 x10^6/uL (4.30-5.70); RED CELL DISTRIBUTION WIDTH 13.7 % (11.5-14.5); WHITE BLOOD COUNT 11.2 x10^3/uL (4.0-11.0)
[2017-01-04 06:37] LABS: ALBUMIN 3.1 g/dL (3.4-5.0); DIRECT BILIRUBIN 0.2 mg/dL (0.0-0.2); TOTAL BILIRUBIN 0.4 mg/dL (0.2-1.0); TOTAL PROTEIN 7.3 g/dL (6.4-8.2)
[2017-01-04 06:51] LABS: CALCIUM 9.8 mg/dL (8.5-10.1); CREATININE 0.8 mg/dL (0.7-1.3); GFR 102.7; POTASSIUM 3.4 mmol/L (3.5-5.1)
[2017-01-04 07:00] VITALS: BP 103/67
[2017-01-04] MEDS: LACTOBACILLUS RHAMNOSUS GG 1 CAPSULE. PO SCH ×2 (08:25→20:39)
[2017-01-04] MEDS: LINEZOLID 600 MG TABLET PO SCH ×2 (08:25→20:39)
[2017-01-04] MEDS: HALOPERIDOL LACTATE 5 MG/ML VIAL. IVP SCH ×2 (08:25→20:40)
[2017-01-04] MEDS: POTASSIUM CHLORIDE 20 MEQ TABLET.ER. PO SCH (08:26)
--- NOTE | 2017-01-04 09:52 | PDOC ---
PROGRESS NOTES Chief Complaint Chief Complaint AMS ASSESSMENT AND PLAN: 1. Toxic encephalopathy: 2/2 prescription and/or illicit drug O/D. resolved 2. Suicide attempt: w/ benadryl, tylenol. 1:1 sitter, to Psych inpt when bed available 3. Aspiration pneumonitis/PNA: few GPC in sputum. rpt CXR essentially unchanged with bilat infiltrates. on zyvox as per ID 4. EtOH abuse: on CIWA protocol, no ativan x24h; d/c 5. hx cocaine abuse 6. Hypokalemia: replete orally 7. Hypomagnesemia: resolved. monitor 8. Shoulder pain: suspect muscle rather than joint injury. ibuprofen PRN 9. Prophylaxis: H2b, lovenox History of Present Illness History of Present Illness no c/o. eager to go home Vitals Vitals Vital Signs Date Time Temp Pulse Resp B/P (MAP) Pulse Ox O2 Delivery O2 Flow Rate FiO2 01/04/17 07:51 Room Air 01/04/17 07:00 97.9 82 19 103/67 (79) 96 97.9 Physical Exam General: Alert, No acute distress Heart: Regular rate Lungs: Clear Abdomen: Normal bowel sounds, Soft, No tenderness Extremities: No edema Skin: No rashes Labs LABS Laboratory Tests Test 01/04/17 05:40 White Blood Count 11.2 x10^3/uL (4.0-11.0) Red Blood Count 4.76 x10^6/uL (4.30-5.70) Hemoglobin 14.6 g/dL (13.0-17.5) Hematocrit 43.6 % (39.0-53.0) Mean Corpuscular Volume 92 fL (79-100) Mean Corpuscular Hemoglobin 31 pg (25-35) Mean Corpuscular Hemoglobin Concent 34 g/dL (31-37) Red Cell Distribution Width 13.7 % (11.5-14.5) Platelet Count 566 x10^3/uL (140-400) Neutrophils (%) (Auto) 49 % (31-73) Lymphocytes (%) (Auto) 29 % (24-48) Monocytes (%) (Auto) 13 % (0-9) Eosinophils (%) (Auto) 8 % (0-3) Basophils (%) (Auto) 1 % (0-3) Neutrophils # (Auto) 5.5 x10^3uL (1.8-7.7) Lymphocytes # (Auto) 3.3 x10^3/uL (1.0-4.8) Monocytes # (Auto) 1.5 x10^3/uL (0.0-1.1) Eosinophils # (Auto) 0.9 x10^3/uL (0.0-0.7) Basophils # (Auto) 0.1 x10^3/uL (0.0-0.2) Sodium Level 141 mmol/L (136-145) Potassium Level 3.4 mmol/L (3.5-5.1) Chloride Level 106 mmol/L (98-107) Carbon Dioxide Level 25 mmol/L (21-32) Anion Gap 10 (6-14) Blood Urea Nitrogen 19 mg/dL (8-26) Creatinine 0.8 mg/dL (0.7-1.3) Estimated GFR (Cockcroft-Gault) 102.7 Glucose Level 94 mg/dL (70-99) Calcium Level 9.8 mg/dL (8.5-10.1) Magnesium Level 2.0 mg/dL (1.8-2.4) Total Bilirubin 0.4 mg/dL (0.2-1.0) Direct Bilirubin 0.2 mg/dL (0.0-0.2) Aspartate Amino Transf (AST/SGOT) 177 U/L (15-37) Alanine Aminotransferase (ALT/SGPT) 300 U/L (16-63) Alkaline Phosphatase 104 U/L (46-116) Total Protein 7.3 g/dL (6.4-8.2) Albumin 3.1 g/dL (3.4-5.0) BRUCE GOMEZ MD Jan 04, 2017 09:52
[2017-01-04 10:57] VITALS: BP 107/72
[2017-01-04] MEDS: ENOXAPARIN 40 MG/0.4 ML SYRINGE. SQ SCH (13:34)
[2017-01-04 14:59] VITALS: BP 104/67
[2017-01-04 19:05] VITALS: BP 106/62
[2017-01-04 22:35] VITALS: BP 114/86
[2017-01-05 03:29] VITALS: BP 107/73
[2017-01-05 05:07] LABS: BASO # 0.1 x10^3/uL (0.0-0.2); BASO % 1 % (0-3); EOS % 7 % (0-3); HEMATOCRIT 39.4 % (39.0-53.0); HEMOGLOBIN 13.4 g/dL (13.0-17.5); LYMPH # 2.3 x10^3/uL (1.0-4.8); LYMPH % 24 % (24-48); MEAN CORPUSCULAR HEMOGLOBIN 31 pg (25-35); MEAN CORPUSCULAR HGB CONC 34 g/dL (31-37); MEAN CORPUSCULAR VOLUME 91 fL (79-100); MONO % 12 % (0-9); NEUT % 57 % (31-73); PLATELET COUNT 578 x10^3/uL (140-400); RED BLOOD COUNT 4.34 x10^6/uL (4.30-5.70); RED CELL DISTRIBUTION WIDTH 13.6 % (11.5-14.5); WHITE BLOOD COUNT 9.3 x10^3/uL (4.0-11.0)
[2017-01-05 05:45] LABS: CALCIUM 8.9 mg/dL (8.5-10.1); CREATININE 0.7 mg/dL (0.7-1.3); GFR 119.9; POTASSIUM 3.8 mmol/L (3.5-5.1)
[2017-01-05 06:10] LABS: ALBUMIN 2.7 g/dL (3.4-5.0); DIRECT BILIRUBIN 0.1 mg/dL (0.0-0.2); TOTAL BILIRUBIN 0.3 mg/dL (0.2-1.0); TOTAL PROTEIN 6.3 g/dL (6.4-8.2)
[2017-01-05] MEDS: LACTOBACILLUS RHAMNOSUS GG 1 CAPSULE. PO SCH ×2 (07:46→21:34)
[2017-01-05] MEDS: LINEZOLID 600 MG TABLET PO SCH ×2 (07:46→21:34)
[2017-01-05] MEDS: POTASSIUM CHLORIDE 20 MEQ TABLET.ER. PO SCH (07:46)
[2017-01-05] MEDS: HALOPERIDOL LACTATE 5 MG/ML VIAL. IVP SCH ×2 (07:47→21:34)
[2017-01-05] MEDS: IBUPROFEN 400 MG TABLET. PO PRN ×2 (07:48→21:47)
[2017-01-05 08:01] VITALS: BP 106/74
[2017-01-05 11:13] VITALS: BP 114/71
[2017-01-05] MEDS: ENOXAPARIN 40 MG/0.4 ML SYRINGE. SQ SCH (13:19)
--- NOTE | 2017-01-05 14:27 | PDOC ---
PROGRESS NOTES Chief Complaint Chief Complaint AMS ASSESSMENT AND PLAN: 1. Toxic encephalopathy: 2/2 prescription and/or illicit drug O/D. resolved 2. Suicide attempt: w/ benadryl, tylenol. 1:1 sitter, to Psych inpt when bed available 3. Aspiration pneumonitis/PNA: 4. EtOH abuse: s/p CIWA 5. hx cocaine abuse 6. Hypokalemia: repleted 7. Hypomagnesemia: resolved. History of Present Illness History of Present Illness medically ready to dc BUt waiting on inpt psych bed Pt is agreeable - at least he knows it is INVOLUNTARY admission 1: 1 at bedside no medical issues PLAn: Await SW or Jose come saturday Cont 1:1 for now Vitals Vitals Vital Signs Date Time Temp Pulse Resp B/P (MAP) Pulse Ox O2 Delivery O2 Flow Rate FiO2 01/05/17 11:13 98.2 69 16 114/71 (85) 98 Room Air 98.2 Physical Exam General: Alert, No acute distress Heart: Regular rate Lungs: Clear Abdomen: Normal bowel sounds, Soft, No tenderness Extremities: No edema Skin: No rashes Labs LABS Laboratory Tests Test 01/05/17 04:40 01/05/17 04:55 White Blood Count 9.3 x10^3/uL (4.0-11.0) Red Blood Count 4.34 x10^6/uL (4.30-5.70) Hemoglobin 13.4 g/dL (13.0-17.5) Hematocrit 39.4 % (39.0-53.0) Mean Corpuscular Volume 91 fL (79-100) Mean Corpuscular Hemoglobin 31 pg (25-35) Mean Corpuscular Hemoglobin Concent 34 g/dL (31-37) Red Cell Distribution Width 13.6 % (11.5-14.5) Platelet Count 578 x10^3/uL (140-400) Neutrophils (%) (Auto) 57 % (31-73) Lymphocytes (%) (Auto) 24 % (24-48) Monocytes (%) (Auto) 12 % (0-9) Eosinophils (%) (Auto) 7 % (0-3) Basophils (%) (Auto) 1 % (0-3) Neutrophils # (Auto) 5.3 x10^3uL (1.8-7.7) Lymphocytes # (Auto) 2.3 x10^3/uL (1.0-4.8) Monocytes # (Auto) 1.1 x10^3/uL (0.0-1.1) Eosinophils # (Auto) 0.6 x10^3/uL (0.0-0.7) Basophils # (Auto) 0.1 x10^3/uL (0.0-0.2) Sodium Level 142 mmol/L (136-145) Potassium Level 3.8 mmol/L (3.5-5.1) Chloride Level 108 mmol/L (98-107) Carbon Dioxide Level 24 mmol/L (21-32) Anion Gap 10 (6-14) Blood Urea Nitrogen 20 mg/dL (8-26) Creatinine 0.7 mg/dL (0.7-1.3) Estimated GFR (Cockcroft-Gault) 119.9 Glucose Level 89 mg/dL (70-99) Calcium Level 8.9 mg/dL (8.5-10.1) Total Bilirubin 0.3 mg/dL (0.2-1.0) Direct Bilirubin 0.1 mg/dL (0.0-0.2) Aspartate Amino Transf (AST/SGOT) 87 U/L (15-37) Alanine Aminotransferase (ALT/SGPT) 220 U/L (16-63) Alkaline Phosphatase 79 U/L (46-116) Total Protein 6.3 g/dL (6.4-8.2) Albumin 2.7 g/dL (3.4-5.0) Review of Systems Review of Systems denies 14 pt , not suicidal currently Comment Review of Relevant I have reviewed the following items jessa (where applicable) has been applied. Labs Laboratory Tests Test 01/04/17 05:40 01/05/17 04:40 01/05/17 04:55 White Blood Count 11.2 x10^3/uL (4.0-11.0) 9.3 x10^3/uL (4.0-11.0) Red Blood Count 4.76 x10^6/uL (4.30-5.70) 4.34 x10^6/uL (4.30-5.70) Hemoglobin 14.6 g/dL (13.0-17.5) 13.4 g/dL (13.0-17.5) Hematocrit 43.6 % (39.0-53.0) 39.4 % (39.0-53.0) Mean Corpuscular Volume 92 fL (79-100) 91 fL (79-100) Mean Corpuscular Hemoglobin 31 pg (25-35) 31 pg (25-35) Mean Corpuscular Hemoglobin Concent 34 g/dL (31-37) 34 g/dL (31-37) Red Cell Distribution Width 13.7 % (11.5-14.5) 13.6 % (11.5-14.5) Platelet Count 566 x10^3/uL (140-400) 578 x10^3/uL (140-400) Neutrophils (%) (Auto) 49 % (31-73) 57 % (31-73) Lymphocytes (%) (Auto) 29 % (24-48) 24 % (24-48) Monocytes (%) (Auto) 13 % (0-9) 12 % (0-9) Eosinophils (%) (Auto) 8 % (0-3) 7 % (0-3) Basophils (%) (Auto) 1 % (0-3) 1 % (0-3) Neutrophils # (Auto) 5.5 x10^3uL (1.8-7.7) 5.3 x10^3uL (1.8-7.7) Lymphocytes # (Auto) 3.3 x10^3/uL (1.0-4.8) 2.3 x10^3/uL (1.0-4.8) Monocytes # (Auto) 1.5 x10^3/uL (0.0-1.1) 1.1 x10^3/uL (0.0-1.1) Eosinophils # (Auto) 0.9 x10^3/uL (0.0-0.7) 0.6 x10^3/uL (0.0-0.7) Basophils # (Auto) 0.1 x10^3/uL (0.0-0.2) 0.1 x10^3/uL (0.0-0.2) Sodium Level 141 mmol/L (136-145) 142 mmol/L (136-145) Potassium Level 3.4 mmol/L (3.5-5.1) 3.8 mmol/L (3.5-5.1) Chloride Level 106 mmol/L (98-107) 108 mmol/L (98-107) Carbon Dioxide Level 25 mmol/L (21-32) 24 mmol/L (21-32) Anion Gap 10 (6-14) 10 (6-14) Blood Urea Nitrogen 19 mg/dL (8-26) 20 mg/dL (8-26) Creatinine 0.8 mg/dL (0.7-1.3) 0.7 mg/dL (0.7-1.3) Estimated GFR (Cockcroft-Gault) 102.7 119.9 Glucose Level 94 mg/dL (70-99) 89 mg/dL (70-99) Calcium Level 9.8 mg/dL (8.5-10.1) 8.9 mg/dL (8.5-10.1) Magnesium Level 2.0 mg/dL (1.8-2.4) Total Bilirubin 0.4 mg/dL (0.2-1.0) 0.3 mg/dL (0.2-1.0) Direct Bilirubin 0.2 mg/dL (0.0-0.2) 0.1 mg/dL (0.0-0.2) Aspartate Amino Transf (AST/SGOT) 177 U/L (15-37) 87 U/L (15-37) Alanine Aminotransferase (ALT/SGPT) 300 U/L (16-63) 220 U/L (16-63) Alkaline Phosphatase 104 U/L (46-116) 79 U/L (46-116) Total Protein 7.3 g/dL (6.4-8.2) 6.3 g/dL (6.4-8.2) Albumin 3.1 g/dL (3.4-5.0) 2.7 g/dL (3.4-5.0) Laboratory Tests Test 01/05/17 04:40 01/05/17 04:55 White Blood Count 9.3 x10^3/uL (4.0-11.0) Red Blood Count 4.34 x10^6/uL (4.30-5.70) Hemoglobin 13.4 g/dL (13.0-17.5) Hematocrit 39.4 % (39.0-53.0) Mean Corpuscular Volume 91 fL (79-100) Mean Corpuscular Hemoglobin 31 pg (25-35) Mean Corpuscular Hemoglobin Concent 34 g/dL (31-37) Red Cell Distribution Width 13.6 % (11.5-14.5) Platelet Count 578 x10^3/uL (140-400) Neutrophils (%) (Auto) 57 % (31-73) Lymphocytes (%) (Auto) 24 % (24-48) Monocytes (%) (Auto) 12 % (0-9) Eosinophils (%) (Auto) 7 % (0-3) Basophils (%) (Auto) 1 % (0-3) Neutrophils # (Auto) 5.3 x10^3uL (1.8-7.7) Lymphocytes # (Auto) 2.3 x10^3/uL (1.0-4.8) Monocytes # (Auto) 1.1 x10^3/uL (0.0-1.1) Eosinophils # (Auto) 0.6 x10^3/uL (0.0-0.7) Basophils # (Auto) 0.1 x10^3/uL (0.0-0.2) Sodium Level 142 mmol/L (136-145) Potassium Level 3.8 mmol/L (3.5-5.1) Chloride Level 108 mmol/L (98-107) Carbon Dioxide Level 24 mmol/L (21-32) Anion Gap 10 (6-14) Blood Urea Nitrogen 20 mg/dL (8-26) Creatinine 0.7 mg/dL (0.7-1.3) Estimated GFR (Cockcroft-Gault) 119.9 Glucose Level 89 mg/dL (70-99) Calcium Level 8.9 mg/dL (8.5-10.1) Total Bilirubin 0.3 mg/dL (0.2-1.0) Direct Bilirubin 0.1 mg/dL (0.0-0.2) Aspartate Amino Transf (AST/SGOT) 87 U/L (15-37) Alanine Aminotransferase (ALT/SGPT) 220 U/L (16-63) Alkaline Phosphatase 79 U/L (46-116) Total Protein 6.3 g/dL (6.4-8.2) Albumin 2.7 g/dL (3.4-5.0) Microbiology 12/31/16 Blood Culture - Preliminary, Resulted NO GROWTH AFTER 4 DAYS 12/30/16 - Final, Complete 12/30/16 - Final, Complete 12/30/16 - Final, Complete 12/30/16 - Final, Complete 12/30/16 Gram Stain Evaluation - Final, Complete 12/30/16 Sputum Culture - Final, Complete 12/30/16 Sputum Result 1 - Final, Complete 12/30/16 Sputum Result 2 - Final, Complete 12/30/16 Antimicrobic Susceptibility - Final, Complete Medications Current Medications Info (Do NOT chart on this placeholder) 1 each 1X ONCE MC ; Start 12/28/16 at 04:15; Stop 12/28/16 at 04:16; Status UNV Pneumococcal Polyvalent Vaccine (Do NOT chart on this placeholder) 1 each 1X ONCE MC ; Start 12/28/16 at 04:15; Stop 12/28/16 at 04:16; Status UNV Sodium Chloride 1,000 ml @ 100 mls/hr Q10H IV Last administered on 12/29/16 05:56; Start 12/28/16 at 05:00; Stop 12/29/16 at 08:37; Status DC Acetylcysteine 6.87 gm/Dextrose 1,034.35 ml @ 62.5 mls/ hr 1X ONCE IV Last administered on 12/28/16 05:36; Start 12/28/16 at 05:30; Stop 12/28/16 at 22 :02; Status DC Physostigmine Salicylate (Antilirium) 2 mg 1X ONCE IV Last administered on 08:20; Start 12/28/16 at 06:15; Stop 12/28/16 at 06:16; Status DC Sodium Bicarbonate 50 meq 1X ONCE IV Last administered on 12/28/16 06:23; Start 12/28/16 at 06:00; Stop 12/28/16 at 06:02; Status DC Influenza Virus Vaccine Quadrival (Fluarix Quad [id number] Syringe) 0.5 ml ONCE ONCE VAX IM ; Start 12/28/16 at 09:00; Stop 12/28/16 at 09:01; Status DC Pneumococcal Polyvalent Vaccine (Pneumovax 23) 0.5 ml ONCE ONCE VAX IM ; Start 12/28/16 at 09:00; Stop 12/28/16 at 09:01; Status DC Multivitamins 10 ml/Thiamine HCl 100 mg/Folic Acid 1 mg/Sodium Chloride 1,011.2 ml @ 100 mls/ hr DAILY IV Last administered on 12/29/16 09:01; Start at 09:00; Stop 12/29/16 at 09:33; Status DC Lorazepam (Ativan) 2 mg PRN Q1HR PRN IV For CIWA 8-14 Last administered on 06:41; Start 12/28/16 at 08:30 Lorazepam (Ativan) 4 mg PRN Q1HR PRN IV For CIWA 15 or greater Last administered on 01/01/17 01:17; Start 12/28/16 at 08:30 Haloperidol Lactate (Haldol) 5 mg PRN Q6HRS PRN IVP AGITATION Last administered on 12/31/16 23:12; Start 12/28/16 at 09:15 Enoxaparin Sodium (Lovenox Per Pharmacy Prophylaxis Dosing) 1 each PRN DAILY PRN MC SEE COMMENTS; Start 12/28/16 at 13:45; Stop 01/01/17 at 07:16; Status DC Enoxaparin Sodium (Lovenox 40mg Syringe) 40 mg Q24H SQ Last administered on 13:19; Start 12/28/16 at 14:00 Acetylcysteine 6.9 gm/Dextrose 1,034.5 ml @ 62.509 mls/hr 1X ONCE IV Last administered on 12/28/16 22:43; Start 12/28/16 at 23:00; Stop 12/29/16 at 15 :32; Status DC Lorazepam (Ativan) 2 mg 1X ONCE IV Last administered on 12/29/16 01:35; Start 12/29/16 at 01:45; Stop 12/29/16 at 01:46; Status DC Propofol 100 ml @ 0 mls/hr CONT PRN IV SEE I/O RECORD Last administered on 01:48; Start 12/29/16 at 05:00; Stop 12/30/16 at 09:22; Status DC Rocuronium [place] (Zemuron) 50 mg STK-MED ONCE .ROUTE ; Start 12/29/16 at 05: 20; Stop 12/29/16 at 05:21; Status DC Succinylcholine Chloride (Anectine) 200 mg STK-MED ONCE .ROUTE ; Start at 05:21; Stop 12/29/16 at 05:22; Status DC Propofol 20 ml @ As Directed STK-MED ONCE IV ; Start 12/29/16 at 05:22; Stop 12/29/16 at 05:23; Status DC Amino Acids/ Glycerin/ Electrolytes 1,000 ml @ 80 mls/hr [id number] IV Last administered on 12/29/16 09:02; Start 12/29/16 at 08:45; Stop 12/30/16 at 09 :14; Status DC Lorazepam (Ativan) 4 mg PRN Q4HRS PRN IV ANXIETY / AGITATION; Start 12/29/16 at 08:45; Status Cancel Lorazepam 100 mg/ Sodium Chloride 100 ml @ 0 mls/hr CONT PRN IV IVF Last administered on 12/29/16 09:02; Start 12/29/16 at 08:45; Stop 01/03/17 at 13 :09; Status DC Ceftriaxone Sodium 1 gm/ Dextrose 50 ml @ 100 mls/hr Q24H IV ; Start 12/29/16 at 09:30; Status UNV Metronidazole 100 ml @ 100 mls/hr Q8HRS IV ; Start 12/29/16 at 14:00; Stop at 14:00; Status DC Potassium Chloride (KCl Oral Soln) 40 meq 1X ONCE PEG Last administered on 10:37; Start 12/29/16 at 10:00; Stop 12/29/16 at 10:01; Status DC Ceftriaxone Sodium (Rocephin) 1 gm Q24H IVP ; Start 12/29/16 at 10:00; Stop at 10:08; Status DC Piperacillin Sod/ Tazobactam Sod (Zosyn Per Pharmacy) 1 each PRN DAILY PRN MC SEE COMMENTS; Start 12/29/16 at 10:15; Stop 01/01/17 at 07:16; Status DC Levofloxacin/ Dextrose 100 ml @ 100 mls/hr Q24H IV Last administered on 11:15; Start 12/29/16 at 11:00; Stop 01/02/17 at 08:02; Status DC Famotidine (Pepcid Vial) 20 mg BID IVP Last administered on 01/03/17 09:00; Start 12/29/16 at 11:00; Stop 01/03/17 at 13:09; Status DC Dexmedetomidine HCl 200 mcg/ Sodium Chloride 50 ml @ 0 mls/hr CONT PRN IV PER PROTOCOL Last administered on 12/31/16 08:45; Start 12/29/16 at 10:15; Stop 01/03/17 at 13:09; Status DC Fentanyl Citrate (Fentanyl 2ml Vial) 25 mcg PRN Q1HR PRN IV PAIN Last administered on 01/02/17 05:55; Start 12/29/16 at 10:15; Stop 01/03/17 at 13 :09; Status DC Lorazepam (Ativan) 0.5 mg PRN Q2HRS PRN IV AGITATION; Start 12/29/16 at 10:15 Propofol 100 ml @ 0 mls/hr CONT PRN IV SEDATION Last administered on 11:23; Start 12/29/16 at 10:15; Stop 01/03/17 at 13:09; Status DC Sodium Chloride 500 ml @ 500 mls/hr 1X PRN PRN IV SEE COMMENTS; Start at 10:15; Stop 01/03/17 at 17:30; Status DC Atropine Sulfate 0.5 mg PRN Q5MIN PRN IV SEE COMMENTS; Start 12/29/16 at 10:15 ; Stop 01/03/17 at 13:09; Status DC Piperacillin Sod/ Tazobactam Sod (Zosyn) 3.375 gm Q6HRS IVP Last administered on 01/03/17 06:29; Start 12/29/16 at 12:00; Stop 01/03/17 at 08:43; Status DC Acetylcysteine 6.9 gm/Dextrose 1,034.5 ml @ 62.509 mls/hr 1X ONCE IV Last administered on 12/29/16 15:40; Start 12/29/16 at 15:00; Stop 12/30/16 at 07 :32; Status DC Potassium Chloride (KCl Oral Soln) 40 meq 1X ONCE PEG Last administered on 12:49; Start 12/30/16 at 12:30; Stop 12/30/16 at 12:31; Status DC Potassium Chloride (KCl Oral Soln) 20 meq DAILY PEG Last administered on 09:00; Start 12/31/16 at 09:00; Stop 01/03/17 at 18:28; Status DC Potassium Chloride/Dextrose/ Sod Cl 1,000 ml @ 75 mls/hr 1X ONCE IV Last administered on 12/30/16 12:48; Start 12/30/16 at 13:00; Stop 12/31/16 at 02 :20; Status DC Magnesium Sulfate/ Dextrose 100 ml @ 25 mls/hr 1X ONCE IV Last administered on 12/30/16 14:28; Start 12/30/16 at 14:00; Stop 12/30/16 at 17:59; Status DC Acetylcysteine 6.9 gm/Dextrose 1,034.5 ml @ 62.509 mls/hr 1X ONCE IV Last administered on 12/30/16 15:03; Start 12/30/16 at 15:00; Stop 12/31/16 at 07 :32; Status DC Ibuprofen (Children'S Motrin) 400 mg PRN Q6HRS PRN PO INFLAMMATION Last administered on 12/30/16 21:44; Start 12/30/16 at 20:15; Stop 01/03/17 at 17 :30; Status DC Rocuronium [place] (Zemuron) 50 mg STK-MED ONCE .ROUTE ; Start 12/29/16 at 05: 20; Stop 12/31/16 at 09:03; Status DC Bisacodyl (Dulcolax Tab) 5 mg PRN DAILY PRN PO CONSTIPATION; Start 12/31/16 at 09:30 Acetylcysteine 6.9 gm/Dextrose 1,034.5 ml @ 62.5 mls/ hr 1X ONCE IV Last administered on 12/31/16 11:24; Start 12/31/16 at 11:00; Stop 01/01/17 at 03 :33; Status DC Multi-Ingred Cream/Lotion/Oil/ Oint (Artificial Tears Eye Oint) 1 tigist PRN Q1HR PRN OU DRY EYE Last administered on 12/31/16 11:24; Start 12/31/16 at 11:00 Sodium Chloride 1,000 ml @ 75 mls/hr [id number] IV Last administered on 00:01; Start 12/31/16 at 22:45; Stop 01/01/17 at 11:46; Status DC Vancomycin HCl (Vanco Per Pharmacy) 1 each PRN DAILY PRN MC SEE COMMENTS Last administered on 01/01/17 08:04; Start 01/01/17 at 06:45; Stop 01/02/17 at 08 :03; Status DC Vancomycin HCl 1.75 gm/Dextrose 500 ml @ 250 mls/hr 1X ONCE IV Last administered on 01/01/17 07:24; Start 01/01/17 at 07:00; Stop 01/01/17 at 08 :59; Status DC Vancomycin HCl 1 each 1X ONCE MC Last administered on 01/02/17 07:30; Start 01/02/17 at 07:30; Stop 01/02/17 at 07:31; Status DC Vancomycin HCl 1 gm/Dextrose 250 ml @ 250 mls/hr Q8H IV Last administered on 01/01/17 23:42; Start 01/01/17 at 16:00; Stop 01/02/17 at 08:02; Status DC Haloperidol Lactate (Haldol) 5 mg Q8HRS IVP Last administered on 01/02/17 14: 39; Start 01/01/17 at 14:00; Stop 01/02/17 at 16:16; Status DC Potassium Chloride/Sodium Chloride 1,000 ml @ 75 mls/hr [id number] IV Last administered on 01/01/17 12:48; Start 01/01/17 at 12:30; Stop 01/01/17 at 14 :11; Status DC Amino Acids/ Glycerin/ Electrolytes 1,000 ml @ 75 mls/hr [id number] IV Last administered on 01/02/17 03:52; Start 01/01/17 at 13:30; Stop 01/02/17 at 16 :37; Status DC Potassium Chloride 50 ml @ 50 mls/hr 1X ONCE IV ; Start 01/01/17 at 13:30; Stop 01/01/17 at 14:29; Status UNV Potassium Chloride 50 ml @ 50 mls/hr 1X ONCE IV ; Start 01/01/17 at 13:30; Stop 01/01/17 at 14:29; Status UNV Potassium Chloride 10 meq/ Sodium Chloride 105 ml @ 105 mls/hr Q1H IV Last administered on 01/01/17 17:36; Start 01/01/17 at 14:30; Stop 01/01/17 at 18 :29; Status DC Ondansetron HCl (Zofran) 4 mg PRN Q6HRS PRN IV NAUSEA/VOMITING Last administered on 01/01/17 20:35; Start 01/01/17 at 20:30 Linezolid 300 ml @ 300 mls/hr Q12HR IV Last administered on 01/02/17 20:42; Start 01/02/17 at 09:00; Stop 01/03/17 at 08:43; Status DC Potassium Chloride 50 ml @ 50 mls/hr Q1H IV ; Start 01/02/17 at 16:00; Stop at 17:59; Status UNV Potassium Chloride 50 ml @ 50 mls/hr Q1H IV ; Start 01/02/17 at 16:00; Stop at 17:59; Status UNV Haloperidol Lactate (Haldol) 5 mg Q12HR IVP Last administered on 01/05/17 07: 47; Start 01/02/17 at 21:00 Potassium Chloride (Klor-Con) 40 meq 1X ONCE PO Last administered on 16:35; Start 01/02/17 at 16:30; Stop 01/02/17 at 16:31; Status DC Linezolid (Zyvox) 600 mg BID PO Last administered on 01/05/17 07:46; Start 01/03/17 at 09:00 Potassium Chloride (Klor-Con) 20 meq BIDACLD PO Last administered on 17:04; Start 01/03/17 at 13:30; Stop 01/03/17 at 23:00; Status DC Ibuprofen (Motrin) 400 mg PRN Q6HRS PRN PO INFLAMMATION Last administered on 07:48; Start 01/03/17 at 13:30 Potassium Chloride (Klor-Con) 20 meq DAILY PO Last administered on 01/05/17 07:46; Start 01/04/17 at 09:00 Lactobacillus Rhamnosus (Culturelle) 1 cap BID PO Last administered on 07:46; Start 01/03/17 at 21:00 Active Scripts Active Reported Requip (Ropinirole Hcl) 1 Mg Tablet 2 Mg PO QHS Mirtazapine 30 Mg Tablet 0.5 Tab PO QHS Proair Hfa Inhaler (Albuterol Sulfate) 8.5 Gm Hfa.aer.ad 1-2 Puff INH PRN Q6HRS PRN Spiriva (Tiotropium [place]) 18 Mcg Cap.w.dev 2 Inh IH DAILY Spiriva (Tiotropium [place]) 18 Mcg Cap.w.dev 1 Cap IH DAILY Omeprazole 20 Mg Capsule.dr 1 Cap PO DAILY Dexamethasone 4 Mg Tablet 1 Tab PO QID Symbicort 80-4.5 Mcg Inhaler (Budesonide/Formoterol Fumarate) 10.2 Gm Hfa.aer.ad 2 Puff IH BID Alprazolam 0.5 Mg Tablet 1 Tab PO QAM Metoprolol Tartrate 50 Mg Tablet 0.5 Tab PO BID Amiodarone Hcl 200 Mg Tablet 1 Tab PO DAILY Tylenol (Acetaminophen) 325 Mg Tablet 2 Tab PO PRN Q6HRS PRN Melatonin 3 Mg Tablet 2 Tab PO QHS Montelukast Sodium Tablet (Montelukast Sodium) 10 Mg Tablet 1 Tab PO DAILY Atorvastatin Calcium 40 Mg Tablet 1 Tab PO QHS Tramadol Hcl 50 Mg Tablet 50 Mg PO Q6H PRN Hydrocodone-Apap 7.5-325 (Hydrocodone Bit/Acetaminophen) 1 Each Tablet 1 Tab PO PRN Q6HRS PRN Zoloft (Sertraline Hcl) 25 Mg Tablet 1 Tab PO DAILY Vitals/I & O Vital Sign - Last 24 Hours 01/04/17 01/04/17 01/04/17 01/04/17 14:59 19:05 19:40 22:35 Temp 97.5 97.7 99.0 97.5 97.7 99.0 Pulse 80 61 80 Resp 19 16 16 B/P (MAP) 104/67 (79) 106/62 (77) 114/86 (95) Pulse Ox 97 95 95 O2 Delivery Room Air Room Air Room Air Room Air 01/05/17 01/05/17 01/05/17 01/05/17 03:29 07:17 08:01 11:13 Temp 98.8 98.1 98.2 98.8 98.1 98.2 Pulse 65 70 69 Resp 16 18 16 B/P (MAP) 107/73 (84) 106/74 (85) 114/71 (85) Pulse Ox 95 97 98 O2 Delivery Room Air Room Air Room Air Room Air Intake and Output 01/04/17 01/04/17 01/05/17 15:00 23:00 07:00 Intake Total 300 ml 828 ml 240 ml Balance 300 ml 828 ml 240 ml MARIA ANTONIA MCGILL MD Jan 05, 2017 14:27
[2017-01-05 15:55] VITALS: BP 121/76
[2017-01-05 19:00] VITALS: BP 116/81
[2017-01-05 23:00] VITALS: BP 120/75
[2017-01-06 03:13] VITALS: BP 102/67
[2017-01-06 05:06] LABS: BASO # 0.1 x10^3/uL (0.0-0.2); BASO % 1 % (0-3); EOS % 5 % (0-3); HEMATOCRIT 40.4 % (39.0-53.0); HEMOGLOBIN 13.3 g/dL (13.0-17.5); LYMPH # 2.6 x10^3/uL (1.0-4.8); LYMPH % 26 % (24-48); MEAN CORPUSCULAR HEMOGLOBIN 31 pg (25-35); MEAN CORPUSCULAR HGB CONC 33 g/dL (31-37); MEAN CORPUSCULAR VOLUME 93 fL (79-100); MONO % 9 % (0-9); NEUT % 60 % (31-73); PLATELET COUNT 628 x10^3/uL (140-400); RED BLOOD COUNT 4.36 x10^6/uL (4.30-5.70); RED CELL DISTRIBUTION WIDTH 13.7 % (11.5-14.5); WHITE BLOOD COUNT 10.2 x10^3/uL (4.0-11.0)
[2017-01-06 05:26] LABS: CALCIUM 8.8 mg/dL (8.5-10.1); CREATININE 0.7 mg/dL (0.7-1.3); GFR 119.9; POTASSIUM 4.7 mmol/L (3.5-5.1)
[2017-01-06 05:31] LABS: ALBUMIN 2.8 g/dL (3.4-5.0); DIRECT BILIRUBIN 0.1 mg/dL (0.0-0.2); TOTAL BILIRUBIN 0.3 mg/dL (0.2-1.0)
[2017-01-06 07:00] VITALS: BP 124/63
[2017-01-06] MEDS: HALOPERIDOL LACTATE 5 MG/ML VIAL. IVP SCH (08:11)
[2017-01-06] MEDS: POTASSIUM CHLORIDE 20 MEQ TABLET.ER. PO SCH (08:11)
[2017-01-06] MEDS: LINEZOLID 600 MG TABLET PO SCH ×2 (08:11→20:06)
[2017-01-06] MEDS: LACTOBACILLUS RHAMNOSUS GG 1 CAPSULE. PO SCH ×2 (08:11→20:06)
[2017-01-06] MEDS ORDERED: ALPRAZolam 0.5 MG TABLET PO PRN (09:00)
[2017-01-06] MEDS ORDERED: HALOPERIDOL 5 MG TABLET. PO PRN (09:00)
[2017-01-06 10:16] VITALS: BP 115/73
--- NOTE | 2017-01-06 10:50 | PDOC ---
PROGRESS NOTES Chief Complaint Chief Complaint AMS ASSESSMENT AND PLAN: 1. Toxic encephalopathy: 2/2 prescription and/or illicit drug O/D. resolved 2. Suicide attempt: w/ benadryl, tylenol. 1:1 sitter, to Psych inpt when bed available 3. Aspiration pneumonitis/PNA , MRSA sputum - on zyvox 4. EtOH abuse: s/p CIWA 5. hx cocaine abuse 6. Hypokalemia: repleted 7. Hypomagnesemia: resolved. History of Present Illness History of Present Illness medically ready to dc BUt waiting on inpt psych bed Pt is agreeable - at least he knows it is INVOLUNTARY admission 1: 1 at bedside no medical issues On zyvox bec of MRSA sputum PLAn: Await SW or Jose come saturday - might not be SI anymore? Cont 1:1 for now Zyvox for few more days -- Vitals Vitals Vital Signs Date Time Temp Pulse Resp B/P (MAP) Pulse Ox O2 Delivery O2 Flow Rate FiO2 01/06/17 10:16 97.7 72 18 115/73 (87) 98 Room Air 97.7 Physical Exam General: Alert, No acute distress Heart: Regular rate Lungs: Clear Abdomen: Normal bowel sounds, Soft, No tenderness Extremities: No edema Skin: No rashes Labs LABS Laboratory Tests Test 01/06/17 03:10 White Blood Count 10.2 x10^3/uL (4.0-11.0) Red Blood Count 4.36 x10^6/uL (4.30-5.70) Hemoglobin 13.3 g/dL (13.0-17.5) Hematocrit 40.4 % (39.0-53.0) Mean Corpuscular Volume 93 fL (79-100) Mean Corpuscular Hemoglobin 31 pg (25-35) Mean Corpuscular Hemoglobin Concent 33 g/dL (31-37) Red Cell Distribution Width 13.7 % (11.5-14.5) Platelet Count 628 x10^3/uL (140-400) Neutrophils (%) (Auto) 60 % (31-73) Lymphocytes (%) (Auto) 26 % (24-48) Monocytes (%) (Auto) 9 % (0-9) Eosinophils (%) (Auto) 5 % (0-3) Basophils (%) (Auto) 1 % (0-3) Neutrophils # (Auto) 6.1 x10^3uL (1.8-7.7) Lymphocytes # (Auto) 2.6 x10^3/uL (1.0-4.8) Monocytes # (Auto) 0.9 x10^3/uL (0.0-1.1) Eosinophils # (Auto) 0.5 x10^3/uL (0.0-0.7) Basophils # (Auto) 0.1 x10^3/uL (0.0-0.2) Sodium Level 140 mmol/L (136-145) Potassium Level 4.7 mmol/L (3.5-5.1) Chloride Level 107 mmol/L (98-107) Carbon Dioxide Level 24 mmol/L (21-32) Anion Gap 9 (6-14) Blood Urea Nitrogen 22 mg/dL (8-26) Creatinine 0.7 mg/dL (0.7-1.3) Estimated GFR (Cockcroft-Gault) 119.9 Glucose Level 84 mg/dL (70-99) Calcium Level 8.8 mg/dL (8.5-10.1) Total Bilirubin 0.3 mg/dL (0.2-1.0) Direct Bilirubin 0.1 mg/dL (0.0-0.2) Aspartate Amino Transf (AST/SGOT) 46 U/L (15-37) Alanine Aminotransferase (ALT/SGPT) 164 U/L (16-63) Alkaline Phosphatase 70 U/L (46-116) Total Protein 7.0 g/dL (6.4-8.2) Albumin 2.8 g/dL (3.4-5.0) Review of Systems Review of Systems denies 14 pt reviewed Comment Review of Relevant I have reviewed the following items jessa (where applicable) has been applied. Labs Laboratory Tests Test 01/05/17 04:40 01/05/17 04:55 01/06/17 03:10 White Blood Count 9.3 x10^3/uL (4.0-11.0) 10.2 x10^3/uL (4.0-11.0) Red Blood Count 4.34 x10^6/uL (4.30-5.70) 4.36 x10^6/uL (4.30-5.70) Hemoglobin 13.4 g/dL (13.0-17.5) 13.3 g/dL (13.0-17.5) Hematocrit 39.4 % (39.0-53.0) 40.4 % (39.0-53.0) Mean Corpuscular Volume 91 fL (79-100) 93 fL (79-100) Mean Corpuscular Hemoglobin 31 pg (25-35) 31 pg (25-35) Mean Corpuscular Hemoglobin Concent 34 g/dL (31-37) 33 g/dL (31-37) Red Cell Distribution Width 13.6 % (11.5-14.5) 13.7 % (11.5-14.5) Platelet Count 578 x10^3/uL (140-400) 628 x10^3/uL (140-400) Neutrophils (%) (Auto) 57 % (31-73) 60 % (31-73) Lymphocytes (%) (Auto) 24 % (24-48) 26 % (24-48) Monocytes (%) (Auto) 12 % (0-9) 9 % (0-9) Eosinophils (%) (Auto) 7 % (0-3) 5 % (0-3) Basophils (%) (Auto) 1 % (0-3) 1 % (0-3) Neutrophils # (Auto) 5.3 x10^3uL (1.8-7.7) 6.1 x10^3uL (1.8-7.7) Lymphocytes # (Auto) 2.3 x10^3/uL (1.0-4.8) 2.6 x10^3/uL (1.0-4.8) Monocytes # (Auto) 1.1 x10^3/uL (0.0-1.1) 0.9 x10^3/uL (0.0-1.1) Eosinophils # (Auto) 0.6 x10^3/uL (0.0-0.7) 0.5 x10^3/uL (0.0-0.7) Basophils # (Auto) 0.1 x10^3/uL (0.0-0.2) 0.1 x10^3/uL (0.0-0.2) Sodium Level 142 mmol/L (136-145) 140 mmol/L (136-145) Potassium Level 3.8 mmol/L (3.5-5.1) 4.7 mmol/L (3.5-5.1) Chloride Level 108 mmol/L (98-107) 107 mmol/L (98-107) Carbon Dioxide Level 24 mmol/L (21-32) 24 mmol/L (21-32) Anion Gap 10 (6-14) 9 (6-14) Blood Urea Nitrogen 20 mg/dL (8-26) 22 mg/dL (8-26) Creatinine 0.7 mg/dL (0.7-1.3) 0.7 mg/dL (0.7-1.3) Estimated GFR (Cockcroft-Gault) 119.9 119.9 Glucose Level 89 mg/dL (70-99) 84 mg/dL (70-99) Calcium Level 8.9 mg/dL (8.5-10.1) 8.8 mg/dL (8.5-10.1) Total Bilirubin 0.3 mg/dL (0.2-1.0) 0.3 mg/dL (0.2-1.0) Direct Bilirubin 0.1 mg/dL (0.0-0.2) 0.1 mg/dL (0.0-0.2) Aspartate Amino Transf (AST/SGOT) 87 U/L (15-37) 46 U/L (15-37) Alanine Aminotransferase (ALT/SGPT) 220 U/L (16-63) 164 U/L (16-63) Alkaline Phosphatase 79 U/L (46-116) 70 U/L (46-116) Total Protein 6.3 g/dL (6.4-8.2) 7.0 g/dL (6.4-8.2) Albumin 2.7 g/dL (3.4-5.0) 2.8 g/dL (3.4-5.0) Laboratory Tests Test 01/06/17 03:10 White Blood Count 10.2 x10^3/uL (4.0-11.0) Red Blood Count 4.36 x10^6/uL (4.30-5.70) Hemoglobin 13.3 g/dL (13.0-17.5) Hematocrit 40.4 % (39.0-53.0) Mean Corpuscular Volume 93 fL (79-100) Mean Corpuscular Hemoglobin 31 pg (25-35) Mean Corpuscular Hemoglobin Concent 33 g/dL (31-37) Red Cell Distribution Width 13.7 % (11.5-14.5) Platelet Count 628 x10^3/uL (140-400) Neutrophils (%) (Auto) 60 % (31-73) Lymphocytes (%) (Auto) 26 % (24-48) Monocytes (%) (Auto) 9 % (0-9) Eosinophils (%) (Auto) 5 % (0-3) Basophils (%) (Auto) 1 % (0-3) Neutrophils # (Auto) 6.1 x10^3uL (1.8-7.7) Lymphocytes # (Auto) 2.6 x10^3/uL (1.0-4.8) Monocytes # (Auto) 0.9 x10^3/uL (0.0-1.1) Eosinophils # (Auto) 0.5 x10^3/uL (0.0-0.7) Basophils # (Auto) 0.1 x10^3/uL (0.0-0.2) Sodium Level 140 mmol/L (136-145) Potassium Level 4.7 mmol/L (3.5-5.1) Chloride Level 107 mmol/L (98-107) Carbon Dioxide Level 24 mmol/L (21-32) Anion Gap 9 (6-14) Blood Urea Nitrogen 22 mg/dL (8-26) Creatinine 0.7 mg/dL (0.7-1.3) Estimated GFR (Cockcroft-Gault) 119.9 Glucose Level 84 mg/dL (70-99) Calcium Level 8.8 mg/dL (8.5-10.1) Total Bilirubin 0.3 mg/dL (0.2-1.0) Direct Bilirubin 0.1 mg/dL (0.0-0.2) Aspartate Amino Transf (AST/SGOT) 46 U/L (15-37) Alanine Aminotransferase (ALT/SGPT) 164 U/L (16-63) Alkaline Phosphatase 70 U/L (46-116) Total Protein 7.0 g/dL (6.4-8.2) Albumin 2.8 g/dL (3.4-5.0) Microbiology 12/31/16 Blood Culture - Final, Complete NO GROWTH AFTER 5 DAYS 12/30/16 - Final, Complete 12/30/16 - Final, Complete 12/30/16 - Final, Complete 12/30/16 - Final, Complete 12/30/16 Gram Stain Evaluation - Final, Complete 12/30/16 Sputum Culture - Final, Complete 12/30/16 Sputum Result 1 - Final, Complete 12/30/16 Sputum Result 2 - Final, Complete 12/30/16 Antimicrobic Susceptibility - Final, Complete Medications Current Medications Info (Do NOT chart on this placeholder) 1 each 1X ONCE MC ; Start 12/28/16 at 04:15; Stop 12/28/16 at 04:16; Status UNV Pneumococcal Polyvalent Vaccine (Do NOT chart on this placeholder) 1 each 1X ONCE MC ; Start 12/28/16 at 04:15; Stop 12/28/16 at 04:16; Status UNV Sodium Chloride 1,000 ml @ 100 mls/hr Q10H IV Last administered on 12/29/16 05:56; Start 12/28/16 at 05:00; Stop 12/29/16 at 08:37; Status DC Acetylcysteine 6.87 gm/Dextrose 1,034.35 ml @ 62.5 mls/ hr 1X ONCE IV Last administered on 12/28/16 05:36; Start 12/28/16 at 05:30; Stop 12/28/16 at 22 :02; Status DC Physostigmine Salicylate (Antilirium) 2 mg 1X ONCE IV Last administered on 08:20; Start 12/28/16 at 06:15; Stop 12/28/16 at 06:16; Status DC Sodium Bicarbonate 50 meq 1X ONCE IV Last administered on 12/28/16 06:23; Start 12/28/16 at 06:00; Stop 12/28/16 at 06:02; Status DC Influenza Virus Vaccine Quadrival (Fluarix Quad [id number] Syringe) 0.5 ml ONCE ONCE VAX IM ; Start 12/28/16 at 09:00; Stop 12/28/16 at 09:01; Status DC Pneumococcal Polyvalent Vaccine (Pneumovax 23) 0.5 ml ONCE ONCE VAX IM ; Start 12/28/16 at 09:00; Stop 12/28/16 at 09:01; Status DC Multivitamins 10 ml/Thiamine HCl 100 mg/Folic Acid 1 mg/Sodium Chloride 1,011.2 ml @ 100 mls/ hr DAILY IV Last administered on 12/29/16 09:01; Start at 09:00; Stop 12/29/16 at 09:33; Status DC Lorazepam (Ativan) 2 mg PRN Q1HR PRN IV For CIWA 8-14 Last administered on 06:41; Start 12/28/16 at 08:30 Lorazepam (Ativan) 4 mg PRN Q1HR PRN IV For CIWA 15 or greater Last administered on 01/01/17 01:17; Start 12/28/16 at 08:30; Stop 01/06/17 at 08 :58; Status DC Haloperidol Lactate (Haldol) 5 mg PRN Q6HRS PRN IVP AGITATION Last administered on 12/31/16 23:12; Start 12/28/16 at 09:15; Stop 01/06/17 at 08 :58; Status DC Enoxaparin Sodium (Lovenox Per Pharmacy Prophylaxis Dosing) 1 each PRN DAILY PRN MC SEE COMMENTS; Start 12/28/16 at 13:45; Stop 01/01/17 at 07:16; Status DC Enoxaparin Sodium (Lovenox 40mg Syringe) 40 mg Q24H SQ Last administered on 13:19; Start 12/28/16 at 14:00; Stop 01/06/17 at 08:58; Status DC Acetylcysteine 6.9 gm/Dextrose 1,034.5 ml @ 62.509 mls/hr 1X ONCE IV Last administered on 12/28/16 22:43; Start 12/28/16 at 23:00; Stop 12/29/16 at 15 :32; Status DC Lorazepam (Ativan) 2 mg 1X ONCE IV Last administered on 12/29/16 01:35; Start 12/29/16 at 01:45; Stop 12/29/16 at 01:46; Status DC Propofol 100 ml @ 0 mls/hr CONT PRN IV SEE I/O RECORD Last administered on 01:48; Start 12/29/16 at 05:00; Stop 12/30/16 at 09:22; Status DC Rocuronium Leota (Zemuron) 50 mg STK-MED ONCE .ROUTE ; Start 12/29/16 at 05: 20; Stop 12/29/16 at 05:21; Status DC Succinylcholine Chloride (Anectine) 200 mg STK-MED ONCE .ROUTE ; Start at 05:21; Stop 12/29/16 at 05:22; Status DC Propofol 20 ml @ As Directed STK-MED ONCE IV ; Start 12/29/16 at 05:22; Stop 12/29/16 at 05:23; Status DC Amino Acids/ Glycerin/ Electrolytes 1,000 ml @ 80 mls/hr [id number] IV Last administered on 12/29/16 09:02; Start 12/29/16 at 08:45; Stop 12/30/16 at 09 :14; Status DC Lorazepam (Ativan) 4 mg PRN Q4HRS PRN IV ANXIETY / AGITATION; Start 12/29/16 at 08:45; Status Cancel Lorazepam 100 mg/ Sodium Chloride 100 ml @ 0 mls/hr CONT PRN IV IVF Last administered on 12/29/16 09:02; Start 12/29/16 at 08:45; Stop 01/03/17 at 13 :09; Status DC Ceftriaxone Sodium 1 gm/ Dextrose 50 ml @ 100 mls/hr Q24H IV ; Start 12/29/16 at 09:30; Status UNV Metronidazole 100 ml @ 100 mls/hr Q8HRS IV ; Start 12/29/16 at 14:00; Stop at 14:00; Status DC Potassium Chloride (KCl Oral Soln) 40 meq 1X ONCE PEG Last administered on 10:37; Start 12/29/16 at 10:00; Stop 12/29/16 at 10:01; Status DC Ceftriaxone Sodium (Rocephin) 1 gm Q24H IVP ; Start 12/29/16 at 10:00; Stop at 10:08; Status DC Piperacillin Sod/ Tazobactam Sod (Zosyn Per Pharmacy) 1 each PRN DAILY PRN MC SEE COMMENTS; Start 12/29/16 at 10:15; Stop 01/01/17 at 07:16; Status DC Levofloxacin/ Dextrose 100 ml @ 100 mls/hr Q24H IV Last administered on 11:15; Start 12/29/16 at 11:00; Stop 01/02/17 at 08:02; Status DC Famotidine (Pepcid Vial) 20 mg BID IVP Last administered on 01/03/17 09:00; Start 12/29/16 at 11:00; Stop 01/03/17 at 13:09; Status DC Dexmedetomidine HCl 200 mcg/ Sodium Chloride 50 ml @ 0 mls/hr CONT PRN IV PER PROTOCOL Last administered on 12/31/16 08:45; Start 12/29/16 at 10:15; Stop 01/03/17 at 13:09; Status DC Fentanyl Citrate (Fentanyl 2ml Vial) 25 mcg PRN Q1HR PRN IV PAIN Last administered on 01/02/17 05:55; Start 12/29/16 at 10:15; Stop 01/03/17 at 13 :09; Status DC Lorazepam (Ativan) 0.5 mg PRN Q2HRS PRN IV AGITATION; Start 12/29/16 at 10:15 ; Stop 01/06/17 at 08:58; Status DC Propofol 100 ml @ 0 mls/hr CONT PRN IV SEDATION Last administered on 11:23; Start 12/29/16 at 10:15; Stop 01/03/17 at 13:09; Status DC Sodium Chloride 500 ml @ 500 mls/hr 1X PRN PRN IV SEE COMMENTS; Start at 10:15; Stop 01/03/17 at 17:30; Status DC Atropine Sulfate 0.5 mg PRN Q5MIN PRN IV SEE COMMENTS; Start 12/29/16 at 10:15 ; Stop 01/03/17 at 13:09; Status DC Piperacillin Sod/ Tazobactam Sod (Zosyn) 3.375 gm Q6HRS IVP Last administered on 01/03/17 06:29; Start 12/29/16 at 12:00; Stop 01/03/17 at 08:43; Status DC Acetylcysteine 6.9 gm/Dextrose 1,034.5 ml @ 62.509 mls/hr 1X ONCE IV Last administered on 12/29/16 15:40; Start 12/29/16 at 15:00; Stop 12/30/16 at 07 :32; Status DC Potassium Chloride (KCl Oral Soln) 40 meq 1X ONCE PEG Last administered on 12:49; Start 12/30/16 at 12:30; Stop 12/30/16 at 12:31; Status DC Potassium Chloride (KCl Oral Soln) 20 meq DAILY PEG Last administered on 09:00; Start 12/31/16 at 09:00; Stop 01/03/17 at 18:28; Status DC Potassium Chloride/Dextrose/ Sod Cl 1,000 ml @ 75 mls/hr 1X ONCE IV Last administered on 12/30/16 12:48; Start 12/30/16 at 13:00; Stop 12/31/16 at 02 :20; Status DC Magnesium Sulfate/ Dextrose 100 ml @ 25 mls/hr 1X ONCE IV Last administered on 12/30/16 14:28; Start 12/30/16 at 14:00; Stop 12/30/16 at 17:59; Status DC Acetylcysteine 6.9 gm/Dextrose 1,034.5 ml @ 62.509 mls/hr 1X ONCE IV Last administered on 12/30/16 15:03; Start 12/30/16 at 15:00; Stop 12/31/16 at 07 :32; Status DC Ibuprofen (Children'S Motrin) 400 mg PRN Q6HRS PRN PO INFLAMMATION Last administered on 12/30/16 21:44; Start 12/30/16 at 20:15; Stop 01/03/17 at 17 :30; Status DC Rocuronium Leota (Zemuron) 50 mg STK-MED ONCE .ROUTE ; Start 12/29/16 at 05: 20; Stop 12/31/16 at 09:03; Status DC Bisacodyl (Dulcolax Tab) 5 mg PRN DAILY PRN PO CONSTIPATION; Start 12/31/16 at 09:30 Acetylcysteine 6.9 gm/Dextrose 1,034.5 ml @ 62.5 mls/ hr 1X ONCE IV Last administered on 12/31/16 11:24; Start 12/31/16 at 11:00; Stop 01/01/17 at 03 :33; Status DC Multi-Ingred Cream/Lotion/Oil/ Oint (Artificial Tears Eye Oint) 1 tigist PRN Q1HR PRN OU DRY EYE Last administered on 12/31/16 11:24; Start 12/31/16 at 11:00 Sodium Chloride 1,000 ml @ 75 mls/hr [id number] IV Last administered on 00:01; Start 12/31/16 at 22:45; Stop 01/01/17 at 11:46; Status DC Vancomycin HCl (Vanco Per Pharmacy) 1 each PRN DAILY PRN MC SEE COMMENTS Last administered on 01/01/17 08:04; Start 01/01/17 at 06:45; Stop 01/02/17 at 08 :03; Status DC Vancomycin HCl 1.75 gm/Dextrose 500 ml @ 250 mls/hr 1X ONCE IV Last administered on 01/01/17 07:24; Start 01/01/17 at 07:00; Stop 01/01/17 at 08 :59; Status DC Vancomycin HCl 1 each 1X ONCE MC Last administered on 01/02/17 07:30; Start 01/02/17 at 07:30; Stop 01/02/17 at 07:31; Status DC Vancomycin HCl 1 gm/Dextrose 250 ml @ 250 mls/hr Q8H IV Last administered on 01/01/17 23:42; Start 01/01/17 at 16:00; Stop 01/02/17 at 08:02; Status DC Haloperidol Lactate (Haldol) 5 mg Q8HRS IVP Last administered on 01/02/17 14: 39; Start 01/01/17 at 14:00; Stop 01/02/17 at 16:16; Status DC Potassium Chloride/Sodium Chloride 1,000 ml @ 75 mls/hr [id number] IV Last administered on 01/01/17 12:48; Start 01/01/17 at 12:30; Stop 01/01/17 at 14 :11; Status DC Amino Acids/ Glycerin/ Electrolytes 1,000 ml @ 75 mls/hr [id number] IV Last administered on 01/02/17 03:52; Start 01/01/17 at 13:30; Stop 01/02/17 at 16 :37; Status DC Potassium Chloride 50 ml @ 50 mls/hr 1X ONCE IV ; Start 01/01/17 at 13:30; Stop 01/01/17 at 14:29; Status UNV Potassium Chloride 50 ml @ 50 mls/hr 1X ONCE IV ; Start 01/01/17 at 13:30; Stop 01/01/17 at 14:29; Status UNV Potassium Chloride 10 meq/ Sodium Chloride 105 ml @ 105 mls/hr Q1H IV Last administered on 01/01/17 17:36; Start 01/01/17 at 14:30; Stop 01/01/17 at 18 :29; Status DC Ondansetron HCl (Zofran) 4 mg PRN Q6HRS PRN IV NAUSEA/VOMITING Last administered on 01/01/17 20:35; Start 01/01/17 at 20:30 Linezolid 300 ml @ 300 mls/hr Q12HR IV Last administered on 01/02/17 20:42; Start 01/02/17 at 09:00; Stop 01/03/17 at 08:43; Status DC Potassium Chloride 50 ml @ 50 mls/hr Q1H IV ; Start 01/02/17 at 16:00; Stop at 17:59; Status UNV Potassium Chloride 50 ml @ 50 mls/hr Q1H IV ; Start 01/02/17 at 16:00; Stop at 17:59; Status UNV Haloperidol Lactate (Haldol) 5 mg Q12HR IVP Last administered on 01/06/17 08: 11; Start 01/02/17 at 21:00; Stop 01/06/17 at 08:58; Status DC Potassium Chloride (Klor-Con) 40 meq 1X ONCE PO Last administered on 16:35; Start 01/02/17 at 16:30; Stop 01/02/17 at 16:31; Status DC Linezolid (Zyvox) 600 mg BID PO Last administered on 01/06/17 08:11; Start 01/03/17 at 09:00 Potassium Chloride (Klor-Con) 20 meq BIDACLD PO Last administered on 17:04; Start 01/03/17 at 13:30; Stop 01/03/17 at 23:00; Status DC Ibuprofen (Motrin) 400 mg PRN Q6HRS PRN PO INFLAMMATION Last administered on 21:47; Start 01/03/17 at 13:30 Potassium Chloride (Klor-Con) 20 meq DAILY PO Last administered on 01/06/17 08:11; Start 01/04/17 at 09:00 Lactobacillus Rhamnosus (Culturelle) 1 cap BID PO Last administered on 08:11; Start 01/03/17 at 21:00 Alprazolam (Xanax) 0.5 mg PRN Q8HRS PRN PO ANXIETY / AGITATION; Start at 09:00 Haloperidol (Haldol) 5 mg PRN QID PRN PO AGITATION; Start 01/06/17 at 09:00 Active Scripts Active Reported Requip (Ropinirole Hcl) 1 Mg Tablet 2 Mg PO QHS Mirtazapine 30 Mg Tablet 0.5 Tab PO QHS Proair Hfa Inhaler (Albuterol Sulfate) 8.5 Gm Hfa.aer.ad 1-2 Puff INH PRN Q6HRS PRN Spiriva (Tiotropium Leota) 18 Mcg Cap.w.dev 2 Inh IH DAILY Spiriva (Tiotropium Leota) 18 Mcg Cap.w.dev 1 Cap IH DAILY Omeprazole 20 Mg Capsule.dr 1 Cap PO DAILY Dexamethasone 4 Mg Tablet 1 Tab PO QID Symbicort 80-4.5 Mcg Inhaler (Budesonide/Formoterol Fumarate) 10.2 Gm Hfa.aer.ad 2 Puff IH BID Alprazolam 0.5 Mg Tablet 1 Tab PO QAM Metoprolol Tartrate 50 Mg Tablet 0.5 Tab PO BID Amiodarone Hcl 200 Mg Tablet 1 Tab PO DAILY Tylenol (Acetaminophen) 325 Mg Tablet 2 Tab PO PRN Q6HRS PRN Melatonin 3 Mg Tablet 2 Tab PO QHS Montelukast Sodium Tablet (Montelukast Sodium) 10 Mg Tablet 1 Tab PO DAILY Atorvastatin Calcium 40 Mg Tablet 1 Tab PO QHS Tramadol Hcl 50 Mg Tablet 50 Mg PO Q6H PRN Hydrocodone-Apap 7.5-325 (Hydrocodone Bit/Acetaminophen) 1 Each Tablet 1 Tab PO PRN Q6HRS PRN Zoloft (Sertraline Hcl) 25 Mg Tablet 1 Tab PO DAILY Vitals/I & O Vital Sign - Last 24 Hours 01/05/17 01/05/17 01/05/17 01/05/17 11:13 15:55 19:00 20:00 Temp 98.2 97.5 97.9 98.2 97.5 97.9 Pulse 69 66 64 Resp 16 20 20 B/P (MAP) 114/71 (85) 121/76 (91) 116/81 (93) Pulse Ox 98 98 98 O2 Delivery Room Air Room Air Room Air Room Air 01/05/17 01/06/17 01/06/17 01/06/17 23:00 03:13 07:00 08:00 Temp 97.8 97.9 97.7 97.8 97.9 97.7 Pulse 62 68 64 Resp 20 20 18 B/P (MAP) 120/75 (90) 102/67 (79) 124/63 (83) Pulse Ox 98 97 97 O2 Delivery Room Air Room Air Room Air Room Air 01/06/17 10:16 Temp 97.7 97.7 Pulse 72 Resp 18 B/P (MAP) 115/73 (87) Pulse Ox 98 O2 Delivery Room Air Intake and Output 01/05/17 01/05/17 01/06/17 15:00 23:00 07:00 Intake Total 240 ml 240 ml 240 ml Balance 240 ml 240 ml 240 ml MARIA ANTONIA MCGILL MD Jan 06, 2017 10:49
[2017-01-06 14:08] VITALS: BP 115/77
[2017-01-06 19:00] VITALS: BP 117/72
[2017-01-06 22:58] VITALS: BP 111/75
[2017-01-07 03:00] VITALS: BP 115/86
[2017-01-07 06:54] VITALS: BP 113/71
[2017-01-07 08:48] LABS: BASO # 0.1 x10^3/uL (0.0-0.2); BASO % 1 % (0-3); EOS % 2 % (0-3); HEMATOCRIT 43.8 % (39.0-53.0); HEMOGLOBIN 14.6 g/dL (13.0-17.5); LYMPH # 2.1 x10^3/uL (1.0-4.8); LYMPH % 17 % (24-48); MEAN CORPUSCULAR HEMOGLOBIN 31 pg (25-35); MEAN CORPUSCULAR HGB CONC 33 g/dL (31-37); MEAN CORPUSCULAR VOLUME 92 fL (79-100); MONO % 8 % (0-9); NEUT % 73 % (31-73); PLATELET COUNT 823 x10^3/uL (140-400); RED BLOOD COUNT 4.76 x10^6/uL (4.30-5.70); RED CELL DISTRIBUTION WIDTH 13.7 % (11.5-14.5); WHITE BLOOD COUNT 12.2 x10^3/uL (4.0-11.0)
[2017-01-07] MEDS: LACTOBACILLUS RHAMNOSUS GG 1 CAPSULE. PO SCH (09:00)
[2017-01-07 09:06] LABS: ALBUMIN 3.4 g/dL (3.4-5.0); CALCIUM 9.1 mg/dL (8.5-10.1); CREATININE 0.8 mg/dL (0.7-1.3); DIRECT BILIRUBIN 0.1 mg/dL (0.0-0.2); GFR 102.7; POTASSIUM 4.5 mmol/L (3.5-5.1); TOTAL BILIRUBIN 0.4 mg/dL (0.2-1.0)
[2017-01-07] MEDS: LINEZOLID 600 MG TABLET PO SCH (10:28)
[2017-01-07] MEDS: POTASSIUM CHLORIDE 20 MEQ TABLET.ER. PO SCH (10:28)
--- NOTE | 2017-01-07 10:38 | PDOC ---
PROGRESS NOTES Assessment Toxic and metabolic encephalopathy. Multi-drug overdose, Tylenol, Benadryl, Whiskey. Substance abuse, cocaine positive in system. Plan Awaiting transfer to inpatient psychiatry Subjective No complaints Objective Vital Signs Date Time Temp Pulse Resp B/P (MAP) Pulse Ox O2 Delivery O2 Flow Rate FiO2 01/07/17 06:54 97.5 75 19 113/71 (85) 93 Room Air 97.5 Intake and Output 01/07/17 07:00 Intake Total 2000 ml Balance 2000 ml Intake Oral 2000 ml # Voids 14 PHYSICAL EXAM Alert. Oriented to time, place and person. PERRL. EOMI. CN: no focal findings. Muscle tone: normal. Muscle strength: 5-/5 DTR: 1+ Plantar reflex: flexor Gait: not examined in bed. Sensory exam: no abnormal findings. No cerebellar signs elicited. Review of Relevant I have reviewed the following items jessa (where applicable) has been applied. Labs Laboratory Tests Test 01/06/17 03:10 01/07/17 08:15 White Blood Count 10.2 x10^3/uL (4.0-11.0) 12.2 x10^3/uL (4.0-11.0) Red Blood Count 4.36 x10^6/uL (4.30-5.70) 4.76 x10^6/uL (4.30-5.70) Hemoglobin 13.3 g/dL (13.0-17.5) 14.6 g/dL (13.0-17.5) Hematocrit 40.4 % (39.0-53.0) 43.8 % (39.0-53.0) Mean Corpuscular Volume 93 fL (79-100) 92 fL (79-100) Mean Corpuscular Hemoglobin 31 pg (25-35) 31 pg (25-35) Mean Corpuscular Hemoglobin Concent 33 g/dL (31-37) 33 g/dL (31-37) Red Cell Distribution Width 13.7 % (11.5-14.5) 13.7 % (11.5-14.5) Platelet Count 628 x10^3/uL (140-400) 823 x10^3/uL (140-400) Neutrophils (%) (Auto) 60 % (31-73) 73 % (31-73) Lymphocytes (%) (Auto) 26 % (24-48) 17 % (24-48) Monocytes (%) (Auto) 9 % (0-9) 8 % (0-9) Eosinophils (%) (Auto) 5 % (0-3) 2 % (0-3) Basophils (%) (Auto) 1 % (0-3) 1 % (0-3) Neutrophils # (Auto) 6.1 x10^3uL (1.8-7.7) 8.9 x10^3uL (1.8-7.7) Lymphocytes # (Auto) 2.6 x10^3/uL (1.0-4.8) 2.1 x10^3/uL (1.0-4.8) Monocytes # (Auto) 0.9 x10^3/uL (0.0-1.1) 0.9 x10^3/uL (0.0-1.1) Eosinophils # (Auto) 0.5 x10^3/uL (0.0-0.7) 0.2 x10^3/uL (0.0-0.7) Basophils # (Auto) 0.1 x10^3/uL (0.0-0.2) 0.1 x10^3/uL (0.0-0.2) Sodium Level 140 mmol/L (136-145) 138 mmol/L (136-145) Potassium Level 4.7 mmol/L (3.5-5.1) 4.5 mmol/L (3.5-5.1) Chloride Level 107 mmol/L (98-107) 102 mmol/L (98-107) Carbon Dioxide Level 24 mmol/L (21-32) 24 mmol/L (21-32) Anion Gap 9 (6-14) 12 (6-14) Blood Urea Nitrogen 22 mg/dL (8-26) 18 mg/dL (8-26) Creatinine 0.7 mg/dL (0.7-1.3) 0.8 mg/dL (0.7-1.3) Estimated GFR (Cockcroft-Gault) 119.9 102.7 Glucose Level 84 mg/dL (70-99) 106 mg/dL (70-99) Calcium Level 8.8 mg/dL (8.5-10.1) 9.1 mg/dL (8.5-10.1) Total Bilirubin 0.3 mg/dL (0.2-1.0) 0.4 mg/dL (0.2-1.0) Direct Bilirubin 0.1 mg/dL (0.0-0.2) 0.1 mg/dL (0.0-0.2) Aspartate Amino Transf (AST/SGOT) 46 U/L (15-37) 33 U/L (15-37) Alanine Aminotransferase (ALT/SGPT) 164 U/L (16-63) 131 U/L (16-63) Alkaline Phosphatase 70 U/L (46-116) 80 U/L (46-116) Total Protein 7.0 g/dL (6.4-8.2) 8.0 g/dL (6.4-8.2) Albumin 2.8 g/dL (3.4-5.0) 3.4 g/dL (3.4-5.0) Laboratory Tests Test 01/07/17 08:15 White Blood Count 12.2 x10^3/uL (4.0-11.0) Red Blood Count 4.76 x10^6/uL (4.30-5.70) Hemoglobin 14.6 g/dL (13.0-17.5) Hematocrit 43.8 % (39.0-53.0) Mean Corpuscular Volume 92 fL (79-100) Mean Corpuscular Hemoglobin 31 pg (25-35) Mean Corpuscular Hemoglobin Concent 33 g/dL (31-37) Red Cell Distribution Width 13.7 % (11.5-14.5) Platelet Count 823 x10^3/uL (140-400) Neutrophils (%) (Auto) 73 % (31-73) Lymphocytes (%) (Auto) 17 % (24-48) Monocytes (%) (Auto) 8 % (0-9) Eosinophils (%) (Auto) 2 % (0-3) Basophils (%) (Auto) 1 % (0-3) Neutrophils # (Auto) 8.9 x10^3uL (1.8-7.7) Lymphocytes # (Auto) 2.1 x10^3/uL (1.0-4.8) Monocytes # (Auto) 0.9 x10^3/uL (0.0-1.1) Eosinophils # (Auto) 0.2 x10^3/uL (0.0-0.7) Basophils # (Auto) 0.1 x10^3/uL (0.0-0.2) Sodium Level 138 mmol/L (136-145) Potassium Level 4.5 mmol/L (3.5-5.1) Chloride Level 102 mmol/L (98-107) Carbon Dioxide Level 24 mmol/L (21-32) Anion Gap 12 (6-14) Blood Urea Nitrogen 18 mg/dL (8-26) Creatinine 0.8 mg/dL (0.7-1.3) Estimated GFR (Cockcroft-Gault) 102.7 Glucose Level 106 mg/dL (70-99) Calcium Level 9.1 mg/dL (8.5-10.1) Total Bilirubin 0.4 mg/dL (0.2-1.0) Direct Bilirubin 0.1 mg/dL (0.0-0.2) Aspartate Amino Transf (AST/SGOT) 33 U/L (15-37) Alanine Aminotransferase (ALT/SGPT) 131 U/L (16-63) Alkaline Phosphatase 80 U/L (46-116) Total Protein 8.0 g/dL (6.4-8.2) Albumin 3.4 g/dL (3.4-5.0) Microbiology 12/31/16 Blood Culture - Final, Complete NO GROWTH AFTER 5 DAYS 12/30/16 - Final, Complete 12/30/16 - Final, Complete 12/30/16 - Final, Complete 12/30/16 - Final, Complete 12/30/16 Gram Stain Evaluation - Final, Complete 12/30/16 Sputum Culture - Final, Complete 12/30/16 Sputum Result 1 - Final, Complete 12/30/16 Sputum Result 2 - Final, Complete 12/30/16 Antimicrobic Susceptibility - Final, Complete Medications Current Medications Info (Do NOT chart on this placeholder) 1 each 1X ONCE MC ; Start 12/28/16 at 04:15; Stop 12/28/16 at 04:16; Status UNV Pneumococcal Polyvalent Vaccine (Do NOT chart on this placeholder) 1 each 1X ONCE MC ; Start 12/28/16 at 04:15; Stop 12/28/16 at 04:16; Status UNV Sodium Chloride 1,000 ml @ 100 mls/hr Q10H IV Last administered on 12/29/16 05:56; Start 12/28/16 at 05:00; Stop 12/29/16 at 08:37; Status DC Acetylcysteine 6.87 gm/Dextrose 1,034.35 ml @ 62.5 mls/ hr 1X ONCE IV Last administered on 12/28/16 05:36; Start 12/28/16 at 05:30; Stop 12/28/16 at 22 :02; Status DC Physostigmine Salicylate (Antilirium) 2 mg 1X ONCE IV Last administered on 08:20; Start 12/28/16 at 06:15; Stop 12/28/16 at 06:16; Status DC Sodium Bicarbonate 50 meq 1X ONCE IV Last administered on 12/28/16 06:23; Start 12/28/16 at 06:00; Stop 12/28/16 at 06:02; Status DC Influenza Virus Vaccine Quadrival (Fluarix Quad [id number] Syringe) 0.5 ml ONCE ONCE VAX IM ; Start 12/28/16 at 09:00; Stop 12/28/16 at 09:01; Status DC Pneumococcal Polyvalent Vaccine (Pneumovax 23) 0.5 ml ONCE ONCE VAX IM ; Start 12/28/16 at 09:00; Stop 12/28/16 at 09:01; Status DC Multivitamins 10 ml/Thiamine HCl 100 mg/Folic Acid 1 mg/Sodium Chloride 1,011.2 ml @ 100 mls/ hr DAILY IV Last administered on 12/29/16 09:01; Start at 09:00; Stop 12/29/16 at 09:33; Status DC Lorazepam (Ativan) 2 mg PRN Q1HR PRN IV For CIWA 8-14 Last administered on 06:41; Start 12/28/16 at 08:30 Lorazepam (Ativan) 4 mg PRN Q1HR PRN IV For CIWA 15 or greater Last administered on 01/01/17 01:17; Start 12/28/16 at 08:30; Stop 01/06/17 at 08 :58; Status DC Haloperidol Lactate (Haldol) 5 mg PRN Q6HRS PRN IVP AGITATION Last administered on 12/31/16 23:12; Start 12/28/16 at 09:15; Stop 01/06/17 at 08 :58; Status DC Enoxaparin Sodium (Lovenox Per Pharmacy Prophylaxis Dosing) 1 each PRN DAILY PRN MC SEE COMMENTS; Start 12/28/16 at 13:45; Stop 01/01/17 at 07:16; Status DC Enoxaparin Sodium (Lovenox 40mg Syringe) 40 mg Q24H SQ Last administered on 13:19; Start 12/28/16 at 14:00; Stop 01/06/17 at 08:58; Status DC Acetylcysteine 6.9 gm/Dextrose 1,034.5 ml @ 62.509 mls/hr 1X ONCE IV Last administered on 12/28/16 22:43; Start 12/28/16 at 23:00; Stop 12/29/16 at 15 :32; Status DC Lorazepam (Ativan) 2 mg 1X ONCE IV Last administered on 12/29/16 01:35; Start 12/29/16 at 01:45; Stop 12/29/16 at 01:46; Status DC Propofol 100 ml @ 0 mls/hr CONT PRN IV SEE I/O RECORD Last administered on 01:48; Start 12/29/16 at 05:00; Stop 12/30/16 at 09:22; Status DC Rocuronium [place] (Zemuron) 50 mg STK-MED ONCE .ROUTE ; Start 12/29/16 at 05: 20; Stop 12/29/16 at 05:21; Status DC Succinylcholine Chloride (Anectine) 200 mg STK-MED ONCE .ROUTE ; Start at 05:21; Stop 12/29/16 at 05:22; Status DC Propofol 20 ml @ As Directed STK-MED ONCE IV ; Start 12/29/16 at 05:22; Stop 12/29/16 at 05:23; Status DC Amino Acids/ Glycerin/ Electrolytes 1,000 ml @ 80 mls/hr [id number] IV Last administered on 12/29/16 09:02; Start 12/29/16 at 08:45; Stop 12/30/16 at 09 :14; Status DC Lorazepam (Ativan) 4 mg PRN Q4HRS PRN IV ANXIETY / AGITATION; Start 12/29/16 at 08:45; Status Cancel Lorazepam 100 mg/ Sodium Chloride 100 ml @ 0 mls/hr CONT PRN IV IVF Last administered on 12/29/16 09:02; Start 12/29/16 at 08:45; Stop 01/03/17 at 13 :09; Status DC Ceftriaxone Sodium 1 gm/ Dextrose 50 ml @ 100 mls/hr Q24H IV ; Start 12/29/16 at 09:30; Status UNV Metronidazole 100 ml @ 100 mls/hr Q8HRS IV ; Start 12/29/16 at 14:00; Stop at 14:00; Status DC Potassium Chloride (KCl Oral Soln) 40 meq 1X ONCE PEG Last administered on 10:37; Start 12/29/16 at 10:00; Stop 12/29/16 at 10:01; Status DC Ceftriaxone Sodium (Rocephin) 1 gm Q24H IVP ; Start 12/29/16 at 10:00; Stop at 10:08; Status DC Piperacillin Sod/ Tazobactam Sod (Zosyn Per Pharmacy) 1 each PRN DAILY PRN MC SEE COMMENTS; Start 12/29/16 at 10:15; Stop 01/01/17 at 07:16; Status DC Levofloxacin/ Dextrose 100 ml @ 100 mls/hr Q24H IV Last administered on 11:15; Start 12/29/16 at 11:00; Stop 01/02/17 at 08:02; Status DC Famotidine (Pepcid Vial) 20 mg BID IVP Last administered on 01/03/17 09:00; Start 12/29/16 at 11:00; Stop 01/03/17 at 13:09; Status DC Dexmedetomidine HCl 200 mcg/ Sodium Chloride 50 ml @ 0 mls/hr CONT PRN IV PER PROTOCOL Last administered on 12/31/16 08:45; Start 12/29/16 at 10:15; Stop 01/03/17 at 13:09; Status DC Fentanyl Citrate (Fentanyl 2ml Vial) 25 mcg PRN Q1HR PRN IV PAIN Last administered on 01/02/17 05:55; Start 12/29/16 at 10:15; Stop 01/03/17 at 13 :09; Status DC Lorazepam (Ativan) 0.5 mg PRN Q2HRS PRN IV AGITATION; Start 12/29/16 at 10:15 ; Stop 01/06/17 at 08:58; Status DC Propofol 100 ml @ 0 mls/hr CONT PRN IV SEDATION Last administered on 11:23; Start 12/29/16 at 10:15; Stop 01/03/17 at 13:09; Status DC Sodium Chloride 500 ml @ 500 mls/hr 1X PRN PRN IV SEE COMMENTS; Start at 10:15; Stop 01/03/17 at 17:30; Status DC Atropine Sulfate 0.5 mg PRN Q5MIN PRN IV SEE COMMENTS; Start 12/29/16 at 10:15 ; Stop 01/03/17 at 13:09; Status DC Piperacillin Sod/ Tazobactam Sod (Zosyn) 3.375 gm Q6HRS IVP Last administered on 01/03/17 06:29; Start 12/29/16 at 12:00; Stop 01/03/17 at 08:43; Status DC Acetylcysteine 6.9 gm/Dextrose 1,034.5 ml @ 62.509 mls/hr 1X ONCE IV Last administered on 12/29/16 15:40; Start 12/29/16 at 15:00; Stop 12/30/16 at 07 :32; Status DC Potassium Chloride (KCl Oral Soln) 40 meq 1X ONCE PEG Last administered on 12:49; Start 12/30/16 at 12:30; Stop 12/30/16 at 12:31; Status DC Potassium Chloride (KCl Oral Soln) 20 meq DAILY PEG Last administered on 09:00; Start 12/31/16 at 09:00; Stop 01/03/17 at 18:28; Status DC Potassium Chloride/Dextrose/ Sod Cl 1,000 ml @ 75 mls/hr 1X ONCE IV Last administered on 12/30/16 12:48; Start 12/30/16 at 13:00; Stop 12/31/16 at 02 :20; Status DC Magnesium Sulfate/ Dextrose 100 ml @ 25 mls/hr 1X ONCE IV Last administered on 12/30/16 14:28; Start 12/30/16 at 14:00; Stop 12/30/16 at 17:59; Status DC Acetylcysteine 6.9 gm/Dextrose 1,034.5 ml @ 62.509 mls/hr 1X ONCE IV Last administered on 12/30/16 15:03; Start 12/30/16 at 15:00; Stop 12/31/16 at 07 :32; Status DC Ibuprofen (Children'S Motrin) 400 mg PRN Q6HRS PRN PO INFLAMMATION Last administered on 12/30/16 21:44; Start 12/30/16 at 20:15; Stop 01/03/17 at 17 :30; Status DC Rocuronium [place] (Zemuron) 50 mg STK-MED ONCE .ROUTE ; Start 12/29/16 at 05: 20; Stop 12/31/16 at 09:03; Status DC Bisacodyl (Dulcolax Tab) 5 mg PRN DAILY PRN PO CONSTIPATION; Start 12/31/16 at 09:30 Acetylcysteine 6.9 gm/Dextrose 1,034.5 ml @ 62.5 mls/ hr 1X ONCE IV Last administered on 12/31/16 11:24; Start 12/31/16 at 11:00; Stop 01/01/17 at 03 :33; Status DC Multi-Ingred Cream/Lotion/Oil/ Oint (Artificial Tears Eye Oint) 1 tigist PRN Q1HR PRN OU DRY EYE Last administered on 12/31/16 11:24; Start 12/31/16 at 11:00 Sodium Chloride 1,000 ml @ 75 mls/hr [id number] IV Last administered on 00:01; Start 12/31/16 at 22:45; Stop 01/01/17 at 11:46; Status DC Vancomycin HCl (Vanco Per Pharmacy) 1 each PRN DAILY PRN MC SEE COMMENTS Last administered on 01/01/17 08:04; Start 01/01/17 at 06:45; Stop 01/02/17 at 08 :03; Status DC Vancomycin HCl 1.75 gm/Dextrose 500 ml @ 250 mls/hr 1X ONCE IV Last administered on 01/01/17 07:24; Start 01/01/17 at 07:00; Stop 01/01/17 at 08 :59; Status DC Vancomycin HCl 1 each 1X ONCE MC Last administered on 01/02/17 07:30; Start 01/02/17 at 07:30; Stop 01/02/17 at 07:31; Status DC Vancomycin HCl 1 gm/Dextrose 250 ml @ 250 mls/hr Q8H IV Last administered on 01/01/17 23:42; Start 01/01/17 at 16:00; Stop 01/02/17 at 08:02; Status DC Haloperidol Lactate (Haldol) 5 mg Q8HRS IVP Last administered on 01/02/17 14: 39; Start 01/01/17 at 14:00; Stop 01/02/17 at 16:16; Status DC Potassium Chloride/Sodium Chloride 1,000 ml @ 75 mls/hr [id number] IV Last administered on 01/01/17 12:48; Start 01/01/17 at 12:30; Stop 01/01/17 at 14 :11; Status DC Amino Acids/ Glycerin/ Electrolytes 1,000 ml @ 75 mls/hr [id number] IV Last administered on 01/02/17 03:52; Start 01/01/17 at 13:30; Stop 01/02/17 at 16 :37; Status DC Potassium Chloride 50 ml @ 50 mls/hr 1X ONCE IV ; Start 01/01/17 at 13:30; Stop 01/01/17 at 14:29; Status UNV Potassium Chloride 50 ml @ 50 mls/hr 1X ONCE IV ; Start 01/01/17 at 13:30; Stop 01/01/17 at 14:29; Status UNV Potassium Chloride 10 meq/ Sodium Chloride 105 ml @ 105 mls/hr Q1H IV Last administered on 01/01/17 17:36; Start 01/01/17 at 14:30; Stop 01/01/17 at 18 :29; Status DC Ondansetron HCl (Zofran) 4 mg PRN Q6HRS PRN IV NAUSEA/VOMITING Last administered on 01/01/17 20:35; Start 01/01/17 at 20:30 Linezolid 300 ml @ 300 mls/hr Q12HR IV Last administered on 01/02/17 20:42; Start 01/02/17 at 09:00; Stop 01/03/17 at 08:43; Status DC Potassium Chloride 50 ml @ 50 mls/hr Q1H IV ; Start 01/02/17 at 16:00; Stop at 17:59; Status UNV Potassium Chloride 50 ml @ 50 mls/hr Q1H IV ; Start 01/02/17 at 16:00; Stop at 17:59; Status UNV Haloperidol Lactate (Haldol) 5 mg Q12HR IVP Last administered on 01/06/17 08: 11; Start 01/02/17 at 21:00; Stop 01/06/17 at 08:58; Status DC Potassium Chloride (Klor-Con) 40 meq 1X ONCE PO Last administered on 16:35; Start 01/02/17 at 16:30; Stop 01/02/17 at 16:31; Status DC Linezolid (Zyvox) 600 mg BID PO Last administered on 01/06/17 20:06; Start 01/03/17 at 09:00 Potassium Chloride (Klor-Con) 20 meq BIDACLD PO Last administered on 17:04; Start 01/03/17 at 13:30; Stop 01/03/17 at 23:00; Status DC Ibuprofen (Motrin) 400 mg PRN Q6HRS PRN PO INFLAMMATION Last administered on 21:47; Start 01/03/17 at 13:30 Potassium Chloride (Klor-Con) 20 meq DAILY PO Last administered on 01/06/17 08:11; Start 01/04/17 at 09:00 Lactobacillus Rhamnosus (Culturelle) 1 cap BID PO Last administered on 20:06; Start 01/03/17 at 21:00 Alprazolam (Xanax) 0.5 mg PRN Q8HRS PRN PO ANXIETY / AGITATION Last administered on 01/06/17 20:07; Start 01/06/17 at 09:00 Haloperidol (Haldol) 5 mg PRN QID PRN PO AGITATION Last administered on 20:06; Start 01/06/17 at 09:00 Active Scripts Active Reported Requip (Ropinirole Hcl) 1 Mg Tablet 2 Mg PO QHS Mirtazapine 30 Mg Tablet 0.5 Tab PO QHS Proair Hfa Inhaler (Albuterol Sulfate) 8.5 Gm Hfa.aer.ad 1-2 Puff INH PRN Q6HRS PRN Spiriva (Tiotropium [place]) 18 Mcg Cap.w.dev 2 Inh IH DAILY Spiriva (Tiotropium [place]) 18 Mcg Cap.w.dev 1 Cap IH DAILY Omeprazole 20 Mg Capsule.dr 1 Cap PO DAILY Dexamethasone 4 Mg Tablet 1 Tab PO QID Symbicort 80-4.5 Mcg Inhaler (Budesonide/Formoterol Fumarate) 10.2 Gm Hfa.aer.ad 2 Puff IH BID Alprazolam 0.5 Mg Tablet 1 Tab PO QAM Metoprolol Tartrate 50 Mg Tablet 0.5 Tab PO BID Amiodarone Hcl 200 Mg Tablet 1 Tab PO DAILY Tylenol (Acetaminophen) 325 Mg Tablet 2 Tab PO PRN Q6HRS PRN Melatonin 3 Mg Tablet 2 Tab PO QHS Montelukast Sodium Tablet (Montelukast Sodium) 10 Mg Tablet 1 Tab PO DAILY Atorvastatin Calcium 40 Mg Tablet 1 Tab PO QHS Tramadol Hcl 50 Mg Tablet 50 Mg PO Q6H PRN Hydrocodone-Apap 7.5-325 (Hydrocodone Bit/Acetaminophen) 1 Each Tablet 1 Tab PO PRN Q6HRS PRN Zoloft (Sertraline Hcl) 25 Mg Tablet 1 Tab PO DAILY Vitals/I & O Vital Sign - Last 24 Hours 01/06/17 01/06/17 01/06/17 01/06/17 14:08 19:00 20:00 22:58 Temp 97.5 97.9 98.4 97.5 97.9 98.4 Pulse 70 74 102 Resp 16 20 20 B/P (MAP) 115/77 (90) 117/72 (87) 111/75 (87) Pulse Ox 99 99 97 O2 Delivery Room Air Room Air Room Air Room Air 01/07/17 01/07/17 03:00 06:54 Temp 97.5 97.5 Pulse 98 75 Resp 18 19 B/P (MAP) 115/86 (96) 113/71 (85) Pulse Ox 91 93 O2 Delivery Room Air Room Air Intake and Output 01/06/17 01/06/17 01/07/17 15:00 23:00 07:00 Intake Total 1000 ml 1000 ml Balance 1000 ml 1000 ml CHRISTOPH ARDON MD Jan 07, 2017 10:38
[2017-01-07 10:44] VITALS: BP 119/78
--- NOTE | 2017-01-07 11:26 | PDOC ---
Infectious Disease Note Subjective Subjective awake, appropriate now, eating ok, walking ok ROS ROS GEN: Denies fevers, chills, sweats HEENT: Denies blurred vision, sore throat CV: Denies chest pain RESP: Denies shortness of air, cough GI: Denies n/v/d : Denies hematuria, dysuria ENDO: Denies weight changes NEURO: Denies confusion, dizziness MSK: Denies weakness, joint pain/swelling SKIN: Denies rash, pruritus Vital Sign Vital Signs Vital Signs Date Time Temp Pulse Resp B/P (MAP) Pulse Ox O2 Delivery O2 Flow Rate FiO2 01/07/17 10:44 97.7 83 20 119/78 (92) 98 Room Air 97.7 01/02/17 04:02 3.0 Physical Exam PHYSICAL EXAM GENERAL: NAD, Alert HEENT: PERRL, OC/OP NECK: Supple, no JVD, no LN LUNGS: Clear HEART: S1S2, no gallop, no murmur ABD: Soft, NT, no organomegaly, no rebound EXT: No edema, no cyanosis FIRE ALARM OPERATOR: Alert, oriented x 3, no focal neurologic deficit SKIN: No rash IV: ok Labs Lab Laboratory Tests Test 01/07/17 08:15 White Blood Count 12.2 x10^3/uL (4.0-11.0) Red Blood Count 4.76 x10^6/uL (4.30-5.70) Hemoglobin 14.6 g/dL (13.0-17.5) Hematocrit 43.8 % (39.0-53.0) Mean Corpuscular Volume 92 fL (79-100) Mean Corpuscular Hemoglobin 31 pg (25-35) Mean Corpuscular Hemoglobin Concent 33 g/dL (31-37) Red Cell Distribution Width 13.7 % (11.5-14.5) Platelet Count 823 x10^3/uL (140-400) Neutrophils (%) (Auto) 73 % (31-73) Lymphocytes (%) (Auto) 17 % (24-48) Monocytes (%) (Auto) 8 % (0-9) Eosinophils (%) (Auto) 2 % (0-3) Basophils (%) (Auto) 1 % (0-3) Neutrophils # (Auto) 8.9 x10^3uL (1.8-7.7) Lymphocytes # (Auto) 2.1 x10^3/uL (1.0-4.8) Monocytes # (Auto) 0.9 x10^3/uL (0.0-1.1) Eosinophils # (Auto) 0.2 x10^3/uL (0.0-0.7) Basophils # (Auto) 0.1 x10^3/uL (0.0-0.2) Sodium Level 138 mmol/L (136-145) Potassium Level 4.5 mmol/L (3.5-5.1) Chloride Level 102 mmol/L (98-107) Carbon Dioxide Level 24 mmol/L (21-32) Anion Gap 12 (6-14) Blood Urea Nitrogen 18 mg/dL (8-26) Creatinine 0.8 mg/dL (0.7-1.3) Estimated GFR (Cockcroft-Gault) 102.7 Glucose Level 106 mg/dL (70-99) Calcium Level 9.1 mg/dL (8.5-10.1) Total Bilirubin 0.4 mg/dL (0.2-1.0) Direct Bilirubin 0.1 mg/dL (0.0-0.2) Aspartate Amino Transf (AST/SGOT) 33 U/L (15-37) Alanine Aminotransferase (ALT/SGPT) 131 U/L (16-63) Alkaline Phosphatase 80 U/L (46-116) Total Protein 8.0 g/dL (6.4-8.2) Albumin 3.4 g/dL (3.4-5.0) Objective Assessment Fever , sec to ETOH withdrawal vs pneumonia resolved Tylenol overdose with high lft improving ETOH abuse Encephalopathy Plan Plan of Care continue zyvox supportive care JARETH MARTÍNEZ MD Jan 07, 2017 11:26
--- NOTE | 2017-02-07 10:03 | PDOC3 ---
Discharge Summary Visit Information Date of Admission: Dec 28, 2016 Date of Discharge: Jan 07, 2017 Admitting Diagnosis: suicide attempt Final Diagnosis 1. Toxic encephalopathy: 2/2 prescription and/or illicit drug O/D. 2. Suicide attempt: w/ benadryl, tylenol. 1:1 sitter, to Psych inpt when bed available 3. Aspiration pneumonitis/PNA , w/ hypoxic respiratory failure 4. EtOH abuse: 5. hx cocaine abuse 6. Hypokalemia: repleted 7. Hypomagnesemia: resolved. 8. major depression Brief Hospital Course Allergies Allergies Coded Allergies Type Severity Reaction Last Updated Verified I S O L A T I O N *CONTACT* Allergy Unknown 01/02/17 Yes No Known Medication Allergies Allergy Unknown 01/02/17 Yes Brief Hospital Course Mr. Dimas is a 51 old male, admitted to ICU, s/p suicide attepmt with tylenol . Was confused, then obtunded, resp failure, then intubated on admit, report was 80 Extra strength tylenol ingested. Was given Acetyl-cysteine, serum tylenol level 162 , trended down. All direction from poison control were followed, to my knowledge. improved slowly, passed psych team eval to DC home with outpatient f/u, most meds stopped at DC, and he felt better, possible reaction to depression or anxiety meds, + cocaine use. Discharge Information Condition at Discharge: Improved Follow Up: Weeks Disposition/Orders: D/C to Home Scheduled Alprazolam (Alprazolam), 1 TAB PO QAM, (Reported) Amiodarone Hcl (Amiodarone Hcl), 1 TAB PO DAILY, (Reported) Atorvastatin Calcium (Atorvastatin Calcium), 1 TAB PO QHS, (Reported) Budesonide/Formoterol Fumarate (Symbicort 80-4.5 Mcg Inhaler), 2 PUFF IH BID, ( Reported) Dexamethasone (Dexamethasone), 1 TAB PO QID, (Reported) Melatonin (Melatonin), 2 TAB PO QHS, (Reported) Metoprolol Tartrate (Metoprolol Tartrate), 0.5 TAB PO BID, (Reported) Mirtazapine (Mirtazapine), 0.5 TAB PO QHS, (Reported) Montelukast Sodium (Montelukast Sodium Tablet), 1 TAB PO DAILY, (Reported) Omeprazole (Omeprazole), 1 CAP PO DAILY, (Reported) Ropinirole Hcl (Requip), 2 MG PO QHS, (Reported) Sertraline Hcl (Zoloft), 1 TAB PO DAILY, (Reported) Tiotropium Hersey (Spiriva), 1 CAP IH DAILY, (Reported) Tiotropium Hersey (Spiriva), 2 INH IH DAILY, (Reported) Scheduled PRN Albuterol Sulfate (Proair Hfa Inhaler), 1-2 PUFF INH PRN Q6HRS PRN for SHORTNESS OF BREATH, (Reported) Tramadol Hcl (Tramadol Hcl), 50 MG PO Q6H PRN for PAIN, (Reported) Patient Instructions Patient Instructions > 30 min YADI CARLISLE MD Feb 07, 2017 10:03
== END 2017-01-07 13:15 | disposition home or self-care (01) | DRG 917 ==
LOC: 1 WEST ICU 03:32 → 6 SOUTH 01-02 19:55
PROVIDERS: ADMIT Internal Medicine; ATTEND Internal Medicine
PROC: 5A1945Z Respiratory Ventilation, 24-96 Consecutive Hours (ICD-10-PCS; principal; 2016-12-28)
PROC: 0BH17EZ Insertion of Endotracheal Airway into Trachea, Via Natural or Artificial Opening (ICD-10-PCS; 2016-12-28)
DX: T39.1X2A Poisoning by 4-Aminophenol derivatives, intentional self-harm, initial encounter (principal); J96.01 Acute respiratory failure with hypoxia; J69.0 Pneumonitis due to inhalation of food and vomit; G92 Toxic encephalopathy; K72.90 Hepatic failure, unspecified without coma; R13.10 Dysphagia, unspecified; F10.239 Alcohol dependence with withdrawal, unspecified; E83.42 Hypomagnesemia; E87.6 Hypokalemia; F14.10 Cocaine abuse, uncomplicated; T45.0X2A Poisoning by antiallergic and antiemetic drugs, intentional self-harm, initial encounter; R74.0 Nonspecific elevation of levels of transaminase and lactic acid dehydrogenase [LDH]; R74.8 Abnormal levels of other serum enzymes; Y92.89 Other specified places as the place of occurrence of the external cause
CPT/HCPCS: 36415; 36600; 71010; 80048; 80053; 80076; 80202; 80307; 82550; 82805; 82962; 82977; 83605; 83735; 85007; 85025; 85610; 87040; 87070; 87186; 87205; 87641; 93005; 94002; 94003; 95816; G0480; J0132; J0330; J1630; J1650; J1956; J2020; J2060; J2405; J2543; J2704; J3010; J3370; J3475; J7030; J7042; S0028; 92526; 92610; G0479